=== PATIENT | female | born 1945 | race Caucasian/White ===

== ENCOUNTER 2022-08-04 13:48 | Inpatient (IN) | payer MEDICARE, BC, SELFPAY ==
--- NOTE | ~2022-08-04 | MR_ITS ---
MRI of the brain Clinical History: Vertigo Technique: Axial and sagittal T1-weighted images were acquired. These were followed by axial T2-weigh elvis, diffusion weighted, gradient, and FLAIR images. Findings: There is extensive restricted diffusion in the medial, inferior right cerebellum, compatibl e with acute infarct, probably in the right PICA distribution. No other acute infarct identified. No acute intracranial hemorrhage identified. Tiny foci of hemosiderin noted in the right thalamus. There are moderate to advanced chronic white matter changes throughout the periventricular white matter ot herwise. Ventricles and subarachnoid spaces are unremarkable. Orbits are unremarkable. Major intracranial flow voids appear to be intact. There is right maxillary and bilateral ethmoid sinus disease. Remaining p aranasal sinuses and mastoid air cells are essentially clear. Sagittal midline structures are intact. 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 Moderate to advanced chronic microvascular ischemic changes. Tiny foci of hemosiderin the right thalamus are consistent with remote microhemorrhages. No acute hem orrhage seen. Reviewed, dictated and finalized at location M. 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 Moderate to advanced chronic microvascular ischemic changes. Tiny foci of hemosiderin the right thalamus are consistent with remote microhem orrhages. No acute hemorrhage seen.
--- NOTE | ~2022-08-04 | CT_ITS ---
EXAMINATION: CT brain wo con DATE: 08/08/2022 00:08 INDICATION: New onset of occipital headache, neck pain TECHNIQUE: Computed tomography (CT) of the head was performed without intravenous contrast. The mA wa s adjusted according to patient size. Iterative reconstruction technique was employed. Exam dose: 68 1.00 mGy-cm total exam DLP. COMPARISON: August 05, 2022 MRI brain/brainstem FINDINGS: There is diminished attenuation of the posterior medial aspect of the right cerebellar greta sphere consistent with infarct. No intracranial mass lesion or hemorrhage. No other cerebellar or cerebrovascular infarct is noted. No midline shift or mass effect. This is diminished attenuation of the cerebral white matter, likely due to chronic small vessel ische audrey changes. Bilateral vertebral artery and basilar artery and prominent bilateral carotid siphon int ernal carotid artery calcifications are noted. No subdural or epidural hematoma is detected. There is prominent lower right maxillary sinus mucoperiosteal thickening and patchy soft tissue thick ening of the ethmoid air cells bilaterally. The mastoid air cells are normally developed and aerated. No fracture or bone destruction of the cranial vault. IMPRESSION: Right cerebellar hemispheric infarct Cerebral atherosclerosis and chronic small vessel ischemic changes of the cerebral white matter Reviewed, dictated and finalized at [facility]. Reviewed, dictated and finalized at location A. TRIC MOTOR WINDER IMPRESSION: Right cerebellar hemispheric infarct Cerebral atherosclerosis and chronic small vessel ischemic changes of the cereb ral white matter
--- NOTE | ~2022-08-04 | XR_ITS ---
EXAMINATION: XR abdomen/kub 1V DATE: 08/07/2022 14:10 INDICATION: Nausea. TECHNIQUE: A supine view of the abdomen was obtained. COMPARISON: CT abdomen and pelvis 08/04/2022 FINDINGS: There are no dilated loops of bowel. There is a small volume of stool in the colon. IMPRESSION: 1. Normal bowel gas pattern. Reviewed, dictated and finalized at location A. CEMENT AND PAINT MAKER
--- NOTE | ~2022-08-04 | CT_ITS ---
Non-contrast CT scan of the Abdomen and Pelvis Clinical indication: Nausea and vomiting Technique: 5 mm axial scans were obtained through the abdomen and pelvis without intravenous or oral contrast. Dose reduction technique was used on this scan by utilizing automated exposure control and iterative reconstruction technique. The dose-length product (DLP) was 648.75 mGy-cm. COMPARISON: 08/04/2022 Findings: Images through the lung bases reveal no abnormalities. The liver, kidneys, pancreas, and adrenals appear normal. Calcified gallstones are present. Calcified splenic granulomas again noted. There is no aortic aneurysm. There is no evidence of bowel obstruction. Questionable mild wall thickening gastric antrum. Images through the pelvis were performed. There is no evidence of ascites or lymphadenopathy. Urinary bladder is probably distended, otherwise unremarkable. No adnexal mass seen. Stable T11 compression fracture noted. Impression: Questionable mild wall thickening of the gastric antrum. Correlate for gastritis or other inflammator y process. Cholelithiasis. Stable T11 compression fracture. Reviewed, dictated and finalized at [facility]. ACE ROOM SHOP OPTICIAN Impression: Questionable mild wall thickening of the gastric antrum. Correlate for gastriti s or other inflammatory process. Cholelithiasis. Stable T11 compression fracture.
--- NOTE | ~2022-08-04 | CT_ITS ---
EXAMINATION: CT chest abdomen pelvis w con DATE: 08/17/2022 16:54 INDICATION: Hematemesis. TECHNIQUE: Computed tomography (CT) of the chest, abdomen, and pelvis was performed with 100 mL Omnip aque 350 intravenous contrast. Automated exposure control and iterative reconstruction technique were employed. The dose-length product was 1118.36 mGy-cm. COMPARISON: CT abdomen and pelvis 08/09/2022 FINDINGS: CHEST CT: There is mild atelectasis bilaterally. Calcified right lung nodules and calcified right hilar and med iastinal lymph nodes are consistent with old granulomatous disease. There are small pleural effusions . The heart size is normal. There are coronary artery calcifications. There are calcifications of aor tic valve. No pericardial effusion. There is ectasia of ascending aorta measuring 4.6 cm. There is a chronic burst fracture of T11. ABDOMEN/PELVIS CT: The liver demonstrates focal steatosis adjacent to the falciform ligament. Calcifications in the sple en are consistent with old granulomatous disease. There are gallstones in the gallbladder, which is n ormal in size. There is a 4 mm cyst in the tail of the pancreas, likely benign. Calcifications in the pancreas are consistent with chronic pancreatitis. The adrenal glands and kidneys are normal. There is high attenuation material in the superior aspect of the body of the stomach. There is wall thicken ing of the gastric antrum and pylorus. Stool distends the rectum. There is prominent fat in the ingui nal canals that may be hernias. There are changes of appendectomy. There are no dilated loops of kirk l. There is moderate to severe stenosis of right renal artery. There are no pathologically enlarged l ymph nodes. There is no free intraperitoneal fluid. There is severe lower lumbar spondylosis. IMPRESSION: 1. High attenuation material in the superior aspect of the body of the stomach, which may be active e xtravasation of contrast. 2. Wall thickening of the gastric antrum and pylorus suspicious for gastritis. Reviewed, dictated and finalized at location A. GER ACCESS IMPRESSION: 1. High attenuation material in the superior aspect of the body of the stomach, which may be active extravasation of contrast. 2. Wall thickening of the gastric antrum and pylorus suspicious for gastritis.
--- NOTE | ~2022-08-04 | XR_ITS ---
XR chest 1V portable 08/27/2022 10:29 Indication: Cough. Procedure: AP portable chest Comparison: No prior studies for comparison. Findings: Borderline heart size. There is atherosclerosis and ectasia of the aorta. No focal air spac e disease, pulmonary edema, pleural effusion or suspected pneumothorax. There is an old left seventh rib fracture. Generalized osteopenia. Impression: 1: No acute cardiopulmonary disease. Reviewed, dictated and finalized at location L. PROMOTION AGENT Impression: 1: No acute cardiopulmonary disease.
--- NOTE | ~2022-08-04 | CT_ITS ---
EXAMINATION: CT abdomen pelvis w con INDICATION: Intractable vomiting TECHNIQUE: Computed tomographic images of the abdomen and pelvis were obtained after the administrati on of 100 cc of Omnipaque 350 intravenous contrast. The dose-length product (DLP) was 470.31 mGy-cm. Automated exposure control and iterative reconstruction technique were employed. COMPARISON: None available FINDINGS: Minimal dependent atelectasis is present in the lung bases. The heart size is normal. There is mild wall thickening of the distal stomach. There is focal steatosis of the liver adjacent to the ligamentum teres. Stones are present in the nondistended gallbladder. Punctate calcifications in an otherwise normal spleen likely represent healed granulomatous disease. The pancreas and adrenal gland s are normal. The kidneys are unremarkable. No pathologically enlarged abdominal or pelvic lymph node s are identified. No free intraperitoneal gas or evidence of bowel obstruction. There is mild lumbar spondylosis. There is an age-indeterminate compression fracture of T11. IMPRESSION: 1. Mild wall thickening of the distal stomach which could be due to incomplete distention or gastriti s. 2. Cholelithiasis without evidence of cholecystitis. Reviewed, dictated and finalized at location L. STRIAL SPRAY PAINTER IMPRESSION: 1. Mild wall thickening of the distal stomach which could be due to incomplete distention or gastritis. 2. Cholelithiasis without evidence of cholecystitis.
--- NOTE | ~2022-08-04 | MR_ITS ---
MRI of the brain Clinical History: Vomiting Technique: Axial and sagittal T1-weighted images were acquired. These were followed by axial T2-weigh elvis, diffusion weighted, gradient, and FLAIR images. COMPARISON: 08/05/2022 Findings: Right PICA distribution infarct is essentially unchanged, persistent FLAIR and diffusion-we ighted hyperintense signal. No new infarct identified. Stable small foci of hemosiderin in the right thalamus on gradient images. Moderate to extensive chronic white matter changes in the periventricula r white matter are unchanged. Ventricles and subarachnoid spaces are stable. Orbits are unremarkable. Paranasal sinuses and mastoid air cells are clear. Sagittal midline structures are intact. IMPRESSION: Acute to subacute right PICA distribution infarct is unchanged from prior exam. Stable chronic white matter changes and small foci of hemosiderin in the right thalamus. Reviewed, dictated and finalized at [facility]. ITY AIRCREWMAN
[2022-08-04 13:51] VITALS: BP 155/87; PULSE 58; RESP 18; TEMP 36.8; O2SAT 98
--- NOTE | 2022-08-04 13:53 | ECG_ITS ---
Measurements Intervals [place] Rate: 68 P: 21 AR: 175 QRS: 6 QRSD: 110 T: 56 QT: 438 QTc: 466 Interpretive Statements SINUS RHYTHM NO PREVIOUS ECG AVAILABLE FOR COMPARISON Electronically Signed On 08-04-2022 15:00:32 RESEARCH PROFESSIONAL by Shoshana Juarez M.D.
[2022-08-04 14:19] LABS: Basophils Percent Auto 0.3 % (0.2-1.2); Eosinophils Percent Auto 0.2 % (0-4.4); Hematocrit 47.7 % (37.0-47.0); Hemoglobin 15.7 g/dL (12.0-15.0); Immature Granulocyte Absolute 0.03 K/mm3 (0.00-0.031); Immature Granulocyte Percent A 0.5 % (0-0.5); Lymphocytes Absolute Auto 1.13 K/mm3 (0.9-3.2); Mean Corpuscular HGB Conc 32.9 g/dl (32-36); Mean Corpuscular Volume 91.2 fl (80-100); Monocytes Absolute Auto 0.4 K/mm3 (0.1-0.6); Monocytes Percent Auto 6.9 % (2.6-8.5); Neutrophils Absolute Auto 4.4 K/mm3 (1.3-6.7); Neutrophils Percent Auto 73.1 % (45.5-73.1); Platelet Count Result 169 k/mm3 (150-375); Red Blood Count 5.23 M/mm3 (4.2-5.4); Red Cell Distribution Width 13.3 % (11.5-14.5)
[2022-08-04 14:37] LABS: Alanine Aminotransferase 29 U/L (6-35); Albumin Level 4.6 g/dL (3.5-5.1); Alkaline Phosphatase 74 U/L (38-126); Anion Gap 7 mmol/L (8-16); Aspartate Amino Transferase 31 U/L (14-36); Bilirubin,Total 1.2 mg/dL (0.2-1.3); Blood Urea Nitrogen 21 mg/dL (7-17); Calcium 8.7 mg/dL (8.4-10.2); Carbon Dioxide 26 mmol/L (22-30); Chloride 97 mmol/L (98-107); Estimated CRCL calculation 60 ml/min; Estimated Glomerular Filt Rate > 60; Glucose 108 mg/dL (65-110); Potassium 3.4 mmol/L (3.4-5.0); Sodium 130 mmol/L (137-145)
[2022-08-04] MEDS: SODIUM CHLORIDE 0.9% IV 1,000 ML 999 ML IV CONT ×2 (16:00→18:09)
[2022-08-04 16:26] VITALS: BP 166/78; PULSE 70; RESP 20; O2SAT 100
--- NOTE | 2022-08-04 16:26 | ED.GENADULT ---
HPI - General Adult General Chief complaint: Weakness Stated complaint: dizzy/weak/nauseated Time Seen by Provider: 08/04/22 14:05 History of Present Illness HPI narrative: Patient is a 76-year-old female with history of insulin-dependent diabetes, hypothyroidism, hyperlipidemia presenting with vomiting and weakness. Patient was in her normal state of health until approximately 3 days. Patient lives independently and completes all of her ADLs independently. Starting 3 days ago, she developed numerous episodes of vomiting. States that she was unable to keep anything down on Wednesday so she was seen at another ER. They diagnosed her with dehydration and discharged her home with Zofran. Patient states that she has been taking the Zofran every 8 hours as prescribed but she continues to vomit. States that she has only been able to keep a small bowl of cereal down. She has been increasingly weak and has required more assistance even just getting up to go to the bathroom. Denies fevers or chills, chest pain, shortness of breath, abdominal pain, diarrhea, constipation, dysuria, leg swelling. Related Data Home Medications Medication Instructions Recorded Confirmed aspirin 81 mg tablet,delayed 81 mg PO DAILY 06/18/20 08/04/22 release (Adult Aspirin Regimen) cholecalciferol (vitamin D3) 10 5,000 unit PO DAILY 06/18/20 08/04/22 mcg (400 unit) capsule cyanocobalamin (vitamin B-12) 100 mcg subcut MONTHLY 06/18/20 08/04/22 1,000 mcg/mL injection solution denosumab 60 mg/mL subcutaneous 6 mg subcut [id number] 06/18/20 08/04/22 syringe (Prolia) gabapentin 400 mg capsule 400 mg PO TID 06/18/20 08/04/22 insulin lispro [Humalog KwikPen See Rx Instructions .Route .COMPLEX 06/18/20 08/04/22 Insulin] levothyroxine 100 mcg capsule 88 mcg PO EVERY OTHER DAY 06/18/20 08/04/22 pravastatin 40 mg tablet 40 mg PO DAILY 06/18/20 08/04/22 Daily Probiotic (10 Strains) 1 tab-cap PO DAILY 08/04/22 08/04/22 omega-3 fatty acids 2,400 mg PO DAILY 08/04/22 08/04/22 Allergies Allergy/AdvReac Type Severity Reaction Status Date / Time No Known Allergies Allergy Verified 07/16/20 10:15 Review of Systems Review of Systems: All systems reviewed & are unremarkable except as noted in HPI and below PMFSH Past Medical History Medical History (Updated 08/05/22 @ 22:57 by Nancy Lott MD) Arthritis Diabetes Diabetic neuropathy High cholesterol History of TIA (transient ischemic attack) Pernicious anemia Thyroid disease TIA (transient ischemic attack) Vitiligo Surgical History Surgical History (Updated 08/04/22 @ 23:46 by Tania Eng NP) H/O cataract extraction H/O wrist surgery History of appendectomy History of delivery History of hysterectomy History of knee surgery Family History Family History Father Heart disease Mother Heart disease Sibling Heart disease Social History Social History (Updated 08/04/22 @ 23:48 by Tania Eng NP) 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 It she has a son. -code status full code Smoking status: Never smoker Alcohol intake: current Drinks per week: 1 Lack of Transportation: No Lack of Food: Never True Current Housing: I Have Housing Concerned About Future Housing: No Difficulty Paying Gas/Electric Bills: No Difficulty Paying for Meds: No Currently Unemployed: No Education: Associate Degree Difficulty w/ Childcare or Family Care: No Spiritual care concerns: No Exam Narrative: GENERAL: Well-appearing, well-nourished, and in no acute distress. HEAD: Normocephalic, atraumatic. EYES: PERRLA and EOMI. ENT: Nares clear, no rhinorrhea or epistaxis. Mucous membranes dry NECK: Supple. CHEST: Clear to auscultation. No respiratory distress. HEART: Regular rate and rhythm. Normal peripheral pulses. ABDOMEN: Soft, nontender
[2022-08-04 16:40] LABS: Appearance Urine Clear (Clear); Bilirubin Urine Negative (Negative); Blood Urine Negative (Negative); Color Urine Yellow (Yellow); Glucose Urine UA Trace mg/dL (Negative); Ketones Urine 2+ mg/dL (Negative); Leukocyte Esterase Ur Negative LEU/UL (Negative); Nitrate Urine Negative (Negative); Protein Urine Negative (Negative); Specific Grav Ur 1.015 (1.001-1.035)
[2022-08-04 16:55] LABS: Mucus Urine Rare /lpf; RBC Urine 0-2 /hpf (0-2); Squamous Epithelial Cell Urine Rare /hpf (Few); WBC Urine 0-3 /hpf
[2022-08-04 17:03] LABS: Add Urine Microscopic? YES
[2022-08-04 17:42] LABS: Lipase 63 U/L (23-300)
[2022-08-04 17:59] LABS: Lactic Acid Reflex < 0.5 mmol/L (0.7-2.0)
[2022-08-04] MEDS: FAMOTIDINE 20 MG/2 ML VIAL IV PUSH (18:09)
[2022-08-04 18:10] VITALS: BP 164/81; PULSE 71; RESP 19; O2SAT 100
[2022-08-04 18:12] LABS: Influenza A QL RT-PCR Negative (Negative); Influenza B QL RT-PCR Negative (Negative); SARS-CoV-2 RNA PCR Negative
--- NOTE | 2022-08-04 19:29 | PC.NURSE ---
Pt states she feels much better than when she arrived. She is alert and oriented x4, speech is clear, pupils are PEARRL. She denies any pain at this time. Son is at bedside. No questions or concerns at this time.
[2022-08-04 19:31] VITALS: BP 156/83; PULSE 68; RESP 18; O2SAT 99
[2022-08-04 21:00] VITALS: BP 177/81; PULSE 95; RESP 16; TEMP 36.2; O2SAT 100
[2022-08-04 21:10] LABS: Glucose Point of Care 105 mg/dl (65-105)
[2022-08-04] MEDS: hydrALAZINE HCL 20 MG/ML VIAL 10 MG IV PUSH (22:31)
[2022-08-04] MEDS: ONDANSETRON INJ 4 MG/2 ML VIAL IV PUSH (23:31)
--- NOTE | 2022-08-04 23:41 | PM.IMHP ---
H&P: HPI History of Present Illness Date/Time: 08/04/22 23:41 Chief Complaint: Weakness Narrative: This is a 76-year-old female patient who has a history of insulin-dependent diabetes and is on insulin pump that she manages on her own. The patient came into the emergency room with nausea vomiting and weakness. The patient stated that this started 3 days ago she had numerous episodes of vomiting. She could not keep anything down on Wednesday so she went to another ER. She was diagnosed with dehydration and sent home with Zofran. The patient had been taking Zofran every 8 hours as prescribed and she still continued to vomit. The patient was so weak that she needed assistance to go to the bathroom. She denied any fever chills or any diarrhea. Abdominal pelvis CT was read as the following1. Mild wall thickening of the distal stomach which could be due to incomplete distention or gastritis. 2. Cholelithiasis without evidence of cholecystitis. The patient was given IV fluids, and Pepcid The patient is dehydrated her H&H is 15.7 and 47.7 sodium 130. Lactic was normal. The urine had some ketones but otherwise negative for UTI. Influenza A/B and COVID are all negative. The patient is being admitted to observation status on the date of service of 08/04/2022. Review of Systems Review of Systems: See HPI All systems reviewed & are unremarkable except as noted in HPI and below Constitutional: Constitutional: Reports as per HPI and Reports no additional constitutional complaints Eyes: Eyes: Reports as per HPI and Reports no additional eye complaints ENT: Reports system reviewed and no additional complaints, except as documented and Reports Normal hearing present Cardiovascular: Cardiovascular: Reports no additional cardiovascular complaints Respiratory: Respiratory: Reports no additional respiratory complaints and Reports no additional respiratory complaints Gastrointestinal: Gastrointestinal: Reports as per HPI and Reports no additional gastrointestinal complaints Musculoskeletal: Musculoskeletal: Reports no additional musculoskeletal complaints Integumentary/Breasts: Skin/Breast: Reports system reviewed and no additional complaints, except as docu and Reports as per HPI Neurologic: Reports system reviewed and no additional complaints, except as documented, Reports as per HPI and Reports Normal hearing present Psychiatric: Psychiatric: Reports no additional psychiatric complaints and Reports as per HPI Endocrine: Endocrine: Reports no additional endocrine complaints Hematologic/Lymphatic: Hematologic/Lymphatic: Reports no additional hematologic/lymphatic complaints Allergic/Immunologic: Allergic/Immunologic: Reports no additional allergic/immunologic complaints PMFSH Past Medical History Medical History (Updated 08/04/22 @ 23:53 by Tania Eng NP) Arthritis Diabetes Diabetic neuropathy High cholesterol History of TIA (transient ischemic attack) Pernicious anemia Thyroid disease TIA (transient ischemic attack) Vitiligo Surgical History Surgical History (Updated 08/04/22 @ 23:46 by Tania Eng NP) H/O cataract extraction H/O wrist surgery History of appendectomy History of delivery History of hysterectomy History of knee surgery Family History Family History Father Heart disease Mother Heart disease Sibling Heart disease Social History Social History (Updated 08/04/22 @ 23:48 by Tania Eng NP) 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 It she has a son. -code status full code Smoking status: Never smoker Alcohol intake: current Drinks per week: 1 Lack of Transportation: No Lack of Food: Never True Current Housing: I Have Housing Concerned About Future Housing: No Difficulty Paying Gas/Electric Bills: No Difficulty Paying for Meds: No Currently
[2022-08-04 23:49] VITALS: BP 137/62; PULSE 70; RESP 18; O2SAT 97
[2022-08-05] MEDS: GABAPENTIN 400 MG CAPSULE PO ×4 (00:46→20:40)
[2022-08-05] MEDS: SODIUM CHLORIDE 0.9% IV 1,000 ML 100 ML IV CONT ×3 (01:09→20:40)
[2022-08-05 05:10] VITALS: BP 132/62; PULSE 71; RESP 16; TEMP 36.3; O2SAT 97
[2022-08-05] MEDS: LEVOTHYROXINE SODIUM 88 MCG TABLET PO (05:52)
[2022-08-05 06:37] LABS: Basophils Percent Auto 0.3 % (0.2-1.2); Eosinophils Percent Auto 0.2 % (0-4.4); Hematocrit 42.3 % (37.0-47.0); Immature Granulocyte Absolute 0.03 K/mm3 (0.00-0.031); Immature Granulocyte Percent A 0.5 % (0-0.5); Lymphocytes Absolute Auto 0.98 K/mm3 (0.9-3.2); Lymphocytes Percent Auto 16.2 % (18.3-44.2); Mean Corpuscular HGB Conc 33.1 g/dl (32-36); Mean Corpuscular Hemoglobin 30.4 pg (26-34); Mean Corpuscular Volume 91.8 fl (80-100); Mean Platelet Volume 10.2 fl (7.4-10.4); Monocytes Absolute Auto 0.4 K/mm3 (0.1-0.6); Monocytes Percent Auto 6.9 % (2.6-8.5); Neutrophils Absolute Auto 4.6 K/mm3 (1.3-6.7); Neutrophils Percent Auto 75.9 % (45.5-73.1); Platelet Count Result 137 k/mm3 (150-375); Red Blood Count 4.61 M/mm3 (4.2-5.4); Red Cell Distribution Width 13.5 % (11.5-14.5); White Blood Count 6.1 K/mm3 (4.5-10.0)
[2022-08-05 06:50] LABS: Lactic Acid Reflex 0.7 mmol/L (0.7-2.0)
[2022-08-05] MEDS: ONDANSETRON INJ 4 MG/2 ML VIAL IV PUSH (06:51)
[2022-08-05 06:54] LABS: Alanine Aminotransferase 24 U/L (6-35); Albumin Level 3.7 g/dL (3.5-5.1); Alkaline Phosphatase 55 U/L (38-126); Anion Gap 7 mmol/L (8-16); Aspartate Amino Transferase 27 U/L (14-36); Bilirubin,Total 0.9 mg/dL (0.2-1.3); Blood Urea Nitrogen 15 mg/dL (7-17); Calcium 7.1 mg/dL (8.4-10.2); Carbon Dioxide 22 mmol/L (22-30); Chloride 103 mmol/L (98-107); Estimated CRCL calculation 73 ml/min; Estimated Glomerular Filt Rate > 60; Glucose 106 mg/dL (65-110); Phosphorus 2.5 mg/dL (2.5-4.5); Potassium 2.9 mmol/L (3.4-5.0); Sodium 132 mmol/L (137-145)
[2022-08-05] MEDS: ASPIRIN 81 MG ENTERIC TABLET PO (09:09)
[2022-08-05] MEDS: FAMOTIDINE 20 MG/2 ML VIAL IV PUSH ×2 (09:09→20:40)
[2022-08-05 09:52] LABS: Free T4 Free Thyroxine Reflex 1.19 ng/dL (0.78-2.19)
[2022-08-05 10:42] VITALS: O2SAT 98
[2022-08-05] MEDS: POTASSIUM CHLORIDE INJ 40 MEQ in SODIUM CHLORIDE 0.9% IV 500 ML 100 MEQ IVPB (10:45)
[2022-08-05 10:49] LABS: Total Triiodothyronine (T3) 0.56 NG/ML (0.97-1.69)
[2022-08-05 11:30] VITALS: BMI 33.6
--- NOTE | 2022-08-05 11:54 | PM.IMPN ---
Progress Note: A&P Assessment and Plan (1) Intractable nausea and vomiting: Code(s): R11.2 - Nausea with vomiting, unspecified Status: Acute Assessment and Plan: Continue with IV fluids -continue with Pepcid -monitor magnesium electrolytes. (2) Diabetes: Code(s): E11.9 - Type 2 diabetes mellitus without complications Status: Acute Assessment and Plan: The patient stated that she would be able to continue using her DEXA, and insulin pump and she will sign the agreement. (3) Thyroid disease: Code(s): E07.9 - Disorder of thyroid, unspecified Status: Acute Assessment and Plan: -check thyroid level and continue with levothyroxine. (4) TIA (transient ischemic attack): Code(s): G45.9 - Transient cerebral ischemic attack, unspecified Status: Acute Assessment and Plan: Continue with aspirin. Continue with pravastatin (5) Diabetic neuropathy: Code(s): E11.40 - Type 2 diabetes mellitus with diabetic neuropathy, unspecified Status: Acute Assessment and Plan: Continue with gabapentin Subjective Date/time seen: 08/05/22 11:54 No new complaints Exam Const: General: cooperative, healthy appearing, comfortable, no acute distress, well developed, alert, awake, Physically active, average body habitus and well nourished Nutritional Appearance: average body habitus and well nourished Orientation/consciousness: oriented to person, oriented to place, oriented to time and patient oriented x3 Limitations: no limitations HENMT: Head: normal to inspection, No palpable skull fracture present, normocephalic and atraumatic Ears: hearing grossly normal bilaterally and external ears normal Face/Nose/Sinus: Normal external nose present and Normal nares present Eyes: General: appearance normal, both eyes and all related structures Alignment and Position: alignment normal Periorbital: periorbital findings normal Eyelids: eyelids normal Sclera: sclerae normal Pupils: Equal, round and reactive pupils present EOM: EOMs intact bilaterally Neck: Neck: normal visual inspection, full ROM, no lymphadenopathy, trachea midline and supple Chest: Chest palpation & inspection: normal inspection of the chest Resp: Effort & Inspection: normal respiratory effort Auscultation: clear to auscultation bilaterally Cardio: Palpation: normal PMI Rate: regular rate Rhythm: regular rhythm Heart sounds: S1 normal heart sound present and S2 normal heart sound present Peripheral pulses: Peripheral pulses 2+ throughout GI: Inspection: normal to inspection Auscultation: normal bowel sounds Rectal Exam: deferred Other: DEXA, intact and insulin pump intact Back/Spine/Pelvis: Cervical Spine: cervical ROM normal Skin: General skin exam: normal color Lesions: no lesions Rashes: no rashes Trauma: no lacerations or abrasions Wounds: no wounds Hair: normal Nails: normal Neuro: General: oriented to person, oriented to place, oriented to time and patient oriented x3 Cranial nerves: Yes Equal, round and reactive pupils present and Yes Normal hearing present Cognition (Neuro): normal cognition Speech: normal speech Gait exam (Neuro): Normal gait present Motor exam (neuro): 5/5 motor strength present throughout Sensory Exam: normal sensation Extrem: General: normal to inspection Right upper extremity: normal to inspection and shoulder/upper arm Left upper extremity: normal to inspection and shoulder/upper arm Right lower extremity: normal to inspection Left lower extremity: normal to inspection Psych: Appearance: grossly normal Mental Status: mental status grossly normal Speech and movement: Normal speech and movement present Affect: normal affect Attitude: cooperative Thought process: Normal thought process present Insight: Good insight present (Psych) Judgement: Good judgement present (Psych) Objective Data Vital Signs Vital Signs: Vital Signs - 24 hr 02/0
--- NOTE | 2022-08-05 12:07 | PC.NURSE ---
patient to MRI per stretcher
[2022-08-05 13:59] VITALS: BP 121/104; PULSE 73; RESP 16; TEMP 36.3; O2SAT 100
[2022-08-05 16:22] LABS: Glucose Point of Care 159 mg/dl (65-105)
[2022-08-05 19:12] LABS: Potassium 3.2 mmol/L (3.4-5.0)
[2022-08-05 21:20] VITALS: BP 163/78; PULSE 65; RESP 16; TEMP 36.3; O2SAT 98
[2022-08-05 21:28] LABS: Glucose Point of Care 173 mg/dl (65-105)
[2022-08-05] MEDS: POTASSIUM CHLORIDE 20 MEQ PACKET (FOR LIQUID) PO (23:33)
--- NOTE | 2022-08-06 | ECHO_ITS ---
Patient Info Name: Carrie Downs Age: 76 years : 1945 Gender: Female Ht: 64 in Wt: 195 lbs BSA: 2.03 m2 HR: 71 bpm BP: 133 / 75 mmHg Technical Quality: Fair Exam Date: 08/06/2022 2:01 PM Exam Location: [facility] Pulmonary Exam Room: [facility] Patient Status: Inpatient Admit Date: 08/05/2022 Staff Ordering Physician: Hammad Almaraz MD Commissary Assistant: Latasha Harmon RDCS Attending Provider: Mir Carrera MD Referring Physician: Sung SAENZ; Exam Type: CA echo doppler color flow Study Info Indications - CVA Complete two-dimensional, color flow and Doppler transthoracic echocardiogram is performed. Summary 1. Complete two-dimensional, color flow and Doppler transthoracic echocardiogram is performed. 2. Left ventricular chamber dimension is normal. 3. Left ventricular systolic function is normal, estimated at 60-65%. 4. There is mild concentric increased left ventricular wall thickness. 5. The left ventricular diastolic function is grade I diastolic dysfunction. 6. E/e' 13 is mildly elevated. 7. Left atrial chamber dimension is moderately enlarged. 8. There is moderate aortic valve sclerosis. 9. There is mild aortic valve stenosis with a peak velocity of 258 cm/s, mean gradient of 15 mmHg, and aortic valve area of 1.8 cm2. 10. There is mild aortic valve regurgitation. 11. The mitral valve has mildly thickened leaflets and moderately calcified annulus. 12. There is trace tricuspid valve regurgitation. 13. No pulmonary hypertension, estimated pulmonary arterial systolic pressure is 30 mmHg. 14. The prox ascending aorta size is borderline dilated at 4.0 cm. Left Ventricle E/e' 13 is mildly elevated. Left ventricular chamber dimension is normal. Left ventricular systolic function is normal, estimated at 60-65%. There is mild concentric increased left ventricular wall thickness. The left ventricular diastolic function is grade I diastolic dysfunction. Right Ventricle Right ventricular chamber dimension is normal. Right ventricular systolic function is normal. Left Atria Left atrial chamber dimension is moderately enlarged. Right Atria Right atrial chamber dimension is normal. Aortic Valve The aortic valve is trileaflet. There is moderate aortic valve sclerosis. There is mild aortic valve stenosis with a peak velocity of 258 cm/s, mean gradient of 15 mmHg, and aortic valve area of 1.8 cm2. There is mild aortic valve regurgitation. Pulmonic Valve There is no pulmonic regurgitation. Mitral Valve The mitral valve has mildly thickened leaflets and moderately calcified annulus. There is no mitral valve stenosis. There is no mitral valve regurgitation. Tricuspid Valve There is trace tricuspid valve regurgitation. No pulmonary hypertension, estimated pulmonary arterial systolic pressure is 30 mmHg. Pericardium/Pleural There is no pericardial effusion. Inferior Vena Cava Normal inferior vena cava with >50% collapse upon inspiration consistent with normal right atrial pressure, 5 mmHg. Aorta The prox ascending aorta size is borderline dilated at 4.0 cm. The aortic root size at the sinus of Valsalva is normal. Left Ventricular Outflow Tract Name Value Normal LVOT 2D
[2022-08-06] MEDS: ONDANSETRON INJ 4 MG/2 ML VIAL IV PUSH ×4 (01:18→23:04)
[2022-08-06 05:03] VITALS: BP 133/75; PULSE 78; RESP 16; TEMP 36.3; O2SAT 99
[2022-08-06 06:34] LABS: Anion Gap 7 mmol/L (8-16); Blood Urea Nitrogen 8 mg/dL (7-17); Calcium 6.6 mg/dL (8.4-10.2); Carbon Dioxide 21 mmol/L (22-30); Chloride 102 mmol/L (98-107); Estimated CRCL calculation 86 ml/min; Estimated Glomerular Filt Rate > 60; Glucose 180 mg/dL (65-110); Potassium 3.1 mmol/L (3.4-5.0); Sodium 130 mmol/L (137-145)
[2022-08-06] MEDS: SODIUM CHLORIDE 0.9% IV 1,000 ML 100 ML IV CONT (07:04)
[2022-08-06 07:41] LABS: Glucose Point of Care 175 mg/dl (65-105)
[2022-08-06] MEDS: POTASSIUM CHLORIDE INJ 40 MEQ in SODIUM CHLORIDE 0.9% IV 500 ML 130 MEQ IVPB (08:43)
[2022-08-06] MEDS: CLOPIDOGREL BISULFATE 75 MG TABLET PO (09:13)
[2022-08-06] MEDS: ASPIRIN 81 MG ENTERIC TABLET PO (09:13)
[2022-08-06] MEDS: FAMOTIDINE 20 MG/2 ML VIAL IV PUSH ×2 (09:13→20:25)
[2022-08-06] MEDS: PRAVASTATIN SODIUM 20 MG TABLET 40 MG PO (09:13)
[2022-08-06] MEDS: GABAPENTIN 400 MG CAPSULE PO ×2 (09:13→17:47)
[2022-08-06 11:36] LABS: Glucose Point of Care 191 mg/dl (65-105)
--- NOTE | 2022-08-06 11:43 | PM.IMPN ---
Progress Note: A&P Assessment and Plan (1) Intractable nausea and vomiting: Code(s): R11.2 - Nausea with vomiting, unspecified Status: Acute Assessment and Plan: Continue with IV fluids -continue with Pepcid -monitor magnesium electrolytes. (2) Diabetes: Code(s): E11.9 - Type 2 diabetes mellitus without complications Status: Acute Assessment and Plan: The patient stated that she would be able to continue using her DEXA, and insulin pump and she will sign the agreement. (3) Thyroid disease: Code(s): E07.9 - Disorder of thyroid, unspecified Status: Acute Assessment and Plan: -check thyroid level and continue with levothyroxine. (4) TIA (transient ischemic attack): Code(s): G45.9 - Transient cerebral ischemic attack, unspecified Status: Acute Assessment and Plan: Acute stroke noted. Neuro consult PTOT Aspirin and Plavix Will get echo (5) Diabetic neuropathy: Code(s): E11.40 - Type 2 diabetes mellitus with diabetic neuropathy, unspecified Status: Acute Assessment and Plan: Continue with gabapentin Subjective Date/time seen: 08/06/22 11:43 Still having some vertigo dizziness and nausea vomiting Exam Const: General: cooperative, healthy appearing, comfortable, no acute distress, well developed, alert, awake, Physically active, average body habitus and well nourished Nutritional Appearance: average body habitus and well nourished Orientation/consciousness: oriented to person, oriented to place, oriented to time and patient oriented x3 Limitations: no limitations HENMT: Head: normal to inspection, No palpable skull fracture present, normocephalic and atraumatic Ears: hearing grossly normal bilaterally and external ears normal Face/Nose/Sinus: Normal external nose present and Normal nares present Eyes: General: appearance normal, both eyes and all related structures Alignment and Position: alignment normal Periorbital: periorbital findings normal Eyelids: eyelids normal Sclera: sclerae normal Pupils: Equal, round and reactive pupils present EOM: EOMs intact bilaterally Neck: Neck: normal visual inspection, full ROM, no lymphadenopathy, trachea midline and supple Chest: Chest palpation & inspection: normal inspection of the chest Resp: Effort & Inspection: normal respiratory effort Auscultation: clear to auscultation bilaterally Cardio: Palpation: normal PMI Rate: regular rate Rhythm: regular rhythm Heart sounds: S1 normal heart sound present and S2 normal heart sound present Peripheral pulses: Peripheral pulses 2+ throughout GI: Inspection: normal to inspection Auscultation: normal bowel sounds Rectal Exam: deferred Other: DEXA, intact and insulin pump intact Back/Spine/Pelvis: Cervical Spine: cervical ROM normal Skin: General skin exam: normal color Lesions: no lesions Rashes: no rashes Trauma: no lacerations or abrasions Wounds: no wounds Hair: normal Nails: normal Neuro: General: oriented to person, oriented to place, oriented to time and patient oriented x3 Cranial nerves: Yes Equal, round and reactive pupils present and Yes Normal hearing present Cognition (Neuro): normal cognition Speech: normal speech Gait exam (Neuro): Normal gait present Motor exam (neuro): 5/5 motor strength present throughout Sensory Exam: normal sensation Extrem: General: normal to inspection Right upper extremity: normal to inspection and shoulder/upper arm Left upper extremity: normal to inspection and shoulder/upper arm Right lower extremity: normal to inspection Left lower extremity: normal to inspection Psych: Appearance: grossly normal Mental Status: mental status grossly normal Speech and movement: Normal speech and movement present Affect: normal affect Attitude: cooperative Thought process: Normal thought process present Insight: Good insight present (Psych) Judgement: Good judgement present (Psych) Objectiv
--- NOTE | 2022-08-06 12:03 | WPDNEURCNPN ---
Assessment and Plan Assessment and plan (1) Diabetes: Code(s): E11.9 - Type 2 diabetes mellitus without complications Status: Acute (2) Intractable nausea and vomiting: Code(s): R11.2 - Nausea with vomiting, unspecified Status: Acute (3) Diabetic neuropathy: Code(s): E11.40 - Type 2 diabetes mellitus with diabetic neuropathy, unspecified Status: Acute (4) Posterior circulation stroke: Code(s): I63.50 - Cerebral infarction due to unspecified occlusion or stenosis of unspecified cerebral artery Status: Acute Plan 1 acute infarct in the right PICA distribution could be compatible with intractable nausea and vomiting 2. Diabetes mellitus 3. Thyroid dysfunction 5. Four diabetic neuropathy. Patient receiving aspirin 81 mg daily has been added to have Plavix 75 mg daily which can be continued for 6 weeks she has also been continued on levothyroxine 88 micro philly give 48 hours along with the pravastatin 40 mg daily and her insulin she will benefit from CTA and echocardiogram. Consult date: 08/06/22 HPI: Carrie Downs is a 76 year old female admitted to the hospital through the emergency room for the complaints of generalized weakness along with dizziness and nausea in addition to ongoing history of 1. Insulin-dependent diabetes mellitus 2. Hypothyroidism 3. Hyperlipidemia her complaints of generalized weakness were associated with vomiting patient does live independently and completes all of her ADLs independently she was diagnosed to have dehydration and was discharged from the ER initially on Zofran but then she was brought to this ER because of the continual vomiting and increasingly becoming more weak her medications included aspirin 81 mg daily gabapentin 400 mg 3 times a day insulin lispro levothyroxine 88 micro g every other day with pravastatin 40 mg daily, is not allergic to any medication but does have ongoing history of diabetes mellitus with neuropathy also hypercholesterolemia and TIAs in the past with history of she has anemia as well, she has never a smoker but does drink alcohol 1 drink per week, initial exam in the ER was nonfocal with normal vital signs blood pressure 155/87 and temp 98.2? she was admitted to the hospital for the hydration with physical therapy and occupation therapy her CBC was normal basic metabolic panel with sodium of 130 lactic acid 0.5 UA negative his screening for influenza a and B and COVID negative, TSH 15.0, MRI today documented acute infarct in right PICA distribution with chronic microvascular changes and tiny foci of hemosiderin in the right thalamus with remote possibility of microhemorrhage Review of Systems Review of Systems: All systems reviewed & are unremarkable except as noted in HPI and below PMFSH Past Medical History Medical History (Updated 08/06/22 @ 12:15 by Kahlil Wilcox MD) Arthritis Diabetes Diabetic neuropathy High cholesterol History of TIA (transient ischemic attack) Pernicious anemia Thyroid disease TIA (transient ischemic attack) Vitiligo Surgical History Surgical History (Updated 08/04/22 @ 23:46 by Tania Eng NP) H/O cataract extraction H/O wrist surgery History of appendectomy History of delivery History of hysterectomy History of knee surgery Family History Family History Father Heart disease Mother Heart disease Sibling Heart disease Social History Social History (Updated 08/04/22 @ 23:48 by Tania Eng NP) 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 It she has a son. -code status full code Smoking status: Never smoker Alcohol intake: current Drinks per week: 1 Lack of Transportation: No Lack of Food: Never True Current Housing: I Have Housing Concerned About Future Housing: No Difficulty Paying Gas/Electric Bills: No Difficulty Paying for Meds:
[2022-08-06 14:00] VITALS: BP 166/80; PULSE 73; RESP 16; TEMP 35.8; O2SAT 99
[2022-08-06 16:25] LABS: Glucose Point of Care 201 mg/dl (65-105)
[2022-08-06 21:01] LABS: Glucose Point of Care 212 mg/dl (65-105)
[2022-08-06 22:00] VITALS: BP 148/80; PULSE 71; RESP 18; TEMP 36.4; O2SAT 100
[2022-08-07] MEDS: LEVOTHYROXINE SODIUM 88 MCG TABLET PO (05:22)
[2022-08-07 06:00] VITALS: BP 160/69; PULSE 60; RESP 18; TEMP 36.3; O2SAT 99
[2022-08-07] MEDS: ONDANSETRON INJ 4 MG/2 ML VIAL IV PUSH ×2 (06:06→20:23)
[2022-08-07 08:05] LABS: Glucose Point of Care 172 mg/dl (65-105)
[2022-08-07] MEDS: FAMOTIDINE 20 MG/2 ML VIAL IV PUSH ×2 (08:52→20:24)
[2022-08-07] MEDS: GABAPENTIN 400 MG CAPSULE PO (08:56)
[2022-08-07] MEDS: PROMETHAZINE HCL 25 MG/ML AMPUL 12.5 MG IV PUSH (09:59)
[2022-08-07 11:00] LABS: Anion Gap 14 mmol/L (8-16); Blood Urea Nitrogen 14 mg/dL (7-17); Carbon Dioxide 17 mmol/L (22-30); Chloride 102 mmol/L (98-107); Estimated CRCL calculation 86 ml/min; Estimated Glomerular Filt Rate > 60; Glucose 191 mg/dL (65-110); Potassium 3.7 mmol/L (3.4-5.0); Sodium 133 mmol/L (137-145)
[2022-08-07] MEDS: CHOLECALCIFEROL 1,000 UNITS TABLET 5000 UNITS PO (11:16)
[2022-08-07] MEDS: ASPIRIN 81 MG ENTERIC TABLET PO (11:16)
[2022-08-07] MEDS: CLOPIDOGREL BISULFATE 75 MG TABLET PO (11:16)
[2022-08-07] MEDS: PRAVASTATIN SODIUM 20 MG TABLET 40 MG PO (11:16)
[2022-08-07] MEDS: OMEGA 3 POLYUNSAT FATTY ACIDS 1 GM CAP 2 GM PO (11:17)
--- NOTE | 2022-08-07 11:25 | P.PNIM_ITS ---
Progress Note: A&P Assessment and Plan (1) Intractable nausea and vomiting: Code(s): R11.2 - Nausea with vomiting, unspecified Status: Acute Assessment and Plan: Continue with IV fluids -continue with Pepcid -monitor magnesium electrolytes. (2) Diabetes: Code(s): E11.9 - Type 2 diabetes mellitus without complications Status: Acute Assessment and Plan: The patient stated that she would be able to continue using her DEXA, and insulin pump and she will sign the agreement. (3) Thyroid disease: Code(s): E07.9 - Disorder of thyroid, unspecified Status: Acute Assessment and Plan: -check thyroid level and continue with levothyroxine. (4) TIA (transient ischemic attack): Code(s): G45.9 - Transient cerebral ischemic attack, unspecified Status: Acute Assessment and Plan: Acute stroke noted. Neuro consult PTOT Aspirin and Plavix Will get echo (5) Diabetic neuropathy: Code(s): E11.40 - Type 2 diabetes mellitus with diabetic neuropathy, unspecified Status: Acute Assessment and Plan: Continue with gabapentin Subjective Date/time seen: 08/07/22 11:25 stil having nausea and occasional emesis Exam Const: General: cooperative, healthy appearing, comfortable, no acute distress, well developed, alert, awake, Physically active, average body habitus and well nourished Nutritional Appearance: average body habitus and well nourished Orientation/consciousness: oriented to person, oriented to place, oriented to time and patient oriented x3 Limitations: no limitations HENMT: Head: normal to inspection, No palpable skull fracture present, normocephalic and atraumatic Ears: hearing grossly normal bilaterally and external ears normal Face/Nose/Sinus: Normal external nose present and Normal nares present Eyes: General: appearance normal, both eyes and all related structures Alignment and Position: alignment normal Periorbital: periorbital findings normal Eyelids: eyelids normal Sclera: sclerae normal Pupils: Equal, round and reactive pupils present EOM: EOMs intact bilaterally Neck: Neck: normal visual inspection, full ROM, no lymphadenopathy, trachea midline and supple Chest: Chest palpation & inspection: normal inspection of the chest Resp: Effort & Inspection: normal respiratory effort Auscultation: clear to auscultation bilaterally Cardio: Palpation: normal PMI Rate: regular rate Rhythm: regular rhythm Heart sounds: S1 normal heart sound present and S2 normal heart sound present Peripheral pulses: Peripheral pulses 2+ throughout GI: Inspection: normal to inspection Auscultation: normal bowel sounds Rectal Exam: deferred Other: DEXA, intact and insulin pump intact Back/Spine/Pelvis: Cervical Spine: cervical ROM normal Skin: General skin exam: normal color Lesions: no lesions Rashes: no rashes Trauma: no lacerations or abrasions Wounds: no wounds Hair: normal Nails: normal Neuro: General: oriented to person, oriented to place, oriented to time and patient oriented x3 Cranial nerves: Yes Equal, round and reactive pupils present and Yes Normal hearing present Cognition (Neuro): normal cognition Speech: normal speech Gait exam (Neuro): Normal gait present Motor exam (neuro): 5/5 motor strength present throughout Sensory Exam: normal sensation Extrem: General: normal to inspection Right upper extremity: normal to inspection and shoulder/upper arm Left upp
[2022-08-07] MEDS: GABAPENTIN 300 MG CAPSULE 600 MG PO ×2 (14:07→21:31)
[2022-08-07 14:25] VITALS: BP 155/78; PULSE 80; RESP 18; TEMP 36.5; O2SAT 92
[2022-08-07 17:58] LABS: Glucose Point of Care 192 mg/dl (65-105)
[2022-08-07] MEDS: MECLIZINE HCL 25 MG TABLET PO (21:13)
[2022-08-07 21:26] LABS: Glucose Point of Care 219 mg/dl (65-105)
[2022-08-07] MEDS: hydrALAZINE HCL 20 MG/ML VIAL 10 MG IV PUSH (21:29)
[2022-08-07 22:00] VITALS: BP 187/81; PULSE 74; RESP 14; TEMP 36.3; O2SAT 97
[2022-08-07 23:00] VITALS: BP 165/78
--- NOTE | 2022-08-07 23:45 | PC.NURSE ---
Patient reporting new onset of occipital headache and neck pain. Patient states she has not experienced this symptom before. Also vertigo has not improved, therefore Meclizine was given as a 1x dose along with nausea medication. Patient also continues to have elevated BP without hydralazine onboard. MANISH Wellington was notified and orders received for a stat CT of brain. And also Dr. Sheikh made aware of new onset of symptoms and continued symptoms. Dr. Sheikh instructed this RN to call back once results have been released.
--- NOTE | 2022-08-08 02:50 | PC.NURSE ---
Dr. Wilcox made aware of CT results. Orders received.
[2022-08-08] MEDS: DEXTROSE 5%/0.45% SOD CHL 1,000 ML 40 ML IV CONT (05:16)
[2022-08-08] MEDS: PROMETHAZINE HCL 25 MG/ML AMPUL 12.5 MG IV PUSH (05:18)
[2022-08-08 06:00] VITALS: BP 158/84; PULSE 87; RESP 16; TEMP 35.7; O2SAT 98
--- NOTE | 2022-08-08 06:13 | PC.NURSE ---
Patient no longer has insulin pump hooked up to her person. Patient solely receiving any kind of coverage per icu staff nurse. Patient however, is NPO now and prior has not been eatingr/t nausea and vomiting.
[2022-08-08 07:44] LABS: Glucose Point of Care 214 mg/dl (65-105)
[2022-08-08] MEDS: FAMOTIDINE 20 MG/2 ML VIAL IV PUSH ×2 (08:22→20:51)
[2022-08-08] MEDS: ASPIRIN 81 MG ENTERIC TABLET PO (08:23)
[2022-08-08] MEDS: CLOPIDOGREL BISULFATE 75 MG TABLET PO (08:23)
[2022-08-08] MEDS: ONDANSETRON INJ 4 MG/2 ML VIAL IV PUSH ×2 (08:25→17:02)
[2022-08-08] MEDS: GABAPENTIN 300 MG CAPSULE 600 MG PO ×2 (08:28→12:09)
--- NOTE | 2022-08-08 10:04 | PCOTNOTE ---
Attempted to see pt for Occupational Therapy treatment. Pt declined to participate today, due to no sleep last night and not feeling well due to diabetic neuropathy pain. Will continue per POC duration/frequency tomorrow.
--- NOTE | 2022-08-08 11:36 | PM.IMPN ---
Progress Note: A&P Assessment and Plan (1) Intractable nausea and vomiting: Code(s): R11.2 - Nausea with vomiting, unspecified Status: Acute Assessment and Plan: Continue with IV fluids -continue with Pepcid -monitor magnesium electrolytes. -I think this can be explained by her posterior circulation CVA. Appreciate Neurology input. -if persists consider GI consult. I will repeat his CT scan (2) Diabetes: Code(s): E11.9 - Type 2 diabetes mellitus without complications Status: Acute Assessment and Plan: The patient stated that she would be able to continue using her DEXA, and insulin pump and she will sign the agreement. (3) Thyroid disease: Code(s): E07.9 - Disorder of thyroid, unspecified Status: Acute Assessment and Plan: -check thyroid level and continue with levothyroxine. (4) TIA (transient ischemic attack): Code(s): G45.9 - Transient cerebral ischemic attack, unspecified Status: Acute Assessment and Plan: Acute stroke noted. Neuro consult PTOT Aspirin and Plavix Will get echo (5) Diabetic neuropathy: Code(s): E11.40 - Type 2 diabetes mellitus with diabetic neuropathy, unspecified Status: Acute Assessment and Plan: Continue with gabapentin Subjective Date/time seen: 08/08/22 11:36 Still having dizziness vertigo and also having some nausea and emesis. KUB noted which is negative. Exam Const: General: cooperative, healthy appearing, comfortable, no acute distress, well developed, alert, awake, Physically active, average body habitus and well nourished Nutritional Appearance: average body habitus and well nourished Orientation/consciousness: oriented to person, oriented to place, oriented to time and patient oriented x3 Limitations: no limitations HENMT: Head: normal to inspection, No palpable skull fracture present, normocephalic and atraumatic Ears: hearing grossly normal bilaterally and external ears normal Face/Nose/Sinus: Normal external nose present and Normal nares present Eyes: General: appearance normal, both eyes and all related structures Alignment and Position: alignment normal Periorbital: periorbital findings normal Eyelids: eyelids normal Sclera: sclerae normal Pupils: Equal, round and reactive pupils present EOM: EOMs intact bilaterally Neck: Neck: normal visual inspection, full ROM, no lymphadenopathy, trachea midline and supple Chest: Chest palpation & inspection: normal inspection of the chest Resp: Effort & Inspection: normal respiratory effort Auscultation: clear to auscultation bilaterally Cardio: Palpation: normal PMI Rate: regular rate Rhythm: regular rhythm Heart sounds: S1 normal heart sound present and S2 normal heart sound present Peripheral pulses: Peripheral pulses 2+ throughout GI: Inspection: normal to inspection Auscultation: normal bowel sounds Rectal Exam: deferred Other: DEXA, intact and insulin pump intact Back/Spine/Pelvis: Cervical Spine: cervical ROM normal Skin: General skin exam: normal color Lesions: no lesions Rashes: no rashes Trauma: no lacerations or abrasions Wounds: no wounds Hair: normal Nails: normal Neuro: General: oriented to person, oriented to place, oriented to time and patient oriented x3 Cranial nerves: Yes Equal, round and reactive pupils present and Yes Normal hearing present Cognition (Neuro): normal cognition Speech: normal speech Gait exam (Neuro): Normal gait present Motor exam (neuro): 5/5 motor strength present throughout Sensory Exam: normal sensation Extrem: General: normal to inspection Right upper extremity: normal to inspection and shoulder/upper arm Left upper extremity: normal to inspection and shoulder/upper arm Right lower extremity: normal to inspection Left lower extremity: normal to inspection Psych: Appearance: grossly normal Mental Status: mental status grossly normal Speech and movement: Normal speech and movem
[2022-08-08 12:04] LABS: Glucose Point of Care 223 mg/dl (65-105)
[2022-08-08] MEDS: INSULIN ASPART (*BKC) 100 UNITS/ML SUB-Q ×2 (12:09→17:02)
[2022-08-08 14:00] VITALS: BP 161/82; PULSE 81; RESP 16; TEMP 36.6; O2SAT 98
[2022-08-08 16:32] LABS: Glucose Point of Care 207 mg/dl (65-105)
--- NOTE | 2022-08-08 21:16 | PC.NURSE ---
Pt request, 2100 gabapentin dose at 0000. Pt states, so it can last the whole night. Pt continues to experience nausea. Pt states phenargen helped a lot more than zofran.
[2022-08-08 22:00] VITALS: BP 159/79; PULSE 80; RESP 16; TEMP 36.6; O2SAT 99
[2022-08-09 00:12] LABS: Glucose Point of Care 216 mg/dl (65-105)
[2022-08-09 05:43] VITALS: BP 195/82; PULSE 69; RESP 16; TEMP 36.2; O2SAT 99
[2022-08-09] MEDS: LEVOTHYROXINE SODIUM 88 MCG TABLET PO (05:53)
[2022-08-09] MEDS: DEXTROSE 5%/0.45% SOD CHL 1,000 ML 40 ML IV CONT (05:53)
[2022-08-09] MEDS: hydrALAZINE HCL 20 MG/ML VIAL 10 MG IV PUSH (05:54)
[2022-08-09 06:12] LABS: Glucose Point of Care 232 mg/dl (65-105)
[2022-08-09 07:07] LABS: Anion Gap 8 mmol/L (8-16); Blood Urea Nitrogen 16 mg/dL (7-17); Calcium 7.1 mg/dL (8.4-10.2); Carbon Dioxide 23 mmol/L (22-30); Chloride 98 mmol/L (98-107); Estimated CRCL calculation 86 ml/min; Estimated Glomerular Filt Rate > 60; Glucose 229 mg/dL (65-110); Potassium 3.3 mmol/L (3.4-5.0); Sodium 129 mmol/L (137-145)
[2022-08-09] MEDS: FAMOTIDINE 20 MG/2 ML VIAL IV PUSH ×2 (08:23→20:36)
[2022-08-09] MEDS: INSULIN ASPART (*BKC) 100 UNITS/ML SUB-Q ×3 (08:24→17:03)
[2022-08-09] MEDS: GABAPENTIN 300 MG CAPSULE 600 MG PO ×4 (08:25→22:36)
[2022-08-09] MEDS: OMEGA 3 POLYUNSAT FATTY ACIDS 1 GM CAP 2 GM PO (08:25)
[2022-08-09] MEDS: CLOPIDOGREL BISULFATE 75 MG TABLET PO (08:26)
[2022-08-09] MEDS: CHOLECALCIFEROL 1,000 UNITS TABLET 5000 UNITS PO (08:26)
[2022-08-09] MEDS: PRAVASTATIN SODIUM 20 MG TABLET 40 MG PO (08:26)
[2022-08-09] MEDS: ASPIRIN 81 MG ENTERIC TABLET PO (08:26)
[2022-08-09 08:28] LABS: Glucose Point of Care 247 mg/dl (65-105)
[2022-08-09] MEDS: POTASSIUM CHLORIDE INJ 40 MEQ in SODIUM CHLORIDE 0.9% IV 500 ML 130 MEQ IVPB (09:19)
--- NOTE | 2022-08-09 09:35 | PCOTNOTE ---
Attempted to see pt for Occupational Therapy treatment. Pt states she just got back from a CT scan and was told she could rest for awhile. During conversation, pt was unable to keep eyes open and was very lethargic. Will continue per POC duration/frequency tomorrow.
--- NOTE | 2022-08-09 11:09 | WPDNEUROPN ---
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 along with the moderate to advanced chronic microvascular ischemic changes and a tiny foci of hemosiderin in the right thalamus consistent with the microhemorrhage she had a CT scan done she also documented right cerebellar hemispheric infarct the labs remained stable except the sodium has dropped down to 129 with potassium 3.3 UA is with ketones and serology is negative she has been continued on IV fluids because nausea and vomiting and her exam has remained stable otherwise and medical treatment is being continued as such she is also continued on aspirin 81 mg daily with pravastatin 40 mg daily she will definitely benefit from the physical therapy and stroke rehab evaluation Objective Data Vital Signs Vital Signs: Vital Signs - 24 hr 08/08/22 14:00 08/08/22 20:00 08/08/22 22:00 Temperature 36.6 C 36.6 C Pulse Rate 81 80 Respiratory Rate 16 16 Blood Pressure 161/82 H 159/79 H Pulse Oximetry 98 99 Oxygen Delivery Room Air 08/09/22 05:43 08/09/22 08:45 Temperature 36.2 C L Pulse Rate 69 Respiratory Rate 16 Blood Pressure 195/82 H Pulse Oximetry 99 Oxygen Delivery Room Air Intake/Output Intake/Output: Intake & Output 08/06/22 08/07/22 08/08/22 08/09/22 23:59 23:59 23:59 23:59 Intake Total 1000 915 178 1084 Output Total 2600 1050 1650 Balance -1600 -800 -1350 1150 Meds/Results Medications: Active Medications Generic Name Dose Route Start Last Admin Trade Name Freq PRN Reason Stop Dose Admin Aspirin 81 mg 08/05/22 09:00 08/09/22 08:26 Aspirin 81 Mg Enteric Tablet PO 81 mg DAILY BHAKTI Administration Clopidogrel Bisulfate 75 mg 08/06/22 09:00 08/09/22 08:26 Clopidogrel Bisulfate 75 Mg Tablet PO 75 mg QAM BHAKTI Administration Dextrose 12.5 gm 08/05/22 13:19 Dextrose 50% 25 Gm/50 Ml Syringe IV PUSH PRN PRN Hypoglycemia Protocol Famotidine 20 mg 08/05/22 09:00 08/09/22 08:23 Famotidine 20 Mg/2 Ml Vial IV PUSH 20 mg Q12HR BHAKTI Administration Fish Oil 2 gm 08/05/22 09:00 08/09/22 08:25 [place] 3 Polyunsat Fatty Acids 1 Gm Cap PO 2 gm QAM BHAKTI Administration Gabapentin 600 mg 08/07/22 21:00 08/09/22 08:25 Gabapentin 300 Mg Capsule PO 600 mg DAILY@0900,1300,2100 BHAKTI Administration Glucagon 1 mg 08/05/22 13:19 Glucagon For Inj 1 Mg Vial IM PRN PRN Hypoglycemia Protocol Glucose 15 gm 08/05/22 13:19 Glucose Oral Gel 15 Gm Of Glucse In 37.5 Gm Tube PO PRN PRN Hypoglycemia Protocol Home Med 1 each 08/05/22 06:00 08/09/22 06:29 Insulin Lispro (Humalog) Per Insulin Pump XX 09/04/22 05:59 Not Given DAILY@0600 BHAKTI Hydralazine HCl 10 mg 08/04/22 23:40 08/09/22 05:54 Hydralazine Hcl 20 Mg/Ml Vial IV PUSH 10 mg Q8H PRN Administration Blood Pressure - High Dextrose 1,000 mls @ 100 mls/hr 08/05/22 13:19 Dextrose 5% 1,000 Ml IVPB PRN PRN Hypoglycemia Protocol Dextrose/Sodium Chloride 1,000 mls @ 40 mls/hr 08/08/22 02:30 08/09/22 05:53 Dextrose 5% Sodium Chloride 0.45% IV CONT 40 mls/hr .Q24H BHAKTI Administration Potassium Chloride 40 meq/ 520 mls @ 130 mls/hr 08/09/22 09:00 08/09/22 09:19 Sodium Chloride IVPB 08/09/22 12:59 130 mls/hr ONCE ONE Administration Insulin Aspart 3 - 6 units 08/05/22 17:00 08/09/22 08:24 Insulin Aspart (*Bkc) 100 Units/Ml SUB-Q 3 units TIDWM BHAKTI Administration Protocol Levothyroxine Sodium 88 mcg 08/05/22 06:30 08/09/22 05:53 Levothyroxine Sodium 88 Mcg Tablet PO 88 mcg Q48H BHAKTI Administration Ondansetron HCl 4 mg 08/04/22 18:01 08/08/22 17:02 Ondansetron Inj 4 Mg/2 Ml Vial IV PUSH 4 mg Q4H PRN Administration Nausea Pravastatin Sodium 40 mg 08/05/22 09:00 08/09/22 08:26
--- NOTE | 2022-08-09 11:26 | PM.IMPN ---
Progress Note: A&P Assessment and Plan (1) Intractable nausea and vomiting: Code(s): R11.2 - Nausea with vomiting, unspecified Status: Acute Assessment and Plan: Continue with IV fluids -continue with Pepcid -monitor magnesium electrolytes. -I think this can be explained by her posterior circulation CVA. Appreciate Neurology input. -if persists consider GI consult. I will repeat his CT scan (2) Diabetes: Code(s): E11.9 - Type 2 diabetes mellitus without complications Status: Acute Assessment and Plan: The patient stated that she would be able to continue using her DEXA, and insulin pump and she will sign the agreement. (3) Thyroid disease: Code(s): E07.9 - Disorder of thyroid, unspecified Status: Acute Assessment and Plan: -check thyroid level and continue with levothyroxine. (4) TIA (transient ischemic attack): Code(s): G45.9 - Transient cerebral ischemic attack, unspecified Status: Acute Assessment and Plan: Acute stroke noted. Continue aspirin Plavix (5) Diabetic neuropathy: Code(s): E11.40 - Type 2 diabetes mellitus with diabetic neuropathy, unspecified Status: Acute Assessment and Plan: Continue with gabapentin Subjective Date/time seen: 08/09/22 11:26 Still having nausea. Exam Const: General: cooperative, healthy appearing, comfortable, no acute distress, well developed, alert, awake, Physically active, average body habitus and well nourished Nutritional Appearance: average body habitus and well nourished Orientation/consciousness: oriented to person, oriented to place, oriented to time and patient oriented x3 Limitations: no limitations HENMT: Head: normal to inspection, No palpable skull fracture present, normocephalic and atraumatic Ears: hearing grossly normal bilaterally and external ears normal Face/Nose/Sinus: Normal external nose present and Normal nares present Eyes: General: appearance normal, both eyes and all related structures Alignment and Position: alignment normal Periorbital: periorbital findings normal Eyelids: eyelids normal Sclera: sclerae normal Pupils: Equal, round and reactive pupils present EOM: EOMs intact bilaterally Neck: Neck: normal visual inspection, full ROM, no lymphadenopathy, trachea midline and supple Chest: Chest palpation & inspection: normal inspection of the chest Resp: Effort & Inspection: normal respiratory effort Auscultation: clear to auscultation bilaterally Cardio: Palpation: normal PMI Rate: regular rate Rhythm: regular rhythm Heart sounds: S1 normal heart sound present and S2 normal heart sound present Peripheral pulses: Peripheral pulses 2+ throughout GI: Inspection: normal to inspection Auscultation: normal bowel sounds Rectal Exam: deferred Other: DEXA, intact and insulin pump intact Back/Spine/Pelvis: Cervical Spine: cervical ROM normal Skin: General skin exam: normal color Lesions: no lesions Rashes: no rashes Trauma: no lacerations or abrasions Wounds: no wounds Hair: normal Nails: normal Neuro: General: oriented to person, oriented to place, oriented to time and patient oriented x3 Cranial nerves: Yes Equal, round and reactive pupils present and Yes Normal hearing present Cognition (Neuro): normal cognition Speech: normal speech Gait exam (Neuro): Normal gait present Motor exam (neuro): 5/5 motor strength present throughout Sensory Exam: normal sensation Extrem: General: normal to inspection Right upper extremity: normal to inspection and shoulder/upper arm Left upper extremity: normal to inspection and shoulder/upper arm Right lower extremity: normal to inspection Left lower extremity: normal to inspection Psych: Appearance: grossly normal Mental Status: mental status grossly normal Speech and movement: Normal speech and movement present Affect: normal affect Attitude: cooperative Thought process: Normal thought process present Ins
[2022-08-09] MEDS: PROMETHAZINE HCL 25 MG/ML AMPUL 12.5 MG IV PUSH ×4 (11:48→21:37)
[2022-08-09 11:51] LABS: Glucose Point of Care 207 mg/dl (65-105)
[2022-08-09 14:00] VITALS: BP 149/78; PULSE 87; RESP 16; TEMP 36.9; O2SAT 97
[2022-08-09 16:50] LABS: Glucose Point of Care 256 mg/dl (65-105)
[2022-08-09] MEDS: ONDANSETRON INJ 4 MG/2 ML VIAL IV PUSH (17:03)
[2022-08-09 20:50] LABS: Glucose Point of Care 188 mg/dl (65-105)
[2022-08-09 21:54] VITALS: BP 166/81; PULSE 82; RESP 18; TEMP 36.6; O2SAT 96
[2022-08-10 05:55] VITALS: BP 118/64; PULSE 76; RESP 18; TEMP 36.4; O2SAT 97
[2022-08-10 06:28] LABS: Alanine Aminotransferase 21 U/L (6-35); Albumin Level 3.6 g/dL (3.5-5.1); Alkaline Phosphatase 52 U/L (38-126); Anion Gap 7 mmol/L (8-16); Aspartate Amino Transferase 23 U/L (14-36); Bilirubin,Total 1.1 mg/dL (0.2-1.3); Blood Urea Nitrogen 14 mg/dL (7-17); Carbon Dioxide 25 mmol/L (22-30); Chloride 101 mmol/L (98-107); Estimated CRCL calculation 86 ml/min; Estimated Glomerular Filt Rate > 60; Glucose 224 mg/dL (65-110); Potassium 3.6 mmol/L (3.4-5.0); Sodium 133 mmol/L (137-145)
[2022-08-10 07:39] LABS: Glucose Point of Care 228 mg/dl (65-105)
[2022-08-10] MEDS: INSULIN ASPART (*BKC) 100 UNITS/ML SUB-Q ×3 (08:08→17:19)
[2022-08-10] MEDS: PROMETHAZINE HCL 25 MG/ML AMPUL 12.5 MG IV PUSH (08:19)
[2022-08-10] MEDS: CHOLECALCIFEROL 1,000 UNITS TABLET 5000 UNITS PO (09:57)
[2022-08-10] MEDS: ASPIRIN 81 MG ENTERIC TABLET PO (09:57)
[2022-08-10] MEDS: CLOPIDOGREL BISULFATE 75 MG TABLET PO (09:57)
[2022-08-10] MEDS: GABAPENTIN 300 MG CAPSULE 600 MG PO ×3 (09:57→22:34)
[2022-08-10] MEDS: FAMOTIDINE 20 MG/2 ML VIAL IV PUSH ×2 (09:58→20:36)
[2022-08-10] MEDS: PRAVASTATIN SODIUM 20 MG TABLET 40 MG PO (09:58)
--- NOTE | 2022-08-10 10:50 | PM.IMPN ---
Progress Note: A&P Assessment and Plan (1) Intractable nausea and vomiting: Code(s): R11.2 - Nausea with vomiting, unspecified Status: Acute Assessment and Plan: Continue with IV fluids continue prn medications -continue with Pepcid -monitor magnesium electrolytes. -I think this can be explained by her posterior circulation CVA. Appreciate Neurology input. -GI consult. CT scan noted (2) Diabetes: Code(s): E11.9 - Type 2 diabetes mellitus without complications Status: Acute Assessment and Plan: The patient stated that she would be able to continue using her DEXA, and insulin pump and she will sign the agreement. (3) Thyroid disease: Code(s): E07.9 - Disorder of thyroid, unspecified Status: Acute Assessment and Plan: -check thyroid level and continue with levothyroxine. (4) TIA (transient ischemic attack): Code(s): G45.9 - Transient cerebral ischemic attack, unspecified Status: Acute Assessment and Plan: Acute stroke noted. Continue aspirin Plavix (5) Diabetic neuropathy: Code(s): E11.40 - Type 2 diabetes mellitus with diabetic neuropathy, unspecified Status: Acute Assessment and Plan: Continue with gabapentin Subjective Date/time seen: 08/10/22 10:50 Dizziness about the same, nausea vomiting is somewhat improved Exam Const: General: cooperative, healthy appearing, comfortable, no acute distress, well developed, alert, awake, Physically active, average body habitus and well nourished Nutritional Appearance: average body habitus and well nourished Orientation/consciousness: oriented to person, oriented to place, oriented to time and patient oriented x3 Limitations: no limitations HENMT: Head: normal to inspection, No palpable skull fracture present, normocephalic and atraumatic Ears: hearing grossly normal bilaterally and external ears normal Face/Nose/Sinus: Normal external nose present and Normal nares present Eyes: General: appearance normal, both eyes and all related structures Alignment and Position: alignment normal Periorbital: periorbital findings normal Eyelids: eyelids normal Sclera: sclerae normal Pupils: Equal, round and reactive pupils present EOM: EOMs intact bilaterally Neck: Neck: normal visual inspection, full ROM, no lymphadenopathy, trachea midline and supple Chest: Chest palpation & inspection: normal inspection of the chest Resp: Effort & Inspection: normal respiratory effort Auscultation: clear to auscultation bilaterally Cardio: Palpation: normal PMI Rate: regular rate Rhythm: regular rhythm Heart sounds: S1 normal heart sound present and S2 normal heart sound present Peripheral pulses: Peripheral pulses 2+ throughout GI: Inspection: normal to inspection Auscultation: normal bowel sounds Rectal Exam: deferred Other: DEXA, intact and insulin pump intact Back/Spine/Pelvis: Cervical Spine: cervical ROM normal Skin: General skin exam: normal color Lesions: no lesions Rashes: no rashes Trauma: no lacerations or abrasions Wounds: no wounds Hair: normal Nails: normal Neuro: General: oriented to person, oriented to place, oriented to time and patient oriented x3 Cranial nerves: Yes Equal, round and reactive pupils present and Yes Normal hearing present Cognition (Neuro): normal cognition Speech: normal speech Gait exam (Neuro): Normal gait present Motor exam (neuro): 5/5 motor strength present throughout Sensory Exam: normal sensation Extrem: General: normal to inspection Right upper extremity: normal to inspection and shoulder/upper arm Left upper extremity: normal to inspection and shoulder/upper arm Right lower extremity: normal to inspection Left lower extremity: normal to inspection Psych: Appearance: grossly normal Mental Status: mental status grossly normal Speech and movement: Normal speech and movement present Affect: normal affect Attitude: cooperative Thought process:
--- NOTE | 2022-08-10 11:18 | WPDGICN ---
Assessment and Plan Assessment and plan (1) Intractable nausea and vomiting: Code(s): R11.2 - Nausea with vomiting, unspecified Status: Acute Assessment and Plan: The symptoms all seem to have begun just a couple days prior to her admission. She states that she has never had a ulcer before. She does recall that several years ago she had endoscopy at [facility]. (2) Diabetes: Code(s): E11.9 - Type 2 diabetes mellitus without complications Status: Acute Assessment and Plan: She manages her diabetes at home with the pump. Here she is on a sliding scale. (3) Posterior circulation stroke: Code(s): I63.50 - Cerebral infarction due to unspecified occlusion or stenosis of unspecified cerebral artery Status: Acute Assessment and Plan: She believes that she had a stroke when she fell twice in the bathroom a few days prior to her admission. She did not want to come to hospital at but finally her son insisted on it. (4) Abnormal CT scan, gastrointestinal tract: Code(s): R93.3 - Abnormal findings on diagnostic imaging of other parts of digestive tract Status: Acute Assessment and Plan: CT scan shows: 1. Mild wall thickening of the distal stomach which could be due to incomplete distention or gastritis. 2. Cholelithiasis without evidence of cholecystitis. a follow-up CT scan is essentially the same. I will schedule her for EGD to be done on Wednesday GI Consult Note Consult date/time: 08/10/22 11:18 HPI: Carrie Downs is a 76 year old female who was admitted here about 1 week ago due to nausea vomiting and weakness that had begun few days prior to that. Complicating this, she is diabetic. She is on insulin pump which she has been managing on her own. She is still having issues with nausea. A CT scan at admission showed mild wall thickening of the distal stomach which is still seen on a follow-up CT scan yesterday.She is presently staring her lunch but states that she is not hungry. She believes that her GI symptoms began after the stroke by that she means that a few days before her admission, she had fainted twice in the bathroom. She checked her blood sugar which was about 115 but after she passed out a 2nd time she came in. Subsequently She states thatit has been determined that she probably had a stroke. her weight has been stable at home. She denies chronic heartburn. Denies dysphagia. Her bowels are usually regular. She has a bowel movement every 2 days but has not had 1 now for 3 days. She is having no abdominal pain she has no history of ulcers. Review of Systems Review of Systems: All systems reviewed & are unremarkable except as noted in HPI and below PMFSH Past Medical History Medical History Arthritis Diabetes Diabetic neuropathy High cholesterol History of TIA (transient ischemic attack) Pernicious anemia Thyroid disease TIA (transient ischemic attack) Vitiligo Surgical History Surgical History H/O cataract extraction H/O wrist surgery History of appendectomy History of delivery History of hysterectomy History of knee surgery Family History Family History Father Heart disease Mother Heart disease Sibling Heart disease Social History Social History 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 It she has a son. -code status full code Smoking status: Never smoker Alcohol intake: current Drinks per week: 1 Lack of Transportation: No Lack of Food: Never True Current Housing: I Have Housing Concerned About Future Housing: No Difficulty Paying Gas/Electric Bills: No Difficulty Paying for Meds: No
[2022-08-10 11:54] LABS: Glucose Point of Care 241 mg/dl (65-105)
[2022-08-10] MEDS: DEXTROSE 5%/0.45% SOD CHL 1,000 ML 40 ML IV CONT (11:55)
[2022-08-10 14:00] VITALS: BP 103/55; PULSE 83; RESP 18; TEMP 37.1; O2SAT 100
[2022-08-10 16:34] LABS: Glucose Point of Care 275 mg/dl (65-105)
[2022-08-10 21:06] LABS: Glucose Point of Care 198 mg/dl (65-105)
[2022-08-10 22:00] VITALS: BP 153/80; PULSE 76; RESP 14; TEMP 36.3; O2SAT 97
[2022-08-11] VITALS (7 sets, daily range): BP systolic 129–155; BP diastolic 64–91; PULSE 67–89; RESP 14–24; TEMP 36.1–36.6; O2SAT 95–100
[2022-08-11] MEDS: LEVOTHYROXINE SODIUM 88 MCG TABLET PO (05:20)
[2022-08-11 08:19] LABS: Glucose Point of Care 231 mg/dl (65-105)
[2022-08-11 08:38] LABS: Basophils Percent Auto 0.6 % (0.2-1.2); Eosinophils Absolute Auto 0.1 K/mm3 (0-0.3); Eosinophils Percent Auto 1.5 % (0-4.4); Hematocrit 45.6 % (37.0-47.0); Hemoglobin 14.1 g/dL (12.0-15.0); Immature Granulocyte Absolute 0.02 K/mm3 (0.00-0.031); Immature Granulocyte Percent A 0.3 % (0-0.5); Lymphocytes Absolute Auto 1.02 K/mm3 (0.9-3.2); Lymphocytes Percent Auto 16.5 % (18.3-44.2); Mean Corpuscular HGB Conc 30.9 g/dl (32-36); Mean Corpuscular Hemoglobin 30.5 pg (26-34); Mean Corpuscular Volume 98.5 fl (80-100); Monocytes Absolute Auto 0.5 K/mm3 (0.1-0.6); Monocytes Percent Auto 7.7 % (2.6-8.5); Neutrophils Absolute Auto 4.6 K/mm3 (1.3-6.7); Neutrophils Percent Auto 73.4 % (45.5-73.1); Platelet Count Result 171 k/mm3 (150-375); Red Blood Count 4.63 M/mm3 (4.2-5.4); Red Cell Distribution Width 13.7 % (11.5-14.5); White Blood Count 6.2 K/mm3 (4.5-10.0)
[2022-08-11 08:48] LABS: Anion Gap 7 mmol/L (8-16); Blood Urea Nitrogen 14 mg/dL (7-17); Calcium 6.8 mg/dL (8.4-10.2); Carbon Dioxide 23 mmol/L (22-30); Chloride 97 mmol/L (98-107); Estimated CRCL calculation 105 ml/min; Estimated Glomerular Filt Rate > 60; Glucose 229 mg/dL (65-110); Potassium 3.6 mmol/L (3.4-5.0); Sodium 127 mmol/L (137-145)
--- NOTE | 2022-08-11 10:56 | PM.IMPN ---
Progress Note: A&P Assessment and Plan (1) Intractable nausea and vomiting: Code(s): R11.2 - Nausea with vomiting, unspecified Status: Acute Assessment and Plan: Continue with IV fluids continue prn medications -continue with Pepcid -monitor magnesium electrolytes. -I think this can be explained by her posterior circulation CVA. Appreciate Neurology input. -GI consult. CT scan noted -plan for EGD (2) Diabetes: Code(s): E11.9 - Type 2 diabetes mellitus without complications Status: Acute Assessment and Plan: The patient stated that she would be able to continue using her DEXA, and insulin pump and she will sign the agreement. (3) Thyroid disease: Code(s): E07.9 - Disorder of thyroid, unspecified Status: Acute Assessment and Plan: -check thyroid level and continue with levothyroxine. (4) TIA (transient ischemic attack): Code(s): G45.9 - Transient cerebral ischemic attack, unspecified Status: Acute Assessment and Plan: Acute stroke noted. Continue aspirin Plavix (5) Diabetic neuropathy: Code(s): E11.40 - Type 2 diabetes mellitus with diabetic neuropathy, unspecified Status: Acute Assessment and Plan: Continue with gabapentin Subjective Date/time seen: 08/11/22 10:56 No new complaints. Still having dizziness and nausea. Exam Const: General: cooperative, healthy appearing, comfortable, no acute distress, well developed, alert, awake, Physically active, average body habitus and well nourished Nutritional Appearance: average body habitus and well nourished Orientation/consciousness: oriented to person, oriented to place, oriented to time and patient oriented x3 Limitations: no limitations HENMT: Head: normal to inspection, No palpable skull fracture present, normocephalic and atraumatic Ears: hearing grossly normal bilaterally and external ears normal Face/Nose/Sinus: Normal external nose present and Normal nares present Eyes: General: appearance normal, both eyes and all related structures Alignment and Position: alignment normal Periorbital: periorbital findings normal Eyelids: eyelids normal Sclera: sclerae normal Pupils: Equal, round and reactive pupils present EOM: EOMs intact bilaterally Neck: Neck: normal visual inspection, full ROM, no lymphadenopathy, trachea midline and supple Chest: Chest palpation & inspection: normal inspection of the chest Resp: Effort & Inspection: normal respiratory effort Auscultation: clear to auscultation bilaterally Cardio: Palpation: normal PMI Rate: regular rate Rhythm: regular rhythm Heart sounds: S1 normal heart sound present and S2 normal heart sound present Peripheral pulses: Peripheral pulses 2+ throughout GI: Inspection: normal to inspection Auscultation: normal bowel sounds Rectal Exam: deferred Other: DEXA, intact and insulin pump intact Back/Spine/Pelvis: Cervical Spine: cervical ROM normal Skin: General skin exam: normal color Lesions: no lesions Rashes: no rashes Trauma: no lacerations or abrasions Wounds: no wounds Hair: normal Nails: normal Neuro: General: oriented to person, oriented to place, oriented to time and patient oriented x3 Cranial nerves: Yes Equal, round and reactive pupils present and Yes Normal hearing present Cognition (Neuro): normal cognition Speech: normal speech Gait exam (Neuro): Normal gait present Motor exam (neuro): 5/5 motor strength present throughout Sensory Exam: normal sensation Extrem: General: normal to inspection Right upper extremity: normal to inspection and shoulder/upper arm Left upper extremity: normal to inspection and shoulder/upper arm Right lower extremity: normal to inspection Left lower extremity: normal to inspection Psych: Appearance: grossly normal Mental Status: mental status grossly normal Speech and movement: Normal speech and movement present Affect: normal affect Attitude: cooperative Thought pr
[2022-08-11] MEDS: FAMOTIDINE 20 MG/2 ML VIAL IV PUSH ×2 (11:01→21:10)
--- NOTE | 2022-08-11 11:36 | PCPTNOTE ---
The patient treatment was not able to be completed due to patient out of room for testing. Will plan to continue treatment per plan of care.
[2022-08-11] MEDS: LACTATED RINGERS 1,000 ML 150 ML IV CONT (11:42)
[2022-08-11 11:48] LABS: Glucose Point of Care 240 mg/dl (65-105)
--- NOTE | 2022-08-11 11:51 | WPDANESEPPF ---
Anes - Initial Pre Proc Eval Procedure: Operation Date: 08/11/22 12:00 Proposed Procedures p Esophagogastroduodenoscopy - Luis Felipe Sheehan MD Date/Time: 08/11/22 11:51 Surgeon: Guillermo Carrera MD Pre Op Diagnosis: intractable vomiting Patient Data Age: 76 Gender: F Height: 1.63 m Weight: 88.9 kg Last Vital Signs Temp 97.9 F 08/11/22 11:45 Pulse 79 08/11/22 11:45 Resp 18 08/11/22 11:45 BP 155/78 H 08/11/22 11:45 Pulse Ox 99 08/11/22 11:45 O2 Del Method Room Air 08/11/22 11:45 Allergies Allergy/AdvReac Type Severity Reaction Status Date / Time No Known Allergies Allergy Verified 07/16/20 10:15 Home Medications Medication Instructions Recorded Confirmed Type aspirin 81 mg tablet,delayed 81 mg PO DAILY 06/18/20 08/04/22 History release (Adult Aspirin Regimen) cholecalciferol (vitamin D3) 10 5,000 unit PO DAILY 06/18/20 08/04/22 History mcg (400 unit) capsule cyanocobalamin (vitamin B-12) 100 mcg subcut MONTHLY 06/18/20 08/04/22 History 1,000 mcg/mL injection solution denosumab 60 mg/mL subcutaneous 6 mg subcut [id number] 06/18/20 08/04/22 History syringe (Prolia) gabapentin 400 mg capsule 400 mg PO TID 06/18/20 08/04/22 History insulin lispro [Humalog KwikPen See Rx Instructions .Route .COMPLEX 06/18/20 08/04/22 History Insulin] levothyroxine 100 mcg capsule 88 mcg PO EVERY OTHER DAY 06/18/20 08/04/22 History pravastatin 40 mg tablet 40 mg PO DAILY 06/18/20 08/04/22 History Daily Probiotic (10 Strains) 1 tab-cap PO DAILY 08/04/22 08/04/22 History omega-3 fatty acids 2,400 mg PO DAILY 08/04/22 08/04/22 History Laboratory Tests 08/10/22 08/10/22 08/10/22 11:39 16:28 20:42 WBC RBC Hgb Hct MCV MCH MCHC RDW Plt Count MPV Immature Gran % (Auto) Neut % (Auto) Lymph % (Auto) [place] % (Auto) Eos % (Auto) Baso % (Auto) Lymph # (Auto) [place] # (Auto) Eos # (Auto) Baso # (Auto) Abs Immat Gran (auto) Absolute Neuts (auto) Absolute Nucleated RBC Nucleated RBC % Sodium Potassium Chloride Carbon Dioxide Anion Gap BUN Creatinine Estim Creat Clear Calc Estimated GFR Glucose POC Capillary Glucose 241 mg/dl H mg/dl 275 mg/dl H mg/dl 198 mg/dl H mg/dl (65-105) (65-105) (65-105) Calcium 08/11/22 08/11/22 08/11/22 07:57 08:17 08:17 WBC 6.2 K/mm3 K/mm3 (4.5-10.0) RBC 4.63 M/mm3 M/mm3 (4.2-5.4) Hgb 14.1 g/dL g/dL (12.0-15.0) Hct 45.6 % % (37.0-47.0) MCV 98.5 fl D fl (80-100) MCH 30.5 pg pg (26-34) MCHC 30.9 g/dl L g/dl (32-36) RDW 13.7 % % (11.5-14.5) Plt Count 171 k/mm3 k/mm3 (150-375) MPV 10.0 fl fl (7.4-10.4) Immature Gran % (Auto) 0.3 % % (0-0.5) Neut % (Auto) 73.4 % H % (45.5-73.1) Lymph % (Auto) 16.5 % L % (18.3-44.2) [place] % (Auto) 7.7 % % (2.6-8.5) Eos % (Auto) 1.5 % % (0-4.4) Baso % (Auto) 0.6 % % (0.2-1.2) Lymph # (Auto) 1.02 K/mm3 K/mm3 (0.9-3.2) [place] # (Auto) 0.5 K/mm3 K/mm3 (0.1-0.6) Eos # (Auto) 0.1 K/mm3 K/mm3 (0-0.3) Baso # (Auto) 0.0 K/mm3 K/mm3 (0.0-0.1) Abs Immat Gran (auto) 0.02 K/mm3 K/mm3 (0.00-0.031) Absolute Neuts (auto) 4.6 K/mm3 K/mm3 (1.3-6.7) Absolute Nucleated RBC 0.0 K/mm3 K/mm3 (0.0-0.012) Nucleated RBC % 0.0 % % (0.0-0.2) Sodium 127 mmol/L L mmol/L (137-145) Potassium 3.6 mmol/L mmol/L (3.4-5.0) Ch
[2022-08-11 12:32] LABS: Glucose Point of Care 212 mg/dl (65-105)
--- NOTE | 2022-08-11 14:04 | PC.NURSE ---
While trying to give patient meds she vomited about 200 ml of bright red blood. Bp 150/[address] Sheehan notified. He will be up to see patient. Meds held
--- NOTE | 2022-08-11 15:26 | PCPTNOTE ---
The patient treatment was not able to be completed this afternoon. RN advised not to see patient until assessed by physician. Will plan to continue treatment per plan of care.
[2022-08-11] MEDS: ONDANSETRON INJ 4 MG/2 ML VIAL IV PUSH (15:27)
--- NOTE | 2022-08-11 15:53 | PCOTNOTE ---
Per RN, pt is not medically appropriate to be seen by Occupational Therapy at this time. Will continue per POC duration/frequency when appropriate
[2022-08-11] MEDS: PROMETHAZINE HCL 25 MG/ML AMPUL 12.5 MG IV PUSH (16:08)
[2022-08-11 17:33] LABS: Glucose Point of Care 240 mg/dl (65-105)
[2022-08-11] MEDS: GABAPENTIN 300 MG CAPSULE 600 MG PO ×2 (17:43→23:00)
[2022-08-11] MEDS: INSULIN ASPART (*BKC) 100 UNITS/ML SUB-Q (17:46)
[2022-08-11 21:45] LABS: Glucose Point of Care 216 mg/dl (65-105)
[2022-08-12] MEDS: BISACODYL 5 MG TABLET EC 20 MG PO (05:54)
[2022-08-12 06:00] VITALS: BP 133/81; PULSE 67; RESP 14; TEMP 36.3; O2SAT 98
--- NOTE | 2022-08-12 06:53 | WPDGIPROGNO ---
Progress Note: A&P Assessment and Plan (1) Intractable nausea and vomiting: Code(s): R11.2 - Nausea with vomiting, unspecified Status: Acute Assessment and Plan: The symptoms all seem to have begun just a couple days prior to her admission. She states that she has never had a ulcer before. She does recall that several years ago she had endoscopy at [facility]. her EGD here was unremarkable except for showing changes consistent with chronic, atrophic gastritis. That usually does not cause symptoms. H pylori was negative. The only medications that were started here that could be responsible are fish oil which actually she refused the last few days and famotidine. I will stop those for now. I will replace promethazine with metoclopramide. (2) Diabetes: Code(s): E11.9 - Type 2 diabetes mellitus without complications Status: Acute Assessment and Plan: She manages her diabetes at home with the pump. Here she is on a sliding scale. She is still not up to eating regular food. I will try full liquids today (3) Posterior circulation stroke: Code(s): I63.50 - Cerebral infarction due to unspecified occlusion or stenosis of unspecified cerebral artery Status: Acute Assessment and Plan: She believes that she had a stroke when she fell twice in the bathroom a few days prior to her admission. She did not want to come to hospital at but finally her son insisted on it. all of her GI symptoms began she recalls shortly after she fell at home (4) Abnormal CT scan, gastrointestinal tract: Code(s): R93.3 - Abnormal findings on diagnostic imaging of other parts of digestive tract Status: Acute Assessment and Plan: CT scan shows: 1. Mild wall thickening of the distal stomach which could be due to incomplete distention or gastritis. 2. Cholelithiasis without evidence of cholecystitis. a follow-up CT scan is essentially the same. I will schedule her for EGD to be done on Wednesday nothing was seen on endoscopy to correlate with the CT findings. (5) Hematemesis: Code(s): K92.0 - Hematemesis Status: Acute Assessment and Plan: she had 1 episode of hematemesis last night after her endoscopy. Most likely there was some bleeding from biopsies. This is almost always self-limiting. There has been no further emesis of blood although she has had some clear emesis. Subjective Date/time seen: 08/12/22 06:53 her endoscopy revealed only changes consistent with chronic atrophic gastritis. This would not cause nausea. The specimen for H pylori is negative. I have reviewed with her her home medications versus a medication she is receiving here. Also hoping that would be something that perhaps triggered her symptoms. Although at 1st she felt that she did not have these problems with nausea and vomiting before her admission, she then recalled that immediately after she had her falling episode at home, the stroke that she was nauseated. Therefore this is all likely [facility]. Nevertheless I will discontinue the fish oil which she has been refusing the last few days and also will discontinue famotidine. I will start her on metoclopramide instead of promethazine. She is still not eager to try eating but will try full liquids this morning Exam Const: General: alert Orientation/consciousness: patient oriented x3 Resp: Auscultation: clear to auscultation bilaterally Cardio: Rhythm: regular rhythm GI: Inspection: normal to inspection GI Palp: Yes Soft to palpation, Yes Tenderness to palpation present (GI) ( Slight epigastric tenderness ) and Yes No hepatosplenomegaly present Auscultation: normal bowel sounds Neuro: General: patient oriented x3 Objective Data Vital Signs Vital Signs: Vital Signs - 24 hr 08/11/22 06:54 08/11/22 11:45 08/11/22 12:12 Temperature 36.3 C L 36.6 C Pulse Rate 69 79 67 Respiratory Rate 16 18 24 H
[2022-08-12 08:15] LABS: Glucose Point of Care 223 mg/dl (65-105)
--- NOTE | 2022-08-12 08:28 | PM.IMPN ---
Progress Note: A&P Assessment and Plan (1) Intractable nausea and vomiting: Code(s): R11.2 - Nausea with vomiting, unspecified Status: Acute Assessment and Plan: a/w hyponatremia, start ns 100 mL/hour -continue with Pepcid -monitor magnesium electrolytes. -patient has a dizziness, that triggers nausea vomiting, explained by her posterior circulation CVA. Appreciate Neurology input. -GI consult. CT scan noted -08/12 EGD unremarkable Start scopolamine patch to control dizziness (2) Diabetes: Code(s): E11.9 - Type 2 diabetes mellitus without complications Status: Acute Assessment and Plan: The patient stated that she would be able to continue using her DEXA, and insulin pump and she will sign the agreement. (3) Thyroid disease: Code(s): E07.9 - Disorder of thyroid, unspecified Status: Acute Assessment and Plan: -check thyroid level and continue with levothyroxine. (4) TIA (transient ischemic attack): Code(s): G45.9 - Transient cerebral ischemic attack, unspecified Status: Acute Assessment and Plan: Acute stroke noted. Continue aspirin Plavix (5) Diabetic neuropathy: Code(s): E11.40 - Type 2 diabetes mellitus with diabetic neuropathy, unspecified Status: Acute Assessment and Plan: Continue with gabapentin Subjective Date/time seen: 08/12/22 08:28 Interval history: Patient has intractable nausea vomiting triggered by dizziness. Patient denies headache, new focal weakness, chest pain, shortness of breath. Patient has no new issue event over the night Exam Const: General: cooperative, healthy appearing, comfortable, no acute distress, well developed, alert, awake, Physically active, average body habitus and well nourished Nutritional Appearance: average body habitus and well nourished Orientation/consciousness: oriented to person, oriented to place, oriented to time and patient oriented x3 Limitations: no limitations HENMT: Head: normal to inspection, No palpable skull fracture present, normocephalic and atraumatic Ears: hearing grossly normal bilaterally and external ears normal Face/Nose/Sinus: Normal external nose present and Normal nares present Eyes: General: appearance normal, both eyes and all related structures Alignment and Position: alignment normal Periorbital: periorbital findings normal Eyelids: eyelids normal Sclera: sclerae normal Pupils: Equal, round and reactive pupils present EOM: EOMs intact bilaterally Neck: Neck: normal visual inspection, full ROM, no lymphadenopathy, trachea midline and supple Chest: Chest palpation & inspection: normal inspection of the chest Resp: Effort & Inspection: normal respiratory effort Auscultation: clear to auscultation bilaterally Cardio: Palpation: normal PMI Rate: regular rate Rhythm: regular rhythm Heart sounds: S1 normal heart sound present and S2 normal heart sound present Peripheral pulses: Peripheral pulses 2+ throughout GI: Inspection: normal to inspection Auscultation: normal bowel sounds Rectal Exam: deferred Other: DEXA, intact and insulin pump intact Back/Spine/Pelvis: Cervical Spine: cervical ROM normal Skin: General skin exam: normal color Lesions: no lesions Rashes: no rashes Trauma: no lacerations or abrasions Wounds: no wounds Hair: normal Nails: normal Neuro: General: oriented to person, oriented to place, oriented to time and patient oriented x3 Cranial nerves: Yes Equal, round and reactive pupils present and Yes Normal hearing present Cognition (Neuro): normal cognition Speech: normal speech Gait exam (Neuro): Normal gait present Motor exam (neuro): 5/5 motor strength present throughout Sensory Exam: normal sensation Extrem: General: normal to inspection Right upper extremity: normal to inspection and shoulder/upper arm Left upper extremity: normal to inspection and shoulder/upper arm Right lower extremity: normal to inspection L
[2022-08-12] MEDS: INSULIN ASPART (*BKC) 100 UNITS/ML SUB-Q ×2 (08:43→11:54)
[2022-08-12] MEDS: SODIUM CHLORIDE 0.9% IV 1,000 ML 100 ML IV CONT ×2 (09:08→18:02)
[2022-08-12 09:52] LABS: Hemoglobin 14.6 g/dL (12.0-15.0); Mean Corpuscular HGB Conc 33.2 g/dl (32-36); Mean Corpuscular Hemoglobin 30.5 pg (26-34); Mean Corpuscular Volume 92.1 fl (80-100); Platelet Count Result 201 k/mm3 (150-375); Red Blood Count 4.78 M/mm3 (4.2-5.4); Red Cell Distribution Width 13.6 % (11.5-14.5); White Blood Count 7.7 K/mm3 (4.5-10.0)
[2022-08-12 10:02] LABS: Anion Gap 9 mmol/L (8-16); Blood Urea Nitrogen 18 mg/dL (7-17); Calcium 7.1 mg/dL (8.4-10.2); Carbon Dioxide 25 mmol/L (22-30); Chloride 96 mmol/L (98-107); Estimated CRCL calculation 86 ml/min; Estimated Glomerular Filt Rate > 60; Glucose 205 mg/dL (65-110); Sodium 130 mmol/L (137-145)
[2022-08-12] MEDS: ASPIRIN 81 MG ENTERIC TABLET PO (10:27)
[2022-08-12] MEDS: PRAVASTATIN SODIUM 20 MG TABLET 40 MG PO (10:27)
[2022-08-12] MEDS: GABAPENTIN 300 MG CAPSULE 600 MG PO ×3 (10:27→20:24)
[2022-08-12] MEDS: CLOPIDOGREL BISULFATE 75 MG TABLET PO (10:27)
[2022-08-12] MEDS: ONDANSETRON INJ 4 MG/2 ML VIAL IV PUSH (10:31)
[2022-08-12 11:26] LABS: Glucose Point of Care 211 mg/dl (65-105)
[2022-08-12 11:33] VITALS: BMI 33.6
[2022-08-12] MEDS: METOCLOPRAMIDE HCL INJ 10 MG/2 ML VIAL 5 MG IV PUSH ×2 (12:00→17:12)
[2022-08-12] MEDS: SCOPOLAMINE 1.5 MG PATCH TRANSDERM (13:17)
[2022-08-12 14:00] VITALS: BP 128/77; PULSE 79; RESP 18; TEMP 36.8; O2SAT 100
[2022-08-12 16:37] LABS: Glucose Point of Care 189 mg/dl (65-105)
[2022-08-12 21:14] LABS: Glucose Point of Care 235 mg/dl (65-105)
[2022-08-12 21:30] VITALS: BP 169/79; PULSE 76; RESP 18; TEMP 36.9; O2SAT 98
[2022-08-13] MEDS: METOCLOPRAMIDE HCL INJ 10 MG/2 ML VIAL 5 MG IV PUSH ×5 (01:00→23:35)
[2022-08-13] MEDS: SODIUM CHLORIDE 0.9% IV 1,000 ML 100 ML IV CONT ×3 (03:23→23:35)
[2022-08-13 06:00] VITALS: BP 149/65; PULSE 76; RESP 16; TEMP 36.1; O2SAT 96
[2022-08-13] MEDS: ONDANSETRON INJ 4 MG/2 ML VIAL IV PUSH (06:35)
[2022-08-13] MEDS: LEVOTHYROXINE SODIUM 88 MCG TABLET PO (06:35)
[2022-08-13 06:48] LABS: Hematocrit 37.6 % (37.0-47.0); Hemoglobin 12.5 g/dL (12.0-15.0); Mean Corpuscular HGB Conc 33.2 g/dl (32-36); Mean Corpuscular Hemoglobin 30.1 pg (26-34); Mean Corpuscular Volume 90.6 fl (80-100); Mean Platelet Volume 10.3 fl (7.4-10.4); Platelet Count Result 175 k/mm3 (150-375); Red Blood Count 4.15 M/mm3 (4.2-5.4); Red Cell Distribution Width 13.6 % (11.5-14.5); White Blood Count 7.5 K/mm3 (4.5-10.0)
[2022-08-13 06:59] LABS: Anion Gap 7 mmol/L (8-16); Blood Urea Nitrogen 14 mg/dL (7-17); Calcium 6.5 mg/dL (8.4-10.2); Carbon Dioxide 24 mmol/L (22-30); Chloride 104 mmol/L (98-107); Estimated CRCL calculation 86 ml/min; Estimated Glomerular Filt Rate > 60; Glucose 191 mg/dL (65-110); Potassium 3.4 mmol/L (3.4-5.0); Sodium 135 mmol/L (137-145)
[2022-08-13 07:51] LABS: Glucose Point of Care 190 mg/dl (65-105)
[2022-08-13] MEDS: PRAVASTATIN SODIUM 20 MG TABLET 40 MG PO (09:05)
[2022-08-13] MEDS: GABAPENTIN 300 MG CAPSULE 600 MG PO ×3 (09:06→21:46)
[2022-08-13] MEDS: CLOPIDOGREL BISULFATE 75 MG TABLET PO (09:06)
[2022-08-13] MEDS: CHOLECALCIFEROL 1,000 UNITS TABLET 5000 UNITS PO (09:06)
[2022-08-13] MEDS: ASPIRIN 81 MG ENTERIC TABLET PO (09:06)
[2022-08-13 11:45] LABS: Glucose Point of Care 202 mg/dl (65-105)
[2022-08-13] MEDS: INSULIN ASPART (*BKC) 100 UNITS/ML SUB-Q (12:35)
[2022-08-13 14:00] VITALS: BP 145/65; PULSE 78; RESP 16; TEMP 36.3; O2SAT 98
--- NOTE | 2022-08-13 14:24 | WPDGIPROGNO ---
Progress Note: A&P Assessment and Plan (1) Intractable nausea and vomiting: Code(s): R11.2 - Nausea with vomiting, unspecified Status: Acute Assessment and Plan: The symptoms all seem to have begun just a couple days prior to her admission. She states that she has never had a ulcer before. She does recall that several years ago she had endoscopy at [facility]. her EGD here was unremarkable except for showing changes consistent with chronic, atrophic gastritis. That usually does not cause symptoms. H pylori was negative. The only medications that were started here that could be responsible are fish oil which actually she refused the last few days and famotidine. I will stop those for now. I will replace promethazine with metoclopramide. given that her infarct was cerebellar, she almost certainly has nausea and vomiting secondary he had disequilibrium explain to her that this is like having a so called in her ear infection. Consequently I will start her on meclizine. (2) Diabetes: Code(s): E11.9 - Type 2 diabetes mellitus without complications Status: Acute Assessment and Plan: She manages her diabetes at home with the pump. Here she is on a sliding scale. She is still not up to eating regular food. I will try full liquids today She is willing to try regular food tonight, diabetic diet (3) Posterior circulation stroke: Code(s): I63.50 - Cerebral infarction due to unspecified occlusion or stenosis of unspecified cerebral artery Status: Acute Assessment and Plan: She believes that she had a stroke when she fell twice in the bathroom a few days prior to her admission. She did not want to come to hospital at but finally her son insisted on it. all of her GI symptoms began she recalls shortly after she fell at home (4) Abnormal CT scan, gastrointestinal tract: Code(s): R93.3 - Abnormal findings on diagnostic imaging of other parts of digestive tract Status: Acute Assessment and Plan: CT scan shows: 1. Mild wall thickening of the distal stomach which could be due to incomplete distention or gastritis. 2. Cholelithiasis without evidence of cholecystitis. a follow-up CT scan is essentially the same. I will schedule her for EGD to be done on Wednesday08/13/2022 nothing was seen on endoscopy to correlate with the CT findings. (5) Hematemesis: Code(s): K92.0 - Hematemesis Status: Acute Assessment and Plan: she had 1 episode of hematemesis last night after her endoscopy. Most likely there was some bleeding from biopsies. This is almost always self-limiting. There has been no further emesis of blood although she has had some clear emesis. I discussed with her the results of the EGD, negative H pylori. No ulcer or anything else that would explain her symptoms. Subjective Date/time seen: 08/13/22 14:24 She feels slightly better today. She was able to keep down some lunch, full liquids. We discussed the fact that because her dizziness came on after her stroke, and it was the cerebellum that infarcted, that her nausea is almost likely due to disequilibrium Exam Const: General: alert Orientation/consciousness: patient oriented x3 Resp: Auscultation: clear to auscultation bilaterally Cardio: Rhythm: regular rhythm GI: Inspection: normal to inspection GI Palp: Yes Soft to palpation, Yes Tenderness to palpation present (GI) ( Slight epigastric tenderness ) and Yes No hepatosplenomegaly present Auscultation: normal bowel sounds Neuro: General: patient oriented x3 Cranial nerves: Yes Nystagmus present ( slight nystagmus to the left) Objective Data Vital Signs Vital Signs: Vital Signs - 24 hr 08/12/22 21:30 08/13/22 06:00 08/13/22 08:00 Temperature 36.9 C 36.1 C L Pulse Rate 76 76 Respiratory Rate 18 16 Blood Pressure 169/79 H 149/65 H Pulse Oximetry 98 96 Oxygen Delivery Room Air
[2022-08-13 16:25] LABS: Glucose Point of Care 181 mg/dl (65-105)
--- NOTE | 2022-08-13 16:50 | PM.IMPN ---
Progress Note: A&P Assessment and Plan (1) Intractable nausea and vomiting: Code(s): R11.2 - Nausea with vomiting, unspecified Status: Acute Assessment and Plan: a/w hyponatremia, start ns 100 mL/hour -continue with Pepcid -monitor magnesium electrolytes. -patient has a dizziness, that triggers nausea vomiting, explained by her posterior circulation CVA. Appreciate Neurology input. -GI consult. CT scan noted -08/12 EGD unremarkable Start Reglan 10 mg q.6 hours scheduled, meclizine 25 mg b.i.d. p.o. per GI recommendation, also continue scopolamine patch to control dizziness (2) Diabetes: Code(s): E11.9 - Type 2 diabetes mellitus without complications Status: Acute Assessment and Plan: The patient stated that she would be able to continue using her DEXA, and insulin pump and she will sign the agreement. (3) Thyroid disease: Code(s): E07.9 - Disorder of thyroid, unspecified Status: Acute Assessment and Plan: -check thyroid level and continue with levothyroxine. (4) TIA (transient ischemic attack): Code(s): G45.9 - Transient cerebral ischemic attack, unspecified Status: Acute Assessment and Plan: Acute stroke noted. Continue aspirin Plavix (5) Diabetic neuropathy: Code(s): E11.40 - Type 2 diabetes mellitus with diabetic neuropathy, unspecified Status: Acute Assessment and Plan: Continue with gabapentin Subjective Date/time seen: 08/13/22 16:50 Interval history: Patient has nausea without vomiting, triggered by dizziness. Patient feels nausea is better control. Patient denies headache, new focal weakness, chest pain, shortness of breath. Patient has no new issue event over the night Exam Narrative: GENERAL: Pleasant, in no acute distress. Well-nourished. - EYES: EOMI. Anicteric. - HENT: Moist mucous membranes. - LUNGS: Clear to auscultation bilaterally, no wheezing, rhonchi, or rales. - CARDIOVASCULAR: Regular rate and rhythm. No murmur. No JVD. - ABDOMEN: Soft, non-tender and non-distended. No palpable masses. - EXTREMITIES: No edema. Peripheral pulses 2+. Non-tender. - NEUROLOGIC: No focal neurological deficits. CN II-XII grossly intact. - PSYCHIATRIC: Awake, Alert and oriented x 3. Appropriate mood and affect. - SKIN: No rashes or lesions. Warm. - LYMPH: No cervical lymphadenopathy. Objective Data Vital Signs Vital Signs: Vital Signs - 24 hr 08/12/22 21:30 08/13/22 06:00 08/13/22 08:00 Temperature 98.5 F 97 F L Pulse Rate 76 76 Respiratory Rate 18 16 Blood Pressure 169/79 H 149/65 H Pulse Oximetry 98 96 Oxygen Delivery Room Air 08/13/22 14:00 Temperature 97.3 F L Pulse Rate 78 Respiratory Rate 16 Blood Pressure 145/65 H Pulse Oximetry 98 Oxygen Delivery Intake/Output Intake/Output: Intake & Output 08/10/22 08/11/22 08/12/22 08/13/22 23:59 23:59 23:59 23:59 Intake Total 9821 405 2326 2170 Output Total 1700 100 450 Balance 36 500 1780 1720 Meds/Results Medications: Active Medications Generic Name Dose Route Start Last Admin Trade Name Freq PRN Reason Stop Dose Admin Aspirin 81 mg 08/05/22 09:00 08/13/22 09:06 Aspirin 81 Mg Enteric Tablet PO 81 mg DAILY BHAKTI Administration Clopidogrel Bisulfate 75 mg 08/06/22 09:00 08/13/22 09:06 Clopidogrel Bisulfate 75 Mg Tablet PO 75 mg QAM BHAKTI Administration Dextrose 12.5 gm 08/05/22 13:19 Dextrose 50% 25 Gm/50 Ml Syringe IV PUSH PRN PRN Hypoglycemia Protocol Gabapentin 600 mg 08/07/22 21:00 08/13/22 12:36 Gabapentin 300 Mg Capsule PO 600 mg DAILY@0900,1300,2100 BHAKTI Administration Glucagon 1 mg 08/05/22 13:19 Glucagon For Inj 1 Mg Vial IM PRN PRN Hypoglycemia Protocol Glucose 15 gm 08/05/22 13:19 Glucose Oral Gel 15 Gm Of Glucse In 37.5 Gm Tube PO PRN PRN Hypoglycemia Protocol Home Med 1 each 08/05/22 06:00 08/13/22 05:27 Ins
[2022-08-13] MEDS: MECLIZINE HCL 12.5 MG TABLET PO (17:54)
[2022-08-13 20:48] LABS: Glucose Point of Care 207 mg/dl (65-105)
[2022-08-13 22:00] VITALS: BP 135/71; PULSE 71; RESP 16; TEMP 36.8; O2SAT 98
[2022-08-14] MEDS: ONDANSETRON INJ 4 MG/2 ML VIAL IV PUSH ×3 (03:52→22:00)
[2022-08-14] MEDS: METOCLOPRAMIDE HCL INJ 10 MG/2 ML VIAL 5 MG IV PUSH ×3 (05:24→17:21)
[2022-08-14 06:00] VITALS: BP 132/68; PULSE 71; RESP 16; TEMP 36.3; O2SAT 97
[2022-08-14] MEDS: SODIUM CHLORIDE 0.9% IV 1,000 ML 100 ML IV CONT ×2 (07:41→17:21)
[2022-08-14 07:57] LABS: Glucose Point of Care 183 mg/dl (65-105)
[2022-08-14 08:36] VITALS: O2SAT 97
[2022-08-14] MEDS: GABAPENTIN 300 MG CAPSULE 600 MG PO ×3 (09:27→21:46)
[2022-08-14] MEDS: CLOPIDOGREL BISULFATE 75 MG TABLET PO (09:27)
[2022-08-14] MEDS: PRAVASTATIN SODIUM 20 MG TABLET 40 MG PO (09:27)
[2022-08-14] MEDS: ASPIRIN 81 MG ENTERIC TABLET PO (09:27)
[2022-08-14] MEDS: MECLIZINE HCL 12.5 MG TABLET PO ×3 (09:27→17:22)
[2022-08-14] MEDS: polyethylene glycoL 3350 17 GM POWD.PACK PO (09:28)
[2022-08-14 11:00] VITALS: BMI 33.6
[2022-08-14 11:54] LABS: Glucose Point of Care 238 mg/dl (65-105)
[2022-08-14] MEDS: INSULIN ASPART (*BKC) 100 UNITS/ML SUB-Q (12:00)
[2022-08-14 13:22] VITALS: BP 144/66; PULSE 77; RESP 18; TEMP 36.8; O2SAT 100
--- NOTE | 2022-08-14 14:27 | WPDGIPROGNO ---
Progress Note: A&P Assessment and Plan (1) Intractable nausea and vomiting: Code(s): R11.2 - Nausea with vomiting, unspecified Status: Acute Assessment and Plan: The symptoms all seem to have begun just a couple days prior to her admission. She states that she has never had a ulcer before. She does recall that several years ago she had endoscopy at [facility]. her EGD here was unremarkable except for showing changes consistent with chronic, atrophic gastritis. That usually does not cause symptoms. H pylori was negative. The only medications that were started here that could be responsible are fish oil which actually she refused the last few days and famotidine. I will stop those for now. I will replace promethazine with metoclopramide. given that her infarct was cerebellar, she almost certainly has nausea and vomiting secondary he had disequilibrium explain to her that this is like having a so called in her ear infection. Consequently I will start her on meclizine. 08/14/2022 she has been eating little more she believes that she is gradually getting better. (2) Diabetes: Code(s): E11.9 - Type 2 diabetes mellitus without complications Status: Acute Assessment and Plan: She manages her diabetes at home with the pump. Here she is on a sliding scale. She is still not up to eating regular food. I will try full liquids today She is willing to try regular food tonight, diabetic diet I have ordered nutritional supplements. 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 She did not want to come to hospital at 1st but finally her son insisted on it. all of her GI symptoms began she recalls shortly after she fell at home (4) Abnormal CT scan, gastrointestinal tract: Code(s): R93.3 - Abnormal findings on diagnostic imaging of other parts of digestive tract Status: Acute Assessment and Plan: CT scan shows: 1. Mild wall thickening of the distal stomach which could be due to incomplete distention or gastritis. 2. Cholelithiasis without evidence of cholecystitis. a follow-up CT scan is essentially the same. I will schedule her for EGD to be done on Wednesday08/13/2022 nothing was seen on endoscopy to correlate with the CT findings. (5) Hematemesis: Code(s): K92.0 - Hematemesis Status: Acute Assessment and Plan: she had 1 episode of hematemesis last night after her endoscopy. Most likely there was some bleeding from biopsies. This is almost always self-limiting. There has been no further emesis of blood although she has had some clear emesis. I discussed with her the results of the EGD, negative H pylori. No ulcer or anything else that would explain her symptoms. there has been no further hematemesis since that 1 episode (6) Constipation: Code(s): K59.00 - Constipation, unspecified Status: Acute Assessment and Plan: he is feeling the need to have a bowel movement and has not had 1 for a few days. I will start her on MiraLax in the morning Subjective Date/time seen: 08/14/22 14:27 she is sleepy this morning. She has had no vomiting since yesterday. She thinks she is doing better day today and slowly eating a little more each time. I am not sure how much it which she is actually r eceiving. She also is feeling constipated. She has not had a bowel movement for couple of days. She denies any abdominal pain at the present time. Exam Const: General: alert Orientation/consciousness: patient oriented x3 Resp: Auscultation: clear to auscultation bilaterally Cardio: Rhythm: regular rhythm GI
--- NOTE | 2022-08-14 15:10 | PM.IMPN ---
Progress Note: A&P Assessment and Plan (1) Intractable nausea and vomiting: Code(s): R11.2 - Nausea with vomiting, unspecified Status: Acute Assessment and Plan: a/w hyponatremia, start ns 100 mL/hour -continue with Pepcid -monitor magnesium electrolytes. -patient has a dizziness, that triggers nausea vomiting, explained by her posterior circulation CVA. Appreciate Neurology input. -GI consult. CT scan noted -08/12 EGD unremarkable Start Reglan 10 mg q.6 hours scheduled, meclizine 25 mg b.i.d. p.o. per GI recommendation, also continue scopolamine patch to control dizziness Appetite is improving. Has nausea occasionally, without vomiting (2) Diabetes: Code(s): E11.9 - Type 2 diabetes mellitus without complications Status: Acute Assessment and Plan: The patient stated that she would be able to continue using her DEXA, and insulin pump and she will sign the agreement. (3) Thyroid disease: Code(s): E07.9 - Disorder of thyroid, unspecified Status: Acute Assessment and Plan: -check thyroid level and continue with levothyroxine. (4) TIA (transient ischemic attack): Code(s): G45.9 - Transient cerebral ischemic attack, unspecified Status: Acute Assessment and Plan: Acute stroke noted. Continue aspirin Plavix (5) Diabetic neuropathy: Code(s): E11.40 - Type 2 diabetes mellitus with diabetic neuropathy, unspecified Status: Acute Assessment and Plan: Continue with gabapentin Subjective Date/time seen: 08/14/22 15:10 Interval history: Patient has nausea without vomiting, appetite is improving. Patient denies headache, new focal weakness, chest pain, shortness of breath. Patient has no new issue event over the night Exam Narrative: GENERAL: Pleasant, in no acute distress. Well-nourished. - EYES: EOMI. Anicteric. - HENT: Moist mucous membranes. - LUNGS: Clear to auscultation bilaterally, no wheezing, rhonchi, or rales. - CARDIOVASCULAR: Regular rate and rhythm. No murmur. No JVD. - ABDOMEN: Soft, non-tender and non-distended. No palpable masses. - EXTREMITIES: No edema. Peripheral pulses 2+. Non-tender. - NEUROLOGIC: . CN II-XII grossly intact. Some weakness of right upper limb and the right leg - PSYCHIATRIC: Awake, Alert and oriented x 3. Appropriate mood and affect. - SKIN: No rashes or lesions. Warm. - LYMPH: No cervical lymphadenopathy. Objective Data Vital Signs Vital Signs: Vital Signs - 24 hr 08/13/22 20:00 08/13/22 22:00 08/14/22 06:00 Temperature 98.2 F 97.3 F L Pulse Rate 71 71 Respiratory Rate 16 16 Blood Pressure 135/71 132/68 Pulse Oximetry 98 97 Oxygen Delivery Room Air 08/14/22 08:36 08/14/22 13:22 Temperature 98.2 F Pulse Rate 77 Respiratory Rate 18 Blood Pressure 144/66 H Pulse Oximetry 97 100 Oxygen Delivery Room Air Intake/Output Intake/Output: Intake & Output 08/11/22 08/12/22 08/13/22 08/14/22 23:59 23:59 23:59 23:59 Intake Total 600 1780 3590 1460 Output Total 100 450 500 Balance 500 1780 3140 960 Meds/Results Medications: Active Medications Generic Name Dose Route Start Last Admin Trade Name Freq PRN Reason Stop Dose Admin Aspirin 81 mg 08/05/22 09:00 08/14/22 09:27 Aspirin 81 Mg Enteric Tablet PO 81 mg DAILY BHAKTI Administration Clopidogrel Bisulfate 75 mg 08/06/22 09:00 08/14/22 09:27 Clopidogrel Bisulfate 75 Mg Tablet PO 75 mg QAM BHAKTI Administration Dextrose 12.5 gm 08/05/22 13:19 Dextrose 50% 25 Gm/50 Ml Syringe IV PUSH PRN PRN Hypoglycemia Protocol Gabapentin 600 mg 08/07/22 21:00 08/14/22 09:27 Gabapentin 300 Mg Capsule PO 600 mg DAILY@0900,1300,2100 BHAKTI Administration Glucagon 1 mg 08/05/22 13:19 Glucagon For Inj 1 Mg Vial IM PRN PRN Hypoglycemia Protocol Glucose 15 gm 08/05/22 13:19 Glucose Oral Gel 15 Gm Of Glucse In 37.5 Gm Tube PO PRN PRN Hypogly
[2022-08-14 16:42] LABS: Glucose Point of Care 152 mg/dl (65-105)
[2022-08-14 22:00] VITALS: BP 151/56; PULSE 73; RESP 18; TEMP 36.1; O2SAT 100
[2022-08-14 22:16] LABS: Glucose Point of Care 193 mg/dl (65-105)
[2022-08-15] MEDS: METOCLOPRAMIDE HCL INJ 10 MG/2 ML VIAL 5 MG IV PUSH ×4 (00:18→17:57)
[2022-08-15] MEDS: SODIUM CHLORIDE 0.9% IV 1,000 ML 100 ML IV CONT ×2 (05:05→14:51)
[2022-08-15] MEDS: LEVOTHYROXINE SODIUM 88 MCG TABLET PO (05:47)
[2022-08-15 06:00] VITALS: BP 129/67; PULSE 73; RESP 16; TEMP 36.3; O2SAT 100
[2022-08-15 07:58] LABS: Glucose Point of Care 173 mg/dl (65-105)
[2022-08-15 08:08] LABS: Hematocrit 38.6 % (37.0-47.0); Hemoglobin 12.8 g/dL (12.0-15.0); Mean Corpuscular HGB Conc 33.2 g/dl (32-36); Mean Corpuscular Hemoglobin 30.3 pg (26-34); Mean Corpuscular Volume 91.3 fl (80-100); Mean Platelet Volume 10.3 fl (7.4-10.4); Platelet Count Result 177 k/mm3 (150-375); Red Blood Count 4.23 M/mm3 (4.2-5.4); Red Cell Distribution Width 13.6 % (11.5-14.5); White Blood Count 6.6 K/mm3 (4.5-10.0)
[2022-08-15 08:14] LABS: Anion Gap 7 mmol/L (8-16); Blood Urea Nitrogen 7 mg/dL (7-17); Calcium 6.5 mg/dL (8.4-10.2); Carbon Dioxide 24 mmol/L (22-30); Chloride 100 mmol/L (98-107); Estimated CRCL calculation 105 ml/min; Estimated Glomerular Filt Rate > 60; Glucose 172 mg/dL (65-110); Phosphorus 1.3 mg/dL (2.5-4.5); Potassium 3.2 mmol/L (3.4-5.0); Sodium 131 mmol/L (137-145)
[2022-08-15] MEDS: GABAPENTIN 300 MG CAPSULE 600 MG PO ×3 (08:35→21:49)
[2022-08-15] MEDS: CHOLECALCIFEROL 1,000 UNITS TABLET 5000 UNITS PO (08:35)
[2022-08-15] MEDS: CLOPIDOGREL BISULFATE 75 MG TABLET PO (08:35)
[2022-08-15] MEDS: PRAVASTATIN SODIUM 20 MG TABLET 40 MG PO (08:35)
[2022-08-15] MEDS: MECLIZINE HCL 12.5 MG TABLET PO ×4 (08:35→21:07)
[2022-08-15] MEDS: ASPIRIN 81 MG ENTERIC TABLET PO (08:35)
[2022-08-15] MEDS: polyethylene glycoL 3350 17 GM POWD.PACK PO (08:36)
[2022-08-15] MEDS: SCOPOLAMINE 1.5 MG PATCH TRANSDERM (08:36)
--- NOTE | 2022-08-15 08:45 | WPDGIPROGNO ---
Progress Note: A&P Assessment and Plan (1) Intractable nausea and vomiting: Code(s): R11.2 - Nausea with vomiting, unspecified Status: Acute Assessment and Plan: The symptoms all seem to have begun just a couple days prior to her admission. She states that she has never had a ulcer before. She does recall that several years ago she had endoscopy at [facility]. her EGD here was unremarkable except for showing changes consistent with chronic, atrophic gastritis. That usually does not cause symptoms. H pylori was negative. The only medications that were started here that could be responsible are fish oil which actually she refused the last few days and famotidine. I will stop those for now. I will replace promethazine with metoclopramide. given that her infarct was cerebellar, she almost certainly has nausea and vomiting secondary he had disequilibrium explain to her that this is like having a so called in her ear infection. Consequently I will start her on meclizine. 08/14/2022 she has been eating little more she believes that she is gradually getting better. 08/15/2022 modest improvement. She is able to keep some food down. She is dizzy whenever she tries to get out of bed or go to the bathroom. The staff is assisting her. I will increase meclizine to 4 times a day. (2) Diabetes: Code(s): E11.9 - Type 2 diabetes mellitus without complications Status: Acute Assessment and Plan: She manages her diabetes at home with the pump. Here she is on a sliding scale. She is still not up to eating regular food. I will try full liquids today She is willing to try regular food tonight, diabetic diet I have ordered nutritional supplements. 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 She did not want to come to hospital at 1st but finally her son insisted on it. all of her GI symptoms began she recalls shortly after she fell at home I wonder if perhaps neurology may have some suggestions to help with her persistent vertigo. (4) Abnormal CT scan, gastrointestinal tract: Code(s): R93.3 - Abnormal findings on diagnostic imaging of other parts of digestive tract Status: Acute Assessment and Plan: CT scan shows: 1. Mild wall thickening of the distal stomach which could be due to incomplete distention or gastritis. 2. Cholelithiasis without evidence of cholecystitis. a follow-up CT scan is essentially the same. I will schedule her for EGD to be done on Wednesday08/13/2022 nothing was seen on endoscopy to correlate with the CT findings. (5) Hematemesis: Code(s): K92.0 - Hematemesis Status: Acute Assessment and Plan: she had 1 episode of hematemesis last night after her endoscopy. Most likely there was some bleeding from biopsies. This is almost always self-limiting. There has been no further emesis of blood although she has had some clear emesis. I discussed with her the results of the EGD, negative H pylori. No ulcer or anything else that would explain her symptoms. there has been no further hematemesis since that 1 episode (6) Constipation: Code(s): K59.00 - Constipation, unspecified Status: Acute Assessment and Plan: She is feeling the need to have a bowel movement and has not had 1 for a few days. I will start her on MiraLax and add Dulcolax suppository p.r.n. Time Spent With Patient Time with patient: 15 - 25 minutes Subjective Date/time seen: 08/15/22 08:45 she feels a little better each day. She is able to eat some solid food last night, mostly vegetables. She did have emesis of about
[2022-08-15 11:40] LABS: Glucose Point of Care 199 mg/dl (65-105)
--- NOTE | 2022-08-15 13:27 | PM.IMPN ---
Progress Note: A&P Assessment and Plan (1) Acute CVA (cerebrovascular accident): Code(s): I63.9 - Cerebral infarction, unspecified Status: Acute Assessment and Plan: Acute stroke noted. Continue aspirin Plavix Some weakness of right-sided extremities (2) Intractable nausea and vomiting: Code(s): R11.2 - Nausea with vomiting, unspecified Status: Acute Assessment and Plan: a/w hyponatremia, start ns 100 mL/hour -continue with Pepcid -monitor magnesium electrolytes. -patient has a dizziness, that triggers nausea vomiting, explained by her posterior circulation CVA. Appreciate Neurology input. -GI consult. CT scan noted -08/12 EGD unremarkable Start Reglan 10 mg q.6 hours scheduled, meclizine 25 mg b.i.d. p.o. per GI recommendation, also continue scopolamine patch to control dizziness Appetite is improving. Has nausea occasionally, without vomiting (3) Diabetes: Code(s): E11.9 - Type 2 diabetes mellitus without complications Status: Acute Assessment and Plan: The patient stated that she would be able to continue using her DEXA, and insulin pump and she will sign the agreement. (4) Hyponatremia: Code(s): E87.1 - Hypo-osmolality and hyponatremia Status: Acute Assessment and Plan: Due to poor intake, Continue nebs and IV Start sodium chloride 1 g b.i.d. (5) Hypokalemia: Code(s): E87.6 - Hypokalemia Status: Acute Assessment and Plan: Start potassium chloride 20 mEq b.i.d. p.o. Follow-up BMP (6) Thyroid disease: Code(s): E07.9 - Disorder of thyroid, unspecified Status: Acute Assessment and Plan: -check thyroid level and continue with levothyroxine. (7) TIA (transient ischemic attack): Code(s): G45.9 - Transient cerebral ischemic attack, unspecified Status: Acute (8) Diabetic neuropathy: Code(s): E11.40 - Type 2 diabetes mellitus with diabetic neuropathy, unspecified Status: Acute Assessment and Plan: Continue with gabapentin (9) Dehydration: Code(s): E86.0 - Dehydration Status: Acute Subjective Date/time seen: 08/15/22 13:27 Interval history: Patient still has nausea, a few vomiting, appetite is improving. Patient denies headache, new focal weakness, chest pain, shortness of breath. Patient has no new issue event over the night. Exam Narrative: GENERAL: Pleasant, in no acute distress. Well-nourished. - EYES: EOMI. Anicteric. - HENT: Moist mucous membranes. - LUNGS: Clear to auscultation bilaterally, no wheezing, rhonchi, or rales. - CARDIOVASCULAR: Regular rate and rhythm. No murmur. No JVD. - ABDOMEN: Soft, non-tender and non-distended. No palpable masses. - EXTREMITIES: No edema. Peripheral pulses 2+. Non-tender. - NEUROLOGIC: . CN II-XII grossly intact. Some weakness of right upper limb and the right leg - PSYCHIATRIC: Awake, Alert and oriented x 3. Appropriate mood and affect. - SKIN: No rashes or lesions. Warm. - LYMPH: No cervical lymphadenopathy. Objective Data Vital Signs Vital Signs: Vital Signs - 24 hr 08/14/22 20:00 08/14/22 22:00 08/15/22 06:00 Temperature 96.9 F L 97.3 F L Pulse Rate 73 73 Respiratory Rate 18 16 Blood Pressure 151/56 H 129/67 Pulse Oximetry 100 100 Oxygen Delivery Room Air 08/15/22 08:44 Temperature Pulse Rate Respiratory Rate Blood Pressure Pulse Oximetry Oxygen Delivery Room Air Intake/Output Intake/Output: Intake & Output 08/12/22 08/13/22 08/14/22 08/15/22 23:59 23:59 23:59 23:59 Intake Total 1780 3590 2700 1200 Output Total 450 1200 550 Balance 1780 3140 1500 650 Meds/Results Medications: Active Medications Generic Name Dose Route Start Last Admin Trade Name Freq PRN Reason Stop Dose Admin Aspirin 81 mg 08/05/22 09:00 08/15/22 08:35 Aspirin 81 Mg Enteric Tablet PO 81 mg DAILY BHAKTI Administration Bisacodyl 10 mg 08/15/22 08:51 Bisacodyl 1
[2022-08-15 14:00] VITALS: BP 148/76; PULSE 78; RESP 16; TEMP 36.6; O2SAT 98
[2022-08-15 16:56] LABS: Glucose Point of Care 218 mg/dl (65-105)
[2022-08-15] MEDS: SODIUM CHLORIDE 1 GM TABLET PO (17:56)
[2022-08-15] MEDS: POTASSIUM CHLORIDE 20 MEQ PACKET (FOR LIQUID) PO (17:56)
[2022-08-15] MEDS: INSULIN ASPART (*BKC) 100 UNITS/ML SUB-Q (17:57)
--- NOTE | 2022-08-15 19:37 | PC.NURSE ---
Pt has been cooperative with care. Pt has been vomiting off and on throughout shift. Pt has participated and contribute in plan of care. Pt monitored for changes in status throughout shift.
[2022-08-15 20:30] LABS: Glucose Point of Care 184 mg/dl (65-105)
[2022-08-15 22:00] VITALS: BP 142/62; PULSE 76; RESP 14; TEMP 36.6; O2SAT 95
[2022-08-16] MEDS: METOCLOPRAMIDE HCL INJ 10 MG/2 ML VIAL 5 MG IV PUSH ×5 (00:26→23:45)
[2022-08-16] MEDS: SODIUM CHLORIDE 0.9% IV 1,000 ML 100 ML IV CONT ×2 (00:26→08:13)
[2022-08-16 06:00] VITALS: BP 167/76; PULSE 70; RESP 16; TEMP 36.3; O2SAT 97
[2022-08-16] MEDS: INSULIN ASPART (*BKC) 100 UNITS/ML SUB-Q ×2 (08:09→17:01)
[2022-08-16] MEDS: GABAPENTIN 300 MG CAPSULE 600 MG PO ×3 (08:11→21:35)
[2022-08-16] MEDS: CLOPIDOGREL BISULFATE 75 MG TABLET PO (08:11)
[2022-08-16] MEDS: MECLIZINE HCL 12.5 MG TABLET PO ×4 (08:11→21:02)
[2022-08-16] MEDS: ASPIRIN 81 MG ENTERIC TABLET PO (08:11)
[2022-08-16] MEDS: ONDANSETRON INJ 4 MG/2 ML VIAL IV PUSH ×2 (08:13→17:43)
[2022-08-16 08:16] LABS: Glucose Point of Care 203 mg/dl (65-105)
[2022-08-16] MEDS: SODIUM CHLORIDE 1 GM TABLET PO ×2 (10:08→18:50)
[2022-08-16] MEDS: PRAVASTATIN SODIUM 20 MG TABLET 40 MG PO (10:08)
[2022-08-16] MEDS: CHOLECALCIFEROL 1,000 UNITS TABLET 5000 UNITS PO (10:09)
[2022-08-16 11:13] LABS: Anion Gap 8 mmol/L (8-16); Blood Urea Nitrogen 5 mg/dL (7-17); Calcium 6.6 mg/dL (8.4-10.2); Carbon Dioxide 24 mmol/L (22-30); Chloride 98 mmol/L (98-107); Estimated CRCL calculation 105 ml/min; Estimated Glomerular Filt Rate > 60; Glucose 195 mg/dL (65-110); Sodium 130 mmol/L (137-145)
[2022-08-16] MEDS: POTASSIUM CHLORIDE INJ 40 MEQ in SODIUM CHLORIDE 0.9% IV 500 ML 130 MEQ IVPB (11:42)
[2022-08-16 12:05] LABS: Glucose Point of Care 194 mg/dl (65-105)
--- NOTE | 2022-08-16 13:04 | PM.IMPN ---
Progress Note: A&P Assessment and Plan (1) Acute CVA (cerebrovascular accident): Code(s): I63.9 - Cerebral infarction, unspecified Status: Acute Assessment and Plan: Acute stroke noted. Continue aspirin Plavix Some weakness of right-sided extremities (2) Intractable nausea and vomiting: Code(s): R11.2 - Nausea with vomiting, unspecified Status: Acute Assessment and Plan: a/w hyponatremia, and hypokalemia -continue with Pepcid -monitor magnesium electrolytes. -patient has a dizziness, that triggers nausea vomiting, explained by her posterior circulation CVA. Appreciate Neurology input. -GI consult. CT scan noted -08/12 EGD unremarkable Start Reglan 10 mg q.6 hours scheduled, meclizine 25 mg b.i.d. p.o. per GI recommendation, also continue scopolamine patch to control dizziness Appetite is improving. Has nausea occasionally, without vomiting Start potassium chloride of 40 mEq in 1 liter normal ascending iv. Patient cannot tolerate type potassium chloride Repeat BMP a.m. (3) Diabetes: Code(s): E11.9 - Type 2 diabetes mellitus without complications Status: Acute Assessment and Plan: The patient stated that she would be able to continue using her DEXA, and insulin pump and she will sign the agreement. (4) Hyponatremia: Code(s): E87.1 - Hypo-osmolality and hyponatremia Status: Acute Assessment and Plan: Due to poor intake, Continue nebs and IV Start sodium chloride 1 g b.i.d. (5) Hypokalemia: Code(s): E87.6 - Hypokalemia Status: Acute Assessment and Plan: Start potassium chloride 20 mEq b.i.d. p.o. but patient cannot tolerate the tab order potassium chloride IV p.r.n. Follow-up BMP (6) Thyroid disease: Code(s): E07.9 - Disorder of thyroid, unspecified Status: Acute Assessment and Plan: -check thyroid level and continue with levothyroxine. (7) TIA (transient ischemic attack): Code(s): G45.9 - Transient cerebral ischemic attack, unspecified Status: Acute (8) Diabetic neuropathy: Code(s): E11.40 - Type 2 diabetes mellitus with diabetic neuropathy, unspecified Status: Acute Assessment and Plan: Continue with gabapentin (9) Dehydration: Code(s): E86.0 - Dehydration Status: Acute Subjective Date/time seen: 08/16/22 13:04 Interval history: Patient still has nausea, a few vomiting, appetite is improving. Has general weakness. Patient denies headache, new focal weakness, chest pain, shortness of breath. Patient cannot tolerate potassium chloride tablet, repeated BMP, potassium 3.0 sodium 130. Patient has no new issue event over the night. Exam Narrative: GENERAL: Pleasant, in no acute distress. Well-nourished. - EYES: EOMI. Anicteric. - HENT: Moist mucous membranes. - LUNGS: Clear to auscultation bilaterally, no wheezing, rhonchi, or rales. - CARDIOVASCULAR: Regular rate and rhythm. No murmur. No JVD. - ABDOMEN: Soft, non-tender and non-distended. No palpable masses. - EXTREMITIES: No edema. Peripheral pulses 2+. Non-tender. - NEUROLOGIC: . CN II-XII grossly intact. Some weakness of right upper limb and the right leg - PSYCHIATRIC: Awake, Alert and oriented x 3. Appropriate mood and affect. - SKIN: No rashes or lesions. Warm. - LYMPH: No cervical lymphadenopathy. Objective Data Vital Signs Vital Signs: Vital Signs - 24 hr 08/15/22 14:00 08/15/22 22:00 08/15/22 20:00 Temperature 97.9 F 97.8 F Pulse Rate 78 76 Respiratory Rate 16 14 Blood Pressure 148/76 H 142/62 H Pulse Oximetry 98 95 Oxygen Delivery Room Air 08/16/22 06:00 Temperature 97.3 F L Pulse Rate 70 Respiratory Rate 16 Blood Pressure 167/76 H Pulse Oximetry 97 Oxygen Delivery Intake/Output Intake/Output: Intake & Output 08/13/22 08/14/22 08/15/22 08/16/22 23:59 23:59 23:59 23:59 Intake Total 3590 2700 2990 2420 Output Total 450 1200 1550 1250 Balance
[2022-08-16 14:00] VITALS: BP 143/80; PULSE 80; RESP 18; TEMP 36.7; O2SAT 97
[2022-08-16 16:36] LABS: Glucose Point of Care 222 mg/dl (65-105)
--- NOTE | 2022-08-16 18:14 | PC.NURSE ---
patient nauseated, she wanted to wait to take sodium tab and antivert.
[2022-08-16] MEDS: KCL 40 MEQ/0.9% SOD CHL 1,000 ML 100 ML IV CONT (18:52)
[2022-08-16 21:25] LABS: Glucose Point of Care 253 mg/dl (65-105)
[2022-08-16 22:00] VITALS: BP 152/69; PULSE 81; RESP 16; TEMP 37; O2SAT 97
[2022-08-17] VITALS (10 sets, daily range): BP systolic 97–164; BP diastolic 59–97; PULSE 65–91; RESP 16–22; TEMP 35.7–37; O2SAT 97–100
[2022-08-17] MEDS: KCL 40 MEQ/0.9% SOD CHL 1,000 ML 100 ML IV CONT ×2 (05:00→15:08)
[2022-08-17] MEDS: METOCLOPRAMIDE HCL INJ 10 MG/2 ML VIAL 5 MG IV PUSH ×4 (05:21→23:11)
[2022-08-17] MEDS: LEVOTHYROXINE SODIUM 88 MCG TABLET PO (05:22)
[2022-08-17 06:12] LABS: Hematocrit 36.3 % (37.0-47.0); Hemoglobin 12.3 g/dL (12.0-15.0); Mean Corpuscular HGB Conc 33.9 g/dl (32-36); Mean Corpuscular Hemoglobin 30.5 pg (26-34); Mean Corpuscular Volume 90.1 fl (80-100); Mean Platelet Volume 9.9 fl (7.4-10.4); Platelet Count Result 162 k/mm3 (150-375); Red Blood Count 4.03 M/mm3 (4.2-5.4); Red Cell Distribution Width 14.2 % (11.5-14.5); White Blood Count 5.2 K/mm3 (4.5-10.0)
[2022-08-17 06:28] LABS: Anion Gap 3 mmol/L (8-16); Blood Urea Nitrogen 6 mg/dL (7-17); Calcium 6.8 mg/dL (8.4-10.2); Carbon Dioxide 26 mmol/L (22-30); Chloride 101 mmol/L (98-107); Estimated CRCL calculation 105 ml/min; Estimated Glomerular Filt Rate > 60; Glucose 195 mg/dL (65-110); Potassium 3.7 mmol/L (3.4-5.0); Sodium 130 mmol/L (137-145)
[2022-08-17 08:03] LABS: Glucose Point of Care 210 mg/dl (65-105)
[2022-08-17] MEDS: INSULIN ASPART (*BKC) 100 UNITS/ML SUB-Q ×2 (08:15→11:44)
[2022-08-17] MEDS: ASPIRIN 81 MG ENTERIC TABLET PO (08:17)
[2022-08-17] MEDS: GABAPENTIN 300 MG CAPSULE 600 MG PO ×2 (08:17→12:28)
[2022-08-17] MEDS: PRAVASTATIN SODIUM 20 MG TABLET 40 MG PO (08:18)
[2022-08-17] MEDS: CHOLECALCIFEROL 1,000 UNITS TABLET 5000 UNITS PO (08:18)
[2022-08-17] MEDS: polyethylene glycoL 3350 17 GM POWD.PACK PO (08:18)
[2022-08-17] MEDS: MECLIZINE HCL 12.5 MG TABLET PO ×2 (08:18→12:28)
[2022-08-17] MEDS: CLOPIDOGREL BISULFATE 75 MG TABLET PO (08:18)
[2022-08-17] MEDS: SODIUM CHLORIDE 1 GM TABLET PO (08:18)
[2022-08-17] MEDS: ONDANSETRON INJ 4 MG/2 ML VIAL IV PUSH ×2 (08:33→17:20)
[2022-08-17 11:23] LABS: Glucose Point of Care 227 mg/dl (65-105)
--- NOTE | 2022-08-17 14:04 | PCNFU ---
Nutrition Follow-Up Complete: Inadequate oral intake related to nausea and vomiting as evidenced by 0% intakes, pt report. Goal:Improve PO intake after diet advancement. Pt slowly progressing towards goal. Pt current nutrition is Diabetic consistent carb, Glucerna shakes BID. Nutrition recommendation: Continue with current plan of care. Last recorded weight is 88.9 kg. Bowel Motility: no BM recorded Labs Reviewed: NA:130, BUN:6, Cr:0.4, Glu:227 Meds Noted: novolog, reglan Skin: WNL Additional Notes: Pt on a diabetic diet, states appetite improving, charted intake 10-25%, drinking Glucerna shakes occasionally. Requesting a banana daily. Encourage intake of meals and supplements. Monitoring intakes, weights, labs, plan of care Follow up in 7 days
--- NOTE | 2022-08-17 16:06 | PM.IMPN ---
Progress Note: A&P Assessment and Plan (1) Acute CVA (cerebrovascular accident): Code(s): I63.9 - Cerebral infarction, unspecified Status: Acute Assessment and Plan: Acute stroke noted. Continue aspirin, hold Plavix until evaluated by GI Some weakness of right-sided extremities PT/OT still having dizziness (2) Intractable nausea and vomiting: Code(s): R11.2 - Nausea with vomiting, unspecified Status: Acute Assessment and Plan: a/w hyponatremia, and hypokalemia -continue with Pepcid -monitor magnesium electrolytes. -patient has a dizziness, that triggers nausea vomiting, explained by her posterior circulation CVA. Appreciate Neurology input. -GI consult. CT scan noted -08/12 EGD unremarkable Start Reglan 10 mg q.6 hours scheduled, meclizine 25 mg b.i.d. p.o. per GI recommendation, also continue scopolamine patch to control dizziness Appetite is improving. Has nausea occasionally, without vomiting Start potassium chloride of 40 mEq in 1 liter normal ascending iv. Patient cannot tolerate type potassium chloride Repeat BMP a.m., monitor (3) Diabetes: Code(s): E11.9 - Type 2 diabetes mellitus without complications Status: Acute Assessment and Plan: The patient stated that she would be able to continue using her DEXA, and insulin pump and she will sign the agreement. (4) Hyponatremia: Code(s): E87.1 - Hypo-osmolality and hyponatremia Status: Acute Assessment and Plan: Due to poor intake, Continue nebs and IV Start sodium chloride 1 g b.i.d. monitor and adjust with clinical couse (5) Hypokalemia: Code(s): E87.6 - Hypokalemia Status: Acute Assessment and Plan: Start potassium chloride 20 mEq b.i.d. p.o. but patient cannot tolerate the tab order potassium chloride IV p.r.n. Follow-up BMP (6) Thyroid disease: Code(s): E07.9 - Disorder of thyroid, unspecified Status: Acute Assessment and Plan: -check thyroid level and continue with levothyroxine. (7) TIA (transient ischemic attack): Code(s): G45.9 - Transient cerebral ischemic attack, unspecified Status: Acute (8) Diabetic neuropathy: Code(s): E11.40 - Type 2 diabetes mellitus with diabetic neuropathy, unspecified Status: Acute Assessment and Plan: Continue with gabapentin (9) Dehydration: Code(s): E86.0 - Dehydration Status: Acute (10) GI bleed: Code(s): K92.2 - Gastrointestinal hemorrhage, unspecified Status: Acute Assessment and Plan: Bloody emesis with clots today upto 210 mls PT/INR, PTT, CT A/P with contrast, start Protonix 40mg IV bid, IVF Inform GI (11) Adult failure to thrive: Code(s): R62.7 - Adult failure to thrive Status: Acute Assessment and Plan: NPO for now until GI eval afterwards will encounrage po intake dieitian consulted Subjective Date/time seen: 08/17/22 16:06 Interval history: Patient still has nausea, a few vomiting, noted appetite is still wonky, this was in the morning; however this afternoon i was called that patient about 210 mls of vomiting consisting in blood and blood clots. vital signs were stable however. Review of Systems Review of Systems: All systems reviewed & are unremarkable except as noted in HPI and below Exam Narrative: GENERAL: Pleasant, in no acute distress. Well-nourished. - EYES: EOMI. Anicteric. - HENT: Moist mucous membranes. - LUNGS: Clear to auscultation bilaterally, no wheezing, rhonchi, or rales. - CARDIOVASCULAR: Regular rate and rhythm. No murmur. No JVD. - ABDOMEN: Soft, non-tender and non-distended. No palpable masses. - EXTREMITIES: No edema. Peripheral pulses 2+. Non-tender. - NEUROLOGIC: . CN II-XII grossly intact. Some weakness of right upper limb and the right leg - PSYCHIATRIC: Awake, Alert and oriented x 3. Appropriate mood and affect. - SKIN: No rashes or lesions. Warm. - LYM
[2022-08-17 16:10] LABS: Glucose Point of Care 217 mg/dl (65-105)
[2022-08-17 16:43] LABS: Basophils Percent Auto 0.7 % (0.2-1.2); Eosinophils Absolute Auto 0.1 K/mm3 (0-0.3); Eosinophils Percent Auto 2.1 % (0-4.4); Hematocrit 34.6 % (37.0-47.0); Hemoglobin 11.1 g/dL (12.0-15.0); Immature Granulocyte Absolute 0.03 K/mm3 (0.00-0.031); Immature Granulocyte Percent A 0.5 % (0-0.5); Lymphocytes Percent Auto 17.7 % (18.3-44.2); Mean Corpuscular HGB Conc 32.1 g/dl (32-36); Mean Corpuscular Hemoglobin 30.4 pg (26-34); Mean Corpuscular Volume 94.8 fl (80-100); Mean Platelet Volume 10.3 fl (7.4-10.4); Monocytes Absolute Auto 0.6 K/mm3 (0.1-0.6); Monocytes Percent Auto 10.8 % (2.6-8.5); Neutrophils Absolute Auto 3.9 K/mm3 (1.3-6.7); Neutrophils Percent Auto 68.2 % (45.5-73.1); Platelet Count Result 170 k/mm3 (150-375); Red Blood Count 3.65 M/mm3 (4.2-5.4); Red Cell Distribution Width 14.5 % (11.5-14.5); White Blood Count 5.7 K/mm3 (4.5-10.0)
[2022-08-17 16:49] LABS: INR 1.3; Prothrombin Time 15.3 Seconds (11.1-14.7)
[2022-08-17 16:50] LABS: Partial Thromboplastin Time 25.8 SECONDS (22.3-36.8)
[2022-08-17] MEDS: PANTOPRAZOLE SODIUM IV 40 MG VIAL IV PUSH ×2 (17:55→22:26)
--- NOTE | 2022-08-17 20:05 | WPDANESEPP ---
Anes - Eval Pre Procedure Procedure: Operation Date: 08/11/22 12:00 Proposed Procedures p Esophagogastroduodenoscopy - Luis Felipe Sheehan MD Date/Time: 08/17/22 20:05 Surgeon: Luis Felipe Sheehan Preop Diagnosis: GI bleeding Pre Op Diagnosis: intractable vomiting Patient Data Age: 76 Gender: F Height: 1.63 m Weight: 88.9 kg Last Vital Signs Temp 36.6 C 08/17/22 18:30 Pulse 91 08/17/22 18:30 Resp 20 08/17/22 18:30 BP 143/75 H 08/17/22 18:30 Pulse Ox 98 08/17/22 18:30 O2 Del Method Room Air 08/16/22 20:00 O2 Flow Rate 3 08/11/22 12:12 Allergies Allergy/AdvReac Type Severity Reaction Status Date / Time No Known Allergies Allergy Verified 07/16/20 10:15 Home Medications Medication Instructions Recorded Confirmed Type aspirin 81 mg tablet,delayed 81 mg PO DAILY 06/18/20 08/04/22 History release (Adult Aspirin Regimen) cholecalciferol (vitamin D3) 10 5,000 unit PO DAILY 06/18/20 08/04/22 History mcg (400 unit) capsule cyanocobalamin (vitamin B-12) 100 mcg subcut MONTHLY 06/18/20 08/04/22 History 1,000 mcg/mL injection solution denosumab 60 mg/mL subcutaneous 6 mg subcut [id number] 06/18/20 08/04/22 History syringe (Prolia) gabapentin 400 mg capsule 400 mg PO TID 06/18/20 08/04/22 History insulin lispro [Humalog KwikPen See Rx Instructions .Route .COMPLEX 06/18/20 08/04/22 History Insulin] levothyroxine 100 mcg capsule 88 mcg PO EVERY OTHER DAY 06/18/20 08/04/22 History pravastatin 40 mg tablet 40 mg PO DAILY 06/18/20 08/04/22 History Daily Probiotic (10 Strains) 1 tab-cap PO DAILY 08/04/22 08/04/22 History omega-3 fatty acids 2,400 mg PO DAILY 08/04/22 08/04/22 History Laboratory Tests 08/16/22 08/17/22 08/17/22 20:22 06:05 06:05 WBC 5.2 K/mm3 K/mm3 (4.5-10.0) RBC 4.03 M/mm3 L M/mm3 (4.2-5.4) Hgb 12.3 g/dL g/dL (12.0-15.0) Hct 36.3 % L % (37.0-47.0) MCV 90.1 fl fl (80-100) MCH 30.5 pg pg (26-34) MCHC 33.9 g/dl g/dl (32-36) RDW 14.2 % % (11.5-14.5) Plt Count 162 k/mm3 k/mm3 (150-375) MPV 9.9 fl fl (7.4-10.4) Immature Gran % (Auto) Neut % (Auto) Lymph % (Auto) [place] % (Auto) Eos % (Auto) Baso % (Auto) Lymph # (Auto) [place] # (Auto) Eos # (Auto) Baso # (Auto) Abs Immat Gran (auto) Absolute Neuts (auto) Absolute Nucleated RBC Nucleated RBC % PT INR APTT Sodium 130 mmol/L L mmol/L (137-145) Potassium 3.7 mmol/L mmol/L (3.4-5.0) Chloride 101 mmol/L mmol/L (98-107) Carbon Dioxide 26 mmol/L mmol/L (22-30) Anion Gap 3 mmol/L L mmol/L (8-16) BUN 6 mg/dL L mg/dL (7-17) Creatinine 0.40 mg/dL L mg/dL (0.7-1.0) Estim Creat Clear Calc 105 ml/min ml/min Estimated GFR > 60 (59 - ) Glucose 195 mg/dL H mg/dL (65-110) POC Capillary Glucose 253 mg/dl H mg/dl (65-105) Calcium 6.8 mg/dL L mg/dL (8.4-10.2) 08/17/22 08/17/22 08/17/22 07:47 11:18 16:05 WBC RBC Hgb Hct MCV MCH MCHC RDW Plt Count MPV Immature Gran % (Auto) Neut % (Auto) Lymph % (Auto) [place] % (Auto) Eos % (Auto) Baso % (Auto) Lymph # (Auto) [place] # (Auto) Eos # (Auto) Baso # (Auto) Abs Immat Gran (auto) Absolute Neuts (auto) Absolute Nucleated RBC Nucleated RBC % PT INR APTT Sodium Potassium Chloride
[2022-08-17] MEDS: LACTATED RINGERS 1,000 ML 150 ML IV CONT (20:39)
--- NOTE | 2022-08-17 20:43 | P.PNAN_ITS ---
Anes - Eval Final PreProcedure Day of Procedure 08/17/22 20:43 Patient weight: obese Heart: regular rate and rhythm Lungs: clear to auscultation Airway: Mallampati scale class III Neurological: alert and oriented Last oral intake: >/= 8 hours ASA classification: IV Emergent: no Anesthetic plan: proceed Anesthesia type and monitoring: general GIVS and standard monitoring Results Review: All pre-operative results and documents have been reviewed as part of the pre- operative evaluation. Informed Consent: The patient's anesthetic plan and its attendant risks and benefits were discussed with the patient/family/POA. Questions were solicited and answers provided to the satisfaction of the patient/family/POA.
[2022-08-17 21:41] LABS: Glucose Point of Care 231 mg/dl (65-105)
[2022-08-17 22:25] LABS: Hemoglobin 9.9 g/dL (12.0-15.0); Mean Corpuscular Hemoglobin 30.8 pg (26-34); Mean Corpuscular Volume 93.5 fl (80-100); Mean Platelet Volume 10.4 fl (7.4-10.4); Platelet Count Result 164 k/mm3 (150-375); Red Blood Count 3.21 M/mm3 (4.2-5.4); Red Cell Distribution Width 14.4 % (11.5-14.5); White Blood Count 6.1 K/mm3 (4.5-10.0)
[2022-08-17] MEDS: OCTREOTIDE ACETATE 50 MCG/ML VIAL IV PUSH (23:07)
[2022-08-18] VITALS (10 sets, daily range): BP systolic 84–138; BP diastolic 44–64; PULSE 48–87; RESP 16–26; TEMP 36.6–36.9; O2SAT 96–100
[2022-08-18] MEDS: ONDANSETRON INJ 4 MG/2 ML VIAL IV PUSH ×4 (04:10→22:13)
[2022-08-18] MEDS: METOCLOPRAMIDE HCL INJ 10 MG/2 ML VIAL 5 MG IV PUSH ×3 (05:40→17:15)
[2022-08-18 06:50] LABS: Hematocrit 31.6 % (37.0-47.0); Hemoglobin 10.4 g/dL (12.0-15.0)
[2022-08-18 07:44] LABS: Glucose Point of Care 220 mg/dl (65-105)
[2022-08-18] MEDS: SCOPOLAMINE 1.5 MG PATCH TRANSDERM (08:42)
[2022-08-18] MEDS: PANTOPRAZOLE SODIUM IV 40 MG VIAL IV PUSH ×2 (08:42→20:37)
[2022-08-18] MEDS: INSULIN ASPART (*BKC) 100 UNITS/ML SUB-Q (08:43)
--- NOTE | 2022-08-18 09:11 | WPDANESPN ---
Anes - Prog Note Post-Op Date/Time: 08/18/22 09:11 Cardiovascular status: normal Respiratory status: normal Airway patency: baseline Mental status: baseline Post-Op hydration status: normal Vital Signs: Last Vital Signs Temp 97.9 F 08/18/22 06:00 Pulse 74 08/18/22 06:00 Resp 18 08/18/22 06:00 BP 138/64 08/18/22 06:00 Pulse Ox 96 08/18/22 06:00 O2 Del Method Room Air 08/17/22 21:15 O2 Flow Rate 2 08/17/22 20:55 Pain Score (VAS): 0/10 I/O: Intake & Output 08/17/22 08/18/22 08/18/22 23:59 07:59 15:59 Intake Total 200 100 Output Total 660 750 Balance -460 -650 Laboratory Tests 08/18/22 06:44 08/17/22 06:05 08/17/22 08/17/22 08/17/22 11:18 16:05 16:14 WBC RBC Hgb Hct MCV MCH MCHC RDW Plt Count MPV Immature Gran % (Auto) Neut % (Auto) Lymph % (Auto) [place] % (Auto) Eos % (Auto) Baso % (Auto) Lymph # (Auto) [place] # (Auto) Eos # (Auto) Baso # (Auto) Abs Immat Gran (auto) Absolute Neuts (auto) Absolute Nucleated RBC Nucleated RBC % PT 15.3 H INR 1.3 APTT 25.8 POC Capillary Glucose 227 H 217 H 08/17/22 08/17/22 08/17/22 16:15 21:38 22:01 WBC 5.7 6.1 RBC 3.65 L 3.21 L Hgb 11.1 L 9.9 L Hct 34.6 L 30.0 L MCV 94.8 D 93.5 MCH 30.4 30.8 MCHC 32.1 33.0 RDW 14.5 14.4 Plt Count 170 164 MPV 10.3 10.4 Immature Gran % (Auto) 0.5 Neut % (Auto) 68.2 Lymph % (Auto) 17.7 L [place] % (Auto) 10.8 H Eos % (Auto) 2.1 Baso % (Auto) 0.7 Lymph # (Auto) 1.00 [place] # (Auto) 0.6 Eos # (Auto) 0.1 Baso # (Auto) 0.0 Abs Immat Gran (auto) 0.03 Absolute Neuts (auto) 3.9 Absolute Nucleated RBC 0.0 Nucleated RBC % 0.0 PT INR APTT POC Capillary Glucose 231 H 08/18/22 08/18/22 06:44 07:35 WBC RBC Hgb 10.4 L Hct 31.6 L MCV MCH MCHC RDW Plt Count MPV Immature Gran % (Auto) Neut % (Auto) Lymph % (Auto) [place] % (Auto) Eos % (Auto) Baso % (Auto) Lymph # (Auto) [place] # (Auto) Eos # (Auto) Baso # (Auto) Abs Immat Gran (auto) Absolute Neuts (auto) Absolute Nucleated RBC Nucleated RBC % PT INR APTT POC Capillary Glucose 220 H Post-procedural complaints: none Patient Feedback: Patient satisfied with anesthetic care.
[2022-08-18] MEDS: KCL 40 MEQ/0.9% SOD CHL 1,000 ML 75 ML IV CONT (09:14)
[2022-08-18] MEDS: INSULIN GLARGINE (*BKC) 100 UNITS/ML SUB-Q (11:11)
--- NOTE | 2022-08-18 12:05 | PCPTNOTE ---
The patient treatment was not able to be completed due to continued nausea and vomiting. Will plan to continue treatment per plan of care.
[2022-08-18 12:22] LABS: Glucose Point of Care 214 mg/dl (65-105)
[2022-08-18] MEDS: LACTATED RINGERS 1,000 ML 150 ML IV CONT (12:22)
--- NOTE | 2022-08-18 12:54 | WPDANESEPPF ---
Anes - Initial Pre Proc Eval Procedure: Operation Date: 08/11/22 12:00 Proposed Procedures p Esophagogastroduodenoscopy - Luis Felipe Sheehan MD Operation Date: 08/17/22 20:30 Proposed Procedures p Esophagogastroduodenoscopy - Luis Felipe Sheehan MD Operation Date: 08/18/22 13:45 Proposed Procedures p Esophagogastroduodenoscopy - Luis Felipe Sheehan MD Date/Time: 08/18/22 12:54 Surgeon: Guillermo Carrera MD Pre Op Diagnosis: intractable vomiting Patient Data Age: 76 Gender: F Height: 1.63 m Weight: 88.9 kg Last Vital Signs Temp 97.8 F 08/18/22 12:16 Pulse 87 08/18/22 12:16 Resp 16 08/18/22 12:16 BP 92/59 L 08/18/22 12:16 Pulse Ox 100 08/18/22 12:16 O2 Del Method Room Air 08/18/22 12:16 O2 Flow Rate 2 08/17/22 20:55 Allergies Allergy/AdvReac Type Severity Reaction Status Date / Time No Known Allergies Allergy Verified 08/18/22 12:07 Home Medications Medication Instructions Recorded Confirmed Type aspirin 81 mg tablet,delayed 81 mg PO DAILY 06/18/20 08/04/22 History release (Adult Aspirin Regimen) cholecalciferol (vitamin D3) 10 5,000 unit PO DAILY 06/18/20 08/04/22 History mcg (400 unit) capsule cyanocobalamin (vitamin B-12) 100 mcg subcut MONTHLY 06/18/20 08/04/22 History 1,000 mcg/mL injection solution denosumab 60 mg/mL subcutaneous 6 mg subcut [id number] 06/18/20 08/04/22 History syringe (Prolia) gabapentin 400 mg capsule 400 mg PO TID 06/18/20 08/04/22 History insulin lispro [Humalog KwikPen See Rx Instructions .Route .COMPLEX 06/18/20 08/04/22 History Insulin] levothyroxine 100 mcg capsule 88 mcg PO EVERY OTHER DAY 06/18/20 08/04/22 History pravastatin 40 mg tablet 40 mg PO DAILY 06/18/20 08/04/22 History Daily Probiotic (10 Strains) 1 tab-cap PO DAILY 08/04/22 08/04/22 History omega-3 fatty acids 2,400 mg PO DAILY 08/04/22 08/04/22 History Laboratory Tests 08/17/22 08/17/22 08/17/22 16:05 16:14 16:15 WBC 5.7 K/mm3 K/mm3 (4.5-10.0) RBC 3.65 M/mm3 L M/mm3 (4.2-5.4) Hgb 11.1 g/dL L g/dL (12.0-15.0) Hct 34.6 % L % (37.0-47.0) MCV 94.8 fl D fl (80-100) MCH 30.4 pg pg (26-34) MCHC 32.1 g/dl g/dl (32-36) RDW 14.5 % % (11.5-14.5) Plt Count 170 k/mm3 k/mm3 (150-375) MPV 10.3 fl fl (7.4-10.4) Immature Gran % (Auto) 0.5 % % (0-0.5) Neut % (Auto) 68.2 % % (45.5-73.1) Lymph % (Auto) 17.7 % L % (18.3-44.2) [place] % (Auto) 10.8 % H % (2.6-8.5) Eos % (Auto) 2.1 % % (0-4.4) Baso % (Auto) 0.7 % % (0.2-1.2) Lymph # (Auto) 1.00 K/mm3 K/mm3 (0.9-3.2) [place] # (Auto) 0.6 K/mm3 K/mm3 (0.1-0.6) Eos # (Auto) 0.1 K/mm3 K/mm3 (0-0.3) Baso # (Auto) 0.0 K/mm3 K/mm3 (0.0-0.1) Abs Immat Gran (auto) 0.03 K/mm3 K/mm3 (0.00-0.031) Absolute Neuts (auto) 3.9 K/mm3 K/mm3 (1.3-6.7) Absolute Nucleated RBC 0.0 K/mm3 K/mm3 (0.0-0.012) Nucleated RBC % 0.0 % % (0.0-0.2) PT 15.3 Seconds H Seconds (11.1-14.7) INR 1.3 APTT 25.8 SECONDS SECONDS (22.3-36.8) POC Capillary Glucose 217 mg/dl H mg/dl (65-105) 08/17/22 08/17/22 08/18/22 21:38 22:01 06:44 WBC 6.1 K/mm3 K/mm3 (4.5-10.0) RBC 3.21 M/mm3 L M/mm3 (4.2-5.4) Hgb 9.9 g/dL L g/dL 10.4 g/dL L g/dL (12.0-15.0) (12.0-15.0) Hct 30.0 % L % 31.6 % L % (37.0-47.0) (37.0-47.0) MCV 93.5 fl fl (80-100) MCH 30.8 pg pg (26-34) MCHC 33.0 g/dl g/dl (32-36) RDW 14.4 % % (11.5-14.5) Plt Count 164 k/mm3 k/mm3 (150-375) MPV 10.4 fl fl (7.4-10.4) Immature Gran % (Auto) Neut % (Auto) Lymph % (Auto) [place] % (Auto) Eos % (Auto) Baso % (Auto)
[2022-08-18] MEDS: SIMETHICONE ORAL SUSPENSION 20 MG/0.3 ML 30 ML BOTTLE 0.6 ML PO (14:09)
[2022-08-18] MEDS: EPINEPHrine INJ 1 MG/10 ML SYRINGE 0.3 MG XX (14:36)
--- NOTE | 2022-08-18 14:50 | PM.IMPN ---
Progress Note: A&P Assessment and Plan (1) Acute CVA (cerebrovascular accident): Code(s): I63.9 - Cerebral infarction, unspecified Status: Acute (2) Hematemesis: Code(s): K92.0 - Hematemesis Status: Acute (3) Diabetes: Code(s): E11.9 - Type 2 diabetes mellitus without complications Status: Acute (4) Intractable nausea and vomiting: Code(s): R11.2 - Nausea with vomiting, unspecified Status: Acute (5) GI bleed: Code(s): K92.2 - Gastrointestinal hemorrhage, unspecified Status: Acute (6) Hypokalemia: Code(s): E87.6 - Hypokalemia Status: Acute (7) Hyponatremia: Code(s): E87.1 - Hypo-osmolality and hyponatremia Status: Acute Plan 76-year-old female patient who has a history of insulin-dependent diabetes and is on insulin pump presented initially with nausea, vomiting and weakness.Found to have acute stroke, ?MRI showed acute infarct in right PICA distribution with chronic microvascular changes and tiny foci of hemosiderin in the right thalamus with remote possibility of microhemorrhage, was started on ASA, plavix GI was consulted for intractable nausea, vomiting, underwent EGD on 08/11 which was unremarkable except for showing changes consistent with chronic, atrophic gastritis, H pylori was negative, she developed hematemesis, underwent EGD again on 08/17 which showed blood in stomach, plan for repeat EGD today Hospital course was further complicated with hyponatremia, hypokalemia, dizziness 1)Acute CVA: ASA, Plavix on hold at the moment 2)GI Bleed/Hematemesis: Appreciate GI help Plan for EGD today c/w PPI C/w Reglan, Zofran for nausea 3)Hyponatremia: No BMP for today 4)Dizziness: c/w meclizine 5)Diabetes mellitus: SS insulin on inulin pump 6)DVT ppx:SCD 7)Code:Full 8)Dispo:pending improvement Time Spent With Patient Time with patient: 25 - 35 minutes Subjective Date/time seen: 08/18/22 14:50 Interval history: continues to be nauseous Plan for repeat EGD today Review of Systems Review of Systems: ROS unobtainable: Yes other (feeling nauseous, didn't obtain ROS due to being perisistently nauseous) Exam Narrative: ?GENERAL:? ill appearing, in distress due to nausea - EYES: EOMI. Anicteric. - HENT: dry MM - LUNGS: Clear to auscultation bilaterally, no wheezing, rhonchi, or rales. - CARDIOVASCULAR: Regular rate and rhythm. No murmur. No JVD. - ABDOMEN: Soft, non-tender and non-distended. No palpable masses. - EXTREMITIES: No edema. - NEUROLOGIC: Some weakness of right upper limb and the right leg - PSYCHIATRIC: Awake, Alert and oriented x 3. - SKIN: No rashes or lesions. Warm. - LYMPH: No cervical lymphadenopathy. Objective Data Vital Signs Vital Signs: Vital Signs - 24 hr 08/17/22 15:55 08/17/22 16:00 08/17/22 18:30 Temperature 98 F 98 F Pulse Rate 82 91 Respiratory Rate 16 20 Blood Pressure 164/97 H 145/81 H 143/75 H Pulse Oximetry 100 98 Oxygen Delivery Oxygen Flow Rate 08/17/22 20:36 08/17/22 20:55 08/17/22 21:05 Temperature Pulse Rate 90 87 86 Respiratory Rate 20 18 18 Blood Pressure 127/73 97/59 L 106/64 Pulse Oximetry 98 99 98 Oxygen Delivery Room Air Nasal Cannula Room Air Oxygen Flow Rate 2 08/17/22 21:15 08/17/22 20:00 08/17/22 22:00 Temperature 96.2 F L Pulse Rate 88 83 Respiratory Rate 20 16 Blood Pressure 110/66 115/65 Pulse Oximetry 99 98 Oxygen Delivery Room Air Room Air Oxygen Flow Rate 08/18/22 06:00 08/18/22 08:00 08/18/22 12:16 Temperature 97.9 F 97.8 F Pulse Rate 74 87 Respiratory Rate 18 16 Blood Pressure 138/64 92/59 L Pulse Oximetry 96 100 Oxygen Delivery Room Air Room Air Oxygen Flow Rate 08/18/22 14:40 Temperature Pulse Rate 86 Respiratory Rate 26 H Blood Pressure 89/47 L Pulse Oximetry 97 Oxygen Delivery Room Air Oxygen Flow Rate Intake/Output Intake/Output: Intake & Output 08/15/22 08/16/22
[2022-08-18] MEDS: GABAPENTIN 300 MG CAPSULE 600 MG PO ×2 (16:10→20:37)
[2022-08-18] MEDS: SODIUM CHLORIDE 1 GM TABLET PO (16:15)
[2022-08-18] MEDS: MECLIZINE HCL 12.5 MG TABLET PO ×2 (16:15→20:37)
[2022-08-18 16:23] LABS: Glucose Point of Care 195 mg/dl (65-105)
[2022-08-18 18:10] LABS: Hematocrit 27.9 % (37.0-47.0)
[2022-08-18 20:33] LABS: Glucose Point of Care 189 mg/dl (65-105)
[2022-08-18 23:41] LABS: Hematocrit 23.6 % (37.0-47.0); Hemoglobin 7.9 g/dL (12.0-15.0)
[2022-08-19] MEDS: METOCLOPRAMIDE HCL INJ 10 MG/2 ML VIAL 5 MG IV PUSH ×5 (00:34→23:12)
[2022-08-19] MEDS: LEVOTHYROXINE SODIUM 88 MCG TABLET PO (05:30)
[2022-08-19 06:00] VITALS: BP 131/64; PULSE 80; RESP 20; TEMP 36.4; O2SAT 95
[2022-08-19 07:03] LABS: Basophils Percent Auto 0.4 % (0.2-1.2); Eosinophils Absolute Auto 0.1 K/mm3 (0-0.3); Hematocrit 24.7 % (37.0-47.0); Hemoglobin 7.9 g/dL (12.0-15.0); Immature Granulocyte Absolute 0.04 K/mm3 (0.00-0.031); Immature Granulocyte Percent A 0.6 % (0-0.5); Lymphocytes Absolute Auto 1.12 K/mm3 (0.9-3.2); Lymphocytes Percent Auto 15.8 % (18.3-44.2); Mean Corpuscular Hemoglobin 29.9 pg (26-34); Mean Corpuscular Volume 93.6 fl (80-100); Mean Platelet Volume 10.8 fl (7.4-10.4); Monocytes Absolute Auto 0.5 K/mm3 (0.1-0.6); Monocytes Percent Auto 7.1 % (2.6-8.5); Neutrophils Absolute Auto 5.2 K/mm3 (1.3-6.7); Neutrophils Percent Auto 74.1 % (45.5-73.1); Platelet Count Result 169 k/mm3 (150-375); Red Blood Count 2.64 M/mm3 (4.2-5.4); Red Cell Distribution Width 14.8 % (11.5-14.5); White Blood Count 7.1 K/mm3 (4.5-10.0)
[2022-08-19 07:12] LABS: Potassium 4.3 mmol/L (3.4-5.0)
[2022-08-19 07:26] LABS: Anion Gap 3 mmol/L (8-16); Blood Urea Nitrogen 10 mg/dL (7-17); Calcium 6.4 mg/dL (8.4-10.2); Carbon Dioxide 24 mmol/L (22-30); Chloride 100 mmol/L (98-107); Estimated CRCL calculation 105 ml/min; Estimated Glomerular Filt Rate > 60; Glucose 187 mg/dL (65-110); Sodium 127 mmol/L (137-145)
--- NOTE | 2022-08-19 07:28 | WPDGIPROGNO ---
Progress Note: A&P Assessment and Plan (1) Intractable nausea and vomiting: Code(s): R11.2 - Nausea with vomiting, unspecified Status: Acute Assessment and Plan: The symptoms all seem to have begun just a couple days prior to her admission. She states that she has never had a ulcer before. She does recall that several years ago she had endoscopy at [facility]. her EGD here was unremarkable except for showing changes consistent with chronic, atrophic gastritis. That usually does not cause symptoms. H pylori was negative. The only medications that were started here that could be responsible are fish oil which actually she refused the last few days and famotidine. I will stop those for now. I will replace promethazine with metoclopramide. given that her infarct was cerebellar, she almost certainly has nausea and vomiting secondary he had disequilibrium explain to her that this is like having a so called in her ear infection. Consequently I will start her on meclizine. 08/14/2022 she has been eating little more she believes that she is gradually getting better. 08/15/2022 modest improvement. She is able to keep some food down. She is dizzy whenever she tries to get out of bed or go to the bathroom. The staff is assisting her. I will increase meclizine to 4 times a day. 08/19/2022 because her symptoms are all secondary to the stroke involving the cerebellum, I am going to request Dr. Downing here to see if he has any advice regarding different medication approaches to help with her symptoms (2) Diabetes: Code(s): E11.9 - Type 2 diabetes mellitus without complications Status: Acute Assessment and Plan: She manages her diabetes at home with the pump. Here she is on a sliding scale. She is still not up to eating regular food. I will try full liquids today She is willing to try regular food tonight, diabetic diet I have ordered nutritional supplements. 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 She did not want to come to hospital at 1st but finally her son insisted on it. all of her GI symptoms began she recalls shortly after she fell at home I wonder if perhaps neurology may have some suggestions to help with her persistent vertigo. (4) Abnormal CT scan, gastrointestinal tract: Code(s): R93.3 - Abnormal findings on diagnostic imaging of other parts of digestive tract Status: Acute Assessment and Plan: CT scan shows: 1. Mild wall thickening of the distal stomach which could be due to incomplete distention or gastritis. 2. Cholelithiasis without evidence of cholecystitis. a follow-up CT scan is essentially the same. I will schedule her for EGD to be done on Wednesday08/13/2022 nothing was seen on endoscopy to correlate with the CT findings. (5) Hematemesis: Code(s): K92.0 - Hematemesis Status: Acute Assessment and Plan: she had 1 episode of hematemesis last night after her endoscopy. Most likely there was some bleeding from biopsies. This is almost always self-limiting. There has been no further emesis of blood although she has had some clear emesis. I discussed with her the results of the EGD, negative H pylori. No ulcer or anything else that would explain her symptoms. there has been no further hematemesis since that 1 episode 08/19/2022 after EGD and treatment of a Dieulafoy's lesion yesterday, it seems that the bleeding has stopped. Her last 2 hemoglobins were 7.9. I did inform her that she will likely see dark stools from whenever blood is passing but she has not noticed that yet. (6) Constipation:
[2022-08-19 08:23] LABS: Glucose Point of Care 199 mg/dl (65-105)
[2022-08-19] MEDS: GABAPENTIN 300 MG CAPSULE 600 MG PO ×3 (08:29→21:16)
[2022-08-19] MEDS: PANTOPRAZOLE SODIUM IV 40 MG VIAL IV PUSH ×2 (08:29→21:16)
[2022-08-19] MEDS: polyethylene glycoL 3350 17 GM POWD.PACK PO (08:29)
[2022-08-19] MEDS: PRAVASTATIN SODIUM 20 MG TABLET 40 MG PO (08:30)
[2022-08-19] MEDS: KCL 40 MEQ/0.9% SOD CHL 1,000 ML 75 ML IV CONT ×2 (08:30→23:09)
[2022-08-19] MEDS: SODIUM CHLORIDE 1 GM TABLET PO ×2 (08:30→17:14)
[2022-08-19] MEDS: ONDANSETRON INJ 4 MG/2 ML VIAL IV PUSH ×2 (09:51→19:56)
[2022-08-19] MEDS: MECLIZINE HCL 25 MG TABLET PO ×3 (10:30→17:13)
--- NOTE | 2022-08-19 11:32 | PM.IMPN ---
Progress Note: A&P Assessment and Plan (1) Acute CVA (cerebrovascular accident): Code(s): I63.9 - Cerebral infarction, unspecified Status: Acute (2) Hematemesis: Code(s): K92.0 - Hematemesis Status: Acute (3) Diabetes: Code(s): E11.9 - Type 2 diabetes mellitus without complications Status: Acute (4) Intractable nausea and vomiting: Code(s): R11.2 - Nausea with vomiting, unspecified Status: Acute (5) GI bleed: Code(s): K92.2 - Gastrointestinal hemorrhage, unspecified Status: Acute (6) Hypokalemia: Code(s): E87.6 - Hypokalemia Status: Acute (7) Hyponatremia: Code(s): E87.1 - Hypo-osmolality and hyponatremia Status: Acute Plan 76-year-old female patient who has a history of insulin-dependent diabetes and is on insulin pump presented initially with nausea, vomiting and weakness.Found to have acute stroke, ?MRI showed acute infarct in right PICA distribution with chronic microvascular changes and tiny foci of hemosiderin in the right thalamus with remote possibility of microhemorrhage, was started on ASA, plavix GI was consulted for intractable nausea, vomiting, underwent EGD on 08/11 which was unremarkable except for showing changes consistent with chronic, atrophic gastritis, H pylori was negative, she developed hematemesis, underwent EGD again on 08/17 which showed blood in stomach, plan for repeat EGD today Hospital course was further complicated with hyponatremia, hypokalemia, dizziness 1)Acute CVA: ASA, Plavix on hold at the moment Still not eating. Nutrition consult and neuro Consul reordered today. 2)GI Bleed/Hematemesis: Appreciate GI help Plan for EGD today c/w PPI C/w Reglan, Zofran for nausea 3)Hyponatremia: No BMP for today 4)Dizziness: c/w meclizine 5)Diabetes mellitus: SS insulin on inulin pump 6)DVT ppx:SCD 7)Code:Full 8)Dispo:pending improvement Subjective Date/time seen: 08/19/22 11:32 No new complaints Still not eating Exam Narrative: ?GENERAL:? ill appearing, in distress due to nausea - EYES: EOMI. Anicteric. - HENT: dry MM - LUNGS: Clear to auscultation bilaterally, no wheezing, rhonchi, or rales. - CARDIOVASCULAR: Regular rate and rhythm. No murmur. No JVD. - ABDOMEN: Soft, non-tender and non-distended. No palpable masses. - EXTREMITIES: No edema. - NEUROLOGIC: Some weakness of right upper limb and the right leg - PSYCHIATRIC: Awake, Alert and oriented x 3. - SKIN: No rashes or lesions. Warm. - LYMPH: No cervical lymphadenopathy. Objective Data Vital Signs Vital Signs: Vital Signs - 24 hr 08/18/22 12:16 08/18/22 14:40 08/18/22 14:50 Temperature 97.8 F 98.4 F Pulse Rate 87 86 87 Respiratory Rate 16 26 H 22 H Blood Pressure 92/59 L 89/47 L 84/48 L Pulse Oximetry 100 97 100 Oxygen Delivery Room Air Room Air Room Air 08/18/22 15:00 08/18/22 15:10 08/18/22 15:20 Temperature Pulse Rate 83 81 84 Respiratory Rate 22 H 23 H 24 H Blood Pressure 102/53 L 92/44 L 98/49 L Pulse Oximetry 100 100 100 Oxygen Delivery Room Air Room Air Room Air 08/18/22 15:30 08/18/22 16:02 08/18/22 22:00 Temperature 97.9 F 98.1 F Pulse Rate 83 81 48 L Respiratory Rate 24 H 16 18 Blood Pressure 106/51 L 107/56 L 138/62 Pulse Oximetry 98 99 97 Oxygen Delivery Room Air 08/19/22 06:00 Temperature 97.5 F L Pulse Rate 80 Respiratory Rate 20 Blood Pressure 131/64 Pulse Oximetry 95 Oxygen Delivery Intake/Output Intake/Output: Intake & Output 08/16/22 08/17/22 08/18/22 08/19/22 23:59 23:59 23:59 23:59 Intake Total 2940 2250 2350 150 Output Total 1250 2009 1400 1100 Balance 1690 240 950 -950 Meds/Results Medications: Active Medications Generic Name Dose Route Start Last Admin Trade Name Freq PRN Reason Stop Dose Admin Bisacodyl 10 mg 08/15/22 08:51 Bisacodyl 10 Mg Suppository RECTAL QAM PRN Constipation Dextrose 12.5 gm 08/05/22 13:19 Dextros
--- NOTE | 2022-08-19 11:54 | WPDNEUROPN ---
Subjective Date/time seen: 08/19/22 11:54 Interval history: called back to evaluate the patient for the complaints of persistent vomiting, patient was initially seen on. for posterior circulation stroke in addition to type 2 diabetes mellitus with diabetic neuropathy. MRI of the brain was consistent with acute infarct in the right PICA distribution. 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 On today's visit she reported that she is somewhat better. I will obtain the MRI of the brain to rule out the extension of the stroke to the brain stem to consider the possibility of central etiology of vomiting also to rule out the possibility of hydrocephalus from the stroke itself. If this study is negative then we will start her on amitriptyline 10 mg daily though today he did report to me that she is somewhat better Objective Data Vital Signs Vital Signs: Vital Signs - 24 hr 08/18/22 12:16 08/18/22 14:40 08/18/22 14:50 Temperature 36.6 C 36.9 C Pulse Rate 87 86 87 Respiratory Rate 16 26 H 22 H Blood Pressure 92/59 L 89/47 L 84/48 L Pulse Oximetry 100 97 100 Oxygen Delivery Room Air Room Air Room Air 08/18/22 15:00 08/18/22 15:10 08/18/22 15:20 Temperature Pulse Rate 83 81 84 Respiratory Rate 22 H 23 H 24 H Blood Pressure 102/53 L 92/44 L 98/49 L Pulse Oximetry 100 100 100 Oxygen Delivery Room Air Room Air Room Air 08/18/22 15:30 08/18/22 16:02 08/18/22 22:00 Temperature 36.6 C 36.7 C Pulse Rate 83 81 48 L Respiratory Rate 24 H 16 18 Blood Pressure 106/51 L 107/56 L 138/62 Pulse Oximetry 98 99 97 Oxygen Delivery Room Air 08/19/22 06:00 Temperature 36.4 C L Pulse Rate 80 Respiratory Rate 20 Blood Pressure 131/64 Pulse Oximetry 95 Oxygen Delivery Intake/Output Intake/Output: Intake & Output 08/16/22 08/17/22 08/18/22 08/19/22 23:59 23:59 23:59 23:59 Intake Total 2940 2250 2350 150 Output Total 0 2009 1400 1100 Balance 1690 240 950 -950 Meds/Results Medications: Active Medications Generic Name Dose Route Start Last Admin Trade Name Freq PRN Reason Stop Dose Admin Bisacodyl 10 mg 08/15/22 08:51 Bisacodyl 10 Mg Suppository RECTAL QAM PRN Constipation Dextrose 12.5 gm 08/05/22 13:19 Dextrose 50% 25 Gm/50 Ml Syringe IV PUSH PRN PRN Hypoglycemia Protocol Gabapentin 600 mg 08/07/22 21:00 08/19/22 08:29 Gabapentin 300 Mg Capsule PO 600 mg DAILY@0900,1300,2100 BHAKTI Administration Glucagon 1 mg 08/05/22 13:19 Glucagon For Inj 1 Mg Vial IM PRN PRN Hypoglycemia Protocol Glucose 15 gm 08/05/22 13:19 Glucose Oral Gel 15 Gm Of Glucse In 37.5 Gm Tube PO PRN PRN Hypoglycemia Protocol Home Med 1 each 08/05/22 06:00 08/19/22 07:30 Insulin Lispro (Humalog) Per Insulin Pump XX 09/04/22 05:59 Not Given DAILY@0600 BHAKTI Hydralazine HCl 10 mg 08/04/22 23:40 08/09/22 05:54 Hydralazine Hcl 20 Mg/Ml Vial IV PUSH 10 mg Q8H PRN Administration Blood Pressure - High Dextrose 1,000 mls @ 100 mls/hr 08/05/22 13:19 Dextrose 5% 1,000 Ml IVPB PRN PRN Hypoglycemia Protocol Potassium Chloride/Sodium Chloride 1,000 mls @ 75 mls/hr 08/16/22 13:05 08/19/22 08:30 Kcl 40 Meq/Ns IV CONT 75 mls/hr .[id number] BHAKTI Administration Octreotide Acetate 500 mcg/ 100 mls @ 10 mls/hr 08/17/22 19:25 08/19/22 11:08 Dextrose IV CONT 50 mcg/hr .Q10H BHAKTI 10 mls/hr Administration 50 MCG/HR Insulin Aspart 3 - 6 units 08/05/22 17:00 08/19/22 08:25 Insulin Aspart (*Bkc) 100 Units/Ml SUB-Q Not Given TIDWM BHAKTI Protocol Levothyroxine Sodium 88 mcg 08/05/22 06:30 08/19/22 05:30 Levothyroxine Sodium 88 Mcg Tablet PO 88 mcg Q48H BHAKTI Administration Meclizine HCl 25 mg 08/19/22 09:00 08/19/22 10:30 Meclizine Hcl 25 Mg Tablet PO 25 mg TID BHAKTI Admi
--- NOTE | 2022-08-19 11:55 | PCPTNOTE ---
The patient treatment was not able to be completed due to patient going to MRI. Will plan to continue treatment per plan of care.
[2022-08-19 12:00] LABS: Glucose Point of Care 174 mg/dl (65-105)
--- NOTE | 2022-08-19 13:58 | PCPTNOTE ---
Patient declined PT this afternoon. Patient states she had an MRI today and feels very fatigued. Patient states I know that I need to get up but I just don't think I can. PT will continue to follow.
[2022-08-19 14:00] VITALS: BP 140/64; PULSE 73; RESP 18; TEMP 36.6; O2SAT 100
[2022-08-19 14:59] LABS: Hematocrit 25.4 % (37.0-47.0); Hemoglobin 8.2 g/dL (12.0-15.0)
[2022-08-19 17:00] LABS: Glucose Point of Care 190 mg/dl (65-105)
[2022-08-19 21:10] LABS: Glucose Point of Care 185 mg/dl (65-105)
[2022-08-19] MEDS: AMITRIPTYLINE HCL 10 MG TABLET PO (21:18)
[2022-08-19 22:00] VITALS: BP 139/58; PULSE 75; RESP 16; TEMP 36.7; O2SAT 96
[2022-08-19 22:59] LABS: Hematocrit 23.4 % (37.0-47.0); Hemoglobin 7.7 g/dL (12.0-15.0)
[2022-08-20] MEDS: METOCLOPRAMIDE HCL INJ 10 MG/2 ML VIAL 5 MG IV PUSH (05:32)
[2022-08-20] MEDS: ONDANSETRON INJ 4 MG/2 ML VIAL IV PUSH ×3 (05:54→20:28)
[2022-08-20 06:00] VITALS: BP 151/69; PULSE 72; RESP 14; TEMP 36.2; O2SAT 92
--- NOTE | 2022-08-20 07:19 | WPDGIPROGNO ---
Progress Note: A&P Assessment and Plan (1) Intractable nausea and vomiting: Code(s): R11.2 - Nausea with vomiting, unspecified Status: Acute Assessment and Plan: The symptoms all seem to have begun just a couple days prior to her admission. She states that she has never had a ulcer before. She does recall that several years ago she had endoscopy at [facility]. her EGD here was unremarkable except for showing changes consistent with chronic, atrophic gastritis. That usually does not cause symptoms. H pylori was negative. The only medications that were started here that could be responsible are fish oil which actually she refused the last few days and famotidine. I will stop those for now. I will replace promethazine with metoclopramide. given that her infarct was cerebellar, she almost certainly has nausea and vomiting secondary he had disequilibrium explain to her that this is like having a so called in her ear infection. Consequently I will start her on meclizine. 08/14/2022 she has been eating little more she believes that she is gradually getting better. 08/15/2022 modest improvement. She is able to keep some food down. She is dizzy whenever she tries to get out of bed or go to the bathroom. The staff is assisting her. I will increase meclizine to 4 times a day. 08/19/2022 because her symptoms are all secondary to the stroke involving the cerebellum, I am going to request Dr. Wilcox to see if he has any advice regarding different medication approaches to help with her symptoms 08/20/2022 Dr. Wilcox ordered MRI. He did not show any extension of her stroke. (2) Diabetes: Code(s): E11.9 - Type 2 diabetes mellitus without complications Status: Acute Assessment and Plan: She manages her diabetes at home with the pump. Here she is on a sliding scale. She is still not up to eating regular food. I will try full liquids today She is willing to try regular food tonight, diabetic diet I have ordered nutritional supplements. 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 She did not want to come to hospital at 1st but finally her son insisted on it. all of her GI symptoms began she recalls shortly after she fell at home I wonder if perhaps neurology may have some suggestions to help with her persistent vertigo. 08/20/2022 neurology suggested perhaps trying amitriptyline if symptoms persist. (4) Abnormal CT scan, gastrointestinal tract: Code(s): R93.3 - Abnormal findings on diagnostic imaging of other parts of digestive tract Status: Acute Assessment and Plan: CT scan shows: 1. Mild wall thickening of the distal stomach which could be due to incomplete distention or gastritis. 2. Cholelithiasis without evidence of cholecystitis. a follow-up CT scan is essentially the same. I will schedule her for EGD to be done on Wednesday08/13/2022 nothing was seen on endoscopy to correlate with the CT findings. (5) Hematemesis: Code(s): K92.0 - Hematemesis Status: Acute Assessment and Plan: she had 1 episode of hematemesis last night after her endoscopy. Most likely there was some bleeding from biopsies. This is almost always self-limiting. There has been no further emesis of blood although she has had some clear emesis. I discussed with her the results of the EGD, negative H pylori. No ulcer or anything else that would explain her symptoms. there has been no further hematemesis since that 1 episode 08/19/2022 after EGD and treatment of a Dieulafoy's lesion yesterday, it seems that the bleeding has stopped. Her las
[2022-08-20 07:59] LABS: Glucose Point of Care 212 mg/dl (65-105)
[2022-08-20] MEDS: PRAVASTATIN SODIUM 20 MG TABLET 40 MG PO (08:57)
[2022-08-20] MEDS: SODIUM CHLORIDE 1 GM TABLET PO ×2 (08:57→16:10)
[2022-08-20] MEDS: CHOLECALCIFEROL 1,000 UNITS TABLET 5000 UNITS PO (08:57)
[2022-08-20] MEDS: PANTOPRAZOLE SODIUM IV 40 MG VIAL IV PUSH ×2 (08:57→20:25)
[2022-08-20] MEDS: GABAPENTIN 300 MG CAPSULE 600 MG PO ×3 (08:57→20:25)
[2022-08-20] MEDS: MECLIZINE HCL 25 MG TABLET PO ×3 (08:59→16:12)
--- NOTE | 2022-08-20 11:22 | PM.IMPN ---
Progress Note: A&P Assessment and Plan (1) Acute CVA (cerebrovascular accident): Code(s): I63.9 - Cerebral infarction, unspecified Status: Acute (2) Hematemesis: Code(s): K92.0 - Hematemesis Status: Acute (3) Diabetes: Code(s): E11.9 - Type 2 diabetes mellitus without complications Status: Acute (4) Intractable nausea and vomiting: Code(s): R11.2 - Nausea with vomiting, unspecified Status: Acute (5) GI bleed: Code(s): K92.2 - Gastrointestinal hemorrhage, unspecified Status: Acute (6) Hypokalemia: Code(s): E87.6 - Hypokalemia Status: Acute (7) Hyponatremia: Code(s): E87.1 - Hypo-osmolality and hyponatremia Status: Acute Subjective Date/time seen: 08/20/22 11:22 still some nausea dizziness is improving Exam Const: General: cooperative, healthy appearing, comfortable, no acute distress, well developed, alert, awake, Physically active, average body habitus and well nourished Nutritional Appearance: average body habitus and well nourished Orientation/consciousness: oriented to person, oriented to place, oriented to time and patient oriented x3 Limitations: no limitations HENMT: Head: normal to inspection, No palpable skull fracture present, normocephalic and atraumatic Ears: hearing grossly normal bilaterally and external ears normal Face/Nose/Sinus: Normal external nose present and Normal nares present Eyes: General: appearance normal, both eyes and all related structures Alignment and Position: alignment normal Periorbital: periorbital findings normal Eyelids: eyelids normal Sclera: sclerae normal Pupils: Equal, round and reactive pupils present EOM: EOMs intact bilaterally and Nystagmus present ( slight nystagmus to the left) Neck: Neck: normal visual inspection, full ROM, no lymphadenopathy, trachea midline and supple Chest: Chest palpation & inspection: normal inspection of the chest Resp: Effort & Inspection: normal respiratory effort Auscultation: clear to auscultation bilaterally Cardio: Palpation: normal PMI Rate: regular rate Rhythm: regular rhythm Heart sounds: S1 normal heart sound present and S2 normal heart sound present Peripheral pulses: Peripheral pulses 2+ throughout GI: Inspection: normal to inspection Auscultation: normal bowel sounds Rectal Exam: deferred Back/Spine/Pelvis: Cervical Spine: cervical ROM normal Skin: General skin exam: normal color Lesions: no lesions Rashes: no rashes Trauma: no lacerations or abrasions Wounds: no wounds Hair: normal Nails: normal Neuro: General: oriented to person, oriented to place, oriented to time and patient oriented x3 Cranial nerves: Yes Equal, round and reactive pupils present, Yes Normal hearing present and Yes Nystagmus present ( slight nystagmus to the left) Cognition (Neuro): normal cognition Speech: normal speech Gait exam (Neuro): Normal gait present Motor exam (neuro): 5/5 motor strength present throughout Sensory Exam: normal sensation Extrem: General: normal to inspection Right upper extremity: normal to inspection and shoulder/upper arm Left upper extremity: normal to inspection and shoulder/upper arm Right lower extremity: normal to inspection Left lower extremity: normal to inspection Psych: Appearance: grossly normal Mental Status: mental status grossly normal Speech and movement: Normal speech and movement present Affect: normal affect Attitude: cooperative Thought process: Normal thought process present Insight: Good insight present (Psych) Judgement: Good judgement present (Psych) Objective Data Vital Signs Vital Signs: Vital Signs - 24 hr 08/19/22 14:00 08/19/22 20:00 08/19/22 22:00 Temperature 97.8 F 98.1 F Pulse Rate 73 75 Respiratory Rate 18 16 Blood Pressure 140/64 139/58 L Pulse Oximetry 100 96 Oxygen Delivery Room Air 08/20/22 06:00 Temperature 97.1 F L Pulse Rate 72 Respiratory Rate 14 Blood
--- NOTE | 2022-08-20 11:45 | WPDNEUROPN ---
Subjective Date/time seen: 08/20/22 11:45 Interval history: recurrent vomiting for which patient was re-evaluated, routine labs revealed only hemoglobin of 8.0 with blood sugar of 212, sodium only 127, and as mentioned before repeat MRI revealed only acute to subacute right PICA distribution infarct doubt evidence of impending hydrocephalus or that is ventriculomegaly or any bleed patient this morning definitely more comfortable more receptive I had given her amitriptyline 10 mg last night will continue that medication for the time being and she is definitely feeling better. Objective Data Vital Signs Vital Signs: Vital Signs - 24 hr 08/19/22 14:00 08/19/22 20:00 08/19/22 22:00 Temperature 36.6 C 36.7 C Pulse Rate 73 75 Respiratory Rate 18 16 Blood Pressure 140/64 139/58 L Pulse Oximetry 100 96 Oxygen Delivery Room Air 08/20/22 06:00 Temperature 36.2 C L Pulse Rate 72 Respiratory Rate 14 Blood Pressure 151/69 H Pulse Oximetry 92 Oxygen Delivery Intake/Output Intake/Output: Intake & Output 08/17/22 08/18/22 08/19/22 08/20/22 23:59 23:59 23:59 23:59 Intake Total 2250 2350 1250 50 Output Total 2009 1400 2300 3450 Balance 240 950 1050 -3400 Meds/Results Medications: Active Medications Generic Name Dose Route Start Last Admin Trade Name Freq PRN Reason Stop Dose Admin Amitriptyline HCl 10 mg 08/19/22 21:00 08/19/22 21:18 Amitriptyline Hcl 10 Mg Tablet PO 09/19/22 08:59 10 mg HS BHAKTI Administration Bisacodyl 10 mg 08/15/22 08:51 Bisacodyl 10 Mg Suppository RECTAL QAM PRN Constipation Dextrose 12.5 gm 08/05/22 13:19 Dextrose 50% 25 Gm/50 Ml Syringe IV PUSH PRN PRN Hypoglycemia Protocol Gabapentin 600 mg 08/07/22 21:00 08/20/22 08:57 Gabapentin 300 Mg Capsule PO 600 mg DAILY@0900,1300,2100 BHAKTI Administration Glucagon 1 mg 08/05/22 13:19 Glucagon For Inj 1 Mg Vial IM PRN PRN Hypoglycemia Protocol Glucose 15 gm 08/05/22 13:19 Glucose Oral Gel 15 Gm Of Glucse In 37.5 Gm Tube PO PRN PRN Hypoglycemia Protocol Home Med 1 each 08/05/22 06:00 08/20/22 05:32 Insulin Lispro (Humalog) Per Insulin Pump XX 09/04/22 05:59 Not Given DAILY@0600 [facility] Hydralazine HCl 10 mg 08/04/22 23:40 08/09/22 05:54 Hydralazine Hcl 20 Mg/Ml Vial IV PUSH 10 mg Q8H PRN Administration Blood Pressure - High Dextrose 1,000 mls @ 100 mls/hr 08/05/22 13:19 Dextrose 5% 1,000 Ml IVPB PRN PRN Hypoglycemia Protocol Potassium Chloride/Sodium Chloride 1,000 mls @ 75 mls/hr 08/16/22 13:05 08/20/22 05:32 Kcl 40 Meq/Ns IV CONT Not Given .[id number] [facility] Insulin Aspart 3 - 6 units 08/05/22 17:00 08/20/22 08:54 Insulin Aspart (*Bkc) 100 Units/Ml SUB-Q Not Given TIDWM [facility] Protocol Levothyroxine Sodium 88 mcg 08/05/22 06:30 08/19/22 05:30 Levothyroxine Sodium 88 Mcg Tablet PO 88 mcg Q48H BHAKTI Administration Meclizine HCl 25 mg 08/19/22 09:00 08/20/22 08:59 Meclizine Hcl 25 Mg Tablet PO 25 mg TID BHAKTI Administration Ondansetron HCl 4 mg 08/04/22 18:01 08/20/22 05:54 Ondansetron Inj 4 Mg/2 Ml Vial IV PUSH 4 mg Q4H PRN Administration Nausea Pantoprazole Sodium 40 mg 08/17/22 17:00 08/20/22 08:57 Pantoprazole Sodium Iv 40 Mg Vial IV PUSH 40 mg Q12HR BHAKTI Administration Pravastatin Sodium 40 mg 08/05/22 09:00 08/20/22 08:57 Pravastatin Sodium 20 Mg Tablet PO 40 mg DAILY BHAKTI Administration Scopolamine 1.5 mg 08/12/22 09:00 08/18/22 08:42 Scopolamine 1.5 Mg Patch TRANSDERM 1.5 mg Q72HR BHAKTI Administration Simethicone 0.6 ml 08/18/22 14:08 08/18/22 14:09 Simethicone Oral Suspension 20 Mg/0.3 Ml 30 Ml Bottle PO 0.6 ml ONCE PRN Administration Gas Discomfort Sodium Chloride 1 gm 08/15/22 17:00 08/20/22 08:57 Sodium Chloride 1 Gm Tablet PO 1 gm BID BHAKTI Administration Zayra
--- NOTE | 2022-08-20 11:55 | PCNFU ---
Nutrition Follow-Up Complete: Inadequate oral intake related to nausea and vomiting as evidenced by 0% intakes, pt report. Goal:Improve PO intake after diet advancement. Pt is not progressing at this time. Pt current nutrition is NPO, to restart a diabetic diet today. Nutrition recommendation: Resume glucerna shakes BID Last recorded weight is 88.9 kg. Bowel Motility: No BM recorded at this time Labs Reviewed: Hgb:8.0, HCT:25 Meds Noted: Novolog, Reglan Skin: WNL Additional Notes: Pt continues to be NPO, diet to resume today. Appears tired and not interested in discussing much during assessment. Will restart Glucerna shakes BID. Monitoring intakes, weights, labs, plan of care Follow up in 5 days
[2022-08-20 11:59] LABS: Glucose Point of Care 189 mg/dl (65-105)
[2022-08-20 14:00] VITALS: BP 123/69; PULSE 73; RESP 14; TEMP 36.2; O2SAT 99
[2022-08-20] MEDS: KCL 40 MEQ/0.9% SOD CHL 1,000 ML 75 ML IV CONT (14:53)
[2022-08-20 15:14] LABS: Hematocrit 25.7 % (37.0-47.0); Hemoglobin 8.3 g/dL (12.0-15.0)
[2022-08-20 16:42] LABS: Glucose Point of Care 224 mg/dl (65-105)
[2022-08-20] MEDS: INSULIN ASPART (*BKC) 100 UNITS/ML SUB-Q (17:28)
[2022-08-20 20:00] VITALS: O2SAT 99
[2022-08-20] MEDS: AMITRIPTYLINE HCL 10 MG TABLET PO (20:25)
[2022-08-20 22:00] VITALS: BP 117/53; PULSE 82; RESP 16; TEMP 36.7; O2SAT 97
[2022-08-20 22:05] LABS: Glucose Point of Care 168 mg/dl (65-105)
[2022-08-20 23:48] LABS: Hematocrit 24.6 % (37.0-47.0)
[2022-08-21] MEDS: KCL 40 MEQ/0.9% SOD CHL 1,000 ML 75 ML IV CONT ×2 (05:02→17:15)
[2022-08-21] MEDS: LEVOTHYROXINE SODIUM 88 MCG TABLET PO (05:41)
[2022-08-21 06:00] VITALS: BP 129/67; PULSE 77; RESP 18; TEMP 36.4; O2SAT 98
[2022-08-21 06:35] LABS: Hematocrit 25.6 % (37.0-47.0); Hemoglobin 8.2 g/dL (12.0-15.0)
[2022-08-21 08:32] LABS: Glucose Point of Care 199 mg/dl (65-105)
[2022-08-21] MEDS: GABAPENTIN 300 MG CAPSULE 600 MG PO ×3 (09:06→21:24)
[2022-08-21] MEDS: MECLIZINE HCL 25 MG TABLET PO ×3 (09:06→17:19)
[2022-08-21] MEDS: SCOPOLAMINE 1.5 MG PATCH TRANSDERM (09:08)
--- NOTE | 2022-08-21 11:37 | WPDNEUROPN ---
Subjective Date/time seen: 08/21/22 11:37 Interval history: patient definitely feeling better less nauseated but having difficulties in working with the physical therapy because of the orthostatic symptomatology we had restarted on amitriptyline 10 mg daily for the consideration of central nausea and vomiting will continue that medication but she will definitely benefit from the orthostatic blood pressure monitoring and consideration for the midodrine Objective Data Vital Signs Vital Signs: Vital Signs - 24 hr 08/20/22 14:00 08/20/22 20:00 08/20/22 22:00 Temperature 36.2 C L 36.7 C Pulse Rate 73 82 Respiratory Rate 14 16 Blood Pressure 123/69 117/53 L Pulse Oximetry 99 99 97 Oxygen Delivery Room Air 08/21/22 06:00 08/21/22 09:20 Temperature 36.4 C Pulse Rate 77 Respiratory Rate 18 Blood Pressure 129/67 Pulse Oximetry 98 Oxygen Delivery Room Air Intake/Output Intake/Output: Intake & Output 08/18/22 08/19/22 08/20/22 08/21/22 23:59 23:59 23:59 23:59 Intake Total 2350 1250 1300 1220 Output Total 1400 2300 4050 1300 Balance 950 -1050 -2750 -80 Meds/Results Medications: Active Medications Generic Name Dose Route Start Last Admin Trade Name Freq PRN Reason Stop Dose Admin Amitriptyline HCl 10 mg 08/19/22 21:00 08/20/22 20:25 Amitriptyline Hcl 10 Mg Tablet PO 09/19/22 08:59 10 mg HS BHAKTI Administration Bisacodyl 10 mg 08/15/22 08:51 Bisacodyl 10 Mg Suppository RECTAL QAM PRN Constipation Dextrose 12.5 gm 08/05/22 13:19 Dextrose 50% 25 Gm/50 Ml Syringe IV PUSH PRN PRN Hypoglycemia Protocol Gabapentin 600 mg 08/07/22 21:00 08/21/22 09:06 Gabapentin 300 Mg Capsule PO 600 mg DAILY@0900,1300,2100 BHAKTI Administration Glucagon 1 mg 08/05/22 13:19 Glucagon For Inj 1 Mg Vial IM PRN PRN Hypoglycemia Protocol Glucose 15 gm 08/05/22 13:19 Glucose Oral Gel 15 Gm Of Glucse In 37.5 Gm Tube PO PRN PRN Hypoglycemia Protocol Home Med 1 each 08/05/22 06:00 08/21/22 05:07 Insulin Lispro (Humalog) Per Insulin Pump XX 09/04/22 05:59 Not Given DAILY@0600 BHAKTI Hydralazine HCl 10 mg 08/04/22 23:40 08/09/22 05:54 Hydralazine Hcl 20 Mg/Ml Vial IV PUSH 10 mg Q8H PRN Administration Blood Pressure - High Dextrose 1,000 mls @ 100 mls/hr 08/05/22 13:19 Dextrose 5% 1,000 Ml IVPB PRN PRN Hypoglycemia Protocol Potassium Chloride/Sodium Chloride 1,000 mls @ 75 mls/hr 08/16/22 13:05 08/21/22 05:02 Kcl 40 Meq/Ns IV CONT 75 mls/hr .[id number] BHAKTI Administration Insulin Aspart 3 - 6 units 08/05/22 17:00 08/21/22 09:05 Insulin Aspart (*Bkc) 100 Units/Ml SUB-Q Not Given TIDWM BHAKTI Protocol Levothyroxine Sodium 88 mcg 08/05/22 06:30 08/21/22 05:41 Levothyroxine Sodium 88 Mcg Tablet PO 88 mcg Q48H BHAKTI Administration Meclizine HCl 25 mg 08/19/22 09:00 08/21/22 09:06 Meclizine Hcl 25 Mg Tablet PO 25 mg TID BHAKTI Administration Ondansetron HCl 4 mg 08/04/22 18:01 08/20/22 20:28 Ondansetron Inj 4 Mg/2 Ml Vial IV PUSH 4 mg Q4H PRN Administration Nausea Pantoprazole Sodium 40 mg 08/17/22 17:00 08/21/22 09:11 Pantoprazole Sodium Iv 40 Mg Vial IV PUSH Not Given Q12HR BHAKTI Pravastatin Sodium 40 mg 08/05/22 09:00 08/21/22 09:10 Pravastatin Sodium 20 Mg Tablet PO Not Given DAILY BHAKTI Scopolamine 1.5 mg 08/12/22 09:00 08/21/22 09:08 Scopolamine 1.5 Mg Patch TRANSDERM 1.5 mg Q72HR BHAKTI Administration Simethicone 0.6 ml 08/18/22 14:08 08/18/22 14:09 Simethicone Oral Suspension 20 Mg/0.3 Ml 30 Ml Bottle PO 0.6 ml ONCE PRN Administration Gas Discomfort Sodium Chloride 1 gm 08/15/22 17:00 08/21/22 09:10 Sodium Chloride 1 Gm Tablet PO Not Given BID BHAKTI Vitamin D 5,000 units 08/05/22 09:00 08/21/22 09:11 Cholecalciferol 1,000 Units Tablet PO Not Given DAILY
--- NOTE | 2022-08-21 11:44 | WPDGIPROGNO ---
Progress Note: A&P Assessment and Plan (1) Intractable nausea and vomiting: Code(s): R11.2 - Nausea with vomiting, unspecified Status: Acute Assessment and Plan: The symptoms all seem to have begun just a couple days prior to her admission. She states that she has never had a ulcer before. She does recall that several years ago she had endoscopy at [facility]. her EGD here was unremarkable except for showing changes consistent with chronic, atrophic gastritis. That usually does not cause symptoms. H pylori was negative. The only medications that were started here that could be responsible are fish oil which actually she refused the last few days and famotidine. I will stop those for now. I will replace promethazine with metoclopramide. given that her infarct was cerebellar, she almost certainly has nausea and vomiting secondary he had disequilibrium explain to her that this is like having a so called in her ear infection. Consequently I will start her on meclizine. 08/14/2022 she has been eating little more she believes that she is gradually getting better. 08/15/2022 modest improvement. She is able to keep some food down. She is dizzy whenever she tries to get out of bed or go to the bathroom. The staff is assisting her. I will increase meclizine to 4 times a day. 08/19/2022 because her symptoms are all secondary to the stroke involving the cerebellum, I am going to request Dr. Wilcox to see if he has any advice regarding different medication approaches to help with her symptoms 08/20/2022 Dr. Wilcox ordered MRI. It did not show any extension of her stroke. 08/21/2022 she is eating a little more each day. She may be able to get transferred to rehab if that is the plan. (2) Diabetes: Code(s): E11.9 - Type 2 diabetes mellitus without complications Status: Acute Assessment and Plan: She manages her diabetes at home with the pump. Here she is on a sliding scale. She is still not up to eating regular food. I will try full liquids today She is willing to try regular food tonight, diabetic diet I have ordered nutritional supplements. 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 She did not want to come to hospital at but finally her son insisted on it. all of her GI symptoms began she recalls shortly after she fell at home I wonder if perhaps neurology may have some suggestions to help with her persistent vertigo. 08/20/2022 neurology suggested perhaps trying amitriptyline if symptoms persist. 08/21/2022 I have started her on amitriptyline. MRI did not show any extension of the stroke (4) Abnormal CT scan, gastrointestinal tract: Code(s): R93.3 - Abnormal findings on diagnostic imaging of other parts of digestive tract Status: Acute Assessment and Plan: CT scan shows: 1. Mild wall thickening of the distal stomach which could be due to incomplete distention or gastritis. 2. Cholelithiasis without evidence of cholecystitis. a follow-up CT scan is essentially the same. I will schedule her for EGD to be done on Wednesday08/13/2022 nothing was seen on endoscopy to correlate with the CT findings. (5) Hematemesis: Code(s): K92.0 - Hematemesis Status: Acute Assessment and Plan: she had 1 episode of hematemesis last night after her endoscopy. Most likely there was some bleeding from biopsies. This is almost always self-limiting. There has been no further emesis of blood although she has had some clear emesis. I discussed with her the results of the EGD, negative H pylori. No ulcer or anything el
[2022-08-21 11:45] LABS: Glucose Point of Care 265 mg/dl (65-105)
--- NOTE | 2022-08-21 12:28 | PM.IMPN ---
Progress Note: A&P Assessment and Plan (1) Acute CVA (cerebrovascular accident): Code(s): I63.9 - Cerebral infarction, unspecified Status: Acute Assessment and Plan: PTOT to evaluate the patient today. Will get the patient up have ambulating. Still having dizziness. Appreciate Neurology input. Still having nausea. Eating some food. (2) Hematemesis: Code(s): K92.0 - Hematemesis Status: Acute (3) Diabetes: Code(s): E11.9 - Type 2 diabetes mellitus without complications Status: Acute (4) Intractable nausea and vomiting: Code(s): R11.2 - Nausea with vomiting, unspecified Status: Acute (5) GI bleed: Code(s): K92.2 - Gastrointestinal hemorrhage, unspecified Status: Acute (6) Hypokalemia: Code(s): E87.6 - Hypokalemia Status: Acute (7) Hyponatremia: Code(s): E87.1 - Hypo-osmolality and hyponatremia Status: Acute Subjective Date/time seen: 08/21/22 12:28 Dizziness is a little better, still having nausea. Exam Const: General: cooperative, healthy appearing, comfortable, no acute distress, well developed, alert, awake, Physically active, average body habitus and well nourished Nutritional Appearance: average body habitus and well nourished Orientation/consciousness: oriented to person, oriented to place, oriented to time and patient oriented x3 Limitations: no limitations HENMT: Head: normal to inspection, No palpable skull fracture present, normocephalic and atraumatic Ears: hearing grossly normal bilaterally and external ears normal Face/Nose/Sinus: Normal external nose present and Normal nares present Eyes: General: appearance normal, both eyes and all related structures Alignment and Position: alignment normal Periorbital: periorbital findings normal Eyelids: eyelids normal Sclera: sclerae normal Pupils: Equal, round and reactive pupils present EOM: EOMs intact bilaterally and Nystagmus present ( slight nystagmus to the left) Neck: Neck: normal visual inspection, full ROM, no lymphadenopathy, trachea midline and supple Chest: Chest palpation & inspection: normal inspection of the chest Resp: Effort & Inspection: normal respiratory effort Auscultation: clear to auscultation bilaterally Cardio: Palpation: normal PMI Rate: regular rate Rhythm: regular rhythm Heart sounds: S1 normal heart sound present and S2 normal heart sound present Peripheral pulses: Peripheral pulses 2+ throughout GI: Inspection: normal to inspection Auscultation: normal bowel sounds Rectal Exam: deferred Back/Spine/Pelvis: Cervical Spine: cervical ROM normal Skin: General skin exam: normal color Lesions: no lesions Rashes: no rashes Trauma: no lacerations or abrasions Wounds: no wounds Hair: normal Nails: normal Neuro: General: oriented to person, oriented to place, oriented to time and patient oriented x3 Cranial nerves: Yes Equal, round and reactive pupils present, Yes Normal hearing present and Yes Nystagmus present ( slight nystagmus to the left) Cognition (Neuro): normal cognition Speech: normal speech Gait exam (Neuro): Normal gait present Motor exam (neuro): 5/5 motor strength present throughout Sensory Exam: normal sensation Extrem: General: normal to inspection Right upper extremity: normal to inspection and shoulder/upper arm Left upper extremity: normal to inspection and shoulder/upper arm Right lower extremity: normal to inspection Left lower extremity: normal to inspection Psych: Appearance: grossly normal Mental Status: mental status grossly normal Speech and movement: Normal speech and movement present Affect: normal affect Attitude: cooperative Thought process: Normal thought process present Insight: Good insight present (Psych) Judgement: Good judgement present (Psych) Objective Data Vital Signs Vital Signs: Vital Signs - 24 hr 08/20/22 14:00 08/20/22 20:00 08/20/22 22:00 Temperature 97.2 F L 98.0 F
[2022-08-21] MEDS: INSULIN ASPART (*BKC) 100 UNITS/ML SUB-Q (13:44)
[2022-08-21 14:00] VITALS: BP 114/68; PULSE 85; RESP 18; TEMP 36.8; O2SAT 94
[2022-08-21 14:59] LABS: Hematocrit 27.4 % (37.0-47.0); Hemoglobin 8.9 g/dL (12.0-15.0)
[2022-08-21 17:05] LABS: Glucose Point of Care 160 mg/dl (65-105)
[2022-08-21] MEDS: SODIUM CHLORIDE 1 GM TABLET PO (17:17)
[2022-08-21 20:54] LABS: Glucose Point of Care 192 mg/dl (65-105)
[2022-08-21] MEDS: AMITRIPTYLINE HCL 10 MG TABLET PO (21:26)
[2022-08-21] MEDS: PANTOPRAZOLE SODIUM IV 40 MG VIAL IV PUSH (21:26)
[2022-08-21 22:00] VITALS: BP 126/64; PULSE 77; RESP 22; TEMP 36.4; O2SAT 96
[2022-08-21 23:59] LABS: Hematocrit 25.7 % (37.0-47.0); Hemoglobin 8.4 g/dL (12.0-15.0)
[2022-08-22 06:00] VITALS: BP 136/63; PULSE 68; RESP 20; TEMP 36.2; O2SAT 98
[2022-08-22] MEDS: KCL 40 MEQ/0.9% SOD CHL 1,000 ML 75 ML IV CONT ×2 (06:57→20:17)
[2022-08-22 08:04] LABS: Hematocrit 27.3 % (37.0-47.0); Hemoglobin 8.7 g/dL (12.0-15.0)
[2022-08-22 08:39] LABS: Glucose Point of Care 177 mg/dl (65-105)
[2022-08-22] MEDS: ONDANSETRON INJ 4 MG/2 ML VIAL IV PUSH (08:48)
[2022-08-22] MEDS: PANTOPRAZOLE SODIUM IV 40 MG VIAL IV PUSH ×2 (08:49→20:30)
--- NOTE | 2022-08-22 11:38 | PM.IMPN ---
Progress Note: A&P Assessment and Plan (1) Acute CVA (cerebrovascular accident): Code(s): I63.9 - Cerebral infarction, unspecified Status: Acute Assessment and Plan: PTOT to evaluate the patient today. Will get the patient up have ambulating. Still having dizziness. Appreciate Neurology input. Still having nausea. Eating some food. (2) Hematemesis: Code(s): K92.0 - Hematemesis Status: Acute (3) Diabetes: Code(s): E11.9 - Type 2 diabetes mellitus without complications Status: Acute (4) Intractable nausea and vomiting: Code(s): R11.2 - Nausea with vomiting, unspecified Status: Acute (5) GI bleed: Code(s): K92.2 - Gastrointestinal hemorrhage, unspecified Status: Acute (6) Hypokalemia: Code(s): E87.6 - Hypokalemia Status: Acute (7) Hyponatremia: Code(s): E87.1 - Hypo-osmolality and hyponatremia Status: Acute Subjective Date/time seen: 08/22/22 11:38 Still having nausea Tolerating more food the Exam Const: General: cooperative, healthy appearing, comfortable, no acute distress, well developed, alert, awake, Physically active, average body habitus and well nourished Nutritional Appearance: average body habitus and well nourished Orientation/consciousness: oriented to person, oriented to place, oriented to time and patient oriented x3 Limitations: no limitations HENMT: Head: normal to inspection, No palpable skull fracture present, normocephalic and atraumatic Ears: hearing grossly normal bilaterally and external ears normal Face/Nose/Sinus: Normal external nose present and Normal nares present Eyes: General: appearance normal, both eyes and all related structures Alignment and Position: alignment normal Periorbital: periorbital findings normal Eyelids: eyelids normal Sclera: sclerae normal Pupils: Equal, round and reactive pupils present EOM: EOMs intact bilaterally and Nystagmus present ( slight nystagmus to the left) Neck: Neck: normal visual inspection, full ROM, no lymphadenopathy, trachea midline and supple Chest: Chest palpation & inspection: normal inspection of the chest Resp: Effort & Inspection: normal respiratory effort Auscultation: clear to auscultation bilaterally Cardio: Palpation: normal PMI Rate: regular rate Rhythm: regular rhythm Heart sounds: S1 normal heart sound present and S2 normal heart sound present Peripheral pulses: Peripheral pulses 2+ throughout GI: Inspection: normal to inspection Auscultation: normal bowel sounds Rectal Exam: deferred Back/Spine/Pelvis: Cervical Spine: cervical ROM normal Skin: General skin exam: normal color Lesions: no lesions Rashes: no rashes Trauma: no lacerations or abrasions Wounds: no wounds Hair: normal Nails: normal Neuro: General: oriented to person, oriented to place, oriented to time and patient oriented x3 Cranial nerves: Yes Equal, round and reactive pupils present, Yes Normal hearing present and Yes Nystagmus present ( slight nystagmus to the left) Cognition (Neuro): normal cognition Speech: normal speech Gait exam (Neuro): Normal gait present Motor exam (neuro): 5/5 motor strength present throughout Sensory Exam: normal sensation Extrem: General: normal to inspection Right upper extremity: normal to inspection and shoulder/upper arm Left upper extremity: normal to inspection and shoulder/upper arm Right lower extremity: normal to inspection Left lower extremity: normal to inspection Psych: Appearance: grossly normal Mental Status: mental status grossly normal Speech and movement: Normal speech and movement present Affect: normal affect Attitude: cooperative Thought process: Normal thought process present Insight: Good insight present (Psych) Judgement: Good judgement present (Psych) Objective Data Vital Signs Vital Signs: Vital Signs - 24 hr 08/21/22 14:00 08/21/22 20:00 08/21/22 22:00 Temperature 98.2 F 97.5 F L Pulse
[2022-08-22 11:58] LABS: Glucose Point of Care 234 mg/dl (65-105)
[2022-08-22] MEDS: GABAPENTIN 300 MG CAPSULE 600 MG PO ×2 (12:33→20:11)
[2022-08-22] MEDS: MECLIZINE HCL 25 MG TABLET PO ×2 (12:34→17:08)
[2022-08-22] MEDS: INSULIN ASPART (*BKC) 100 UNITS/ML SUB-Q ×2 (12:34→17:08)
[2022-08-22 14:00] VITALS: BP 109/56; PULSE 88; RESP 16; TEMP 36.6; O2SAT 100
[2022-08-22 17:00] LABS: Glucose Point of Care 259 mg/dl (65-105)
--- NOTE | 2022-08-22 17:05 | WPDGIPROGNO ---
Progress Note: A&P Assessment and Plan (1) Intractable nausea and vomiting: Code(s): R11.2 - Nausea with vomiting, unspecified Status: Acute Assessment and Plan: related to recent stroke causing also vertigo slightly better antiemetics prn, neurology on board physical therapy (2) Acute CVA (cerebrovascular accident): Code(s): I63.9 - Cerebral infarction, unspecified Status: Acute Assessment and Plan: medical treatment (3) Vertigo: Code(s): R42 - Dizziness and giddiness Status: Acute (4) Diabetes: Code(s): E11.9 - Type 2 diabetes mellitus without complications Status: Acute Subjective Date/time seen: 08/22/22 17:05 Interval history: still with nausea- she thinks that has improved since admission- is worse after moving her head and get dizzy. Review of Systems Review of Systems: All systems reviewed & are unremarkable except as noted in HPI and below Exam Const: General: alert Orientation/consciousness: patient oriented x3 HENMT: Face/Nose/Sinus: Normal nares present Eyes: EOM: Nystagmus present Neck: Neck: supple Resp: Auscultation: clear to auscultation bilaterally Cardio: Rhythm: regular rhythm GI: Inspection: normal to inspection GI Palp: No abdominal tenderness, Yes Soft to palpation, No Guarding due to palpation present (GI) and Yes No hepatosplenomegaly present Auscultation: normal bowel sounds Skin: General skin exam: normal color Neuro: Speech: normal speech Extrem: General: normal to inspection Psych: Affect: normal affect Objective Data Vital Signs Vital Signs: Vital Signs - 24 hr 08/21/22 20:00 08/21/22 22:00 08/22/22 06:00 Temperature 97.5 F L 97.1 F L Pulse Rate 77 68 Respiratory Rate 22 H 20 Blood Pressure 126/64 136/63 Pulse Oximetry 96 98 Oxygen Delivery Room Air 08/22/22 08:00 08/22/22 14:00 Temperature 97.9 F Pulse Rate 88 Respiratory Rate 16 Blood Pressure 109/56 L Pulse Oximetry 100 Oxygen Delivery Room Air Intake/Output Intake/Output: Intake & Output 08/19/22 08/20/22 08/21/22 08/22/22 23:59 23:59 23:59 23:59 Intake Total 1250 1300 2460 1460 Output Total 2300 4050 1800 1750 Balance -1050 -1290 660 -290 Meds/Results Medications: Active Medications Generic Name Dose Route Start Last Admin Trade Name Freq PRN Reason Stop Dose Admin Amitriptyline HCl 10 mg 08/19/22 21:00 08/21/22 21:26 Amitriptyline Hcl 10 Mg Tablet PO 09/19/22 08:59 10 mg HS BHAKTI Administration Bisacodyl 10 mg 08/15/22 08:51 Bisacodyl 10 Mg Suppository RECTAL QAM PRN Constipation Dextrose 12.5 gm 08/05/22 13:19 Dextrose 50% 25 Gm/50 Ml Syringe IV PUSH PRN PRN Hypoglycemia Protocol Gabapentin 600 mg 08/07/22 21:00 08/22/22 12:33 Gabapentin 300 Mg Capsule PO 600 mg DAILY@0900,1300,2100 BHAKTI Administration Glucagon 1 mg 08/05/22 13:19 Glucagon For Inj 1 Mg Vial IM PRN PRN Hypoglycemia Protocol Glucose 15 gm 08/05/22 13:19 Glucose Oral Gel 15 Gm Of Glucse In 37.5 Gm Tube PO PRN PRN Hypoglycemia Protocol Home Med 1 each 08/05/22 06:00 08/22/22 06:59 Insulin Lispro (Humalog) Per Insulin Pump XX 09/04/22 05:59 Not Given DAILY@0600 [facility] Hydralazine HCl 10 mg 08/04/22 23:40 08/09/22 05:54 Hydralazine Hcl 20 Mg/Ml Vial IV PUSH 10 mg Q8H PRN Administration Blood Pressure - High Dextrose 1,000 mls @ 100 mls/hr 08/05/22 13:19 Dextrose 5% 1,000 Ml IVPB PRN PRN Hypoglycemia Protocol Potassium Chloride/Sodium Chloride 1,000 mls @ 75 mls/hr 08/16/22 13:05 08/22/22 06:57 Kcl 40 Meq/Ns IV CONT 75 mls/hr .[id number] BHAKTI Administration Insulin Aspart 3 - 6 units 08/05/22 17:00 08/22/22 12:34 Insulin Aspart (*Bkc) 100 Units/Ml SUB-Q 3 units TIDWM BHAKTI Administration Protocol Levothyroxine Sodium 88 mcg 08/05/22 06:30 08/21/22
[2022-08-22 20:00] VITALS: O2SAT 100
[2022-08-22] MEDS: AMITRIPTYLINE HCL 10 MG TABLET PO (20:11)
[2022-08-22 21:10] LABS: Glucose Point of Care 162 mg/dl (65-105)
[2022-08-22 21:17] VITALS: BP 121/61; PULSE 74; RESP 20; TEMP 36.4; O2SAT 98
[2022-08-23 05:43] VITALS: BP 130/68; PULSE 68; RESP 18; TEMP 36.4; O2SAT 97
[2022-08-23] MEDS: LEVOTHYROXINE SODIUM 88 MCG TABLET PO (06:31)
[2022-08-23 08:15] LABS: Glucose Point of Care 174 mg/dl (65-105)
[2022-08-23] MEDS: CHOLECALCIFEROL 1,000 UNITS TABLET 5000 UNITS PO (08:28)
[2022-08-23] MEDS: GABAPENTIN 300 MG CAPSULE 600 MG PO ×3 (08:28→20:35)
[2022-08-23] MEDS: MIDODRINE HCL 10 MG TABLET PO (08:28)
[2022-08-23] MEDS: PRAVASTATIN SODIUM 20 MG TABLET 40 MG PO (08:28)
[2022-08-23] MEDS: SODIUM CHLORIDE 1 GM TABLET PO (08:28)
[2022-08-23] MEDS: PANTOPRAZOLE SODIUM IV 40 MG VIAL IV PUSH ×2 (08:29→20:35)
[2022-08-23] MEDS: ONDANSETRON INJ 4 MG/2 ML VIAL IV PUSH ×3 (08:30→18:04)
[2022-08-23 08:58] LABS: Anion Gap 4 mmol/L (8-16); Blood Urea Nitrogen 8 mg/dL (7-17); Calcium 7.2 mg/dL (8.4-10.2); Carbon Dioxide 24 mmol/L (22-30); Chloride 100 mmol/L (98-107); Estimated CRCL calculation 105 ml/min; Estimated Glomerular Filt Rate > 60; Glucose 177 mg/dL (65-110); Potassium 4.7 mmol/L (3.4-5.0); Sodium 128 mmol/L (137-145)
[2022-08-23] MEDS: KCL 40 MEQ/0.9% SOD CHL 1,000 ML 75 ML IV CONT (09:14)
[2022-08-23] MEDS: MECLIZINE HCL 25 MG TABLET PO ×3 (09:15→18:00)
--- NOTE | 2022-08-23 11:05 | PM.IMPN ---
Progress Note: A&P Assessment and Plan (1) Acute CVA (cerebrovascular accident): Code(s): I63.9 - Cerebral infarction, unspecified Status: Acute Assessment and Plan: PTOT to evaluate the patient today. Will get the patient up have ambulating. Still having dizziness. Appreciate Neurology input. Still having nausea. Eating some food. (2) Hematemesis: Code(s): K92.0 - Hematemesis Status: Acute (3) Diabetes: Code(s): E11.9 - Type 2 diabetes mellitus without complications Status: Acute (4) Intractable nausea and vomiting: Code(s): R11.2 - Nausea with vomiting, unspecified Status: Acute (5) GI bleed: Code(s): K92.2 - Gastrointestinal hemorrhage, unspecified Status: Acute (6) Hypokalemia: Code(s): E87.6 - Hypokalemia Status: Acute (7) Hyponatremia: Code(s): E87.1 - Hypo-osmolality and hyponatremia Status: Acute Subjective Date/time seen: 08/23/22 11:05 Still not eating much Exam Const: General: cooperative, healthy appearing, comfortable, no acute distress, well developed, alert, awake, Physically active, average body habitus and well nourished Nutritional Appearance: average body habitus and well nourished Orientation/consciousness: oriented to person, oriented to place, oriented to time and patient oriented x3 Limitations: no limitations HENMT: Head: normal to inspection, No palpable skull fracture present, normocephalic and atraumatic Ears: hearing grossly normal bilaterally and external ears normal Face/Nose/Sinus: Normal external nose present and Normal nares present Eyes: General: appearance normal, both eyes and all related structures Alignment and Position: alignment normal Periorbital: periorbital findings normal Eyelids: eyelids normal Sclera: sclerae normal Pupils: Equal, round and reactive pupils present EOM: EOMs intact bilaterally and Nystagmus present ( slight nystagmus to the left) Neck: Neck: normal visual inspection, full ROM, no lymphadenopathy, trachea midline and supple Chest: Chest palpation & inspection: normal inspection of the chest Resp: Effort & Inspection: normal respiratory effort Auscultation: clear to auscultation bilaterally Cardio: Palpation: normal PMI Rate: regular rate Rhythm: regular rhythm Heart sounds: S1 normal heart sound present and S2 normal heart sound present Peripheral pulses: Peripheral pulses 2+ throughout GI: Inspection: normal to inspection Auscultation: normal bowel sounds Rectal Exam: deferred Back/Spine/Pelvis: Cervical Spine: cervical ROM normal Skin: General skin exam: normal color Lesions: no lesions Rashes: no rashes Trauma: no lacerations or abrasions Wounds: no wounds Hair: normal Nails: normal Neuro: General: oriented to person, oriented to place, oriented to time and patient oriented x3 Cranial nerves: Yes Equal, round and reactive pupils present, Yes Normal hearing present and Yes Nystagmus present ( slight nystagmus to the left) Cognition (Neuro): normal cognition Speech: normal speech Gait exam (Neuro): Normal gait present Motor exam (neuro): 5/5 motor strength present throughout Sensory Exam: normal sensation Extrem: General: normal to inspection Right upper extremity: normal to inspection and shoulder/upper arm Left upper extremity: normal to inspection and shoulder/upper arm Right lower extremity: normal to inspection Left lower extremity: normal to inspection Psych: Appearance: grossly normal Mental Status: mental status grossly normal Speech and movement: Normal speech and movement present Affect: normal affect Attitude: cooperative Thought process: Normal thought process present Insight: Good insight present (Psych) Judgement: Good judgement present (Psych) Objective Data Vital Signs Vital Signs: Vital Signs - 24 hr 08/22/22 14:00 08/22/22 20:00 08/22/22 21:17 Temperature 97.9 F 97.5 F L Pulse Rate 88 74 Respirator
[2022-08-23 11:32] LABS: Glucose Point of Care 201 mg/dl (65-105)
[2022-08-23] MEDS: INSULIN ASPART (*BKC) 100 UNITS/ML SUB-Q ×2 (12:33→18:00)
[2022-08-23 14:00] VITALS: BP 110/50; PULSE 86; RESP 16; TEMP 36.2; O2SAT 98
[2022-08-23 17:27] LABS: Glucose Point of Care 251 mg/dl (65-105)
[2022-08-23 19:25] VITALS: O2SAT 98
[2022-08-23] MEDS: AMITRIPTYLINE HCL 10 MG TABLET PO (20:35)
[2022-08-23 20:40] LABS: Glucose Point of Care 210 mg/dl (65-105)
[2022-08-23 21:22] VITALS: BP 115/69; PULSE 85; RESP 20; TEMP 36.1; O2SAT 94
[2022-08-24] MEDS: KCL 40 MEQ/0.9% SOD CHL 1,000 ML 75 ML IV CONT (05:18)
[2022-08-24 06:00] VITALS: BP 121/71; PULSE 79; RESP 16; TEMP 36.6; O2SAT 97
[2022-08-24 08:05] LABS: Glucose Point of Care 198 mg/dl (65-105)
[2022-08-24] MEDS: MIDODRINE HCL 10 MG TABLET PO (08:23)
[2022-08-24] MEDS: GABAPENTIN 300 MG CAPSULE 600 MG PO ×3 (08:24→20:11)
[2022-08-24] MEDS: PRAVASTATIN SODIUM 20 MG TABLET 40 MG PO (08:24)
[2022-08-24] MEDS: SCOPOLAMINE 1.5 MG PATCH TRANSDERM (08:24)
[2022-08-24] MEDS: PANTOPRAZOLE SODIUM IV 40 MG VIAL IV PUSH ×2 (08:24→20:11)
[2022-08-24] MEDS: MECLIZINE HCL 25 MG TABLET PO ×3 (09:42→17:08)
[2022-08-24 10:42] LABS: Anion Gap 4 mmol/L (8-16); Blood Urea Nitrogen 7 mg/dL (7-17); Calcium 7.6 mg/dL (8.4-10.2); Carbon Dioxide 24 mmol/L (22-30); Chloride 97 mmol/L (98-107); Estimated CRCL calculation 86 ml/min; Estimated Glomerular Filt Rate > 60; Glucose 205 mg/dL (65-110); Potassium 4.8 mmol/L (3.4-5.0); Sodium 125 mmol/L (137-145)
--- NOTE | 2022-08-24 10:58 | PM.IMPN ---
Progress Note: A&P Assessment and Plan (1) Acute CVA (cerebrovascular accident): Code(s): I63.9 - Cerebral infarction, unspecified Status: Acute Assessment and Plan: PTOT to evaluate the patient today. Will get the patient up have ambulating. Still having dizziness. Appreciate Neurology input. Still having nausea. Eating some food. 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 Subjective Date/time seen: 08/24/22 10:58 No new complaints Exam Const: General: cooperative, healthy appearing, comfortable, no acute distress, well developed, alert, awake, Physically active, average body habitus and well nourished Nutritional Appearance: average body habitus and well nourished Orientation/consciousness: oriented to person, oriented to place, oriented to time and patient oriented x3 Limitations: no limitations HENMT: Head: normal to inspection, No palpable skull fracture present, normocephalic and atraumatic Ears: hearing grossly normal bilaterally and external ears normal Face/Nose/Sinus: Normal external nose present and Normal nares present Eyes: General: appearance normal, both eyes and all related structures Alignment and Position: alignment normal Periorbital: periorbital findings normal Eyelids: eyelids normal Sclera: sclerae normal Pupils: Equal, round and reactive pupils present EOM: EOMs intact bilaterally and Nystagmus present ( slight nystagmus to the left) Neck: Neck: normal visual inspection, full ROM, no lymphadenopathy, trachea midline and supple Chest: Chest palpation & inspection: normal inspection of the chest Resp: Effort & Inspection: normal respiratory effort Auscultation: clear to auscultation bilaterally Cardio: Palpation: normal PMI Rate: regular rate Rhythm: regular rhythm Heart sounds: S1 normal heart sound present and S2 normal heart sound present Peripheral pulses: Peripheral pulses 2+ throughout GI: Inspection: normal to inspection Auscultation: normal bowel sounds Rectal Exam: deferred Back/Spine/Pelvis: Cervical Spine: cervical ROM normal Skin: General skin exam: normal color Lesions: no lesions Rashes: no rashes Trauma: no lacerations or abrasions Wounds: no wounds Hair: normal Nails: normal Neuro: General: oriented to person, oriented to place, oriented to time and patient oriented x3 Cranial nerves: Yes Equal, round and reactive pupils present, Yes Normal hearing present and Yes Nystagmus present ( slight nystagmus to the left) Cognition (Neuro): normal cognition Speech: normal speech Gait exam (Neuro): Normal gait present Motor exam (neuro): 5/5 motor strength present throughout Sensory Exam: normal sensation Extrem: General: normal to inspection Right upper extremity: normal to inspection and shoulder/upper arm Left upper extremity: normal to inspection and shoulder/upper arm Right lower extremity: normal to inspection Left lower extremity: normal to inspection Psych: Appearance: grossly normal Mental Status: mental status grossly normal Speech and movement: Normal speech and movement present Affect: normal affect Attitude: cooperative Thought process: Normal thought process present Insight: Good insight present (Psych) Judgement: Good judgement present (Psych) Objective Data Vital Signs Vital Signs: Vital Signs - 24 hr 08/23/22 14:00 08/23/22 19
[2022-08-24] MEDS: LACTATED RINGERS 1,000 ML 75 ML IV CONT (11:35)
--- NOTE | 2022-08-24 11:38 | PCNFU ---
Nutrition Follow-Up Complete: Inadequate oral intake related to nausea and vomiting as evidenced by 0% intakes, pt report. Goal:Improve PO intake after diet advancement. Pt is not progressing Pt current nutrition is Diabetic diet, glucerna shakes. Nutrition recommendation: Encourage po intake of food and shakes, consider PPN for supplemental nutrition as intake is not adequate Last recorded weight is 88.9 kg. Bowel Motility: No BM recorded Labs Reviewed: Hgb:8.0, HCT:25 Meds Noted: Novolog, reglan, zofran, protonix Skin: no pressure areas Additional Notes: Pt continues on a diabetic diet, intake minimal. Pt still have nausea and vomiting. Nursing reports little actual intake. Encouraged pt to at least try drinking glucerna shakes to help caloric intake, noted shakes have been piled up on table. Pt agreed, but also noted she has agreed the last few visits and is still not consuming. consult for potential TPN. pt does not have a PICC line. Recommend to consider PPN for supplemental nutrition and encourage po intake as much as possible. PPN rate of 40 with lipids would provide 826kcals, 41g protein. Monitoring intakes, weights, labs, plan of care Follow up in 3 days
--- NOTE | 2022-08-24 11:45 | PCDIET ---
Consult for potential TPN. Pt does not have a PICC line. Recommend to consider PPN instead, for supplemental nutrition, and encourage po intake as much as possible. PPN rate of 40 with lipids would provide 826kcals, 41g protein to start. Monitor labs for possible refeeding syndrome due to poor po intake over an extended period of time and advance if tolerated. Monitor K+, PHOS, Ca, and Mag.
[2022-08-24 12:13] LABS: Glucose Point of Care 220 mg/dl (65-105)
[2022-08-24] MEDS: INSULIN ASPART (*BKC) 100 UNITS/ML SUB-Q (12:17)
[2022-08-24] MEDS: SODIUM CHLORIDE 1 GM TABLET PO ×2 (13:09→17:06)
[2022-08-24 14:00] VITALS: BP 113/52; PULSE 78; RESP 17; TEMP 36.5; O2SAT 98
[2022-08-24 17:23] LABS: Glucose Point of Care 199 mg/dl (65-105)
[2022-08-24 19:38] VITALS: O2SAT 98
[2022-08-24] MEDS: AMITRIPTYLINE HCL 10 MG TABLET PO (20:11)
[2022-08-24 21:58] LABS: Glucose Point of Care 213 mg/dl (65-105)
[2022-08-24 21:59] VITALS: BP 109/97; PULSE 73; RESP 18; TEMP 36.1; O2SAT 97
[2022-08-25] MEDS: LACTATED RINGERS 1,000 ML 75 ML IV CONT ×2 (00:29→17:48)
[2022-08-25] MEDS: LEVOTHYROXINE SODIUM 88 MCG TABLET PO (05:30)
[2022-08-25] MEDS: ONDANSETRON INJ 4 MG/2 ML VIAL IV PUSH (05:30)
[2022-08-25 06:00] VITALS: BP 126/74; PULSE 73; RESP 18; TEMP 36.3; O2SAT 98
[2022-08-25 06:41] LABS: Anion Gap 4 mmol/L (8-16); Blood Urea Nitrogen 8 mg/dL (7-17); Calcium 7.6 mg/dL (8.4-10.2); Carbon Dioxide 25 mmol/L (22-30); Chloride 99 mmol/L (98-107); Estimated CRCL calculation 86 ml/min; Estimated Glomerular Filt Rate > 60; Glucose 208 mg/dL (65-110); Potassium 3.9 mmol/L (3.4-5.0); Sodium 128 mmol/L (137-145)
[2022-08-25 07:43] LABS: Glucose Point of Care 198 mg/dl (65-105)
[2022-08-25] MEDS: GABAPENTIN 300 MG CAPSULE 600 MG PO ×3 (10:21→21:56)
[2022-08-25] MEDS: PANTOPRAZOLE SODIUM IV 40 MG VIAL IV PUSH ×2 (10:21→21:57)
--- NOTE | 2022-08-25 10:46 | PM.IMPN ---
Progress Note: A&P Assessment and Plan (1) Acute CVA (cerebrovascular accident): Code(s): I63.9 - Cerebral infarction, unspecified Status: Acute Assessment and Plan: PTOT to evaluate the patient today. Will get the patient up and ambulating. Still having dizziness. Appreciate Neurology input. Still having nausea. Eating some food. Monitor electrolytes Up a chair with meals. 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 Subjective Date/time seen: 08/25/22 10:46 Patient reports she about a 1/3 of her breakfast. She also ate some of her lunch yesterday and some of her dinner. One episode of emesis last night Exam Const: General: cooperative, healthy appearing, comfortable, no acute distress, well developed, alert, awake, Physically active, average body habitus and well nourished Nutritional Appearance: average body habitus and well nourished Orientation/consciousness: oriented to person, oriented to place, oriented to time and patient oriented x3 Limitations: no limitations HENMT: Head: normal to inspection, No palpable skull fracture present, normocephalic and atraumatic Ears: hearing grossly normal bilaterally and external ears normal Face/Nose/Sinus: Normal external nose present and Normal nares present Eyes: General: appearance normal, both eyes and all related structures Alignment and Position: alignment normal Periorbital: periorbital findings normal Eyelids: eyelids normal Sclera: sclerae normal Pupils: Equal, round and reactive pupils present EOM: EOMs intact bilaterally and Nystagmus present ( slight nystagmus to the left) Neck: Neck: normal visual inspection, full ROM, no lymphadenopathy, trachea midline and supple Chest: Chest palpation & inspection: normal inspection of the chest Resp: Effort & Inspection: normal respiratory effort Auscultation: clear to auscultation bilaterally Cardio: Palpation: normal PMI Rate: regular rate Rhythm: regular rhythm Heart sounds: S1 normal heart sound present and S2 normal heart sound present Peripheral pulses: Peripheral pulses 2+ throughout GI: Inspection: normal to inspection Auscultation: normal bowel sounds Rectal Exam: deferred Back/Spine/Pelvis: Cervical Spine: cervical ROM normal Skin: General skin exam: normal color Lesions: no lesions Rashes: no rashes Trauma: no lacerations or abrasions Wounds: no wounds Hair: normal Nails: normal Neuro: General: oriented to person, oriented to place, oriented to time and patient oriented x3 Cranial nerves: Yes Equal, round and reactive pupils present, Yes Normal hearing present and Yes Nystagmus present ( slight nystagmus to the left) Cognition (Neuro): normal cognition Speech: normal speech Gait exam (Neuro): Normal gait present Motor exam (neuro): 5/5 motor strength present throughout Sensory Exam: normal sensation Extrem: General: normal to inspection Right upper extremity: normal to inspection and shoulder/upper arm Left upper extremity: normal to inspection and shoulder/upper arm Right lower extremity: normal to inspection Left lower extremity: normal to inspection Psych: Appearance: grossly normal Mental Status: mental status grossly normal Speech and movement: Normal speech and movement present Affect: normal affect Attitude: cooperative Thought process: Normal thought process
[2022-08-25 11:42] LABS: Glucose Point of Care 223 mg/dl (65-105)
[2022-08-25] MEDS: INSULIN ASPART (*BKC) 100 UNITS/ML SUB-Q (12:20)
[2022-08-25] MEDS: BISACODYL 10 MG SUPPOSITORY RECTAL (12:23)
[2022-08-25] MEDS: MIDODRINE HCL 10 MG TABLET PO (12:23)
[2022-08-25] MEDS: MECLIZINE HCL 25 MG TABLET PO ×2 (12:23→17:47)
--- NOTE | 2022-08-25 13:22 | PCPTNOTE ---
Attempted to see patient 2x in A.M., however patient declined first attempt stating she did not feel well and patient eating lunch on second attempt. PT will continue to follow per plan of care.
[2022-08-25 14:00] VITALS: BP 121/70; PULSE 84; RESP 22; TEMP 36.3; O2SAT 100
--- NOTE | 2022-08-25 15:20 | PCOTNOTE ---
Patient had Rapid Response Called this P.M.
[2022-08-25 16:19] VITALS: BP 119/72; PULSE 82; O2SAT 98
[2022-08-25 16:28] LABS: Glucose Point of Care 189 mg/dl (65-105)
[2022-08-25] MEDS: SODIUM CHLORIDE 1 GM TABLET PO (17:48)
--- NOTE | 2022-08-25 18:32 | PC.NURSE ---
Pt received suppository early afternoon. Pt attempted BM on bedpan. Pt unable to have a BM on bedpan. Pt up with assist of 2 to BSC via stand/pivot. This RN and grad RN remained with pt for pt stability as she stated she felt dizzy. After a couple of minutes, pt fell to left side and was near unresponsive. Rapid was called. RN and other staff lifted pt back to bed. Pt quickly came back around and was A/Ox3, vitals were WNL, BS WNL. Pt alarm turned back on. Continued to monitor.
[2022-08-25 20:00] VITALS: O2SAT 99
[2022-08-25] MEDS: AMITRIPTYLINE HCL 10 MG TABLET PO (21:57)
[2022-08-25 22:00] VITALS: BP 108/70; PULSE 82; RESP 20; TEMP 35.8; O2SAT 99
[2022-08-26 00:48] LABS: Glucose Point of Care 190 mg/dl (65-105)
[2022-08-26] MEDS: LACTATED RINGERS 1,000 ML 75 ML IV CONT ×2 (05:29→21:58)
[2022-08-26 06:00] VITALS: BP 110/73; PULSE 84; RESP 18; TEMP 36.3; O2SAT 96
[2022-08-26 06:33] LABS: Basophils Percent Auto 0.4 % (0.2-1.2); Eosinophils Percent Auto 0.1 % (0-4.4); Hematocrit 27.1 % (37.0-47.0); Hemoglobin 8.6 g/dL (12.0-15.0); Immature Granulocyte Absolute 0.01 K/mm3 (0.00-0.031); Immature Granulocyte Percent A 0.1 % (0-0.5); Lymphocytes Percent Auto 8.5 % (18.3-44.2); Mean Corpuscular HGB Conc 31.7 g/dl (32-36); Mean Corpuscular Hemoglobin 30.1 pg (26-34); Mean Corpuscular Volume 94.8 fl (80-100); Mean Platelet Volume 9.9 fl (7.4-10.4); Monocytes Absolute Auto 0.7 K/mm3 (0.1-0.6); Monocytes Percent Auto 10.2 % (2.6-8.5); Neutrophils Absolute Auto 5.7 K/mm3 (1.3-6.7); Neutrophils Percent Auto 80.7 % (45.5-73.1); Platelet Count Result 204 k/mm3 (150-375); Red Blood Count 2.86 M/mm3 (4.2-5.4); Red Cell Distribution Width 15.1 % (11.5-14.5); White Blood Count 7.1 K/mm3 (4.5-10.0)
[2022-08-26 06:46] LABS: Anion Gap 6 mmol/L (8-16); Blood Urea Nitrogen 10 mg/dL (7-17); Calcium 7.5 mg/dL (8.4-10.2); Carbon Dioxide 22 mmol/L (22-30); Chloride 98 mmol/L (98-107); Estimated CRCL calculation 86 ml/min; Estimated Glomerular Filt Rate > 60; Glucose 223 mg/dL (65-110); Potassium 4.1 mmol/L (3.4-5.0); Sodium 126 mmol/L (137-145)
[2022-08-26 08:20] LABS: Glucose Point of Care 237 mg/dl (65-105)
[2022-08-26] MEDS: MIDODRINE HCL 10 MG TABLET PO (08:27)
[2022-08-26] MEDS: INSULIN ASPART (*BKC) 100 UNITS/ML SUB-Q ×2 (08:27→17:08)
[2022-08-26] MEDS: MECLIZINE HCL 25 MG TABLET PO ×3 (08:27→17:06)
[2022-08-26] MEDS: GABAPENTIN 300 MG CAPSULE 600 MG PO ×3 (08:27→21:57)
[2022-08-26] MEDS: PRAVASTATIN SODIUM 20 MG TABLET 40 MG PO (08:27)
[2022-08-26] MEDS: CHOLECALCIFEROL 1,000 UNITS TABLET 5000 UNITS PO (08:27)
[2022-08-26] MEDS: SODIUM CHLORIDE 1 GM TABLET PO ×2 (08:28→17:06)
[2022-08-26] MEDS: PANTOPRAZOLE SODIUM IV 40 MG VIAL IV PUSH ×2 (08:28→21:57)
[2022-08-26 11:37] LABS: Glucose Point of Care 197 mg/dl (65-105)
[2022-08-26 14:00] VITALS: BP 109/56; PULSE 76; RESP 20; TEMP 36.4; O2SAT 98
--- NOTE | 2022-08-26 14:11 | PM.IMPN ---
Progress Note: A&P Assessment and Plan (1) Acute CVA (cerebrovascular accident): Code(s): I63.9 - Cerebral infarction, unspecified Status: Acute Assessment and Plan: PTOT to evaluate the patient today. Will get the patient up and ambulating. Still having dizziness. Appreciate Neurology input. Still having nausea. Eating some food. Monitor electrolytes Up a chair with meals. Likely discharge to snf in 1-2 days 08/26/2022 interval history: 76-year-old female with dizziness, nausea and vomiting, as well as orthostatic MRI of the brain is concerning old infarcts, patient states it still feels dizzy, weak and tired, difficulty with the physical therapy, will continue to encourage the patient, gently hydrate the patient and further recommendation to follow. 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 Subjective Date/time seen: 08/26/22 14:11 08/26/2022 interval history: 76-year-old female with dizziness, nausea and vomiting, as well as orthostatic MRI of the brain is concerning old infarcts, patient states it still feels dizzy, weak and tired, difficulty with the physical therapy, will continue to encourage the patient, gently hydrate the patient and further recommendation to follow. Review of Systems Review of Systems: All systems reviewed & are unremarkable except as noted in HPI and below Exam Narrative: elderly frail appears chronically ill Patient is comfortable, NAD HEENT: eyes are clear and none icteric LUNGS: normal respiratory effort ABD: distended Lower extremities: no edema SKIN: nonjaundiced Neuro: grossly intact. Objective Data Vital Signs Vital Signs: Vital Signs - 24 hr 08/25/22 16:19 08/25/22 22:00 08/25/22 20:00 Temperature 96.5 F L Pulse Rate 82 82 Respiratory Rate 20 Blood Pressure 119/72 108/70 Pulse Oximetry 98 99 99 Oxygen Delivery Room Air 08/26/22 06:00 08/26/22 08:30 Temperature 97.3 F L Pulse Rate 84 Respiratory Rate 18 Blood Pressure 110/73 Pulse Oximetry 96 Oxygen Delivery Room Air Intake/Output Intake/Output: Intake & Output 08/23/22 08/24/22 08/25/22 08/26/22 23:59 23:59 23:59 23:59 Intake Total 1540 1270 2050 1350 Output Total 5996 750 4791 150 Balance -360 649 878 5193 Meds/Results Medications: Active Medications Generic Name Dose Route Start Last Admin Trade Name Freq PRN Reason Stop Dose Admin Amitriptyline HCl 10 mg 08/19/22 21:00 08/25/22 21:57 Amitriptyline Hcl 10 Mg Tablet PO 09/19/22 08:59 10 mg HS BHAKTI Administration Bisacodyl 10 mg 08/15/22 08:51 08/25/22 12:23 Bisacodyl 10 Mg Suppository RECTAL 10 mg QAM PRN Administration Constipation Dextrose 12.5 gm 08/05/22 13:19 Dextrose 50% 25 Gm/50 Ml Syringe IV PUSH PRN PRN Hypoglycemia Protocol Gabapentin 600 mg 08/07/22 21:00 08/26/22 12:08 Gabapentin 300 Mg Capsule PO 600 mg DAILY@0900,1300,2100 BHAKTI Administration Glucagon 1 mg 08/05/22 13:19 Glucagon For Inj 1 Mg Vial IM PRN PRN Hypoglycemia Protocol Glucose 15 gm 08/05/22 13:19 Glucose Oral Gel 15 Gm Of Glucse In 37.5 Gm Tube PO PRN PRN Hypoglycemia Protocol Home Med 1 each 08/05/22 06:00 08/25/22 03:35 Insulin Lispro (Humalog) Per Insulin Pump XX 09/04/22 05:59 Not Given DAILY@0600 [facility] Hydralazine HCl
[2022-08-26 16:37] LABS: Glucose Point of Care 232 mg/dl (65-105)
[2022-08-26 20:00] VITALS: PULSE 88; RESP 16; O2SAT 93
[2022-08-26 21:29] LABS: Glucose Point of Care 182 mg/dl (65-105)
[2022-08-26 21:38] VITALS: BP 101/56; PULSE 88; RESP 16; TEMP 36.3; O2SAT 93
[2022-08-26] MEDS: AMITRIPTYLINE HCL 10 MG TABLET PO (21:57)
[2022-08-27] MEDS: LEVOTHYROXINE SODIUM 88 MCG TABLET PO (05:49)
[2022-08-27] MEDS: LACTATED RINGERS 1,000 ML 75 ML IV CONT ×2 (05:51→21:21)
[2022-08-27 06:00] VITALS: BP 117/73; PULSE 78; RESP 18; TEMP 35.6; O2SAT 93
[2022-08-27 08:27] LABS: Glucose Point of Care 168 mg/dl (65-105)
[2022-08-27] MEDS: MIDODRINE HCL 10 MG TABLET PO (08:37)
[2022-08-27] MEDS: SCOPOLAMINE 1.5 MG PATCH TRANSDERM (08:37)
[2022-08-27] MEDS: MECLIZINE HCL 25 MG TABLET PO ×3 (08:37→17:55)
[2022-08-27] MEDS: PANTOPRAZOLE SODIUM IV 40 MG VIAL IV PUSH ×2 (08:38→21:21)
[2022-08-27] MEDS: PRAVASTATIN SODIUM 20 MG TABLET 40 MG PO (08:38)
[2022-08-27] MEDS: GABAPENTIN 300 MG CAPSULE 600 MG PO ×3 (08:38→21:22)
[2022-08-27] MEDS: SODIUM CHLORIDE 1 GM TABLET PO ×2 (08:38→17:54)
--- NOTE | 2022-08-27 10:54 | PCPTNOTE ---
Patient declined PT stating I don't think I can do it. I don't feel well today.
[2022-08-27 11:43] LABS: Glucose Point of Care 203 mg/dl (65-105)
--- NOTE | 2022-08-27 12:43 | PCNFU ---
Nutrition Follow-Up Complete: Inadequate oral intake related to nausea and vomiting as evidenced by 0% intakes, pt report. Goal: PO intake 50% or greater for meals and supplements Pt current nutrition is Diabetic consistent carb, Glucerna shakes BID. Nutrition recommendation: Continue with current plan of care. Last recorded weight is 88.9 kg. Bowel Motility: +Bm 08/26 Labs Reviewed: NA:126, Cr:0.5, Glu:233 Meds Noted: novolod, reglan, zofran, protonix Skin: WNL Additional Notes: Pt continues on a diabetic diet, intake improved to 50-75%, drinks Glucerna shakes occasionally. Continue to encourage po intake of meals and shakes. Monitoring intakes, weights, labs, plan of care Follow up in 5 days
[2022-08-27 14:00] VITALS: BP 107/58; PULSE 65; RESP 16; TEMP 36.9; O2SAT 96
--- NOTE | 2022-08-27 16:06 | PM.IMPN ---
Progress Note: A&P Assessment and Plan (1) Acute CVA (cerebrovascular accident): Code(s): I63.9 - Cerebral infarction, unspecified Status: Acute Assessment and Plan: PTOT to evaluate the patient today. Will get the patient up and ambulating. Still having dizziness. Appreciate Neurology input. Still having nausea. Eating some food. Monitor electrolytes Up a chair with meals. Likely discharge to snf in 1-2 days 08/27/2022 interval history: 76-year-old female with dizziness, nausea and vomiting, as well as orthostatic MRI of the brain is concerning old infarcts, patient states it still feels dizzy, weak and tired, difficulty with the physical therapy, today spoke with the patient regarding code status she wants to be DNR and also leaning towards hospice, however later in the afternoon child care education coordinator spoke with the patient and now patient is not sure about code status and hospice, lead care manager will speak with the patient tomorrow, after that will discuss with the her son, will continue to encourage the patient, gently hydrate the patient and further recommendation to follow. (2) Hematemesis: Code(s): K92.0 - Hematemesis Status: Acute (3) Diabetes: Code(s): E11.9 - Type 2 diabetes mellitus without complications Status: Acute (4) Intractable nausea and vomiting: Code(s): R11.2 - Nausea with vomiting, unspecified Status: Acute (5) GI bleed: Code(s): K92.2 - Gastrointestinal hemorrhage, unspecified Status: Acute (6) Hypokalemia: Code(s): E87.6 - Hypokalemia Status: Acute (7) Hyponatremia: Code(s): E87.1 - Hypo-osmolality and hyponatremia Status: Acute Plan Executive Director [employer] to see the patient for nutrition needs. Subjective Date/time seen: 08/27/22 16:06 08/27/2022 interval history: 76-year-old female with dizziness, nausea and vomiting, as well as orthostatic MRI of the brain is concerning old infarcts, patient states it still feels dizzy, weak and tired, difficulty with the physical therapy, today spoke with the patient regarding code status she wants to be DNR and also leaning towards hospice, however later in the afternoon child care education coordinator spoke with the patient and now patient is not sure about code status and hospice, lead care manager will speak with the patient tomorrow, after that will discuss with the her son, will continue to encourage the patient, gently hydrate the patient and further recommendation to follow. Review of Systems Review of Systems: All systems reviewed & are unremarkable except as noted in HPI and below Exam Narrative: elderly frail appears chronically ill Patient is comfortable, NAD HEENT: eyes are clear and none icteric LUNGS: normal respiratory effort ABD: distended Lower extremities: no edema SKIN: nonjaundiced Neuro: grossly intact. Objective Data Vital Signs Vital Signs: Vital Signs - 24 hr 08/26/22 21:38 08/26/22 20:00 08/27/22 06:00 Temperature 97.4 F L 96.1 F L Pulse Rate 88 88 78 Respiratory Rate 16 16 18 Blood Pressure 101/56 L 117/73 Pulse Oximetry 93 93 93 Oxygen Delivery Room Air 08/27/22 08:30 08/27/22 14:00 Temperature 98.5 F Pulse Rate 65 Respiratory Rate 16 Blood Pressure 107/58 L Pulse Oximetry 96 Oxygen Delivery Room Air Intake/Output Intake/Output: Intake & Output 08/24/22 08/25/22 08/26/22 08/27/22 23:59 23:59 23:59 23:59 Intake Total 1270 2050 2670 1170 Output Total 950 1850 750 Balance 762 210 2295 1170 Meds/Results Medications: Active Medications Generic Name Dose Route Start Last Admin Trade Name Freq PRN Reason Stop Dose Admin Amitriptyline HCl 10 mg 08/19/22 21:00 08/26/22 21:57 Amitriptyline Hcl 10 Mg Tablet PO 09/19/22 08:59 10 mg HS BHAKTI Administration Bisacodyl 10 mg 08/15/22 08:51 08/25/22 12:23 Bisacodyl 10 Mg Suppository RECTAL 10 mg QAM PRN Administration Constipation Dextrose
[2022-08-27 16:43] LABS: Glucose Point of Care 232 mg/dl (65-105)
[2022-08-27] MEDS: INSULIN ASPART (*BKC) 100 UNITS/ML SUB-Q (17:53)
[2022-08-27 20:00] VITALS: O2SAT 96
[2022-08-27] MEDS: AMITRIPTYLINE HCL 10 MG TABLET PO (21:22)
[2022-08-27 22:00] VITALS: BP 108/58; PULSE 74; RESP 16; TEMP 36.7; O2SAT 96
[2022-08-28 03:25] LABS: Glucose Point of Care 212 mg/dl (65-105)
[2022-08-28 06:00] VITALS: BP 135/73; PULSE 72; RESP 16; TEMP 36.4; O2SAT 96
[2022-08-28 08:27] LABS: Glucose Point of Care 189 mg/dl (65-105)
[2022-08-28] MEDS: ONDANSETRON INJ 4 MG/2 ML VIAL IV PUSH (09:44)
[2022-08-28] MEDS: MECLIZINE HCL 25 MG TABLET PO ×3 (09:45→16:55)
[2022-08-28] MEDS: GABAPENTIN 300 MG CAPSULE 600 MG PO ×3 (09:45→20:10)
[2022-08-28] MEDS: SODIUM CHLORIDE 1 GM TABLET PO ×2 (09:45→16:55)
[2022-08-28] MEDS: LACTATED RINGERS 1,000 ML 75 ML IV CONT ×2 (09:45→21:32)
[2022-08-28] MEDS: PANTOPRAZOLE SODIUM IV 40 MG VIAL IV PUSH ×2 (09:46→20:10)
[2022-08-28] MEDS: PRAVASTATIN SODIUM 20 MG TABLET 40 MG PO (09:46)
[2022-08-28 10:56] LABS: Hemoglobin 8.1 g/dL (12.0-15.0); Mean Corpuscular HGB Conc 28.9 g/dl (32-36); Mean Corpuscular Hemoglobin 29.5 pg (26-34); Mean Corpuscular Volume 101.8 fl (80-100); Mean Platelet Volume 10.1 fl (7.4-10.4); Platelet Count Result 135 k/mm3 (150-375); Red Blood Count 2.75 M/mm3 (4.2-5.4); White Blood Count 5.8 K/mm3 (4.5-10.0)
[2022-08-28 11:16] LABS: Alanine Aminotransferase 12 U/L (6-35); Albumin Level 3.1 g/dL (3.5-5.1); Alkaline Phosphatase 50 U/L (38-126); Anion Gap 8 mmol/L (8-16); Aspartate Amino Transferase 14 U/L (14-36); Bilirubin,Total 0.7 mg/dL (0.2-1.3); Blood Urea Nitrogen 12 mg/dL (7-17); Calcium 7.7 mg/dL (8.4-10.2); Carbon Dioxide 20 mmol/L (22-30); Chloride 101 mmol/L (98-107); Estimated CRCL calculation 105 ml/min; Estimated Glomerular Filt Rate > 60; Glucose 195 mg/dL (65-110); Potassium 4.2 mmol/L (3.4-5.0); Sodium 129 mmol/L (137-145)
[2022-08-28 12:03] LABS: Glucose Point of Care 225 mg/dl (65-105)
[2022-08-28] MEDS: INSULIN ASPART (*BKC) 100 UNITS/ML SUB-Q (12:16)
--- NOTE | 2022-08-28 13:43 | PM.IMPN ---
Progress Note: A&P Assessment and Plan (1) Acute CVA (cerebrovascular accident): Code(s): I63.9 - Cerebral infarction, unspecified Status: Acute Assessment and Plan: PTOT to evaluate the patient today. Will get the patient up and ambulating. Still having dizziness. Appreciate Neurology input. Still having nausea. Eating some food. Monitor electrolytes Up a chair with meals. Likely discharge to snf in 1-2 days 08/28/2022 interval history: 76-year-old female with dizziness, nausea and vomiting, as well as orthostatic MRI of the brain is concerning old infarcts, patient states it still feels dizzy, weak and tired, difficulty with the physical therapy, on 08/27 spoke with the patient regarding code status she wanted to be DNR and also leaning towards hospice, however later in the afternoon career and guidance counselor spoke with the patient and now patient is not sure about code status and hospice, today again I discussed with patient she want to go to rehab, communicated with childcare center director they are working on rehab place and authrization, will continue to encourage the patient participate in PT, gently hydrate the patient and further recommendation to follow. (2) Hematemesis: Code(s): K92.0 - Hematemesis Status: Acute (3) Diabetes: Code(s): E11.9 - Type 2 diabetes mellitus without complications Status: Acute (4) Intractable nausea and vomiting: Code(s): R11.2 - Nausea with vomiting, unspecified Status: Acute (5) GI bleed: Code(s): K92.2 - Gastrointestinal hemorrhage, unspecified Status: Acute (6) Hypokalemia: Code(s): E87.6 - Hypokalemia Status: Acute (7) Hyponatremia: Code(s): E87.1 - Hypo-osmolality and hyponatremia Status: Acute Plan Shrimp Trawler Captain to see the patient for nutrition needs. Subjective Date/time seen: 08/28/22 13:43 08/28/2022 interval history: 76-year-old female with dizziness, nausea and vomiting, as well as orthostatic MRI of the brain is concerning old infarcts, patient states it still feels dizzy, weak and tired, difficulty with the physical therapy, on 08/27 spoke with the patient regarding code status she wanted to be DNR and also leaning towards hospice, however later in the afternoon career and guidance counselor spoke with the patient and now patient is not sure about code status and hospice, today again I discussed with patient she want to go to rehab, communicated with childcare center director they are working on rehab place and authrization, will continue to encourage the patient participate in PT, gently hydrate the patient and further recommendation to follow. Review of Systems Review of Systems: All systems reviewed & are unremarkable except as noted in HPI and below Exam Narrative: elderly frail appears chronically ill Patient is comfortable, NAD HEENT: eyes are clear and none icteric LUNGS: normal respiratory effort ABD: distended Lower extremities: no edema SKIN: nonjaundiced Neuro: grossly intact. Objective Data Vital Signs Vital Signs: Vital Signs - 24 hr 08/27/22 14:00 08/27/22 22:00 08/27/22 20:00 Temperature 98.5 F 98.0 F Pulse Rate 65 74 Respiratory Rate 16 16 Blood Pressure 107/58 L 108/58 L Pulse Oximetry 96 96 96 Oxygen Delivery Room Air 08/28/22 06:00 08/28/22 09:45 Temperature 97.5 F L Pulse Rate 72 Respiratory Rate 16 Blood Pressure 135/73 Pulse Oximetry 96 Oxygen Delivery Room Air Intake/Output Intake/Output: Intake & Output 08/25/22 08/26/22 08/27/22 08/28/22 23:59 23:59 23:59 23:59 Intake Total 2050 2670 2710 1120 Output Total 1850 750 900 500 Balance 200 1920 1810 620 Meds/Results Medications: Active Medications Generic Name Dose Route Start Last Admin Trade Name Freq PRN Reason Stop Dose Admin Amitriptyline HCl 10 mg 08/19/22 21:00 08/27/22 21:22 Amitriptyline Hcl 10 Mg Tablet PO 09/19/22 08:59 10 mg HS BHAKTI Administration Bisaco
[2022-08-28 14:31] VITALS: BP 110/54; PULSE 79; RESP 17; TEMP 36.1; O2SAT 98
[2022-08-28 16:59] LABS: Glucose Point of Care 198 mg/dl (65-105)
[2022-08-28 19:59] VITALS: BP 112/60; PULSE 84; RESP 18; TEMP 36.4; O2SAT 97
[2022-08-28] MEDS: AMITRIPTYLINE HCL 10 MG TABLET PO (20:20)
[2022-08-28] MEDS: INSULIN GLARGINE (*BKC) 100 UNITS/ML 10 UNITS SUB-Q (21:32)
[2022-08-28 21:41] LABS: Glucose Point of Care 327 mg/dl (65-105)
[2022-08-28 23:46] LABS: Glucose Point of Care 289 mg/dl (65-105)
[2022-08-29 06:00] VITALS: BP 137/69; PULSE 77; RESP 16; TEMP 36.2; O2SAT 98
[2022-08-29] MEDS: LEVOTHYROXINE SODIUM 88 MCG TABLET PO (06:23)
[2022-08-29 07:54] LABS: Glucose Point of Care 175 mg/dl (65-105)
[2022-08-29] MEDS: GABAPENTIN 300 MG CAPSULE 600 MG PO ×3 (08:58→20:12)
[2022-08-29] MEDS: PANTOPRAZOLE SODIUM IV 40 MG VIAL IV PUSH (08:58)
[2022-08-29] MEDS: MIDODRINE HCL 10 MG TABLET PO (08:58)
[2022-08-29] MEDS: ONDANSETRON INJ 4 MG/2 ML VIAL IV PUSH (08:58)
[2022-08-29] MEDS: SODIUM CHLORIDE 1 GM TABLET PO ×2 (08:58→17:00)
[2022-08-29] MEDS: MECLIZINE HCL 25 MG TABLET PO ×3 (08:59→17:00)
[2022-08-29] MEDS: LACTATED RINGERS 1,000 ML 75 ML IV CONT (09:01)
[2022-08-29 11:41] LABS: Glucose Point of Care 178 mg/dl (65-105)
--- NOTE | 2022-08-29 12:38 | PM.DS ---
DS: Admitting Diagnosis Discharge Date 08/29/2022 Admitting Diagnosis Weakness DS: Discharge Diagnosis Discharge Diagnosis (1) Acute CVA (cerebrovascular accident): Code(s): I63.9 - Cerebral infarction, unspecified Status: Acute Assessment and Plan: PTOT to evaluate the patient today. Will get the patient up and ambulating. Still having dizziness. Appreciate Neurology input. Still having nausea. Eating some food. Monitor electrolytes Up a chair with meals. Likely discharge to snf in 1-2 days 08/28/2022 interval history: 76-year-old female with dizziness, nausea and vomiting, as well as orthostatic MRI of the brain is concerning old infarcts, patient states it still feels dizzy, weak and tired, difficulty with the physical therapy, on 08/27 spoke with the patient regarding code status she wanted to be DNR and also leaning towards hospice, however later in the afternoon wild animal caretaker spoke with the patient and now patient is not sure about code status and hospice, today again I discussed with patient she want to go to rehab, communicated with home health care coordinator they are working on rehab place and authrization, will continue to encourage the patient participate in PT, gently hydrate the patient and further recommendation to follow. (2) Hematemesis: Code(s): K92.0 - Hematemesis Status: Acute (3) Diabetes: Code(s): E11.9 - Type 2 diabetes mellitus without complications Status: Acute (4) Intractable nausea and vomiting: Code(s): R11.2 - Nausea with vomiting, unspecified Status: Acute (5) GI bleed: Code(s): K92.2 - Gastrointestinal hemorrhage, unspecified Status: Acute (6) Hypokalemia: Code(s): E87.6 - Hypokalemia Status: Acute (7) Hyponatremia: Code(s): E87.1 - Hypo-osmolality and hyponatremia Status: Acute Plan Laboratory Tester to see the patient for nutrition needs. DS: Summary Hospital Course Reason for hospitalization: Chief Complaint: Weakness Narrative: This is a 76-year-old female patient who has a history of insulin-dependent diabetes and is on insulin pump that she manages on her own.? The patient came into the emergency room with nausea vomiting and weakness.? The patient stated that this started 3 days ago she had numerous episodes of vomiting.? She could not keep anything down on Wednesday so she went to another ER.? She was diagnosed with dehydration and sent home with Zofran.? The patient had been taking Zofran every 8 hours as prescribed and she still continued to vomit.? The patient was so weak that she needed assistance to go to the bathroom.? She denied any fever chills or any diarrhea.? Abdominal pelvis CT was read as the following1. Mild wall thickening of the distal stomach which could be due to incomplete distention or gastritis. 2. Cholelithiasis without evidence of cholecystitis. The patient was given IV fluids, and Pepcid The patient is dehydrated her H&H is 15.7 and 47.7 sodium 130.? Lactic was normal.? The urine had some ketones but otherwise negative for UTI.? Influenza A/B and COVID are all negative Hospital Course: 76-year-old female with dizziness, nausea and vomiting, as well as? orthostatic MRI of the brain is concerning old infarcts,? patient states it still feels dizzy,? weak and tired, difficulty with the physical therapy, on 08/27? spoke with the patient regarding code status she wanted to be DNR and also leaning towards hospice, however later in the afternoon wild animal caretaker spoke with the patient and now patient is not sure about code status and hospice, today again I discussed with patient she want to go to rehab, communicated with home health care coordinator they are working on rehab place and authrization, will continue to encourage the patient participate in PT,? gently hydrate the patient and further recommendation to follow. Patient being discharged to [facility], status post stroke discussed with Dr. Sissy SAGASTUME,
[2022-08-29] MEDS: ASPIRIN 81 MG ENTERIC TABLET PO (13:01)
[2022-08-29 14:00] VITALS: BP 101/60; PULSE 82; RESP 20; TEMP 36.6; O2SAT 100
[2022-08-29 16:48] LABS: Glucose Point of Care 215 mg/dl (65-105)
[2022-08-29] MEDS: INSULIN ASPART (*BKC) 100 UNITS/ML SUB-Q (17:00)
[2022-08-29] MEDS: INSULIN GLARGINE (*BKC) 100 UNITS/ML 10 UNITS SUB-Q (20:11)
[2022-08-29] MEDS: AMITRIPTYLINE HCL 10 MG TABLET PO (20:12)
[2022-08-29 20:52] LABS: Glucose Point of Care 199 mg/dl (65-105)
[2022-08-29 22:00] VITALS: BP 137/68; PULSE 77; RESP 24; TEMP 35.8; O2SAT 96
[2022-08-30 06:00] VITALS: BP 147/70; PULSE 69; RESP 20; TEMP 36.1; O2SAT 100
[2022-08-30] MEDS: PRAVASTATIN SODIUM 20 MG TABLET 40 MG PO (08:40)
[2022-08-30] MEDS: GABAPENTIN 300 MG CAPSULE 600 MG PO (08:40)
[2022-08-30] MEDS: MIDODRINE HCL 10 MG TABLET PO (08:40)
[2022-08-30] MEDS: SCOPOLAMINE 1.5 MG PATCH TRANSDERM (08:40)
[2022-08-30] MEDS: SODIUM CHLORIDE 1 GM TABLET PO (08:40)
[2022-08-30 08:41] LABS: Glucose Point of Care 113 mg/dl (65-105)
[2022-08-30] MEDS: CHOLECALCIFEROL 1,000 UNITS TABLET 5000 UNITS PO (08:41)
[2022-08-30] MEDS: MECLIZINE HCL 25 MG TABLET PO (08:41)
[2022-08-30] MEDS: PANTOPRAZOLE SODIUM IV 40 MG VIAL IV PUSH (08:41)
[2022-08-30] MEDS: ASPIRIN 81 MG ENTERIC TABLET PO (08:41)
== END 2022-08-30 09:49 | DRG 64 ==
LOC: ANHED 14:37 → ANH3MEDSUR 19:46
PROVIDERS: Chiropractor; Hospitalist; Internal Medicine; Internal Medicine Gastroenterology; Nurse Practitioner; Admitting Provider Internal Medicine; Emergency Provider Emergency Medicine; PCP Internal Medicine; Visit Provider Family Medicine
PROC: 0DJ08ZZ Inspection of Upper Intestinal Tract, Via Natural or Artificial Opening Endoscopic (ICD-10-PCS; CPT 43235; principal; 2022-08-11 12:00)
DX: I63.541 Cerebral infarction due to unspecified occlusion or stenosis of right cerebellar artery (principal); K29.51 Unspecified chronic gastritis with bleeding; K63.81 Dieulafoy lesion of intestine; E87.1 Hypo-osmolality and hyponatremia; E11.40 Type 2 diabetes mellitus with diabetic neuropathy, unspecified; E03.9 Hypothyroidism, unspecified; E78.5 Hyperlipidemia, unspecified; E87.6 Hypokalemia; K21.9 Gastro-esophageal reflux disease without esophagitis; K44.9 Diaphragmatic hernia without obstruction or gangrene; Z20.822 Contact with and (suspected) exposure to COVID-19; Z96.41 Presence of insulin pump (external) (internal); Z79.82 Long term (current) use of aspirin; Z79.899 Other long term (current) drug therapy
CPT/HCPCS: 36415; 51701; 70450; 70551; 71045; 71260; 74018; 74176; 74177; 80048; 80053; 81001; 82948; 83605; 83690; 83735; 84100; 84132; 84439; 84443; 84480; 85014; 85018; 85025; 85027; 85610; 85730; 87081; 87636; 88305; 93005; 93306; 96361; 96365; 96366; 96374; 96375; 96376; 97110; 97112; 97116; 97162; 97166; 97167; 97530; 97535; 99285; A9270; C9113; G0378; J0171; J0330; J0360; J1815; J2354; J2370; J2405; J2550; J2704; J2765; J3480; J7030; J7040; J7120; Q9967

== ENCOUNTER 2024-06-26 12:07 | Inpatient (IN) | payer MEDICARE, BC, SELFPAY ==
[2024-06-26] VITALS (11 sets, daily range): BP systolic 143–191; BP diastolic 57–95; PULSE 91–100; RESP 15–22; TEMP 36.1–36.7; O2SAT 97–100; BMI 28.8
--- NOTE | ~2024-06-26 | CT_ITS ---
EXAMINATION: CT abdomen pelvis w con DATE: 06/26/2024 13:54 INDICATION: Nausea, vomiting and diarrhea. TECHNIQUE: Computed tomography (CT) of the abdomen and pelvis was performed with 100 mL Omnipaque-350 intravenous contrast. Automated exposure control and iterative reconstruction technique were employe d. The dose-length product was 579.11 mGy-cm. COMPARISON: 08/17/2022 FINDINGS: Calcite nodules at the right lung base and a few splenic calcifications consistent with old granuloma tous disease. Heart size is normal. Atherosclerotic coronary artery calcifications. No pericardial or pleural effusion. Small sliding-type hiatal hernia. Focal hepatic steatosis at the ligamentum teres. Small calcified gallstones at the dependent aspect of the normal gallbladder. There are a few scatte red dystrophic pancreatic parenchymal calcifications consistent with sequela of chronic pancreatitis. There are several small bilateral scattered regions of renal cortical scarring consistent with seque la of chronic infection or infarction. Large amount of colonic stool with 9.1 cm ball of stool at the rectum. No bowel obstruction. Likely prior appendectomy with suture line at the tip the cecum. The u terus is not identified and has likely been surgically resected. Bladder is normal. Chronic T11 compr ession fracture with 20% anterior vertebral body height loss. 4 mm anterolisthesis L4 on L5. Mild to moderate lumbar and lower thoracic spondylosis. IMPRESSION: 1. Large amount of colonic stool with 9 cm ball of stool at the rectum consistent with constipation a nd fecal impaction. No other acute intra-abdominal/pelvic process. 2. Cholelithiasis. 3. Small sliding-type hiatal hernia. Reviewed, dictated and finalized at location B. [employer] AND INSTRUCTION DIRECTOR IMPRESSION: 1. Large amount of colonic stool with 9 cm ball of stool at the rectum consiste nt with constipation and fecal impaction. No other acute intra-abdominal/pelvic process. 2. Cholelithiasis. 3. Small sliding-type hiatal hernia.
--- NOTE | 2024-06-26 12:32 | ED_ITS ---
HPI - Nausea/Vomiting/Diarrhea General Chief complaint: Nausea/Vomiting/Diarrhea <PHILLIP Cristobal Last Filed: 06/26/24 12:47> Stated complaint: N/V/D <Georgina Feliz PA-C - Last Filed: 06/26/24 12:47> Time Seen by Provider: 06/26/24 12:32 <PHILLIP Cristobal Last Filed: 06/26/24 12:47> Focused HPI: Patient is a 78 y/o female, with PMH of DMI, CVA, hypothyroidism, who presents to the ED via EMS with report of N/V/D. Patient is a resident of [facility] for rehab s/p femur fx in April. Reported she developed nausea yesterday afternoon, began vomiting last night. Unable to keep down any food or drink. Has been feeling very weak, fatigued, dizzy. Has also had diarrhea. Denies rectal bleeding or melena. Son reports blood sugars have been ranging widely, down down in the 40s-up to 160s-300s. Blood sugar upon arrival 329. patient has not had any of her mealtime insulin today. Denies abdominal pain, fevers. Son reports that several other residents at [facility] have had a GI bug. GENERAL: Ill and pale-appearing, elderly, and in mild acute distress. Actively dry heaving HEAD: Normocephalic, atraumatic. CHEST: Clear to auscultation. ?Mildly tachypneic. No respiratory distress. No focal lung sounds. HEART: Regular rate and rhythm.? NEURO: ?Alert and oriented x3. Patient screened in triage and initial orders placed.? ?Additional care and disposition to be based upon?diagnostic testing and treatment. <PHILLIP Cristobal Last Filed: 06/26/24 12:47> Source: patient <PHILLIP Cristobal Last Filed: 06/26/24 12:47> Mode of arrival: ambulatory <PHILLIP Cristobal Last Filed: 06/26/24 12:47> Limitations: no limitations <PHILLIP Cristobal Last Filed: 06/26/24 12:47> History of Present Illness HPI Narrative: Agree with HPI <Juan Barragan MD - Last Filed: 06/26/24 21:39> Related Data Home medications: Home Medications ?Medication ?Instructions ?Recorded ?Confirmed ?Last Taken ?Type cyanocobalamin (vitamin B-12) 1,000 mcg IM MONTHLY 06/18/20 05/24/24 Unknown History 1,000 mcg/mL injection solution acetaminophen 325 mg chewable 650 mg PO Q6H 05/24/24 05/24/24 Unknown History tablet aspirin 81 mg chewable tablet 81 mg PO DAILY 05/24/24 05/24/24 Unknown History calcium carb 1,200 mg-mag hydrox 10 ml PO DAILY 05/24/24 05/24/24 Unknown History 270 mg-simeth 80 mg/10 mL oral susp insulin lispro 100 unit/mL 1 sliding scale dose subcut TIDWM 05/24/24 05/24/24 Unknown History subcutaneous solution polyethylene glycol 3350 17 gram 17 g PO DAILY 05/24/24 05/24/24 Unknown History oral powder packet (Miralax) sennosides 8.6 mg-docusate sodium 1 tablet PO BID 05/24/24 05/24/24 Unknown History 50 mg tablet <Georgina Feliz PA-C - Last Filed: 06/26/24 12:47> Allergies/Adverse reactions: Allergies Allergy/AdvReac Type Severity Reaction Status Date / Time No Known Allergies Allergy Verified 06/26/24 12:48 <Georgina Feliz PA-C - Last Filed: 06/26/24 12:47> Review of Systems 2 Review of Systems: All systems reviewed & are unremarkable except as noted in HPI and below <Juan Barragan MD - Last Filed: 06/26/24 21:39> Constitutional: Constitutional: Denies chills, Reports fatigue, Denies fever(s) and Reports weakness <Juan Barragan MD - Last Filed: 06/26/24 21:39> ENT: Reports system reviewed and no additional complaints, except as documented <Juan Barragan MD - Last Filed: 06/26/24 21:39> Cardiovascular: Cardiovascular: Reports no additional cardiovascular complaints <Juan Barragan MD - Last Filed: 06/26/24 21:39> Respiratory: Respiratory: Reports no additional respiratory complaints < Juan Barragan MD - Last Filed: 06/26/24 21:39> Gastrointestinal: Gastrointestinal: Reports abdominal pain, Reports diarrhea, Reports nausea and Reports vomiting <Juan Barragan MD - Last Filed: 06/26/24 21:39> Genitourinary: Genitourinary: Reports no additional female genitourinary complaints <Juan Barragan MD - Last Filed: 06/26/24 21:39> [facility] Past Medical History Medical History: Medical History Arthritis Diabetes Diabetic neuropathy High cholesterol History of TIA (transient ischemic attack) Pernicious anemia Thyroid disease TIA (transient ischemic attack) Vertigo Vitiligo <Georgina Feliz PA-C - Last Filed: 06/26/24 12:47> Surgical History Surgical History: Surgical History H/O cataract extraction H/O wrist surgery History of appendectomy History of delivery History of hysterectomy History of knee surgery <Georgina Feliz PA-C - Last Filed: 06/26/24 12:47> Family History Family History: Family History Father Heart disease Mother Heart disease Sibling Heart disease <Georgina Feliz PA-C - Last Filed: 06/26/24 12:47> Social History Social History: Social History 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 It she has a son. -code status full code Smoking status: Never smoker Alcohol intake: former Drinks per week: 1 Substance use: never Do You Feel Safe in your Home?: Yes Lack of Transportation: No Lack of Food: Never True Current Housing: I Have Housing Concerned About Future Housing: No Difficulty Paying Gas/Electric Bills: No Difficulty Paying for Meds: No Currently Unemployed: No Education: Bachelor's Degree Difficulty w/ Childcare or Family Care: No Spiritual care concerns: No <Georgina Feliz PA-C - Last Filed: 06/26/24 12:47> Exam 2 Narrative: GENERAL: Well-appearing, well-nourished, and in no acute distress. HEAD: Normocephalic, atraumatic. ENT: Mucous membranes moist. CHEST: Clear to auscultation. No respiratory distress. HEART: Regular rate and rhythm. Normal peripheral pulses. ABDOMEN: Soft, nontender, nondistended. No solid fecal impaction, only soft stool. EXTREMITIES: Normal range of motion. No edema. SKIN: Warm, dry, no rash. NEURO: N Alert and oriented x3. PSYCH: Normal mood and affect. <Juan Barragan MD - Last Filed: 06/26/24 21:39> Course Course Emergency Course: patient given enema with significant success. Patient hydrated and lactate downtrending. Labs reviewed and urine with concerns for possible infection. son feels patient is more confused than typical though she is oriented. Will plan to obs. <Juan Barragan MD - Last Filed: 06/26/24 21:39> Vital Signs Vital signs: Vital Signs Temperature 96.9 F L 06/26/24 12:21 Pulse Rate 95 06/26/24 12:21 Respiratory Rate 22 H 06/26/24 12:21 Blood Pressure 143/73 H 06/26/24 12:21 Pulse Oximetry 100 06/26/24 12:21 Oxygen Delivery Room Air 06/26/24 12:21 Temperature 97.9 F 06/26/24 12:49 Pulse Rate 93 06/26/24 21:24 Respiratory Rate 19 06/26/24 21:24 Blood Pressure 150/57 H 06/26/24 21:24 Pulse Oximetry 100 06/26/24 21:24 Oxygen Delivery Room Air 06/26/24 12:49 <Georgina Feliz PA-C - Last Filed: 06/26/24 12:47> Vital Signs Temperature 96.9 F L 06/26/24 12:21 Pulse Rate 95 06/26/24 12:21 Respiratory Rate 22 H 06/26/24 12:21 Blood Pressure 143/73 H 06/26/24 12:21 Pulse Oximetry 100 06/26/24 12:21 Oxygen Delivery Room Air 06/26/24 12:21 Temperature 97.9 F 06/26/24 12:49 Pulse Rate 93 06/26/24 21:24 Respiratory Rate 19 06/26/24 21:24 Blood Pressure 150/57 H 06/26/24 21:24 Pulse Oximetry 100 06/26/24 21:24 Oxygen Delivery Room Air 06/26/24 12:49 <Juan Barragan MD - Last Filed: 06/26/24 21:39> MDM - Nausea/Vomiting/Diarrhea MDM Narrative Medical decision making narrative: MSE by GHULAM in triage. <Georgina Feliz PA-C - Last Filed: 06/26/24 12:47> Lab Data Result diagrams: 06/26/24 12:53 06/26/24 12:53 <Georgina Feliz PA-C - Last Filed: 06/26/24 12:47> Labs: Lab Results 06/26/24 06/26/24 06/26/24 Range/Units 12:27 12:50 12:53 WBC 5.4 (4.5-10.0) K/mm3 RBC 4.52 (4.2-5.4) M/mm3 Hgb 11.2 L (12.0-15.0) g/dL Hct 37.0 (37.0-47.0) % MCV 81.9 (80-100) fl MCH 24.8 L (26-34) pg MCHC 30.3 L (32-36) g/dl RDW 18.5 H (11.5-14.5) % Plt Count 214 (150-375) k/mm3 MPV 10.2 (7.4-10.4) fl Immature Gran % (Auto) Not Reportable Neut % (Auto) Not Reportable Lymph % (Auto) Not Reportable [place] % (Auto) Not Reportable Eos % (Auto) Not Reportable Baso % (Auto) Not Reportable Lymph # (Auto) Not Reportable [place] # (Auto) Not Reportable Eos # (Auto) Not Reportable Baso # (Auto) Not Reportable Abs Immat Gran (auto) Not Reportable Absolute Neuts (auto) Not Reportable Absolute Nucleated RBC Not Reportable Total Counted 100 Neutrophils % (Manual) 79 H (46-73) % Band Neutrophils % 15 H (0-6) % Lymphocytes % (Manual) 4.0 L (18-44) % Monocytes % (Manual) 2 L (3-9) % Nucleated RBC % Not Reportable Abs Neuts (Manual) 5.07 (1.7-7.2) K/mm3 Abs Lymphs (Manual) 0.21 L (1.1-4.5) K/mm3 Abs Monocytes (Manual) 0.10 (0.1-0.90) K/mm3 Platelet Estimate Adequate (Adequate) Hypochromasia 1+ Anisocytosis 1+ Ovalocytes 1+ Schistocytes None seen Sodium 134 L (137-145) mmol/L Potassium 4.0 (3.4-5.0) mmol/L Chloride 103 (98-107) mmol/L Carbon Dioxide 19 L (22-30) mmol/L Anion Gap 12 (4-12) mmol/L BUN 27 H (7-17) mg/dL Creatinine 0.70 (0.7-1.0) mg/dL Estim Creat Clear Calc 58 ml/min Estimated GFR > 60 (59 - ) Glucose 323 H (65-110) mg/dL POC Capillary Glucose 329 H 296 H (65-105) mg/dl Lactic Acid 2.7 H (0.7-2.0) mmol/L Calcium 8.7 (8.4-10.2) mg/dL Phosphorus 2.8 (2.5-4.5) mg/dL Magnesium 1.8 (1.6-2.3) mg/dL Total Bilirubin 1.1 (0.2-1.3) mg/dL AST 33 (14-36) U/L ALT 21 (6-35) U/L Alkaline Phosphatase 148 H (38-126) U/L Total Creatine Kinase 90 (30-135) U/L Total Protein 8.0 (6.3-8.2) g/dL Albumin 4.5 (3.5-5.1) g/dL Lipase 19 L (23-300) U/L Beta-Hydroxybutyrate/Acetoacetate 2.66 H (0.02-0.27) mmol/L Urine Color (Yellow) Urine Appearance (Clear) Urine pH (5.0-9.0) Ur Specific [place] (1.001-1.035) Urine Protein (Negative) mg/dL Urine Glucose (UA) (Negative) mg/dL Urine Ketones (Negative) mg/dL Ur Blood (Man) (Negative) Urine Nitrate (Negative) Urine Bilirubin (Negative) Urine Urobilinogen (<2.0) mg/dL Leukocyte Esterase Rfl (Negative) GIGI/UL Urine RBC (0-2) /hpf Urine WBC (0-3) /hpf Ur Squamous Epith Cells (Few) /hpf Urine Bacteria /hpf Urine Casts Influenza A (RT-PCR) Negative (Negative) Influenza B (RT-PCR) Negative (Negative) RSV (RT-PCR) Negative (Negative) SARS-CoV-2 RNA (RT-PCR) Negative (Negative) 06/26/24 06/26/24 Range/Units 13:30 16:15 WBC (4.5-10.0) K/mm3 RBC (4.2-5.4) M/mm3 Hgb (12.0-15.0) g/dL Hct (37.0-47.0) % MCV (80-100) fl MCH (26-34) pg MCHC (32-36) g/dl RDW (11.5-14.5) % Plt Count (150-375) k/mm3 MPV (7.4-10.4) fl Immature Gran % (Auto) Neut % (Auto) Lymph % (Auto) [place] % (Auto) Eos % (Auto) Baso % (Auto) Lymph # (Auto) [place] # (Auto) Eos # (Auto) Baso # (Auto) Abs Immat Gran (auto) Absolute Neuts (auto) Absolute Nucleated RBC Total Counted Neutrophils % (Manual) (46-73) % Band Neutrophils % (0-6) % Lymphocytes % (Manual) (18-44) % Monocytes % (Manual) (3-9) % Nucleated RBC % Abs Neuts (Manual) (1.7-7.2) K/mm3 Abs Lymphs (Manual) (1.1-4.5) K/mm3 Abs Monocytes (Manual) (0.1-0.90) K/mm3 Platelet Estimate (Adequate) Hypochromasia Anisocytosis Ovalocytes Schistocytes Sodium (137-145) mmol/L Potassium (3.4-5.0) mmol/L Chloride (98-107) mmol/L Carbon Dioxide (22-30) mmol/L Anion Gap (4-12) mmol/L BUN (7-17) mg/dL Creatinine (0.7-1.0) mg/dL Estim Creat Clear Calc ml/min Estimated GFR (59 - ) Glucose (65-110) mg/dL POC Capillary Glucose (65-105) mg/dl Lactic Acid 1.8 (0.7-2.0) mmol/L Calcium (8.4-10.2) mg/dL Phosphorus (2.5-4.5) mg/dL Magnesium (1.6-2.3) mg/dL Total Bilirubin (0.2-1.3) mg/dL AST (14-36) U/L ALT (6-35) U/L Alkaline Phosphatase (38-126) U/L Total Creatine Kinase (30-135) U/L Total Protein (6.3-8.2) g/dL Albumin (3.5-5.1) g/dL Lipase (23-300) U/L Beta-Hydroxybutyrate/Acetoacetate (0.02-0.27) mmol/L Urine Color Yellow (Yellow) Urine Appearance Cloudy H (Clear) Urine pH 7.0 (5.0-9.0) Ur Specific [place] 1.022 (1.001-1.035) Urine Protein Trace (Negative) mg/dL Urine Glucose (UA) 3+ H (Negative) mg/dL Urine Ketones 2+ H (Negative) mg/dL Ur Blood (Man) Non-hemolyzed trace H (Negative) Urine Nitrate Positive H (Negative) Urine Bilirubin Negative (Negative) Urine Urobilinogen 0.2 (<2.0) mg/dL Leukocyte Esterase Rfl Negative (Negative) GIGI/UL Urine RBC 3-5 H (0-2) /hpf Urine WBC 0-5 (0-3) /hpf Ur Squamous Epith Cells None seen (Few) /hpf Urine Bacteria 4+ /hpf Urine Casts 0-2 Influenza A (RT-PCR) (Negative) Influenza B (RT-PCR) (Negative) RSV (RT-PCR) (Negative) SARS-CoV-2 RNA (RT-PCR) (Negative) <Georgina Feliz PA-C - Last Filed: 06/26/24 12:47> Lab Results 06/26/24 06/26/24 06/26/24 Range/Units 12:27 12:50 12:53 WBC 5.4 (4.5-10.0) K/mm3 RBC 4.52 (4.2-5.4) M/mm3 Hgb 11.2 L (12.0-15.0) g/dL Hct 37.0 (37.0-47.0) % MCV 81.9 (80-100) fl MCH 24.8 L (26-34) pg MCHC 30.3 L (32-36) g/dl RDW 18.5 H (11.5-14.5) % Plt Count 214 (150-375) k/mm3 MPV 10.2 (7.4-10.4) fl Immature Gran % (Auto) Not Reportable Neut % (Auto) Not Reportable Lymph % (Auto) Not Reportable [place] % (Auto) Not Reportable Eos % (Auto) Not Reportable Baso % (Auto) Not Reportable Lymph # (Auto) Not Reportable [place] # (Auto) Not Reportable Eos # (Auto) Not Reportable Baso # (Auto) Not Reportable Abs Immat Gran (auto) Not Reportable Absolute Neuts (auto) Not Reportable Absolute Nucleated RBC Not Reportable Total Counted 100 Neutrophils % (Manual) 79 H (46-73) % Band Neutrophils % 15 H (0-6) % Lymphocytes % (Manual) 4.0 L (18-44) % Monocytes % (Manual) 2 L (3-9) % Nucleated RBC % Not Reportable Abs Neuts (Manual) 5.07 (1.7-7.2) K/mm3 Abs Lymphs (Manual) 0.21 L (1.1-4.5) K/mm3 Abs Monocytes (Manual) 0.10 (0.1-0.90) K/mm3 Platelet Estimate Adequate (Adequate) Hypochromasia 1+ Anisocytosis 1+ Ovalocytes 1+ Schistocytes None seen Sodium 134 L (137-145) mmol/L Potassium 4.0 (3.4-5.0) mmol/L Chloride 103 (98-107) mmol/L Carbon Dioxide 19 L (22-30) mmol/L Anion Gap 12 (4-12) mmol/L BUN 27 H (7-17) mg/dL Creatinine 0.70 (0.7-1.0) mg/dL Estim Creat Clear Calc 58 ml/min Estimated GFR > 60 (59 - ) Glucose 323 H (65-110) mg/dL POC Capillary Glucose 329 H 296 H (65-105) mg/dl Lactic Acid 2.7 H (0.7-2.0) mmol/L Calcium 8.7 (8.4-10.2) mg/dL Phosphorus 2.8 (2.5-4.5) mg/dL Magnesium 1.8 (1.6-2.3) mg/dL Total Bilirubin 1.1 (0.2-1.3) mg/dL AST 33 (14-36) U/L ALT 21 (6-35) U/L Alkaline Phosphatase 148 H (38-126) U/L Total Creatine Kinase 90 (30-135) U/L Total Protein 8.0 (6.3-8.2) g/dL Albumin 4.5 (3.5-5.1) g/dL Lipase 19 L (23-300) U/L Beta-Hydroxybutyrate/Acetoacetate 2.66 H (0.02-0.27) mmol/L Urine Color (Yellow) Urine Appearance (Clear) Urine pH (5.0-9.0) Ur Specific [place] (1.001-1.035) Urine Protein (Negative) mg/dL Urine Glucose (UA) (Negative) mg/dL Urine Ketones (Negative) mg/dL Ur Blood (Man) (Negative) Urine Nitrate (Negative) Urine Bilirubin (Negative) Urine Urobilinogen (<2.0) mg/dL Leukocyte Esterase Rfl (Negative) GIGI/UL Urine RBC (0-2) /hpf Urine WBC (0-3) /hpf Ur Squamous Epith Cells (Few) /hpf Urine Bacteria /hpf Urine Casts Influenza A (RT-PCR) Negative (Negative) Influenza B (RT-PCR) Negative (Negative) RSV (RT-PCR) Negative (Negative) SARS-CoV-2 RNA (RT-PCR) Negative (Negative) 06/26/24 06/26/24 Range/Units 13:30 16:15 WBC (4.5-10.0) K/mm3 RBC (4.2-5.4) M/mm3 Hgb (12.0-15.0) g/dL Hct (37.0-47.0) % MCV (80-100) fl MCH (26-34) pg MCHC (32-36) g/dl RDW (11.5-14.5) % Plt Count (150-375) k/mm3 MPV (7.4-10.4) fl Immature Gran % (Auto) Neut % (Auto) Lymph % (Auto) [place] % (Auto) Eos % (Auto) Baso % (Auto) Lymph # (Auto) [place] # (Auto) Eos # (Auto) Baso # (Auto) Abs Immat Gran (auto) Absolute Neuts (auto) Absolute Nucleated RBC Total Counted Neutrophils % (Manual) (46-73) % Band Neutrophils % (0-6) % Lymphocytes % (Manual) (18-44) % Monocytes % (Manual) (3-9) % Nucleated RBC % Abs Neuts (Manual) (1.7-7.2) K/mm3 Abs Lymphs (Manual) (1.1-4.5) K/mm3 Abs Monocytes (Manual) (0.1-0.90) K/mm3 Platelet Estimate (Adequate) Hypochromasia Anisocytosis Ovalocytes Schistocytes Sodium (137-145) mmol/L Potassium (3.4-5.0) mmol/L Chloride (98-107) mmol/L Carbon Dioxide (22-30) mmol/L Anion Gap (4-12) mmol/L BUN (7-17) mg/dL Creatinine (0.7-1.0) mg/dL Estim Creat Clear Calc ml/min Estimated GFR (59 - ) Glucose (65-110) mg/dL POC Capillary Glucose (65-105) mg/dl Lactic Acid 1.8 (0.7-2.0) mmol/L Calcium (8.4-10.2) mg/dL Phosphorus (2.5-4.5) mg/dL Magnesium (1.6-2.3) mg/dL Total Bilirubin (0.2-1.3) mg/dL AST (14-36) U/L ALT (6-35) U/L Alkaline Phosphatase (38-126) U/L Total Creatine Kinase (30-135) U/L Total Protein (6.3-8.2) g/dL Albumin (3.5-5.1) g/dL Lipase (23-300) U/L Beta-Hydroxybutyrate/Acetoacetate (0.02-0.27) mmol/L Urine Color Yellow (Yellow) Urine Appearance Cloudy H (Clear) Urine pH 7.0 (5.0-9.0) Ur Specific [place] 1.022 (1.001-1.035) Urine Protein Trace (Negative) mg/dL Urine Glucose (UA) 3+ H (Negative) mg/dL Urine Ketones 2+ H (Negative) mg/dL Ur Blood (Man) Non-hemolyzed trace H (Negative) Urine Nitrate Positive H (Negative) Urine Bilirubin Negative (Negative) Urine Urobilinogen 0.2 (<2.0) mg/dL Leukocyte Esterase Rfl Negative (Negative) GIGI/UL Urine RBC 3-5 H (0-2) /hpf Urine WBC 0-5 (0-3) /hpf Ur Squamous Epith Cells None seen (Few) /hpf Urine Bacteria 4+ /hpf Urine Casts 0-2 Influenza A (RT-PCR) (Negative) Influenza B (RT-PCR) (Negative) RSV (RT-PCR) (Negative) SARS-CoV-2 RNA (RT-PCR) (Negative) <Juan Barragan MD - Last Filed: 06/26/24 21:39> Imaging Data Radiologist's impression: ITS Impressions Abdomen/Pelvis CT 06/26/24 13:55 IMPRESSION: 1. Large amount of colonic stool with 9 cm ball of stool at the rectum consistent with constipation and fecal impaction. No other acute intra- abdominal/pelvic process. 2. Cholelithiasis. 3. Small sliding-type hiatal hernia. <Juan Barragan MD - Last Filed: 06/26/24 21:39> Discharge Plan Discharge Clinical Impression: Fecal impaction, Acute UTI <Georgina Feliz PA-C - Last Filed: 06/26/24 12:47> Patient Disposition: Still a Patient <Georgina Feliz PA-C - Last Filed: 06/26/24 12:47> Condition: Stable <Georgina Feliz PA-C - Last Filed: 06/26/24 12:47>
[2024-06-26 12:36] LABS: Glucose Point of Care 329 mg/dl (65-105)
[2024-06-26 12:52] LABS: Glucose Point of Care 296 mg/dl (65-105)
[2024-06-26] MEDS: SODIUM CHLORIDE 0.9% IV 1,000 ML 999 ML IV CONT (12:57)
[2024-06-26] MEDS: ONDANSETRON INJ 4 MG/2 ML VIAL IV PUSH ×3 (12:57→22:40)
[2024-06-26 13:09] LABS: Hemoglobin 11.2 g/dL (12.0-15.0); Mean Corpuscular HGB Conc 30.3 g/dl (32-36); Mean Corpuscular Hemoglobin 24.8 pg (26-34); Mean Corpuscular Volume 81.9 fl (80-100); Mean Platelet Volume 10.2 fl (7.4-10.4); Platelet Count Result 214 k/mm3 (150-375); Red Blood Count 4.52 M/mm3 (4.2-5.4); Red Cell Distribution Width 18.5 % (11.5-14.5); White Blood Count 5.4 K/mm3 (4.5-10.0)
[2024-06-26 13:10] LABS: Alanine Aminotransferase 21 U/L (6-35); Albumin Level 4.5 g/dL (3.5-5.1); Alkaline Phosphatase 148 U/L (38-126); Anion Gap 12 mmol/L (4-12); Aspartate Amino Transferase 33 U/L (14-36); Bilirubin,Total 1.1 mg/dL (0.2-1.3); Blood Urea Nitrogen 27 mg/dL (7-17); Calcium 8.7 mg/dL (8.4-10.2); Carbon Dioxide 19 mmol/L (22-30); Chloride 103 mmol/L (98-107); Estimated CRCL calculation 58 ml/min; Estimated Glomerular Filt Rate > 60; Glucose 323 mg/dL (65-110); Lipase 19 U/L (23-300); Magnesium 1.8 mg/dL (1.6-2.3); Sodium 134 mmol/L (137-145)
[2024-06-26 13:11] LABS: Creatine Kinase 90 U/L (30-135); Lactic Acid Reflex 2.7 mmol/L (0.7-2.0); Phosphorus 2.8 mg/dL (2.5-4.5)
[2024-06-26 13:15] LABS: Beta-Hydroxybutyrate/Acetoacetate 2.66 mmol/L (0.02-0.27)
[2024-06-26 13:35] LABS: Band Neutrophils Percent 15 % (0-6); Lymphocytes Absolute Manual 0.21 K/mm3 (1.1-4.5); Monocytes Percent Manual 2 % (3-9); Neutrophils Absolute Manual 5.07 K/mm3 (1.7-7.2); Neutrophils Percent Manual 79 % (46-73); Total Cells Counted 100
[2024-06-26 13:38] LABS: Anisocytosis 1+; Hypochromasia 1+; Ovalocytes 1+; Platelet Estimate Adequate (Adequate); Schistocytes None Seen
[2024-06-26 13:39] LABS: Influenza A QL RT-PCR Negative (Negative); Influenza B QL RT-PCR Negative (Negative); RSV RNA, RT-PCR Negative (Negative); SARS-CoV-2 RNA PCR Negative (Negative)
[2024-06-26 13:54] LABS: Add Urine Microscopic? YES; Appearance Urine Cloudy (Clear); Bacteria Urine 4+ /hpf; Bilirubin Urine Negative (Negative); Blood Urine Non-Hemolyzed Trace (Negative); Color Urine Yellow (Yellow); Glucose Urine UA 3+ mg/dL (Negative); Ketones Urine 2+ mg/dL (Negative); Leukocyte Esterase Ur Negative LEU/UL (Negative); Nitrate Urine Positive (Negative); Non Pathogenic Casts 0-2; Protein Urine Trace mg/dL (Negative); Specific Grav Ur 1.022 (1.001-1.035); Squamous Epithelial Cell Urine None Seen /hpf (Few); Urobilinogen Urine 0.2 mg/dL (<2.0); WBC Urine 0-5 /hpf (0-3)
[2024-06-26] MEDS: PROMETHAZINE HCL 25 MG/ML AMPUL 12.5 MG IV PUSH (14:07)
[2024-06-26 15:58] LABS: Reflex Lactic Acid Yes or No Add Lactic
[2024-06-26 16:42] LABS: Lactic Acid 1.8 mmol/L (0.7-2.0)
[2024-06-26 19:28] LABS: Glucose Point of Care 283 mg/dl (65-105)
--- NOTE | 2024-06-26 19:29 | PC.NURSE ---
blood glucose checked at this time. 283
--- NOTE | 2024-06-26 19:33 | PM.IMHP ---
H&P: HPI History of Present Illness Date/Time: 06/26/24 19:33 Chief Complaint: Nausea vomiting diarrhea Narrative: 78-year-old with history of TIA, diabetes, hyperlipidemia and thyroid disease presents to the hospital from rehab with nausea vomiting and diarrhea. Patient states that she has had decreased appetite lately with nausea and vomiting starting yesterday. She states that because she has been eating she has not been taking her insulin as she normally would. The son states there are several patients at the rehab that have some sort to GI bug. Patient denies fevers chills. Patient has been at the rehab facility since her hip fracture in April. Patient acting acidosis of 2.7 which resolved with 1 L fluid bolus to 1.8, hyperglycemia at 323, UA positive for nitrates, glucose and ketones, beta hydroxybutyrate 2.66, anion gap 12. CT shows Large amount of colonic stool with 9 cm ball of stool at the rectum consistent with constipation and fecal impaction. Review of Systems Review of Systems: 12 systems were reviewed and are negative except for as per HPI. 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 It she has a son. -code status full code Smoking status: Never smoker Alcohol intake: never Drinks per week: 1 Substance use: never Do You Feel Safe in your Home?: Yes Lack of Transportation: No Lack of Food: Never True Current Housing: I Have Housing Concerned About Future Housing: No Difficulty Paying Gas/Electric Bills: No Difficulty Paying for Meds: No Currently Unemployed: No Education: Associate Degree Difficulty w/ Childcare or Family Care: No Spiritual care concerns: No Meds Home Medications and Allergies Home Medications ?Medication ?Instructions ?Recorded ?Confirmed ?Type cyanocobalamin (vitamin B-12) 1,000 mcg IM MONTHLY 06/18/20 06/26/24 History 1,000 mcg/mL injection solution acetaminophen 325 mg chewable 650 mg PO Q6H PRN pain (scale 05/24/24 06/26/24 History tablet score 1-3) aspirin 81 mg chewable tablet 81 mg PO DAILY 05/24/24 06/26/24 History calcium carb 1,200 mg-mag hydrox 10 ml PO DAILY 05/24/24 06/26/24 History 270 mg-simeth 80 mg/10 mL oral susp insulin lispro 100 unit/mL 1 sliding scale dose subcut TIDWM 05/24/24 06/26/24 History subcutaneous solution polyethylene glycol 3350 17 gram 17 g PO DAILY 05/24/24 06/26/24 History oral powder packet (Miralax) sennosides 8.6 mg-docusate sodium 1 tablet PO BID 05/24/24 06/26/24 History 50 mg tablet atorvastatin 10 mg tablet 10 mg PO DAILY 30 days #30 tabs 06/06/24 06/26/24 Rx cholecalciferol (vitamin D3) 125 125 mcg PO DAILY #30 caps 06/06/24 06/26/24 Rx mcg (5,000 unit) capsule duloxetine 30 mg capsule,delayed 30 mg PO DAILY #30 caps 06/06/24 06/26/24 Rx release furosemide 20 mg tablet 20 mg PO QMWF 30 days #13 tabs 06/06/24 06/26/24 Rx gabapentin 600 mg tablet 600 mg PO TID #90 tabs 06/06/24 06/26/24 Rx insulin glargine 100 unit/mL (3 14 unit (0.14 mL) subcut QHS #15 mL 06/06/24 06/26/24 Rx mL) subcutaneous pen (Lantus Solostar U-100 Insulin) insulin lispro 100 unit/mL 5 unit (0.05 mL) subcut TIDWM 30 06/06/24 06/26/24 Rx subcutaneous solution (Humalog days #4.5 mL U-100 Insulin) levothyroxine 88 mcg tablet 88 mcg PO 6XW #30 tabs 06/06/24 06/26/24 Rx levothyroxine 88 mcg tablet 176 mcg (2 x 88 mcg) PO WEEKLY #30 06/06/24 06/26/24 Rx tabs cephalexin 500 mg capsule 500 mg PO Q12H #14 caps 06/26/24 Rx docusate sodium 100 mg capsule 100 mg PO BID #14 caps 06/26/24 Rx (Colace) polyethylene glycol 3350 17 17 g PO BID #119 grams 06/26/24 Rx gram/dose oral powder (Miralax) Allergies Allergy/AdvReac Type Severity Reaction Status Date / Time No Known Allergies Allergy Verified 06/26/24 12:48 Vital Signs Vital Signs - 24 hr 06/26/24 12:21 06/26/24 12:49 06/26/24 12:50 Temperature 96.9 F L 97.9 F Pulse Rate 95 94 95 Respiratory Rate 22 H 20 19 Blood Pressure 143/73 H 168/86 H 168/86 H Pulse Oximetry 100 100 Oxygen Delivery Room Air Room Air 06/26/24 14:11 06/26/24 15:36 06/26/24 17:40 Temperature Pulse Rate 92 99 99 Respiratory Rate 18 18 20 Blood Pressure 191/95 H 183/86 H 171/83 H Pulse Oximetry 99 97 97 Oxygen Delivery 06/26/24 18:31 06/26/24 19:28 Temperature Pulse Rate 100 98 Respiratory Rate 19 16 Blood Pressure 150/75 H 148/82 H Pulse Oximetry 98 100 Oxygen Delivery Exam Narrative: General: Pale, ill-appearing HEENT: normocephalic, atraumatic. Mucous membranes dry. EOMI, PERRLA, bilateral sclera anicteric, no conjunctival injection. Neck supple without JVD, lymphadenopathy, or bruit. Respiratory: clear to ascultation bilaterally. No rales/rhonic/wheezes. Cardiovascular: Regular rate and rhythm, normal S1-S2 upon ascultation. No murmurs, rubs, or clicks. PMI is nondisplaced, capillary refill less than 3 second. Abdomen: Soft, round, no pulsatile masses, mild distended and nontender. No rebound, no guarding. No CVA tenderness, no hepatosplenomegaly. Bowel sounds present to all four quadrants. No high pitch or tinkling sounds, resonant to percussion. Extremities: No cyanosis, clubbing, or edema present. Pulses are palpable 2/2. Active ROM to all four extremities. Neuro: Alert and orientated x 4. PERRLA. Cranial nerves 2-12 intact without focal deficit. Skin: Warm, dry, and intact, without rash, erythema, or lesion. Psych: pleasant, cooperative, normal speech, normal affect, no hallucinations, no dysarthia H&P: Results Labs Labs: Short CBC 06/26/24 Range/Units 12:53 WBC 5.4 (4.5-10.0) K/mm3 Hgb 11.2 L (12.0-15.0) g/dL Hct 37.0 (37.0-47.0) % Plt Count 214 (150-375) k/mm3 BMP 06/26/24 12:53 Sodium 134 L Potassium 4.0 Chloride 103 Carbon Dioxide 19 L BUN 27 H Creatinine 0.70 Glucose 323 H Calcium 8.7 Cardiac Enzymes 06/26/24 Range/Units 12:53 Total Creatine Kinase 90 (30-135) U/L Liver Function 06/26/24 Range/Units 12:53 Total Bilirubin 1.1 (0.2-1.3) mg/dL AST 33 (14-36) U/L ALT 21 (6-35) U/L Alkaline Phosphatase 148 H (38-126) U/L Albumin 4.5 (3.5-5.1) g/dL Urine 06/26/24 Range/Units 13:30 Urine Color Yellow (Yellow) Urine Appearance Cloudy H (Clear) Urine pH 7.0 (5.0-9.0) Ur Specific [place] 1.022 (1.001-1.035) Urine Protein Trace (Negative) mg/dL Urine Glucose (UA) 3+ H (Negative) mg/dL Assessment and Plan Assessment and plan (1) Fecal impaction: Code(s): K56.41 - Fecal impaction Status: Acute Assessment and Plan: Enema given ED with good results Aggressive bowel protocol Patient will need to be discharged on aggressive bowel protocol (2) Intractable nausea and vomiting: Code(s): R11.2 - Nausea with vomiting, unspecified Status: Acute Assessment and Plan: With dehydration 2 L IV fluid bolus Maintenance fluids for hydration Zofran (3) Diabetes: Code(s): E11.9 - Type 2 diabetes mellitus without complications Status: Acute Assessment and Plan: With hyperglycemia, gap closed Diabetic diet SSI q.6 for tonight, may do a.c. HS tomorrow Lantus now 1 L bolus (4) Hypothyroidism: Code(s): E03.9 - Hypothyroidism, unspecified Status: Acute Assessment and Plan: Restart Synthroid (5) Diabetic neuropathy: Code(s): E11.40 - Type 2 diabetes mellitus with diabetic neuropathy, unspecified Status: Acute Assessment and Plan: Restart gabapentin Plan Patient has Lasix listed as 1 of her home meds however there is no CHF listed in her history or in previous progress notes. She is currently dehydrated, Lasix not ordered. Quality VTE Prophylaxis VTE prophylaxis: mechanical ordered and pharmacologic ordered Hospitalist [facility] Advance Care Plan I have confirmed that the patient's Advanced Care Plan is present, code status is documented, or surrogate decision maker is listed in patient medical record.: Yes Medication Reconciliation I have utilized all available resources to obtain, update and review the patients current medications (includes all prescriptions, OTC, herbals, cannabis, and nutritional supplements).: Yes
[2024-06-26 20:58] LABS: Glucose Point of Care 280 mg/dl (65-105)
[2024-06-26] MEDS: MAGNESIUM HYDROXIDE SUSP 30 ML UDC PO (21:08)
[2024-06-26] MEDS: BISACODYL 5 MG TABLET EC PO (21:10)
[2024-06-26] MEDS: SODIUM CHLORIDE 0.9% IV 1,000 ML 100 ML IV CONT (21:13)
[2024-06-26] MEDS: INSULIN GLARGINE (*BKC) 100 UNITS/ML 14 UNITS SUB-Q (21:14)
--- NOTE | 2024-06-26 22:34 | ADMGEN ---
This patient, Carrie Downs, was admitted to Medical Room 349-01. Patient/family oriented to hospital policies and general routines including ID bracelet, bed and alarms, visiting hours, pain management, procedures, bathroom and other care routines, personal items, smoking policy, room service/diet, and visiting hours. Information on how to activate the Rapid Response Team has been discussed. Patient/Family are encouraged to report perceived risks to care and to ask questions if they do not understand what they are told or what they should do.
[2024-06-26] MEDS: INSULIN ASPART (*BKC) 100 UNITS/ML SUB-Q (23:35)
[2024-06-27 03:25] VITALS: BP 124/73; PULSE 70; RESP 20; TEMP 37.1; O2SAT 98
[2024-06-27 05:55] LABS: Basophils Percent Auto 0.3 % (0.2-1.2); Hematocrit 30.1 % (37.0-47.0); Immature Granulocyte Absolute 0.01 K/mm3 (0.00-0.031); Immature Granulocyte Percent A 0.3 % (0-0.5); Lymphocytes Absolute Auto 0.32 K/mm3 (0.9-3.2); Lymphocytes Percent Auto 9.2 % (18.3-44.2); Mean Corpuscular HGB Conc 29.9 g/dl (32-36); Mean Corpuscular Hemoglobin 24.5 pg (26-34); Mean Platelet Volume 9.7 fl (7.4-10.4); Monocytes Absolute Auto 0.3 K/mm3 (0.1-0.6); Neutrophils Absolute Auto 2.9 K/mm3 (1.3-6.7); Neutrophils Percent Auto 82.2 % (45.5-73.1); Platelet Count Result 173 k/mm3 (150-375); Red Blood Count 3.67 M/mm3 (4.2-5.4); Red Cell Distribution Width 18.5 % (11.5-14.5); White Blood Count 3.5 K/mm3 (4.5-10.0)
[2024-06-27 06:09] LABS: Hemoglobin A1C 7.5 % (<5.7)
[2024-06-27 06:11] LABS: Anion Gap 2 mmol/L (4-12); Blood Urea Nitrogen 25 mg/dL (7-17); Calcium 7.2 mg/dL (8.4-10.2); Carbon Dioxide 25 mmol/L (22-30); Chloride 108 mmol/L (98-107); Estimated CRCL calculation 49 ml/min; Estimated Glomerular Filt Rate > 60; Glucose 165 mg/dL (65-110); Potassium 3.3 mmol/L (3.4-5.0); Sodium 135 mmol/L (137-145)
[2024-06-27] MEDS: SODIUM CHLORIDE 0.9% IV 1,000 ML 100 ML IV CONT ×2 (06:22→18:04)
[2024-06-27] MEDS: LEVOTHYROXINE SODIUM 88 MCG TABLET PO (06:22)
[2024-06-27 06:38] LABS: Platelet Estimate Adequate (Adequate)
[2024-06-27 06:39] LABS: Anisocytosis 1+; Hypochromasia 1+; Polychromasia 1+; Schistocytes None Seen
[2024-06-27 07:00] VITALS: BP 141/73; PULSE 62; RESP 20; TEMP 37; O2SAT 98
[2024-06-27] MEDS: BISACODYL 10 MG SUPPOSITORY RECTAL (08:27)
[2024-06-27] MEDS: DULoxetine HCL 30 MG CAPSULE.DR PO (08:27)
[2024-06-27] MEDS: ATORVASTATIN 10 MG TABLET PO (08:27)
[2024-06-27] MEDS: GABAPENTIN 300 MG CAPSULE 600 MG PO ×3 (08:27→21:36)
[2024-06-27] MEDS: DOCUSATE SODIUM 100 MG CAPSULE PO ×2 (08:27→18:04)
[2024-06-27] MEDS: ASPIRIN 81 MG CHEWABLE TABLET PO (08:27)
[2024-06-27] MEDS: polyethylene glycoL 3350 17 GM POWD.PACK PO (08:28)
[2024-06-27] MEDS: BISACODYL 5 MG TABLET EC PO (08:28)
[2024-06-27] MEDS: ENOXAPARIN 40 MG/0.4 ML SYRINGE SUB-Q (08:28)
[2024-06-27 09:28] LABS: Glucose Point of Care 292 mg/dl (65-105)
[2024-06-27 10:15] VITALS: BP 152/66; PULSE 78; RESP 19; TEMP 36.8; O2SAT 97
--- NOTE | 2024-06-27 12:03 | P.PNIM_ITS ---
Progress Note: A&P Assessment and Plan (1) Fecal impaction: Code(s): K56.41 - Fecal impaction Status: Acute Assessment and Plan: Enema given ED with good results Aggressive bowel protocol Patient will need to be discharged on aggressive bowel protocol (2) Intractable nausea and vomiting: Code(s): R11.2 - Nausea with vomiting, unspecified Status: Acute Assessment and Plan: With dehydration 2 L IV fluid bolus Maintenance fluids for hydration Zofran prn (3) Diabetes: Code(s): E11.9 - Type 2 diabetes mellitus without complications Status: Acute Assessment and Plan: With hyperglycemia, gap closed Diabetic diet SSI q.6 for tonight, may do a.c. HS tomorrow Lantus now bs reviewed- and stable 1 L bolus (4) Hypothyroidism: Code(s): E03.9 - Hypothyroidism, unspecified Status: Acute Assessment and Plan: Restart Synthroid (5) Diabetic neuropathy: Code(s): E11.40 - Type 2 diabetes mellitus with diabetic neuropathy, unspecified Status: Acute Assessment and Plan: Restart gabapentin Plan will need to work with PT/OT Time Spent With Patient Time with patient: 25 - 35 minutes Subjective Date/time seen: 06/27/24 12:03 Interval history: Nausea vomiting diarrhea Narrative retrieved from H/P: 78-year-old with history of TIA, diabetes, hyperlipidemia and thyroid disease presents to the hospital from rehab with nausea vomiting and diarrhea. Patient states that she has had decreased appetite lately with nausea and vomiting starting yesterday. She states that because she has been eating she has not been taking her insulin as she normally would. The son states there are several patients at the rehab that have some sort to GI bug. Patient denies fevers chills. Patient has been at the rehab facility since her hip fracture in April. Patient acting acidosis of 2.7 which resolved with 1 L fluid bolus to 1.8, hyperglycemia at 323, UA positive for nitrates, glucose and ketones, beta hydroxybutyrate 2.66, anion gap 12. CT shows Large amount of colonic stool with 9 cm ball of stool at the rectum consistent with constipation and fecal impaction. IN ED, enema was given with a good results. 06/27- pt is seen and examined. on IV ceftriaxone for uti. Somewhat slow to reply but appropriate, very weak and nauseated. Review of Systems Review of Systems: 12 systems were reviewed and are negativ e except for as per HPI. Exam Narrative: General: Pale, ill-appearing HEENT: normocephalic, atraumatic. Mucous membranes dry. EOMI, PERRLA, bilateral sclera anicteric, no conjunctival injection. Neck supple without JVD, lymphadenopathy, or bruit. Respiratory: clear to ascultation bilaterally. No rales/rhonic/wheezes. Cardiovascular: Regular rate and rhythm, normal S1-S2 upon ascultation. No murmurs, rubs, or clicks. PMI is nondisplaced, capillary refill less than 3 second. Abdomen: Soft, round, no pulsatile masses, mild distended and nontender. No rebound, no guarding. No CVA tenderness, no hepatosplenomegaly. Bowel sounds present to all four quadrants. No high pitch or tinkling sounds, resonant to percussion. Extremities: No cyanosis, clubbing, or edema present. Pulses are palpable 2/2. Active ROM to all four extremities. Neuro: Alert and orientated x 4. PERRLA. Cranial nerves 2-12 intact without focal deficit. Skin: Warm, dry, and intact, without rash, erythema, or lesion. Psych: pleasant, cooperative, normal speech, normal affect, no hallucinations, no dysarthia Objective Data Vital Signs Vital Signs: Vital Signs - 24 hr 06/26/24 12:21 06/26/24 12:49 06/26/24 12:50 Temperature 96.9 F L 97.9 F Pulse Rate 95 94 95 Respiratory Rate 22 H 20 19 Blood Pressure 143/73 H 168/86 H 168/86 H Pulse Oximetry 100 100 Oxygen Delivery Room Air Room Air 06/26/24 14:11 06/26/24 15:36 06/26/24 17:40 Temperature Pulse Rate 92 99 99 Respiratory Rate 18 18 20 Blood Pressure 191/95 H 183/86 H 171/83 H Pulse Oximetry 99 97 97 Oxygen Delivery 06/26/24 18:31 06/26/24 19:28 06/26/24 20:53 Temperature Pulse Rate 100 98 94 Respiratory Rate 19 16 15 Blood Pressure 150/75 H 148/82 H 144/76 H Pulse Oximetry 98 100 98 Oxygen Delivery 06/26/24 21:24 06/26/24 23:50 06/27/24 03:25 Temperature 98.1 F 98.8 F Pulse Rate 93 91 70 Respiratory Rate 19 20 20 Blood Pressure 150/57 H 176/86 H 124/73 Pulse Oximetry 100 100 98 Oxygen Delivery 06/27/24 07:00 06/27/24 08:00 06/27/24 10:15 Temperature 98.6 F 98.3 F Pulse Rate 62 78 Respiratory Rate 20 19 Blood Pressure 141/73 H 152/66 H Pulse Oximetry 98 97 Oxygen Delivery Room Air Intake/Output Intake/Output: Intake & Output 06/24/24 06/25/24 06/26/24 06/27/24 23:59 23:59 23:59 23:59 Intake Total 1050 1065 Output Total 200 800 Balance 850 265 Meds/Results Medications: Active Medications Generic Name Dose Route Start Last Admin Trade Name Freq PRN Reason Stop Dose Admin Aspirin 81 mg 06/27/24 09:00 06/27/24 08:27 Aspirin 81 Mg Chewable Tablet PO 81 mg DAILY BHAKTI Administration Atorvastatin Calcium 10 mg 06/27/24 09:00 06/27/24 08:27 Atorvastatin 10 Mg Tablet PO 10 mg DAILY BHAKTI Administration Bisacodyl 5 mg 06/26/24 19:50 06/27/24 08:28 Bisacodyl 5 Mg Tablet Ec PO 5 mg DAILY BHAKTI Administration Dextrose 12.5 gm 06/26/24 19:43 Dextrose 50% 25 Gm/50 Ml Syringe IV PUSH PRN PRN Hypoglycemia Protocol Docusate Sodium 100 mg 06/27/24 09:00 06/27/24 08:27 Docusate Sodium 100 Mg Capsule PO 100 mg BID BHAKTI Administration Duloxetine HCl 30 mg 06/27/24 09:00 06/27/24 08:27 Duloxetine Hcl 30 Mg Capsule.Dr PO 30 mg DAILY BHAKTI Administration Enoxaparin Sodium 40 mg 06/27/24 09:00 06/27/24 08:28 Enoxaparin 40 Mg/0.4 Ml Syringe SUB-Q 40 mg DAILY BHAKTI Administration Gabapentin 600 mg 06/27/24 09:00 06/27/24 08:27 Gabapentin 300 Mg Capsule PO 600 mg TID BHAKTI Administration Glucagon 1 mg 06/26/24 19:43 Glucagon For Inj 1 Mg Vial IM PRN PRN Hypoglycemia Protocol Glucose 15 gm 06/26/24 19:43 Glucose Oral Gel 15 Gm Of Glucse In 37.5 Gm Tube PO PRN PRN Hypoglycemia Protocol Ceftriaxone Sodium 1 gm in 50 mls @ 100 mls/hr 06/27/24 18:00 Rocephin 1 Gm/Ns 50 Ml IVPB Q24H BHAKTI Dextrose 1,000 mls @ 100 mls/hr 06/26/24 19:43 Dextrose 5% 1,000 Ml IVPB PRN PRN Hypoglycemia Protocol Sodium Chloride 1,000 mls @ 100 mls/hr 06/26/24 20:00 06/27/24 06:22 Normal Saline Iv IV CONT 100 mls/hr .Q10H BHAKTI Administration Insulin Aspart 4 - 8 units 06/27/24 00:00 06/27/24 06:12 Insulin Aspart (*Bkc) 100 Units/Ml SUB-Q Not Given Q6HR BHAKTI Protocol Insulin Glargine 14 units 06/26/24 19:45 06/26/24 21:14 Insulin Glargine (*Bkc) 100 Units/Ml SUB-Q 14 units HS BHAKTI Administration Levothyroxine Sodium 88 mcg 06/27/24 06:30 06/27/24 06:22 Levothyroxine Sodium 88 Mcg Tablet PO 88 mcg [id number] BHAKTI Administration Levothyroxine Sodium 176 mcg 07/02/24 06:30 Levothyroxine Sodium 88 Mcg Tablet PO [email or web address] [facility] Ondansetron HCl 4 mg 06/26/24 18:46 06/26/24 22:40 Ondansetron Inj 4 Mg/2 Ml Vial IV PUSH 4 mg Q4H PRN Administration Nausea Polyethylene Glycol 17 gm 06/27/24 09:00 06/27/24 08:24 Polyethylene Glycol 3350 17 Gm Powd.Pack PO Not Given QAM BHAKTI Polyethylene Glycol 17 gm 06/27/24 09:00 06/27/24 08:28 Polyethylene Glycol 3350 17 Gm Powd.Pack PO 17 gm DAILY BHAKTI Administration Radiology Results: ITS Impressions Abdomen/Pelvis CT 06/26/24 13:55 IMPRESSION: 1. Large amount of colonic stool with 9 cm ball of stool at the rectum consistent with constipation and fecal impaction. No other acute intra- abdominal/pelvic process. 2. Cholelithiasis. 3. Small sliding-type hiatal hernia. Labs Labs: Laboratory Results - last 24 hr 06/26/24 06/26/24 06/26/24 12:27 12:50 12:53 WBC 5.4 RBC 4.52 Hgb 11.2 L Hct 37.0 MCV 81.9 MCH 24.8 L MCHC 30.3 L RDW 18.5 H Plt Count 214 MPV 10.2 Immature Gran % (Auto) Not Reportable Neut % (Auto) Not Reportable Lymph % (Auto) Not Reportable [place] % (Auto) Not Reportable Eos % (Auto) Not Reportable Baso % (Auto) Not Reportable Lymph # (Auto) Not Reportable [place] # (Auto) Not Reportable Eos # (Auto) Not Reportable Baso # (Auto) Not Reportable Abs Immat Gran (auto) Not Reportable Absolute Neuts (auto) Not Reportable Absolute Nucleated RBC Not Reportable Total Counted 100 Neutrophils % (Manual) 79 H Band Neutrophils % 15 H Lymphocytes % (Manual) 4.0 L Monocytes % (Manual) 2 L Nucleated RBC % Not Reportable Abs Neuts (Manual) 5.07 Abs Lymphs (Manual) 0.21 L Abs Monocytes (Manual) 0.10 Platelet Estimate Adequate Polychromasia Hypochromasia 1+ Anisocytosis 1+ Ovalocytes 1+ Schistocytes None seen Sodium 134 L Potassium 4.0 Chloride 103 Carbon Dioxide 19 L Anion Gap 12 BUN 27 H Creatinine 0.70 Estim Creat Clear Calc 58 Estimated GFR > 60 Glucose 323 H POC Capillary Glucose 329 H 296 H Hemoglobin A1c Lactic Acid 2.7 H Calcium 8.7 Phosphorus 2.8 Magnesium 1.8 Total Bilirubin 1.1 AST 33 ALT 21 Alkaline Phosphatase 148 H Total Creatine Kinase 90 Total Protein 8.0 Albumin 4.5 Lipase 19 L Beta-Hydroxybutyrate/Acetoacetate 2.66 H Urine Color Urine Appearance Urine pH Ur Specific [place] Urine Protein Urine Glucose (UA) Urine Ketones Ur Blood (Man) Urine Nitrate Urine Bilirubin Urine Urobilinogen Leukocyte Esterase Rfl Urine RBC Urine WBC Ur Squamous Epith Cells Urine Bacteria Urine Casts Influenza A (RT-PCR) Negative Influenza B (RT-PCR) Negative RSV (RT-PCR) Negative SARS-CoV-2 RNA (RT-PCR) Negative 06/26/24 06/26/24 06/26/24 13:30 16:15 19:25 WBC RBC Hgb Hct MCV MCH MCHC RDW Plt Count MPV Immature Gran % (Auto) Neut % (Auto) Lymph % (Auto) [place] % (Auto) Eos % (Auto) Baso % (Auto) Lymph # (Auto) [place] # (Auto) Eos # (Auto) Baso # (Auto) Abs Immat Gran (auto) Absolute Neuts (auto) Absolute Nucleated RBC Total Counted Neutrophils % (Manual) Band Neutrophils % Lymphocytes % (Manual) Monocytes % (Manual) Nucleated RBC % Abs Neuts (Manual) Abs Lymphs (Manual) Abs Monocytes (Manual) Platelet Estimate Polychromasia Hypochromasia Anisocytosis Ovalocytes Schistocytes Sodium Potassium Chloride Carbon Dioxide Anion Gap BUN Creatinine Estim Creat Clear Calc Estimated GFR Glucose POC Capillary Glucose 283 H Hemoglobin A1c Lactic Acid 1.8 Calcium Phosphorus Magnesium Total Bilirubin AST ALT Alkaline Phosphatase Total Creatine Kinase Total Protein Albumin Lipase Beta-Hydroxybutyrate/Acetoacetate Urine Color Yellow Urine Appearance Cloudy H Urine pH 7.0 Ur Specific [place] 1.022 Urine Protein Trace Urine Glucose (UA) 3+ H Urine Ketones 2+ H Ur Blood (Man) Non-hemolyzed trace H Urine Nitrate Positive H Urine Bilirubin Negative Urine Urobilinogen 0.2 Leukocyte Esterase Rfl Negative Urine RBC 3-5 H Urine WBC 0-5 Ur Squamous Epith Cells None seen Urine Bacteria 4+ Urine Casts 0-2 Influenza A (RT-PCR) Influenza B (RT-PCR) RSV (RT-PCR) SARS-CoV-2 RNA (RT-PCR) 06/26/24 06/26/24 06/27/24 20:55 23:22 05:44 WBC 3.5 L RBC 3.67 L Hgb 9.0 L Hct 30.1 L MCV 82.0 MCH 24.5 L MCHC 29.9 L RDW 18.5 H Plt Count 173 MPV 9.7 Immature Gran % (Auto) 0.3 Neut % (Auto) 82.2 H Lymph % (Auto) 9.2 L [place] % (Auto) 8.0 Eos % (Auto) 0.0 Baso % (Auto) 0.3 Lymph # (Auto) 0.32 L [place] # (Auto) 0.3 Eos # (Auto) 0.0 Baso # (Auto) 0.0 Abs Immat Gran (auto) 0.01 Absolute Neuts (auto) 2.9 Absolute Nucleated RBC 0.000 Total Counted Neutrophils % (Manual) Band Neutrophils % Lymphocytes % (Manual) Monocytes % (Manual) Nucleated RBC % 0.0 Abs Neuts (Manual) Abs Lymphs (Manual) Abs Monocytes (Manual) Platelet Estimate Adequate Polychromasia 1+ Hypochromasia 1+ Anisocytosis 1+ Ovalocytes Schistocytes None seen Sodium 135 L Potassium 3.3 L Chloride 108 H Carbon Dioxide 25 Anion Gap 2 L BUN 25 H Creatinine 0.80 Estim Creat Clear Calc 49 Estimated GFR > 60 Glucose 165 H POC Capillary Glucose 280 H 292 H Hemoglobin A1c 7.5 H Lactic Acid Calcium 7.2 L Phosphorus Magnesium Total Bilirubin AST ALT Alkaline Phosphatase Total Creatine Kinase Total Protein Albumin Lipase Beta-Hydroxybutyrate/Acetoacetate Urine Color Urine Appearance Urine pH Ur Specific [place] Urine Protein Urine Glucose (UA) Urine Ketones Ur Blood (Man) Urine Nitrate Urine Bilirubin Urine Urobilinogen Leukocyte Esterase Rfl Urine RBC Urine WBC Ur Squamous Epith Cells Urine Bacteria Urine Casts Influenza A (RT-PCR) Influenza B (RT-PCR) RSV (RT-PCR) SARS-CoV-2 RNA (RT-PCR) Quality VTE Prophylaxis VTE prophylaxis: mechanical ordered and pharmacologic ordered
[2024-06-27 12:30] LABS: Glucose Point of Care 172 mg/dl (65-105)
[2024-06-27] MEDS: ONDANSETRON INJ 4 MG/2 ML VIAL IV PUSH (14:22)
[2024-06-27 14:33] VITALS: BP 143/56; PULSE 81; RESP 16; TEMP 36.4; O2SAT 97
[2024-06-27 17:42] LABS: Glucose Point of Care 166 mg/dl (65-105)
[2024-06-27 21:33] VITALS: BP 155/51; PULSE 60; RESP 16; TEMP 36.7; O2SAT 99
[2024-06-27] MEDS: INSULIN GLARGINE (*BKC) 100 UNITS/ML 14 UNITS SUB-Q (21:36)
[2024-06-27 21:57] LABS: Glucose Point of Care 165 mg/dl (65-105)
[2024-06-28] VITALS: BP 147/50; PULSE 81; RESP 18; TEMP 36.4; O2SAT 98
[2024-06-28 00:18] LABS: Glucose Point of Care 166 mg/dl (65-105)
[2024-06-28] MEDS: SODIUM CHLORIDE 0.9% IV 1,000 ML 100 ML IV CONT ×3 (02:36→22:04)
[2024-06-28] MEDS: LEVOTHYROXINE SODIUM 88 MCG TABLET PO (05:45)
[2024-06-28 05:53] VITALS: BP 159/72; PULSE 54; RESP 16; TEMP 36.6; O2SAT 98
[2024-06-28] MEDS: BISACODYL 5 MG TABLET EC PO (08:38)
[2024-06-28] MEDS: DULoxetine HCL 30 MG CAPSULE.DR PO (08:38)
[2024-06-28] MEDS: GABAPENTIN 300 MG CAPSULE 600 MG PO ×3 (08:38→20:48)
[2024-06-28] MEDS: ATORVASTATIN 10 MG TABLET PO (08:38)
[2024-06-28] MEDS: DOCUSATE SODIUM 100 MG CAPSULE PO ×2 (08:38→17:34)
[2024-06-28] MEDS: ASPIRIN 81 MG CHEWABLE TABLET PO (08:38)
[2024-06-28] MEDS: polyethylene glycoL 3350 17 GM POWD.PACK PO (08:39)
[2024-06-28] MEDS: ENOXAPARIN 40 MG/0.4 ML SYRINGE SUB-Q (08:40)
[2024-06-28 08:41] LABS: Glucose Point of Care 142 mg/dl (65-105)
[2024-06-28] MEDS: ACETAMINOPHEN 325 MG TABLET 650 MG PO ×2 (09:57→20:48)
--- NOTE | 2024-06-28 10:56 | P.PNIM_ITS ---
Progress Note: A&P Assessment and Plan (1) Fecal impaction: Code(s): K56.41 - Fecal impaction Status: Acute Assessment and Plan: Enema given ED with good results Aggressive bowel protocol on miralax, docusate (2) Intractable nausea and vomiting: Code(s): R11.2 - Nausea with vomiting, unspecified Status: Acute Assessment and Plan: With dehydration 2 L IV fluid bolus-completed Maintenance fluids for hydration Zofran prn (3) Diabetes: Code(s): E11.9 - Type 2 diabetes mellitus without complications Status: Acute Assessment and Plan: With hyperglycemia, gap closed Diabetic diet SSI q.6 for tonight, may do a.c. HS tomorrow Lantus 14 units at hs bs reviewed- and stable (4) Hypothyroidism: Code(s): E03.9 - Hypothyroidism, unspecified Status: Acute Assessment and Plan: Restart Synthroid (5) Diabetic neuropathy: Code(s): E11.40 - Type 2 diabetes mellitus with diabetic neuropathy, unspecified Status: Acute Assessment and Plan: Restart gabapentin Time Spent With Patient Time with patient: 25 - 35 minutes Subjective Date/time seen: 06/28/24 10:56 Interval history: Nausea vomiting diarrhea Narrative retrieved from H/P: 78-year-old with history of TIA, diabetes, hyperlipidemia and thyroid disease presents to the hospital from rehab with nausea vomiting and diarrhea. Patient states that she has had decreased appetite lately with nausea and vomiting starting yesterday. She states that because she has been eating she has not been taking her insulin as she normally would. The son states there are several patients at the rehab that have some sort to GI bug. Patient denies fevers chills. Patient has been at the rehab facility since her hip fracture in April. Patient acting acidosis of 2.7 which resolved with 1 L fluid bolus to 1.8, hyperglycemia at 323, UA positive for nitrates, glucose and ketones, beta hydroxybutyrate 2.66, anion gap 12. CT shows Large amount of colonic stool with 9 cm ball of stool at the rectum consistent with constipation and fecal impaction. IN ED, enema was given with a good results. 06/27- pt is seen and examined. on IV ceftriaxone for uti. Somewhat slow to reply but appropriate, very weak and nauseated. 06/28 pt is seen and examined. reports headache. tylenol is ordered. working with PT/OT. Care coordination following: plan is to return to [facility] in [place] to continue her rehab for recent femur fx (05/21- repaired at [facility]) Review of Systems Review of Systems: 12 systems were reviewed and are negativ e except for as per HPI. Exam Narrative: General: Pale, ill-appearing HEENT: normocephalic, atraumatic. Mucous membranes dry. EOMI, PERRLA, bilateral sclera anicteric, no conjunctival injection. Neck supple without JVD, lymphadenopathy, or bruit. Respiratory: clear to ascultation bilaterally. No rales/rhonic/wheezes. Cardiovascular: Regular rate and rhythm, normal S1-S2 upon ascultation. No murmurs, rubs, or clicks. PMI is nondisplaced, capillary refill less than 3 second. Abdomen: Soft, round, no pulsatile masses, mild distended and nontender. No rebound, no guarding. No CVA tenderness, no hepatosplenomegaly. Bowel sounds present to all four quadrants. No high pitch or tinkling sounds, resonant to percussion. Extremities: No cyanosis, clubbing, or edema present. Pulses are palpable 2/2. Active ROM to all four extremities. Neuro: Alert and orientated x 4. PERRLA. Cranial nerves 2-12 intact without focal deficit. Skin: Warm, dry, and intact, without rash, erythema, or lesion. Psych: pleasant, cooperative, normal speech, normal affect, no hallucinations, no dysarthia Objective Data Vital Signs Vital Signs: Vital Signs - 24 hr 06/27/24 14:31 06/27/24 14:33 06/27/24 21:33 Temperature 97.6 F 98.1 F Pulse Rate 81 60 Respiratory Rate 16 16 Blood Pressure 143/56 H 155/51 H Pulse Oximetry 97 99 Oxygen Delivery Room Air 06/28/24 00:00 06/28/24 05:53 06/28/24 08:00 Temperature 97.6 F 97.8 F Pulse Rate 81 54 L Respiratory Rate 18 16 Blood Pressure 147/50 H 159/72 H Pulse Oximetry 98 98 Oxygen Delivery Room Air Intake/Output Intake/Output: Intake & Output 06/25/24 06/26/24 06/27/24 06/28/24 23:59 23:59 23:59 23:59 Intake Total 1050 3305 1153.3 Output Total 200 1300 450 Balance 850 2005 703.3 Meds/Results Medications: Active Medications Generic Name Dose Route Start Last Admin Trade Name Freq PRN Reason Stop Dose Admin Acetaminophen 650 mg 06/28/24 09:14 06/28/24 09:57 Acetaminophen 325 Mg Tablet PO 650 mg Q6H PRN Administration Mild Pain (1-3) or Fever Aspirin 81 mg 06/27/24 09:00 06/28/24 08:38 Aspirin 81 Mg Chewable Tablet PO 81 mg DAILY BHAKTI Administration Atorvastatin Calcium 10 mg 06/27/24 09:00 06/28/24 08:38 Atorvastatin 10 Mg Tablet PO 10 mg DAILY BHAKTI Administration Bisacodyl 5 mg 06/26/24 19:50 06/28/24 08:38 Bisacodyl 5 Mg Tablet Ec PO 5 mg DAILY BHAKTI Administration Dextrose 12.5 gm 06/26/24 19:43 Dextrose 50% 25 Gm/50 Ml Syringe IV PUSH PRN PRN Hypoglycemia Protocol Docusate Sodium 100 mg 06/27/24 09:00 06/28/24 08:38 Docusate Sodium 100 Mg Capsule PO 100 mg BID BHAKTI Administration Duloxetine HCl 30 mg 06/27/24 09:00 06/28/24 08:38 Duloxetine Hcl 30 Mg Capsule.Dr PO 30 mg DAILY BHAKTI Administration Enoxaparin Sodium 40 mg 06/27/24 09:00 06/28/24 08:40 Enoxaparin 40 Mg/0.4 Ml Syringe SUB-Q 40 mg DAILY BHAKTI Administration Gabapentin 600 mg 06/27/24 09:00 06/28/24 08:38 Gabapentin 300 Mg Capsule PO 600 mg TID BHAKTI Administration Glucagon 1 mg 06/26/24 19:43 Glucagon For Inj 1 Mg Vial IM PRN PRN Hypoglycemia Protocol Glucose 15 gm 06/26/24 19:43 Glucose Oral Gel 15 Gm Of Glucse In 37.5 Gm Tube PO PRN PRN Hypoglycemia Protocol Ceftriaxone Sodium 1 gm in 50 mls @ 100 mls/hr 06/27/24 18:00 06/27/24 18:04 Rocephin 1 Gm/Ns 50 Ml IVPB 100 mls/hr Q24H BHAKTI Administration Dextrose 1,000 mls @ 100 mls/hr 06/26/24 19:43 Dextrose 5% 1,000 Ml IVPB PRN PRN Hypoglycemia Protocol Sodium Chloride 1,000 mls @ 100 mls/hr 06/26/24 20:00 06/28/24 02:36 Normal Saline Iv IV CONT 100 mls/hr .Q10H BHAKTI Administration Insulin Aspart 4 - 8 units 06/27/24 00:00 06/28/24 10:27 Insulin Aspart (*Bkc) 100 Units/Ml SUB-Q Not Given Q6HR [facility] Protocol Insulin Glargine 14 units 06/26/24 19:45 06/27/24 21:36 Insulin Glargine (*Bkc) 100 Units/Ml SUB-Q 14 units HS BHAKTI Administration Levothyroxine Sodium 88 mcg 06/27/24 06:30 06/28/24 05:45 Levothyroxine Sodium 88 Mcg Tablet PO 88 mcg [email or web address] [facility] Administration Levothyroxine Sodium 176 mcg 07/02/24 06:30 Levothyroxine Sodium 88 Mcg Tablet PO [email or web address] [facility] Ondansetron HCl 4 mg 06/26/24 18:46 06/27/24 14:22 Ondansetron Inj 4 Mg/2 Ml Vial IV PUSH 4 mg Q4H PRN Administration Nausea Polyethylene Glycol 17 gm 06/27/24 09:00 06/28/24 08:39 Polyethylene Glycol 3350 17 Gm Powd.Pack PO 17 gm QAM BHAKTI Administration Polyethylene Glycol 17 gm 06/27/24 09:00 06/28/24 08:39 Polyethylene Glycol 3350 17 Gm Powd.Pack PO Not Given DAILY [facility] Radiology Results: ITS Impressions Abdomen/Pelvis CT 06/26/24 13:55 IMPRESSION: 1. Large amount of colonic stool with 9 cm ball of stool at the rectum consistent with constipation and fecal impaction. No other acute intra- abdominal/pelvic process. 2. Cholelithiasis. 3. Small sliding-type hiatal hernia. Labs Labs: Laboratory Results - last 24 hr 06/27/24 06/27/24 06/27/24 12:25 17:34 21:35 POC Capillary Glucose 172 H 166 H 165 H 06/28/24 06/28/24 00:13 08:34 POC Capillary Glucose 166 H 142 H Quality VTE Prophylaxis VTE prophylaxis: mechanical ordered and pharmacologic ordered
[2024-06-28 11:45] LABS: Hematocrit 29.6 % (37.0-47.0); Hemoglobin 8.8 g/dL (12.0-15.0); Mean Corpuscular HGB Conc 29.7 g/dl (32-36); Mean Corpuscular Hemoglobin 24.7 pg (26-34); Mean Corpuscular Volume 83.1 fl (80-100); Mean Platelet Volume 10.2 fl (7.4-10.4); Platelet Count Result 163 k/mm3 (150-375); Red Blood Count 3.56 M/mm3 (4.2-5.4); Red Cell Distribution Width 18.3 % (11.5-14.5); White Blood Count 5.3 K/mm3 (4.5-10.0)
[2024-06-28 11:58] LABS: Anion Gap 2 mmol/L (4-12); Blood Urea Nitrogen 14 mg/dL (7-17); Calcium 6.9 mg/dL (8.4-10.2); Carbon Dioxide 23 mmol/L (22-30); Chloride 106 mmol/L (98-107); Estimated CRCL calculation 74 ml/min; Estimated Glomerular Filt Rate > 60; Glucose 155 mg/dL (65-110); Potassium 3.1 mmol/L (3.4-5.0); Sodium 131 mmol/L (137-145)
[2024-06-28 12:41] LABS: Glucose Point of Care 160 mg/dl (65-105)
[2024-06-28] MEDS: ONDANSETRON INJ 4 MG/2 ML VIAL IV PUSH ×3 (13:13→22:03)
[2024-06-28 15:26] VITALS: BP 175/73; PULSE 69; RESP 16; TEMP 36.7; O2SAT 97
[2024-06-28 17:42] LABS: Glucose Point of Care 116 mg/dl (65-105)
[2024-06-28] MEDS: INSULIN GLARGINE (*BKC) 100 UNITS/ML 14 UNITS SUB-Q (20:48)
[2024-06-28 21:29] LABS: Glucose Point of Care 143 mg/dl (65-105)
[2024-06-28 21:53] VITALS: BP 169/81; PULSE 72; RESP 18; TEMP 37; O2SAT 100
[2024-06-29] MEDS: LEVOTHYROXINE SODIUM 88 MCG TABLET PO (05:36)
[2024-06-29 05:44] VITALS: BP 174/73; PULSE 65; RESP 16; TEMP 36.5; O2SAT 98
[2024-06-29] MEDS: SODIUM CHLORIDE 0.9% IV 1,000 ML 100 ML IV CONT (08:10)
[2024-06-29] MEDS: GABAPENTIN 300 MG CAPSULE 600 MG PO ×2 (08:11→12:22)
[2024-06-29] MEDS: polyethylene glycoL 3350 17 GM POWD.PACK PO (08:11)
[2024-06-29] MEDS: DOCUSATE SODIUM 100 MG CAPSULE PO (08:11)
[2024-06-29] MEDS: BISACODYL 5 MG TABLET EC PO (08:11)
[2024-06-29] MEDS: ATORVASTATIN 10 MG TABLET PO (08:11)
[2024-06-29] MEDS: DULoxetine HCL 30 MG CAPSULE.DR PO (08:11)
[2024-06-29] MEDS: ASPIRIN 81 MG CHEWABLE TABLET PO (08:11)
[2024-06-29] MEDS: ENOXAPARIN 40 MG/0.4 ML SYRINGE SUB-Q (08:12)
[2024-06-29] MEDS: ONDANSETRON INJ 4 MG/2 ML VIAL IV PUSH (08:12)
[2024-06-29 08:20] LABS: Glucose Point of Care 82 mg/dl (65-105)
--- NOTE | 2024-06-29 10:29 | PM.DS ---
DS: Admitting Diagnosis Discharge Date 06/29 Admitting Diagnosis nausea/vomitting DS: Discharge Diagnosis Discharge Diagnosis (1) Fecal impaction: Code(s): K56.41 - Fecal impaction Status: Acute (2) Intractable nausea and vomiting: Code(s): R11.2 - Nausea with vomiting, unspecified Status: Acute (3) Diabetes: Code(s): E11.9 - Type 2 diabetes mellitus without complications Status: Acute (4) Hypothyroidism: Code(s): E03.9 - Hypothyroidism, unspecified Status: Acute (5) Diabetic neuropathy: Code(s): E11.40 - Type 2 diabetes mellitus with diabetic neuropathy, unspecified Status: Acute DS: Summary Hospital Course Hospital Course: Nausea vomiting diarrhea Narrative retrieved from H/P: 78-year-old with history of TIA, diabetes, hyperlipidemia and thyroid disease presents to the hospital from rehab with nausea vomiting and diarrhea. Patient states that she has had decreased appetite lately with nausea and vomiting starting yesterday. She states that because she has been eating she has not been taking her insulin as she normally would. The son states there are several patients at the rehab that have some sort to GI bug. Patient denies fevers chills. Patient has been at the rehab facility since her hip fracture in April. Patient acting acidosis of 2.7 which resolved with 1 L fluid bolus to 1.8, hyperglycemia at 323, UA positive for nitrates, glucose and ketones, beta hydroxybutyrate 2.66, anion gap 12. CT shows Large amount of colonic stool with 9 cm ball of stool at the rectum consistent with constipation and fecal impaction. IN ED, enema was given with a good results. Pt received IV fluids, worked with PT/OT. NO episodes of vomiting. She is still somewhat nauseated but overall it was improved. She is safe to go back to continue her rehab. Zofran ODT will be send with her as needed. K was slightly low- it was replaced and trending up. rx for 14 days was sent. will need a recheck ion 1-2 weeks. Status at Discharge Functional status at discharge: uses cane/walker Overall status at discharge: patient is progressing back to baseline Time Spent with Patient Time attestation: Total time spent providing and/or coordinating discharge services: Time spent: Greater than 30 minutes Exam Narrative: General: Pale, ill-appearing HEENT: normocephalic, atraumatic. Mucous membranes dry. EOMI, PERRLA, bilateral sclera anicteric, no conjunctival injection. Neck supple without JVD, lymphadenopathy, or bruit. Respiratory: clear to ascultation bilaterally. No rales/rhonic/wheezes. Cardiovascular: Regular rate and rhythm, normal S1-S2 upon ascultation. No murmurs, rubs, or clicks. PMI is nondisplaced, capillary refill less than 3 second. Abdomen: Soft, round, no pulsatile masses, mild distended and nontender. No rebound, no guarding. No CVA tenderness, no hepatosplenomegaly. Bowel sounds present to all four quadrants. No high pitch or tinkling sounds, resonant to percussion. Extremities: No cyanosis, clubbing, or edema present. Pulses are palpable 2/2. Active ROM to all four extremities. Neuro: Alert and orientated x 4. PERRLA. Cranial nerves 2-12 intact without focal deficit. Skin: Warm, dry, and intact, without rash, erythema, or lesion. Psych: pleasant, cooperative, normal speech, normal affect, no hallucinations, no dysarthia Const: General: comfortable DS: Data Data Completed and Pending Labs on day of discharge: Labs from last 24 hours 06/29/24 06/28/24 06/28/24 08:15 20:47 17:38 WBC RBC Hgb Hct MCV MCH MCHC RDW Plt Count MPV Sodium Potassium Chloride Carbon Dioxide Anion Gap BUN Creatinine Estim Creat Clear Calc Estimated GFR Glucose POC Capillary Glucose 82 143 H 116 H Calcium 06/28/24 06/28/24 12:35 11:40 WBC 5.3 RBC 3.56 L Hgb 8.8 L Hct 29.6 L MCV 83.1 MCH 24.7 L MCHC 29.7 L RDW 18.3 H Plt Count 163 MPV 10.2 Sodium 131 L Potassium 3.1 L Chloride 106 Carbon Dioxide 23 Anion Gap 2 L BUN 14 D Creatinine 0.50 L Estim Creat Clear Calc 74 Estimated GFR > 60 Glucose 155 H POC Capillary Glucose 160 H Calcium 6.9 L Discharge Plan Discharge Attending physician on discharge: Reza Sunshine Discharging Clinician: Anitha Dean Patient Disposition: CT Long Term/Asst Living Activity: october shower Diet: regular Discharge Instructions: You were admitted for nausea and vomiting. You received IV fluids, worked with PT/OT and did well. We will send you home with some nausea medicine to take as needed as we discussed. Also few BP readings were somewhat elevated. We discussed starting you on BP medicine and you declined. Please, monitor your BP daily-ideally at the same time of the day and discuss this with your PCP. you potassium was slightly low- we replaced it and it was improving. Make sure you take your multivitamins and eat well balanced diet (or take shakes supplementations of needed). Just in case if diet alone is not enough, i will send a script for potassium replacement. PLease follow up with your PCP and have lab drawn in 1-2 weeks, to recheck your level to ensure it is stable. Patient Instructions: Antibiotic Form Patient Language: [place] Stand Alone Forms: General Discharge Information Follow-up/Referrals: Emmanuel,Jae Anderson MD [Primary Care Provider] - 2 Weeks Discharge Medications: New cephalexin 500 mg capsule 500 mg PO Q12H Qty: 14 0RF polyethylene glycol 3350 [Miralax] 17 gram/dose powder 17 g PO BID Qty: 119 0RF docusate sodium [Colace] 100 mg capsule 100 mg PO BID Qty: 14 0RF ondansetron 4 mg tablet,disintegrating 4 mg PO Q8H PRN (Reason: nausea and vomiting) Qty: 30 0RF potassium chloride 20 mEq tablet extended release 20 meq PO DAILY Qty: 14 0RF Continued cyanocobalamin (vitamin B-12) 1,000 mcg/mL solution 1,000 mcg IM MONTHLY Rx Instructions: each month sennosides-docusate sodium 8.6-50 mg Tablet 1 tablet PO BID aspirin 81 mg Tablet,Chewable 81 mg PO DAILY acetaminophen 325 mg Tablet,Chewable 650 mg PO Q6H PRN (Reason: pain (scale score 1-3)) polyethylene glycol 3350 [Miralax] 17 gram powder in packet 17 g PO DAILY insulin lispro 100 unit/mL Solution 1 sliding scale dose SUBCUT TIDWM Protocol: Insulin Corrective Moderate-Dose Condition: glucose < 70 mg/dl Dose/Route: Follow hypoglycemia orders Condition: glucose 70-200 mg/dl Dose/Route: No additional insulin Condition: glucose 201-250 mg/dl Dose/Route: 3 units sub-Q Condition: glucose 251-300 mg/dl Dose/Route: 4 units sub-Q Condition: glucose 301-350 mg/dl Dose/Route: 5 units sub-Q Condition: glucose 351-400 mg/dl Dose/Route: 6 units sub-Q Condition: glucose > 400 mg/dl Dose/Route: Call MD Protocol Text: *No Correction Dose at Bedtime* calcium carb-mag hydrox-simeth 1,200 mg-270 mg -80 mg/10 mL Suspension 10 ml PO DAILY atorvastatin 10 mg Tablet 10 mg PO DAILY 30 Days Qty: 30 0RF insulin lispro [Humalog U-100 Insulin] 100 unit/mL Solution 5 unit subcut TIDWM 30 Days Qty: 4.5 0RF insulin glargine [Lantus Solostar U-100 Insulin] 100 unit/mL (3 mL) insulin pen 14 unit subcut QHS Qty: 15 0RF gabapentin 600 mg Tablet 600 mg PO TID Qty: 90 0RF levothyroxine 88 mcg tablet 88 mcg PO 6XW Qty: 30 0RF Rx Instructions: Wednesday through Wednesday levothyroxine 88 mcg Tablet 176 mcg PO WEEKLY Qty: 30 0RF Rx Instructions: Wednesday furosemide 20 mg Tablet 20 mg PO QMWF 30 Days Qty: 13 0RF cholecalciferol (vitamin D3) 125 mcg (5,000 unit) Capsule 125 mcg PO DAILY Qty: 30 0RF duloxetine 30 mg Capsule,Delayed Release(Dr/Ec) 30 mg PO DAILY Qty: 30 0RF Other Ambulatory Orders: Basic Metabolic Panel (Routine) Timeframe: 1 Week Location: Determined by Patient Ordered By: Anitha Dean Date of admission: 06/27/24 14:17 Primary Care Provider: EmmanuelJae Admitting Provider: Eran Lisa Attending physician on admission: Eran Lisa Condition: Stable Quality VTE Prophylaxis VTE prophylaxis: mechanical ordered and pharmacologic ordered Hospitalist MIPS Heart Failure (Exclusion) Patient has history of Heart Transplant or Left Ventricular Assistive Device?: No IF YES, STOP HERE Heart Failure (Qualifier) Patient has current or prior documentation of LVEF less than or equal to 40%, or mod/servere depressed LVSF?: No IF NO, STOP HERE
[2024-06-29 10:50] LABS: Hematocrit 33.6 % (37.0-47.0); Hemoglobin 9.9 g/dL (12.0-15.0); Mean Corpuscular HGB Conc 29.5 g/dl (32-36); Mean Corpuscular Hemoglobin 24.8 pg (26-34); Mean Corpuscular Volume 84.2 fl (80-100); Platelet Count Result 183 k/mm3 (150-375); Red Blood Count 3.99 M/mm3 (4.2-5.4); Red Cell Distribution Width 17.7 % (11.5-14.5)
[2024-06-29 11:00] LABS: Anion Gap 3 mmol/L (4-12); Blood Urea Nitrogen 10 mg/dL (7-17); Calcium 7.7 mg/dL (8.4-10.2); Carbon Dioxide 25 mmol/L (22-30); Chloride 106 mmol/L (98-107); Estimated CRCL calculation 63 ml/min; Estimated Glomerular Filt Rate > 60; Glucose 129 mg/dL (65-110); Potassium 3.3 mmol/L (3.4-5.0); Sodium 134 mmol/L (137-145)
[2024-06-29 11:52] LABS: Glucose Point of Care 113 mg/dl (65-105)
== END 2024-06-29 16:30 | DRG 389 ==
LOC: ANHED 17:38 → ANH3MEDSUR 20:07 → ANH3MED 22:33
PROVIDERS: Nurse Practitioner Gerontology; Physician Assistant; Admitting Provider Internal Medicine; Emergency Provider Emergency Medicine; PCP Internal Medicine; Visit Provider Nurse Practitioner
DX: K56.41 Fecal impaction (principal); N39.0 Urinary tract infection, site not specified; B96.20 Unspecified Escherichia coli [E. coli] as the cause of diseases classified elsewhere; E03.9 Hypothyroidism, unspecified; E11.40 Type 2 diabetes mellitus with diabetic neuropathy, unspecified; E78.5 Hyperlipidemia, unspecified; E86.0 Dehydration; E11.65 Type 2 diabetes mellitus with hyperglycemia; Z79.4 Long term (current) use of insulin; Z20.822 Contact with and (suspected) exposure to COVID-19; Z86.73 Personal history of transient ischemic attack (TIA), and cerebral infarction without residual deficits; Z79.82 Long term (current) use of aspirin; Z90.49 Acquired absence of other specified parts of digestive tract
CPT/HCPCS: 36415; 74177; 80048; 80053; 81001; 82010; 82550; 82948; 83036; 83605; 83690; 83735; 84100; 85025; 85027; 87086; 87186; 87637; 96361; 96365; 96375; 96376; 97110; 97162; 97165; 97530; 97535; 99285; A9270; G0378; J0696; J1650; J1815; J2405; J2550; J7030; Q9967

== ENCOUNTER 2024-10-27 20:54 | Emergency (ER) | payer MEDICARE, BC, SELFPAY ==
--- NOTE | ~2024-10-27 | XR_ITS ---
XR chest 1V portable Ordering provider: Yeni Thibodeaux MD History: 79 years Female with . syncope/unresponsive episode . Comparison: August 27, 2022 FINDINGS: MEDIASTINUM: The cardiac silhouette is not enlarged. Prominent right hilum is noted. LUNGS: No infiltrates, effusions or pneumothorax. OTHER: No free air under the diaphragm. Degenerative the spine. IMPRESSION: No acute cardiopulmonary pathology. Reviewed, dictated and finalized at location A.
[2024-10-27 20:54] VITALS: BP 138/64; PULSE 67; RESP 18; TEMP 36.7; O2SAT 95
[2024-10-27 21:03] VITALS: PULSE 64
--- NOTE | 2024-10-27 21:04 | ECG_ITS ---
Test Date: 2024-10-27 21:21:57 Measurements Intervals [place] Rate: 62 P: 19 [place]: 218 QRS: -2 QRSD: 96 T: 48 QT: 469 QTc: 476 Interpretive Statements SINUS RHYTHM WITH FIRST DEGREE AV BLOCK MODERATE VOLTAGE CRITERIA FOR LVH, CONSIDER NORMAL VARIANT [MEETS CRITERIA IN ONE OF: R(aVL), S(V1), R(V5), R(V5/V6)+S(V1)] PROLONGED QT INTERVAL No previous ECG available for comparison Electronically Signed On 10-28-2024 11:46:21 CDT by Twila Urias M.D.
[2024-10-27 21:23] LABS: Basophils Absolute Auto 0.1 K/mm3 (0.0-0.1); Basophils Percent Auto 0.9 % (0.2-1.2); Eosinophils Absolute Auto 0.1 K/mm3 (0-0.3); Hematocrit 33.4 % (37.0-47.0); Hemoglobin 9.6 g/dL (12.0-15.0); Immature Granulocyte Absolute 0.02 K/mm3 (0.00-0.031); Immature Granulocyte Percent A 0.3 % (0-0.5); Lymphocytes Absolute Auto 1.87 K/mm3 (0.9-3.2); Lymphocytes Percent Auto 28.5 % (18.3-44.2); Mean Corpuscular HGB Conc 28.7 g/dl (32-36); Mean Corpuscular Hemoglobin 24.4 pg (26-34); Mean Platelet Volume 10.2 fl (7.4-10.4); Monocytes Absolute Auto 0.5 K/mm3 (0.1-0.6); Monocytes Percent Auto 7.6 % (2.6-8.5); Neutrophils Percent Auto 60.7 % (45.5-73.1); Platelet Count Result 186 k/mm3 (150-375); Red Blood Count 3.93 M/mm3 (4.2-5.4); Red Cell Distribution Width 17.6 % (11.5-14.5); White Blood Count 6.6 K/mm3 (4.5-10.0)
[2024-10-27 21:33] LABS: Alanine Aminotransferase 21 U/L (6-35); Albumin Level 4.3 g/dL (3.5-5.1); Alkaline Phosphatase 92 U/L (38-126); Anion Gap 10 mmol/L (4-12); Aspartate Amino Transferase 28 U/L (14-36); Bilirubin,Total 0.4 mg/dL (0.2-1.3); Blood Urea Nitrogen 35 mg/dL (7-17); Calcium 9.2 mg/dL (8.4-10.2); Carbon Dioxide 27 mmol/L (22-30); Chloride 103 mmol/L (98-107); Estimated CRCL calculation 30 ml/min; Estimated Glomerular Filt Rate 38; Glucose 94 mg/dL (65-110); Magnesium 2.2 mg/dL (1.6-2.3); Potassium 3.6 mmol/L (3.4-5.0); Sodium 140 mmol/L (137-145)
[2024-10-27 21:36] LABS: Anisocytosis 1+; Hypochromasia 1+; Platelet Estimate Adequate (Adequate)
[2024-10-27 21:38] LABS: Schistocytes None Seen
[2024-10-27 21:45] LABS: Troponin I < 0.012 ng/mL (0.000-0.034)
--- NOTE | 2024-10-27 22:37 | ED.GENADULT ---
HPI - General Adult General Chief complaint: Syncope Stated complaint: UNRESPONSIVE EPISODE Time Seen by Provider: 10/27/24 20:59 History of Present Illness HPI narrative: Patient is a 79-year-old female who presents to the emergency department this evening status post a syncopal episode. Patient was sitting at the kitchen table eating dinner with her son when she does and was not responding to him for approximately 5 minutes. Son states that from time to time she will doze off but during this episode, patient was pale. Patient did not fall or hit her head. Son called EMS and upon their arrival they noted the patient's blood pressure was 70/40 mmHg. Once the patient was moved to the EMS stretcher, repeat blood pressure was noted to be 150 over 60s and patient returned to her baseline, alert and oriented to person, place, time and situation. Patient is currently denying any symptoms and states that she feels fine. Denies any chest pain, shortness of breath, nausea vomiting or abdominal pain. Denies any recent illness, fevers or chills. No additional symptoms or concerns at this time. Related Data Home Medications ?Medication ?Instructions ?Recorded ?Confirmed ?Last Taken ?Type cyanocobalamin (vitamin B-12) 1,000 mcg IM MONTHLY 06/18/20 06/26/24 06/21/24 History 1,000 mcg/mL injection solution acetaminophen 325 mg chewable 650 mg PO Q6H PRN pain (scale 05/24/24 06/26/24 Unknown History tablet score 1-3) aspirin 81 mg chewable tablet 81 mg PO DAILY 05/24/24 06/26/24 06/26/24 History calcium carb 1,200 mg-mag hydrox 10 ml PO DAILY 05/24/24 06/26/24 Unknown History 270 mg-simeth 80 mg/10 mL oral susp insulin lispro 100 unit/mL 1 sliding scale dose subcut TIDWM 05/24/24 06/26/24 Unknown History subcutaneous solution polyethylene glycol 3350 17 gram 17 g PO DAILY 05/24/24 06/26/24 06/26/24 History oral powder packet (Miralax) sennosides 8.6 mg-docusate sodium 1 tablet PO BID 05/24/24 06/26/24 06/26/24 History 50 mg tablet Allergies Allergy/AdvReac Type Severity Reaction Status Date / Time No Known Allergies Allergy Verified 10/27/24 21:03 Review of Systems Review of Systems: All systems are reviewed and are negative unless stated otherwise in the HPI. 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 It she has a son. -code status full code Smoking status: Never smoker Alcohol intake: never Drinks per week: 1 Substance use: never Do You Feel Safe in your Home?: Yes Lack of Transportation: No Lack of Food: Never True Current Housing: I Have Housing Concerned About Future Housing: No Difficulty Paying Gas/Electric Bills: No Difficulty Paying for Meds: No Currently Unemployed: No Education: Associate Degree Difficulty w/ Childcare or Family Care: No Spiritual care concerns: No Exam Narrative: General: Alert, awake, afebrile, in no acute distress, pleasant elderly female. HEENT: PERRL, no rhinorrhea, no post nasal drip, oropharynx clear. Neck: Trachea midline, no JVD, no lymphadenopathy. Cardiovascular: Regular rate and rhythm, no murmurs, rubs or gallops, no peripheral edema. Respiratory: Clear to auscultation bilaterally, no tachypnea, no wheezing, no rhonchi, no rubs, no respiratory distress. Abdomen: Soft, nontender, nondistended, no rebound, no guarding, no peritoneal signs. Musculoskeletal: No joint swelling or deformity, normal muscle tone. Skin: No rashes or petechia, no signs of infection. Psychiatric: Alert and oriented, normal behavior and judgment for situation. Neurological: Alert and oriented to person, place, and time. Follows all commands. No focal deficits, speech is clear and fluent. Course Vital Signs Vital signs: Vital Signs Temperature 98.1 F 10/27/24 20:54 Pulse Rate 67 10/27/24 20:54 Respiratory Rate 18 10/27/24 20:54 Blood Pressure 138/64 10/27/24 20:54 Pulse Oximetry 95 10/27/24 20:54 Oxygen Delivery Room Air 10/27/24 20:54 Temperature 98.1 F 10/27/24 20:54 Pulse Rate 65 10/27/24 22:39 Respiratory Rate 17 10/27/24 22:39 Blood Pressure 167/78 H 10/27/24 22:39 Pulse Oximetry 100 10/27/24 22:39 Oxygen Delivery Room Air 10/27/24 20:54 Medical Decision Making MDM Narrative Medical decision making narrative: The patient was evaluated by myself in the emergency department. History is obtained from patient who is an independent historian and physical exam was performed. External medical records were reviewed at this time. IV was established and pertinent tests were ordered. EKG was obtained which revealed sinus rhythm rate of 60 beats per minute with a first-degree AV block, otherwise no evidence of acute ischemia. EKG was independently interpreted by me and is currently pending official cardiology read. Laboratory results obtained revealing no acute process. Urinalysis was obtained and did reveal urinary tract infection. Imaging studies obtained included CXR which was independently interpreted by me revealing no acute cardiopulmonary process, which is pending final radiology interpretation. Differential diagnosis considerations include acute coronary syndrome, dehydration, electrolyte derangements, acute viral syndrome, orthostatic hypotension. Comorbidities impacting this visit include none. I have evaluated and discussed social determinants of health with the patient that could potentially impact subsequent diagnosis and treatment plans. On repeat assessment of the patient, reevaluation revealed that the patient is doing well and is in no acute distress. Patient symptoms have improved since she arrived to our emergency department. Repeat vital signs were all reviewed and noted to be stable. Differential diagnosis and treatment plan were discussed with the patient at bedside. Patient was informed that during our examination she did have a cardiac murmur and patient states that she was told that in the past but it was not looked into further. I did recommend following up with it service continuity supervisor regarding this heart murmur and patient is in agreement. Patient agrees with discussion and after shared medical decision making agrees with discharge. All questions were answered to the patient's satisfaction. Patient will follow up with cardiology in 3-5 days. A script for cephalexin was sent to patient's pharmacy to use as prescribed for her UTI. Patient was provided with strict return precautions and instructed to return to the emergency department if any new or worsening symptoms develop. The patient was discharged in stable condition. Vital Signs Vital Signs: Vital Signs Temperature 98.1 F 10/27/24 20:54 Pulse Rate 67 10/27/24 20:54 Respiratory Rate 18 10/27/24 20:54 Blood Pressure 138/64 10/27/24 20:54 Pulse Oximetry 95 10/27/24 20:54 Oxygen Delivery Room Air 10/27/24 20:54 Temperature 98.1 F 10/27/24 20:54 Pulse Rate 65 10/27/24 22:39 Respiratory Rate 17 10/27/24 22:39 Blood Pressure 167/78 H 10/27/24 22:39 Pulse Oximetry 100 10/27/24 22:39 Oxygen Delivery Room Air 10/27/24 20:54 Lab Data 10/27/24 21:18 10/27/24 21:18 Labs: Lab Results 10/27/24 10/27/24 Range/Units 21:18 22:36 WBC 6.6 (4.5-10.0) K/mm3 RBC 3.93 L (4.2-5.4) M/mm3 Hgb 9.6 L (12.0-15.0) g/dL Hct 33.4 L (37.0-47.0) % MCV 85.0 (80-100) fl MCH 24.4 L (26-34) pg MCHC 28.7 L (32-36) g/dl RDW 17.6 H (11.5-14.5) % Plt Count 186 (150-375) k/mm3 MPV 10.2 (7.4-10.4) fl Immature Gran % (Auto) 0.3 (0-0.5) % Neut % (Auto) 60.7 (45.5-73.1) % Lymph % (Auto) 28.5 (18.3-44.2) % [place] % (Auto) 7.6 (2.6-8.5) % Eos % (Auto) 2.0 (0-4.4) % Baso % (Auto) 0.9 (0.2-1.2) % Lymph # (Auto) 1.87 (0.9-3.2) K/mm3 [place] # (Auto) 0.5 (0.1-0.6) K/mm3 Eos # (Auto) 0.1 (0-0.3) K/mm3 Baso # (Auto) 0.1 (0.0-0.1) K/mm3 Abs Immat Gran (auto) 0.02 (0.00-0.031) K/mm3 Absolute Neuts (auto) 4.0 (1.3-6.7) K/mm3 Absolute Nucleated RBC 0.000 (0.0-0.012) K/mm3 Band Neutrophils % Not Reportable Nucleated RBC % 0.0 (0.0-0.2) % Platelet Estimate Adequate (Adequate) Hypochromasia 1+ Anisocytosis 1+ Schistocytes None seen Sodium 140 (137-145) mmol/L Potassium 3.6 (3.4-5.0) mmol/L Chloride 103 (98-107) mmol/L Carbon Dioxide 27 (22-30) mmol/L Anion Gap 10 (4-12) mmol/L BUN 35 H D (7-17) mg/dL Creatinine 1.36 H (0.7-1.0) mg/dL Estim Creat Clear Calc 30 ml/min Estimated GFR 38 L (59 - ) Glucose 94 (65-110) mg/dL Calcium 9.2 (8.4-10.2) mg/dL Magnesium 2.2 (1.6-2.3) mg/dL Total Bilirubin 0.4 (0.2-1.3) mg/dL AST 28 (14-36) U/L ALT 21 (6-35) U/L Alkaline Phosphatase 92 (38-126) U/L Troponin I < 0.012 (0.000-0.034) ng/mL Total Protein 7.0 (6.3-8.2) g/dL Albumin 4.3 (3.5-5.1) g/dL Urine Color Yellow (Yellow) Urine Appearance Turbid H (Clear) Urine pH 5.5 (5.0-9.0) Ur Specific [place] 1.026 (1.001-1.035) Urine Protein 1+ H (Negative) mg/dL Urine Glucose (UA) Negative (Negative) mg/dL Urine Ketones Trace H (Negative) mg/dL Ur Blood (Man) Negative (Negative) Urine Nitrate Negative (Negative) Urine Bilirubin Negative (Negative) Urine Urobilinogen 1.0 (<2.0) mg/dL Add Ur Microanalysis Reviewed Leukocyte Esterase Rfl 3+ H (Negative) GIGI/UL Urine RBC 3-5 H (0-2) /hpf Urine WBC >100 H (0-3) /hpf Ur Squamous Epith Cells Many H (Few) /hpf Urine Bacteria 4+ H /hpf Urine Casts 11-20 Discharge Plan Discharge Clinical Impression: Syncope, Acute UTI Patient Disposition: Home Condition: Improved Instructions: Antibiotic Form, Urinary Tract Infection in Women (DC), Syncope (ED) Additional Instructions: Please follow-up with cardiology were provided with today within the next 3-5 days. Return to the emergency department if any new or worsening symptoms develop. Maintain your oral hydration by drinking lots of fluids. Please take the prescribed antibiotic as instructed for urinary tract infection. Patient Language: Vietnamese Prescriptions: New cephalexin 500 mg capsule 500 mg PO Q12H 7 Days Qty: 14 0RF No Action cyanocobalamin (vitamin B-12) 1,000 mcg/mL solution 1,000 mcg IM MONTHLY Rx Instructions: of each month cephalexin 500 mg capsule 500 mg PO Q12H Qty: 14 0RF polyethylene glycol 3350 [Miralax] 17 gram/dose powder 17 g PO BID Qty: 119 0RF docusate sodium [Colace] 100 mg capsule 100 mg PO BID Qty: 14 0RF ondansetron 4 mg tablet,disintegrating 4 mg PO Q8H PRN (Reason: nausea and vomiting) Qty: 30 0RF potassium chloride 20 mEq tablet extended release 20 meq PO DAILY Qty: 14 0RF sennosides-docusate sodium 8.6-50 mg Tablet 1 tablet PO BID aspirin 81 mg Tablet,Chewable 81 mg PO DAILY acetaminophen 325 mg Tablet,Chewable 650 mg PO Q6H PRN (Reason: pain (scale score 1-3)) polyethylene glycol 3350 [Miralax] 17 gram powder in packet 17 g PO DAILY insulin lispro 100 unit/mL Solution 1 sliding scale dose SUBCUT TIDWM Protocol: Insulin Corrective Moderate-Dose Condition: glucose < 70 mg/dl Dose/Route: Follow hypoglycemia orders Condition: glucose 70-200 mg/dl Dose/Route: No additional insulin Condition: glucose 201-250 mg/dl Dose/Route: 3 units sub-Q Condition: glucose 251-300 mg/dl Dose/Route: 4 units sub-Q Condition: glucose 301-350 mg/dl Dose/Route: 5 units sub-Q Condition: glucose 351-400 mg/dl Dose/Route: 6 units sub-Q Condition: glucose > 400 mg/dl Dose/Route: Call MD Protocol Text: *No Correction Dose at Bedtime* calcium carb-mag hydrox-simeth 1,200 mg-270 mg -80 mg/10 mL Suspension 10 ml PO DAILY atorvastatin 10 mg Tablet 10 mg PO DAILY 30 Days Qty: 30 0RF insulin lispro [Humalog U-100 Insulin] 100 unit/mL Solution 5 unit subcut TIDWM 30 Days Qty: 4.5 0RF insulin glargine [Lantus Solostar U-100 Insulin] 100 unit/mL (3 mL) insulin pen 14 unit subcut QHS Qty: 15 0RF gabapentin 600 mg Tablet 600 mg PO TID Qty: 90 0RF levothyroxine 88 mcg tablet 88 mcg PO 6XW Qty: 30 0RF Rx Instructions: Wednesday through Wednesday levothyroxine 88 mcg Tablet 176 mcg PO WEEKLY Qty: 30 0RF Rx Instructions: Wednesday furosemide 20 mg Tablet 20 mg PO QMWF 30 Days Qty: 13 0RF cholecalciferol (vitamin D3) 125 mcg (5,000 unit) Capsule 125 mcg PO DAILY Qty: 30 0RF duloxetine 30 mg Capsule,Delayed Release(Dr/Ec) 30 mg PO DAILY Qty: 30 0RF Follow-up/Referrals: Benitez,Jae Anderson MD [Primary Care Provider] - Corin Fletcher MD [Physician] - 3 Days Time of Disposition: 22:42
[2024-10-27 22:39] VITALS: BP 167/78; PULSE 65; RESP 17; O2SAT 100
[2024-10-27 22:58] LABS: Add Urine Microscopic? YES; Appearance Urine Turbid (Clear); Bacteria Urine 4+ /hpf; Bilirubin Urine Negative (Negative); Blood Urine Negative (Negative); Color Urine Yellow (Yellow); Glucose Urine UA Negative (Negative); Ketones Urine Trace mg/dL (Negative); Leukocyte Esterase Ur 3+ LEU/UL (Negative); Need Manual Microscopic Reviewed; Nitrate Urine Negative (Negative); Protein Urine 1+ mg/dL (Negative); Specific Grav Ur 1.026 (1.001-1.035); Squamous Epithelial Cell Urine Many /hpf (Few); WBC Urine >100 /hpf (0-3); pH Urine 5.5 (5.0-9.0)
[2024-10-27 23:42] VITALS: BP 156/71; PULSE 67; RESP 17; O2SAT 97
--- OUTSIDE RECORDS SUMMARY | 2024-10-28 15:33 | XMS_ITS | Clinical Summary ---
Author Organization [facility] Address [facility] [place] [address] Care Team Providers Care Job Press Feeder Name Role Phone Jae Benitez MD Primary Care Provider [phone] Allergies No known active allergies Medications levothyroxine 125 MCG tablet Take 125 mcg by mouth every morning. Active pravastatin 40 MG tablet Take 40 mg by mouth nightly at bedtime. Active fish oil 1000 MG Cap capsule Take 2,400 mg by mouth daily. Active aspirin EC (ASPIRIN EC) 81 MG tablet Take 81 mg by mouth nightly. Active vitamin D3, cholecalciferol , 3000 units Tab tablet Take 4,000 Units by mouth daily. Active pregabalin 50 MG capsule Take 50 mg by mouth 2 (two) times daily. Active cyanocobalamin 1000 MCG/ML injection Inject 1,000 mcg into the muscle monthly. Active naproxen sodium 220 MG tablet Take 220 mg by mouth nightly as needed. Active melatonin 5 MG tablet Take 20 mg by mouth nightly as needed. Active insulin lispro 100 UNIT/ML patient supplied PUMPIndications :from midnight to 1000 Inject 0.55 Units into the skin continuous. Make and model of pump: omnipod Insulin type in pump: Humalog Basal rate: 0.55 units 0000 to 1000, 0.45 units from 1000 to 0000 Insulin to CHO ratio: Insulin Sensitivity factor: Target blood glucose: Active insulin lispro 100 UNIT/ML patient supplied PUMP Inject 0.45 Units into the skin continuous. Make and model of pump: omnipod Insulin type in pump: Humalog Basal rate: 0.55 units 0000 to 1000, 0.45 units from 1000 to 0000 Insulin to CHO ratio: Insulin Sensitivity factor: Active metroNIDAZOLE 1 % gel Apply 1 Application topically daily. Active Family History Medical History Relation Comments Heart Disease Brother Heart Disease Father Heart Disease Mother Relation Status Comments Brother Father Mother Social History Tobacco Use Types Packs/Day Years Used Date Smoking Tobacco: Never Smokeless Tobacco: Never Alcohol Use Standard Drinks/Week Comments Yes 1 (1 standard drink = 0.6 oz pur e alcohol) twice monthly Comments No Sex and Gender Information Value Date Recorded Sex Assigned at Not on file Legal Sex Female 11:07 AM CDT Gender Identity Not on file Sexual Orientation Not on file Last Filed Vital Signs Vital Sign Reading Time Taken Comments Blood Pressure 138/72 12/19/2018 1:20 PM CDT Pulse 70 12/19/2018 1:20 PM CDT Temperature 36.3 C (97.4 F) 12/19/2018 11:02 AM CDT Respiratory Rate 20 12/19/2018 1:20 PM CDT Oxygen Saturation 99% 12/19/2018 1:20 PM CDT Inhaled Oxygen Concentration - - Weight 64.4 kg (142 lb) 12/15/2018 9:27 AM CDT Height 162.6 cm (5' 4 ) 12/15/2018 9:27 AM CDT Body Mass Index 24.37 12/15/2018 9:27 AM CDT Plan of Treatment Health Maintenance Due Date Last Done Comments Hepatitis C 10[birth year]13/1963 DTaP, Tdap and Td Vaccines ( 1 - Tdap) 1964 Pneumococcal Vaccine: 50+ Ye ars (1 of 1 - PCV) 10/13/1995 Zoster Vaccines (1 of 2) 10/13/1995 Annual Medicare Wellness Visit 2010 Dexa Scan (General) 2010 RSV Immunization or 60+ Years (1 - 1-dose 75+ series) 2020 COVID-19 Vaccine ( - 2023-2 5 season) 2024 Meningococcal B Vaccine Aged Out No l onger eligible based on patient's age to complete this topic Meningococcal Vaccine Aged Out No tobin juanjo eligible based on patient's age to complete this topic RSV Immunizations Under 20 Months Aged Out No longer eligible based on patient's age to complete this topic Medical Devices Implanted Type Area Gill Tender Device Identifier Shelf Expiration Date Model / Serial / Lot Iol [employer] Zcboo - [id number] Implanted:Qty: 1 on 12/07/2018 by Elio Dumont MD at [facility] Lens Right: Eye [employer] 02/01/2022 [id number] / [id number] / Iol [employer] Zcboo - [id number] Implanted:Qty: 1 on 12/19/2018 by Elio Dumont MD at [facility] Lens Left: Eye [employer] 05/04/2021 [id number] / [id number] / Insurance MEDICARE [facility] Care Teams Job Press Feeder Relationship Specialty Start Date End Date Jae Benitez MD [address] [place] [id number] PCP - General INTERNAL MEDICINE 12/01/18
--- OUTSIDE RECORDS SUMMARY | 2024-10-28 15:33 | XMS_ITS | Clinical Summary ---
Author Organization [facility] Address [address] [place] [address] Care Team Providers Care [facility] [employer] Processor Name Role Phone Jae Benitez MD Primary Care Provider Allergies No known active allergies Medications aspirin 81 mg chewable tablet daily 12/14/19 20 Active cholecalciferol, vitamin D3, 5,000 unit/mL drops Take by mouth daily 12/14/19 20 Active pravastatin (PRAVACHOL) 40 mg tablet Take 1 tablet (40 mg total) by mouth daily Active cyanocobalamin (Vitamin B-12) 1,000 mcg/mL injection 1 mL (1,000 mcg total) every 30 (thirty) days Active calcium carb-mag hydrox-simeth 1,200 mg-270 mg -80 mg/10 mL suspension Take by mouth Activ e docosahexaenoic acid/epa (FISH OIL ORAL) Take by mouth Active DULoxetine DR (CYMBALTA) 30 mg capsuleIndications :Diabetic Peripheral Neuropathy Take 1 capsule (30 mg total) by mouth daily 90 capsule 1 01/30/20 22 Active gabapentin (NEURONTIN) 600 mg tabletIndications: Diabetic Peripheral Neuropathy Take 1 tablet (600 mg total) by mouth 3 (three) times a day 270 capsule 3 05/13/20 23 Active insulin degludec (TRESIBA) 100 unit/mL (3 mL) pen for injection Inject 0.16 mL (16 Units total) under the skin nightly 15 mL 6 05/13/20 23 Active insulin pump cart,auto,BT-cntr (Omnipod 5 G6 Intro Kit, Gen 5,) cartridge Use to take insulin 1 each 05/13/20 Active Additional Information Patient not taking.Reported on 07/04/2024 insulin pump cart,automated,BT (Omnipod 5 G6 Pods, Gen 5,) cartridge Use to take insulin 30 each 3 05/13/20 Active Additional Information Patient not taking.Reported on 07/04/2024 Dexcom G6 Transmitter device Use for BG monitoring 1 each 3 05/13/20 Active Additional Information Patient not taking.Reported on 07/04/2024 Dexcom G6 Sensor device Use for BG monitoring 3 each 06/10/20 Active Additional Information Patient not taking.Reported on 07/04/2024 insulin lispro (HumaLOG, ADMELOG) 100 unit/mL vial for injection Inject 35 units every day via insulin pump Dx:E11.65 20 mL 3 02/16/20 24 025 Active Additional Information Patient not taking.Reported on 07/04/2024 furosemide (LASIX) 20 mg tablet TAKE ONE TABLET EVERY WEDNESDAY, WEDNESDAY, WEDNESDAY Active levothyroxine (SYNTHROID) 88 mcg tablet TAKE 1 TABLET BY MOUTH EVERY DAY WEDNESDAY THROUGH . TAKE 2 TABLETS ON WEDNESDAY. 100 tablet 05/01/20 24 Active acetaminophen (TYLENOL) 325 mg tabletIndications: Pain Take 2 tablets (650 mg total) by mouth every 6 (six) hours 05/24/20 24 Active oxyCODONE (ROXICODONE) 5 mg immediate release tabletIndications: Pain Take 0.5 tablets (2.5 mg total) by mouth every 4 (four) hours as needed for pain 05/24/20 24 Active polyethylene glycol (MIRALAX) 17 gram/dose bulk powderIndications: constipation Take 17 g by mouth daily 05/24/20 24 Active senna-docusate (PERICOLACE) 8.6-50 mgIndications:cons tipation Take 1 tablet by mouth 2 (two) times a day 05/24/20 24 Active insulin lispro (HumaLOG) 100 unit/mL vial for injectionIndicatio ns:Diabetes Mellitus Inject 0-5 Units under the skin 3 (three) times a day with meals 05/24/20 24 025 Active Additional Information Patient not taking.Reported on 07/04/2024 insulin lispro (HumaLOG U-100 Insulin) 100 unit/mL cartridgeIndicatio ns:Diabetes Mellitus Inject 5 Units under the skin 3 (three) times a day with meals 05/24/20 24 Active insulin lispro (HumaLOG U-100 Insulin) 100 unit/mL cartridgeIndicatio ns:Diabetes Mellitus Inject 0-4 Units under the skin nightly 05/24/20 24 Active atorvastatin (LIPITOR) 10 mg tablet Take 1 tablet (10 mg total) by mouth daily for 30 days 06/06/20 24 Active cephalexin (KEFLEX) 500 mg capsule Take 1 capsule (500 mg total) by mouth every 12 (twelve) hours 06/27/20 Active docusate sodium (COLACE) 100 mg capsule Take 1 capsule (100 mg total) by mouth 2 (two) times a day 06/27/20 24 Active LANTUS 100 unit/mL (3 mL) pen for injection INJECT 14 EVERY DAY AT BEDTIME 06/06/20 Active midodrine (PROAMATINE) 5 mg tablet 06/07/20 24 Active ondansetron ODT (ZOFRAN-ODT) 4 mg disintegrating tablet DISSOLVE 1 TABLET IN MOUTH EVERY 8 HOURS NEEDED FOR NAUSEA AND VOMITING 06/29/19 25 Active potassium chloride ER 20 mEq CR tablet Take 1 tablet (20 mEq total) by mouth daily 06/29/19 25 Active denosumab (Prolia) 60 mg/mL syringeIndications :Age-related osteoporosis without current pathological fracture Inject 1 mL (60 mg total) under the skin once for 1 dose 1 mL 07/04/19 25 Active HumaLOG 100 unit/mL pen for injection Inject 5 Units under the skin 3 (three) times a day with meals Humalog 5 units three times daily with meals (none if less than 70) If blood sugar is between 70-200, take 5 units. If blood sugar is between 201-250, take 8 units. If blood sugar is between 251-300, take 9 units. If blood sugar is between 301-350, take 10 TDD 30 units Dx: E11.65 15 mL 1 10/11/19 25 Active HumaLOG 100 unit/mL pen for injection 07/04/19 25 025 Discontin ued(Reord er) Active Problems Problem Noted Date Diagnosed Date Asthma 07/25/2024 Cerebrovascular accident 07/25/2024 Cervical radiculopathy 07/25/2024 Disorder of shoulder 07/25/2024 Osteoarthritis of knee 07/25/2024 Paresthesia 07/25/2024 Pernicious anemia 07/25/2024 Pure hypercholesterolemia 06/06/2024 Fall 05/22/2024 Assessment & Plan (05/22/2024 3:28 PM RECORDING ENGINEER): ground level fall this yesterday at home on her way to the bathroom. She fell onto her left leg. She arrived with left leg deformity. Patient A&Ox4, GCS 15 reported on arrival Discharge planning issues 05/22/2024 Assessment & Plan (05/23/2024 2:10 PM RECORDING ENGINEER): 05/21 admission 05/23 Patient is medically stable for discharge, SW/CM updated. Discharge pending facility acceptance Encounter for medication review 05/22/2024 DM (diabetes mellitus), type 1 05/22/2024 Assessment & Plan (05/23/2024 2:11 PM RECORDING ENGINEER): Home insulin pump and dexacom type device for glucose monitoring. Consult endocrine for pump management while admitted POCT glucose SSI regimen per endocrine If pump is off give Lantus 15 units daily and Lispro 5 untis TID AC LD ssi Other fracture of left femur , initial encounter for closed fracture 05/21/2024 Assessment & Plan (05/22/2024 3:15 PM RECORDING ENGINEER): 05/22 OR with orthopedic - IMN Femur Left WBAT post OR 24 hour cefazolin DVT ppx ok 3 week suture removal Insulin pump status 12/15/2023 Assessment & Plan (07/04/2024 2:25 PM RECORDING ENGINEER): Will go back on pump once Dexcom G6 supplies arrive. Son Tamir here & will help. Aware to bring her up to office if any concerns/questions with pump settings. Humalog via Omnipod 5 insulin pump, not on automated BR 12a 0.6, 7a 0.6, 11a 0.75 CR 15 CF 60 Target 120, correct over 120 AIT 4 hours Assessment & Plan (03/22/2024 11:44 AM CDT): Pump setting changes: -increase 7a from 0.5 to 0.6 units/hr -change 11a to 12p & increase from 0.65 to 0.75 units/hr Current medications: Humalog via Omnipod 5 insulin pump, not on automated BR 12a 0.6, 7a 0.6, 11a 0.75 CR 15 CF 60 Target 120, correct over 120 AIT 4 hours Assessment & Plan (12/15/2023 11:12 AM CDT): BR pattern: 12a 0.6, 7a 0.5, 11a 0.7 Hyperlipidemia associated with type 2 diabetes lj boyd 12/14/2023 Assessment & Plan (07/04/2024 1:19 PM RECORDING ENGINEER): Chronic problem. Currently taking pravastatin 40mg. Last lipid panel: 05/21/24 LDL=55, TG=72. Assessment & Plan (03/22/2024 11:59 AM CDT): Chronic problem. Currently taking pravastatin 40mg. Last lipid panel: 08/04/23 LDL=89, TG=81. Assessment & Plan (12/15/2023 10:22 AM CDT): Chronic problem. On statin therapy, no changes. Vitamin D deficiency 05/13/2023 Assessment & Plan (07/04/2024 2:23 PM RECORDING ENGINEER): Chronic problem. Currently taking vitamin D 5000IU daily. Assessment & Plan (12/15/2023 10:22 AM CDT): Chronic stable problem. Assessment & Plan (05/13/2023 4:38 PM RECORDING ENGINEER): Of the 25 hydroxy vitamin-D levels Calcium and vitamin-D intake discussed Type 2 diabetes mellitus wit h hyperglycemia, with long-term current use of insulin 05/13/2023 Assessment & Plan (07/04/2024 2:23 PM RECORDING ENGINEER): Chronic problem. A1c improved from 9.5% 05/21/24 to now 7.5%. has been at [facility] since 05/2024; much improved diet. Again went over OP5 BR, carb/correctional bolusing. With meals: enter carb amount & blood sugar. If you don't know the carb count: small=30 grams, medium=45 grams, large=60 grams. Enter correctional bolus by entering blood sugar when you note that your blood sugar is running high. Current medications: Lantus 14 units nightly Humalog 5 units three times daily with meals (none if less than 70) If blood sugar is between 70-200, take 5 units. If blood sugar is between 201-250, take 8 units. If blood sugar is between 251-300, take 9 units. If blood sugar is between 301-350, take 10 units. Would like to go back on the pump: Humalog via Omnipod 5 insulin pump, not on automated BR 12a 0.6, 7a 0.6, 11a 0.75 CR 15 CF 60 Target 120, correct over 120 AIT 4 hours UTD on DM eye exam: 07/08/23 [facility] in [place]. UTD on labs. Strive for regular exercise (30min most days) and diet (get at least 4-5 servings of fruit and veggies daily, avoid processed foods, increase lean protein intake and decrease carb portions as well as fruit juices, regular soda & desserts). Watch carbs and simple sugars. Check the blood sugar: Dexcom G6. Check the feet daily for skin breakdown and infection. Assessment & Plan (03/22/2024 11:58 AM CDT): Chronic problem. A1c currently uncontrolled and worsened from 8.9% 11/27/23 to now 9.2%. Again went over OP5 BR, carb/correctional bolusing. With meals: enter carb amount & blood sugar. If you don't know the carb count: small=30 grams, medium=45 grams, large=60 grams. Enter correctional bolus by entering blood sugar when you note that your blood sugar is running high. Pump setting changes: -increase 7a from 0.5 to 0.6 units/hr -change 11a to 12p & increase from 0.65 to 0.75 units/hr Current medications: Humalog via Omnipod 5 insulin pump, not on automated BR 12a 0.6, 7a 0.6, 11a 0.75 CR 15 CF 60 Target 120, correct over 120 AIT 4 hours UTD on DM eye exam: 07/08/23 [facility] in [place]. UTD on labs. Strive for regular exercise (30min most days) and diet (get at least 4-5 servings of fruit and veggies daily, avoid processed foods, increase lean protein intake and decrease carb portions as well as fruit juices, regular soda & desserts). Watch carbs and simple sugars. Check the blood sugar: Dexcom G6. Check the feet daily for skin breakdown and infection. Assessment & Plan (12/15/2023 11:13 AM CDT): Chronic problem, not at goal. She is wearing G6 and OP5. We discussed seeing if she can get the maggie on her phone for G6 so she can run in automated mode. She declines, she wants to use her phone only for phone calls. She is interested in upgrading to Dexcom G7 but just got a 3 month supply of G6. Will let us know when she wants to change the rx. Assessment & Plan (08/24/2023 12:14 PM RECORDING ENGINEER): Chronic problem. A1c currently uncontrolled at 9.6%. worsened from 8.9% 05/13/23. Has put OP5 back on since fall appt here. BR 0.5 not covering her. Went over OP5 BR, carb/correctional bolusing. With meals: enter carb amount & blood sugar. If you don't know the carb count: small=30 grams, medium=45 grams, large=60 grams. Enter correctional bolus by entering blood sugar when you note that your blood sugar is running high. Changed basal rates on your pump: Basal rates: 12a 0.6, 7a 0.5, 11a, 0.65 Changed correction target from 150 to 120 Current medications: Humalog via Omnipod 5 insulin pump, not on automated BR 12a 0.6, 7a 0.5, 11a, 0.65 CR 15 CF 60 Target 120, correct over 120 AIT 4 hours DM eye exam: summer 2022 [facility] in [place]. Letter sent to get copy of report. Will update labs today. Does not mychart. Verified phone #/address to contact re: results. Strive for regular exercise (30min most days) and diet (get at least 4-5 servings of fruit and veggies daily, avoid processed foods, increase lean protein intake and decrease carb portions as well as fruit juices, regular soda & desserts). Watch carbs and simple sugars. Check the blood sugar: Dexcom G6. Check the feet daily for skin breakdown and infection. Assessment & Plan (05/13/2023 4:37 PM RECORDING ENGINEER): Hba1c was Lab Results Component Value Date HGBA1C 8.9 05/13/2023 today, indicating inadequate DM control Goal Hba1c and blood glucose explained Diet and exercise were advised Prevention and treatment of hyypoglcyemia were discussed with the patient Blood glucose monitoring : DEXCOM Adjustment to medications: Stay on Tresiba 16 units at bedtime Take Humalog, 3 units before each meal. If your sugars are over 200, take 4 units If your sugars are over 300, take 5 units If it is meal time and you are not eating , and your sugar is over 200, take 2 units If it is meal time and you are not eating , and your sugar is over 300, take 3 units Acquired hypothyroidism 05/13/2023 Assessment & Plan (07/04/2024 1:18 PM RECORDING ENGINEER): Chronic problem. Clinically euthyroid. Currently taking levothyroxine 88mcg Wednesday-Wednesday & 2 tabs on Wednesday since 04/2023. Assessment & Plan (03/22/2024 11:58 AM CDT): Chronic problem. Clinically euthyroid. Currently taking levothyroxine 88mcg Wednesday-Wednesday & 2 tabs on Wednesday since 04/2023. Will update TFTs today. Will update labs today. Does not mychart. Verified phone #/address to contact re: results. Assessment & Plan (12/15/2023 10:22 AM CDT): Chronic problem, improving. Update TFTs. Assessment & Plan (08/24/2023 12:15 PM RECORDING ENGINEER): Chronic problem. Clinically euthyroid. Currently taking levothyroxine 88mcg Wednesday-Wednesday & 2 tabs on Wednesday since 04/2023. Will update TFTs today. Will update labs today. Does not mychart. Verified phone #/address to contact re: results. Assessment & Plan (05/13/2023 4:38 PM RECORDING ENGINEER): Continue levothyroxine Update TFTs Age-related osteoporosis wit hout current pathological fracture 05/13/2023 Assessment & Plan (07/04/2024 1:18 PM RECORDING ENGINEER): Chronic problem. Taking Prolia 60mg every 6 mos (last injection 01/2024, due 07/2024). Vitamin D level normal at 67 when checked 03/22/24. 02/2024 ordered DEXA (not sure where she's going to take it yet). Friend will help her schedule. Does not mychart. Verified phone #/address to contact re: results. Assessment & Plan (03/22/2024 11:59 AM CDT): Chronic problem. Taking Prolia 60mg every 6 mos (last injection 01/2024, due 07/2024). Vitamin D level normal at 67 when checked 04/2023. Will repeat D level today & ordered DEXA (not sure where she's going to take it yet). Friend will help her schedule. Does not mychart. Verified phone #/address to contact re: results. Assessment & Plan (12/15/2023 11:11 AM CDT): Chronic stable problem, due for Prolia in December. Rx sent. Assessment & Plan (08/24/2023 12:16 PM RECORDING ENGINEER): Chronic problem. Taking Prolia 60mg every 6 mos (last injection 05/2023). Vitamin D level normal at 67 when checked 04/2023. Unable to see any past Dexa/imaging. Release signed to get copy of results from PCP. Assessment & Plan (05/13/2023 4:39 PM RECORDING ENGINEER): Fall precautions Calcium and vitamin-D intake continue Prolia Acute urinary tract infection 10/15/2022 Depressive disorder 04/07/2022 Dyslipidemia 03/03/2022 COVID-19 02/16/2022 Diabetic peripheral neuropathy 01/30/2021 Assessment & Plan (07/04/2024 1:18 PM RECORDING ENGINEER): Chronic problem. Currently taking Gabapentin 600mg tid. Reviewed foot care; needs to lotion daily. Aware to check feet nightly, not to go barefoot. Assessment & Plan (03/22/2024 11:58 AM CDT): Chronic problem. Currently taking Gabapentin 600mg tid. Reviewed foot care; needs to lotion daily. Aware to check feet nightly, not to go barefoot. Assessment & Plan (08/24/2023 12:17 PM RECORDING ENGINEER): Chronic problem. Currently taking Gabapentin 600mg tid. Reviewed foot care; needs to lotion daily. Aware to check feet nightly, not to go barefoot. Assessment & Plan (05/13/2023 4:37 PM RECORDING ENGINEER): Foot care discussed Gabapentin 300 mg Q 8 Assessment & Plan (01/30/2021 1:04 PM CDT): Patient has documented history of diabetic peripheral neuropathy manifested as appendicular pain and numbness and sensory ataxia. She has been using gabapentin 400 mg t.i.d. for neuropathic analgesia although has been noticing breakthrough dysesthesia and is requesting an increase in medication if possible. I will increase her gabapentin to 600 mg t.i.d. an effort to further suppress neuropathic pain and numbness. She understands that her other symptoms will not typically respond to analgesic medication such as the sensory ataxia and hypesthesia. She will follow up in neurology clinic in 1 year on the increased gabapentin dosing. Vitiligo 09/19/2018 Encounters Date Type Department Care Team Description 10/26/2024 11:00 AM CDT Clinical Support [facility]ocr[facility] [address] [place] [phone] 10/10/2024 Telephone [facility] Diabetes [facility] Endocrin[facility] [address] [place] [phone] Gudelia Johnson NP Med Refill from Last 3 Months Surgical History Surgery Date Site/Laterality Comments HYSTERECTOMY APPENDECTOMY SECTION 06/28/1982 - 06/27/1983 Medical History Medical History Date Comments TIA (transient ischemic attack) Peripheral neuropathy Numbness Thyroid disease Joint pain Difficulty walking Back pain Muscle weakness Family History Medical History Relation Name Comments Diabetes Father Heart disease Father Heart disease Mother Relation Name Status Comments Father Mother Social History Tobacco Use Types Packs/Day Years Used Date Smoking Tobacco: Never Smokeless Tobacco: Never AUDIT-C Answer Date Recorded Q1: How often do you have a drink containing alc ohol? Monthly or less 05/22/2024 Q2: How many drinks containi ng alcohol do you have on a typical day when you are drinking? 1 or 2 05/22/2024 Q3: How often do you have si x or more drinks on one occasion? Never 05/22/2024 PHQ-2 Answer Date Recorded PHQ-2 Total Score (If total score is 3 or more points, staff should administer the PHQ-9) 2 05/13/2023 Personal Safety Answer Date Recorded Have you ever been in or are you currently in a harmful physical or emotional relationship or is someone making you feel afraid or unsafe? Denies 05/22/2024 Comments No Sex and Gender Information Value Date Recorded Sex Assigned at Not on file Legal Sex Female 11:42 AM CDT Gender Identity Not on file Sexual Orientation Not on file Obstetrics History Last Filed Vital Signs Vital Sign Reading Time Taken Comments Blood Pressure 126/72 07/04/2024 1:28 PM RECORDING ENGINEER Pulse 70 07/04/2024 1:28 PM RECORDING ENGINEER Temperature 36.7 C (98.1 F) 05/24/2024 3:56 PM RECORDING ENGINEER Respiratory Rate 16 07/04/2024 1:28 PM RECORDING ENGINEER Oxygen Saturation 92% 05/24/2024 3:56 PM RECORDING ENGINEER Inhaled Oxygen Concentration - - Weight 77.5 kg (170 lb 14.4 oz) 07/04/2024 1:28 PM RECORDING ENGINEER Height 162.6 cm (5' 4.02 ) 07/04/2024 1:28 PM CS T Body Mass Index 29.32 07/04/2024 1:28 PM RECORDING ENGINEER Plan of Treatment Health Maintenance Due Date Last Done Comments Hepatitis C Screening 1945 Osteoporosis Screening-Bone Density Scan 1945 Hepatitis B Screening 10/13/1963 Well Visit 65+ 2010 Zoster Vaccine (2 of 3) 07/30/2021 06/04/20 21, 04/03/2021, 07/14/2013 Depression Screening 05/13/2024 05/13/2023 Dilated Eye Exam 07/08/2024 07/08/2023 Albumin Creatinine Ratio, Urine 08/24/2024 , 08/04/2023 Foot Exam 08/24/2024 08/24/2023 Hemoglobin A1C 01/01/2025 07/04/2024, 04/29, 03/22/2024, Additional history exists Influenza Vaccine (Season Ended) 2025 04/03/2021, 04/15/2020, 04/05/2019 Lipid Panel 05/21/2025 05/21/2024, 02/0 12/2023, 05/13/2023 TSH Level 05/21/2025 05/21/2024, 04/29, 03/22/2024, Additional history exists Fall Risk Assessment 05/24/2025 05/24/2024, 05/13/20 23 eGFR 07/05/2025 07/05/2024, 04/29, 05/22/2024, Additional history exists DTaP/Tdap/Td Vaccine (2 - Td or Tdap) 01/06/2033 01/06/2023 Pneumococcal vaccine 65+ Completed 05/16/2018, 04/29 Medical Devices Implanted Type Area [employer] Device Identifier Shelf Expiration Date Model / Serial / Lot [employer] Nail Intramedullary Femoral Retrograde T2 Alpha [id number] Titanium [id number] - [id number] Implanted:Qty: 1 on 05/22/2024 by Ruy Griggs MD at [facility] Nail Left: Femur [employer] 05/27/2032 [id number] S / / [id number] [employer] Screw Bone 5mm 80mm Lock Strl 2361-5080s - [id number] Implanted:Qty: 1 on 05/22/2024 by Ruy Griggs MD at [facility] Left: Femur [employer] [id number] 01/25/2034 [id number] S / / [id number] [employer] Screw Bone 5mm 75mm Lock Strl 2361-5075s - [id number] Implanted:Qty: 1 on 05/22/2024 by Ruy Griggs MD at [facility] Left: Femur [employer] [id number] 01/25/2034 [id number] S / / [id number] [employer] Screw Bone 5mm 80mm Lock Strl 2361-5080s - [id number] Implanted:Qty: 1 on 05/22/2024 by Ruy Griggs MD at [facility] Left: Femur [employer] [id number] 02/25/2034 [id number] S / / [id number] [employer] Screw Bone Locking Cannulated Tibial Oversized Thread Black T2 Alpha 5.0x85mm Titanium 2361-5085s - [id number] Implanted:Qty: 1 on 05/22/2024 by Ruy Griggs MD at [facility] Left: Femur [employer] [id number] 02/25/2034 6552-0581 S / / [id number] [employer] Screw Bone 5mm 40mm T2 Alpha Lock Strl 2360-5040s - [id number] Implanted:Qty: 1 on 05/22/2024 by Ruy Griggs MD at [facility] Left: Femur [employer] [id number] 02/25/2034 8532-0781 S / / [id number] [employer] Screw Bone 5mm 40mm T2 Alpha Lock Strl 2360-5040s - [id number] Implanted:Qty: 1 on 05/22/2024 by Ruy Griggs MD at [facility] Left: Femur [employer] [id number] 01/25/2034 6922-4384 S / / [id number] Procedures Procedure Name Priority Date/Time Associated Diagnosis Comments EGFR Routine 07/05/2024 2:07 PM RECORDING ENGINEER POCT HEMOGLOBIN A1C Routine 07/04/2024 1 :32 PM RECORDING ENGINEER Type 2 diabetes mellitus with hyperglycemia, with long-term current use of insulin (HCC) LIPID PANEL STAT 05/21/2024 10:42 AM RECORDING ENGINEER THYROID FUNCTION CASCADE STAT 05/21/2024 10:42 AM RECORDING ENGINEER ALBUMIN CREATININE RATIO, URINE Routine 08/24/2023 12:18 PM RECORDING ENGINEER Type 2 diabetes mellitus with hyperglycemia, with long-term current use of insulin (HCC) HM DIABETES EYE EXAM Routine 07/08/2023 10:42 AM RECORDING ENGINEER from Last 3 Months or Most Recently Relevant to Health Maintenance Results * (ABNORMAL) eGFR (07/05/2024 2:07 PM RECORDING ENGINEER) eGFR 59(L) >=60 mL/min/1. 73 m2 Comment: Interpretive Data Reference Interval Normal >/= 90 mL/min/1.73m2 Mildly decreased* 60 - 89 mL/min/1.73m2 Mildly to moderately decreased 45 - 59 mL/min/1.73m2 Moderately to severely decreased 30 - 44 mL/min/1.73m2 Severely decreased 15 - 29 mL/min/1.73m2 Kidney Failure < 15 mL/min/1.73m2 *Relative to young adult level Estimated glomerular filtration rate is determined by the 2020 CKD-EPI equation recommended by the National Kid[employer] (A Unifying Approach to GFR Estimation: Recommendations of the NKF-ASK Task Force on Reassessing the Inclusion of Race in Diagnosing Kidney Disease, JASN 202). The CKD-EPI equation should not be used for patients with unstable renal function and has not been validated in children and those over 70. Current interpretive data was last reviewed 2021. Testing performed by: [facility], [facility] [address] [place], [place] [id number] Blood 07/05/2024 2:07 PM RECORDING ENGINEER 07/05/2024 6:42 PM RECORDING ENGINEER us Anitha Dean SOLAR PROJECT ENGINEER LAB BLOOD ORDERABLES Final Resu lt Performing Organization Address City/[facility]/ZIP Co de Phone Number [facility] [address] Department [place] [address] * (ABNORMAL) POCT hemoglobin A1c (07/04/2024 1:32 PM RECORDING ENGINEER) Hemoglobin A1C, POC 7.4 4.0 - 5.6 % Blood 07/04/2024 1:32 PM RECORDING ENGINEER us Gudelia Johnson SOLAR PROJECT ENGINEER POINT OF CARE TEST ORDERA BLES Final Result * (ABNORMAL) Thyroid Function [place] (05/21/2024 10:42 AM RECORDING ENGINEER) TSH 5.08(H) 0.30 - 4.20 mcIUnit/mL Blood 05/21/2024 10:4 2 AM RECORDING ENGINEER 05/21/2024 10:56 AM RECORDING ENGINEER us Beatrice Riggs MD LAB BLOOD ORDERABLES Final Result Performing Organization Address [facility] Co de Phone Number [facility] Department [place] [address] * Lipid panel (05/21/2024 10:42 AM RECORDING ENGINEER) Cholesterol 149 30 - 199 mg/dL Comment: Interpretive Data Ages < or = 19 years Acceptable: <170 mg/dL Borderline high: 170-199 mg/dL High: >or= 200 mg/dL Ages > or = 20 years Desirable: <200 mg/dL Borderline high: 200-239 mg/dL High: >or= 240 mg/dL Literature References: 1. Expert Panel on Integrated Guidelines for Cardiovascular Health and Risk Reduction in Children and Adolescents. Pediatrics 2011;128:S213 2. NCEP Expert Panel. Circulation 2004;110:227 Current Interpretive Data was last revised on 2018. Triglycerides 72 <=149 mg/dL [facility] Comment: Interpretive Data Ages < or = 9 years Acceptable: <75 mg/dL Borderline high: 75-99 mg/dL High: >or= 100 mg/dL Ages 10 to 20 years Acceptable: <90 mg/dL Borderline high: 90-129 mg/dL High: >or= 130 mg/dL Ages > or = 20 years Desirable: <150 mg/dL Borderline high: 150-199 mg/dL High: 200-499 mg/dL Very high: >or= 499 mg/dL Literature References: 1. Expert Panel on Integrated Guidelines for Cardiovascular Health and Risk Reduction in Children and Adolescents. Pediatrics 2011;128:S213 2. NCEP Expert Panel. Circulation 2004;110:227 Current Interpretive Data was last revised on 2018. HDL 80 >=40 mg/dL [facility] Comment: Interpretive Data Ages < or = 19 years Acceptable: >45 mg/dL Borderline low: 40-45 mg/dL Low: <40 mg/dL Ages > or = 20 years Desirable: >or= 60 mg/dL Low: <40 mg/dL Literature References: 1. Expert Panel on Integrated Guidelines for Cardiovascular Health and Risk Reduction in Children and Adolescents. Pediatrics 2011;128:S213 2. NCEP Expert Panel. Circulation 2004;110:227 Current Interpretive Data was last revised on 2018. LDL, calculated 55 <=129 mg/dL [facility] Comment: Interpretive Data Ages < or = 19 years Acceptable: <110 mg/dL Borderline high: 110-129 mg/dL High: >or= 130 mg/dL Ages > or = 20 years Optimal: <100 mg/dL Near optimal: 100-129 mg/dL Borderline high: 130-159 mg/dL High: >160 mg/dL Calculated using the Riki LDL-C estimating equation. This equation was implemented on 2024. Prior to this date LDL-C was estimated using the Friedewald equation. Literature References: 1. Expert Panel on Integrated Guidelines for Cardiovascular Health and Risk Reduction in Children and Adolescents. Pediatrics 2011;128:S213 2. NCEP Expert Panel. Circulation 2004;110:227 3. Riki Rome et al. LARRY Cardiol. 2020 October 26;5(5):540-548. doi: 10.1001/jamacardio.2020.0013 Current Interpretive Data was last revised on 2024. Non-HDL Cholesterol 69 mg/[facility] Comment: Interpretive Data Ages < or = 19 years Acceptable: <120 mg/dL Borderline high: 120-144 mg/dL High: >145 mg/dL Ages > or = 20 years When triglycerides are >200 mg/dL, Non-HDL cholesterol is a secondary target of therapy with treatment goals that are 30 mg/dL greater than the LDL cholesterol target. Literature References: 1. Expert Panel on Integrated Guidelines for Cardiovascular Health and Risk Reduction in Children and Adolescents. Pediatrics 2011;128:S213 2. NCEP Expert Panel. Circulation 2004;110:227 Current Interpretive Data was last revised on 2018. Chol/HDL ratio 2 [facility] Blood 05/21/2024 10:4 2 AM RECORDING ENGINEER 05/21/2024 10:56 AM RECORDING ENGINEER Narrative [facility] - 05/22/2024 5:09 PM RECORDING ENGINEER Reflex us Pretty Hood MD LAB BLOOD ORDERABLES Final Res ult [facility] Department [place] [address] * Albumin Creatinine Ratio, Urine (08/24/2023 12:18 PM RECORDING ENGINEER) Albumin Ur 28.5 mg/L [facility] Comment: Interpretive Data No reference range established. Current interpretive data was last revised 2018. Creatinine Ur 148.1 mg/dL [facility] Comment: Interpretive Data No reference range established. Current interpretive data was last revised 2018. Albumin Creatinine Ratio, Ur 19 1 - 29 mg/g [facility] Urine 08/24/2023 12:1 8 PM RECORDING ENGINEER 08/24/2023 6:26 PM RECORDING ENGINEER us Gudelia Johnson NP LAB URINE ORDERABLES Bere l Result [facility] [address] Department [place] [address] * (ABNORMAL) DIABETES EYE EXAM (07/08/2023 10:42 AM RECORDING ENGINEER) us Historical Provider MD HEALTH MAINTENANCE Final Result from Last 3 Months or Most Recently Relevant to Health Maintenance Insurance MEDICARE [place] [employer] TRADITIONAL OOS MEDICARE [facility] Advance Directives For more information, please contact: [phone] * Full Code (Latest Code Status on File) Date Activated Date Inactivated Comments 05/21/2024 11:30 PM 05/25/2024 12:27 AM Care Teams Dental Amalgam Processor Relationship Specialty Start Date End Date Jae Benitez MD [address] [facility] [place] [address] [place] [address] PCP - General Internal Medicine 12/02/20
--- OUTSIDE RECORDS SUMMARY | 2024-10-28 15:33 | XMS_ITS | CONTINUITY OF CARE DOCUMENT ---
Author Name albert price Address Unknown Organization [facility] Address [address] [address] [place] [address] Phone [phone] Care Team Providers Care Manager Recruitment Name Role Phone Peyman Diaz MD Unavailable [phone] SHELIA PETERSEN MD Unavailable SHELIA PETERSEN MD Unavailable [phone] INSURANCE PROVIDERS Payer name Policy type / Coverage type [place] [employer] party ID [employer] [facility] MEDICARE Medicare [id number] [facility] [id number]
--- OUTSIDE RECORDS SUMMARY | 2024-10-28 15:33 | XMS_ITS | Encounter Summary ---
Author Organization [facility] Address [address] [place] [address] Care Team Providers Care Mental Retardation Nurse Name Role Phone Jae Benitez MD Primary Care Provider Reason for Visit * Reason Comments Omnipod training Encounter Details Date Type Department Care Team (Late st Contact Info) Description 10/26/2024 11:00 AM CDT Clinical Support [facility] Diabetes and Endocrinology [address] [place] [phone] Social History Tobacco Use Types Packs/Day Years [...] on file Sexual Orientation Not on file documented as of this encounter Progress Notes * Stella Bennett MA - 10/26/2024 11:00 AM CDT Pt came to the [facility] office for Omnipod training. Per the head athletic trainer, pt's controller did not work and the pt is rescheduled for 10/31/24 at 11am documented in this encounter Plan of Treatment Not on file documented as of this encounter Visit Diagnoses Not on filedocumented in this encounter Care Teams Mental Retardation Nurse Relationship Specialty Start Date End Date Jae Benitez MD [address] [id number] PCP - General Internal Medicine 12/02/20 documented as of this encounter
--- OUTSIDE RECORDS SUMMARY | 2024-10-28 15:33 | XMS_ITS | Continuity of Care Document ---
Author Organization [facility] Address [address] [place] [address] Phone Care Team Providers Care Sales Project Manager Name Role Phone Noemi Davis Unavailable Unavailable Advance Directives Directive Yes / No Effective Date File Name No Information Encounters Encounter Description Practice Location Reason(s) For Visit Diagnoses Date Provider Providers Copied on Encounter [facility], [id number] [place] [address] [address], [place], [place], [id number], [place] tel:[phone] [facility] [place] No Information [phone] Susan Franklin. [address] [facility] , [address], [place], [address], [place]. tel:[phone] Family History Family Member Type Diagnosis Age [...]
--- OUTSIDE RECORDS SUMMARY | 2024-10-28 15:33 | XMS_ITS | Referral Summary ---
Author Organization [facility] [place] [facility] Address [address] [place] [address] Care Team Providers Care Pocket Setter Name Role Phone Jae Benitez MD Primary Care Provider Encounters Date Type Department Care Team Description 10/26/2024 11:00 AM CDT Clinical Support [facility] Medical [facility] Diabetes and Endocrinology [address] [place] [phone] 10/10/2024 Telephone [facility] Diabetes and Endocrinology [address] [place] [phone] Gudelia Johnson NP Med Refill from Last 3 Months Allergies No known active allergies Medications aspirin [...] times a day 270 capsule 3 05/13/20 Active insulin degludec (TRESIBA) 100 unit/mL (3 mL) pen for injection Inject 0.16 mL (16 Units total) under the skin nightly 15 mL 6 05/13/20 Active insulin pump cart,auto,BT-cntr (Omnipod 5 G6 [...] device Use for BG monitoring 3 each 11 06/10/20 Active Additional Information Patient not taking.Reported [...] 0-4 Units under the skin nightly 05/24/20 Active atorvastatin (LIPITOR) 10 mg tablet Take 1 tablet (10 mg total) by mouth daily for 30 days 06/06/20 24 Active cephalexin (KEFLEX) 500 mg capsule Take 1 capsule (500 mg total) by mouth every 12 (twelve) hours 06/27/20 24 Active docusate sodium (COLACE) 100 mg capsule Take 1 capsule (100 mg total) by mouth 2 (two) times a day 06/27/20 24 Active LANTUS 100 unit/mL (3 mL) pen for injection INJECT 14 EVERY DAY AT BEDTIME 06/06/20 24 Active midodrine (PROAMATINE) 5 mg tablet 06/07/20 [...] units Dx: E11.65 15 mL 1 10/11/19 Active HumaLOG 100 unit/mL pen for injection 07/04/19 025 Discontin ued(Reord er) Active Problems Problem Noted Date Diagnosed Date Asthma 07/25/2024 Cerebrovascular accident 07/25/2024 Cervical radiculopathy 07/25/2024 Disorder of shoulder 07/25/2024 Osteoarthritis of knee 07/25/2024 Paresthesia 07/25/2024 Pernicious anemia 07/25/2024 Pure hypercholesterolemia 06/06/2024 Fall 05/22/2024 Assessment & Plan (05/22/2024 3:28 PM NETWORK DESIGN ARCHITECT): ground level fall this yesterday at home on her way to the bathroom. She fell onto her left leg. She arrived with left leg deformity. Patient A&Ox4, GCS 15 reported on arrival Discharge planning issues 05/22/2024 Assessment & Plan (05/23/2024 2:10 PM NETWORK DESIGN ARCHITECT): 05/21 admission 05/23 Patient is medically stable for discharge, SW/CM updated. Discharge pending facility acceptance Encounter for medication review 05/22/2024 DM (diabetes mellitus), type 1 05/22/2024 Assessment & Plan (05/23/2024 2:11 PM NETWORK DESIGN ARCHITECT): Home insulin pump and dexacom type device for glucose monitoring. Consult endocrine for pump management while admitted POCT glucose SSI regimen per endocrine If pump is off give Lantus 15 units daily and Lispro 5 untis TID AC LD ssi Other fracture of left femur , initial encounter for closed fracture 05/21/2024 Assessment & Plan (05/22/2024 3:15 PM NETWORK DESIGN ARCHITECT): 05/22 OR with orthopedic - IMN Femur Left WBAT post OR 24 hour cefazolin DVT ppx ok 3 week suture removal Insulin pump status 12/15/2023 Assessment & Plan (07/04/2024 2:25 PM NETWORK DESIGN ARCHITECT): Will go back on pump once Dexcom [...] 12/14/2023 Assessment & Plan (07/04/2024 1:19 PM NETWORK DESIGN ARCHITECT): Chronic problem. Currently taking pravastatin 40mg. Last lipid panel: 05/21/24 LDL=55, TG=72. Assessment & Plan (03/22/2024 11:59 AM CDT): Chronic problem. Currently taking pravastatin 40mg. Last lipid panel: 08/04/23 LDL=89, TG=81. Assessment & Plan (12/15/2023 10:22 AM CDT): Chronic problem. On statin therapy, no changes. Vitamin D deficiency 05/13/2023 Assessment & Plan (07/04/2024 2:23 PM NETWORK DESIGN ARCHITECT): Chronic problem. Currently taking vitamin D 5000IU daily. Assessment & Plan (12/15/2023 10:22 AM CDT): Chronic stable problem. Assessment & Plan (05/13/2023 4:38 PM NETWORK DESIGN ARCHITECT): Of the 25 hydroxy vitamin-D levels Calcium and vitamin-D intake discussed Type 2 diabetes mellitus wit h hyperglycemia, with long-term current use of insulin 05/13/2023 Assessment & Plan (07/04/2024 2:23 PM NETWORK DESIGN ARCHITECT): Chronic problem. A1c improved from 9.5% 05/21/24 to now 7.5%. has been at [facility] since 05/2024; much improved diet. Again went [...] hours UTD on DM eye exam: 07/08/23 [facility] in [place]. UTD on labs. Strive for regular exercise [...] hours UTD on DM eye exam: 07/08/23 [facility] in [place]. UTD on labs. Strive for regular exercise [...] rx. Assessment & Plan (08/24/2023 12:14 PM NETWORK DESIGN ARCHITECT): Chronic problem. A1c currently uncontrolled at 9.6%. [...] 4 hours DM [facility] [place] Letter sent to get copy of report. [...] infection. Assessment & Plan (05/13/2023 4:37 PM NETWORK DESIGN ARCHITECT): Hba1c was Lab Results Component Value Date [...] 05/13/2023 Assessment & Plan (07/04/2024 1:18 PM NETWORK DESIGN ARCHITECT): Chronic problem. Clinically euthyroid. Currently taking levothyroxine [...] TFTs. Assessment & Plan (08/24/2023 12:15 PM NETWORK DESIGN ARCHITECT): Chronic problem. Clinically euthyroid. Currently taking levothyroxine 88mcg Wednesday-Wednesday & 2 tabs on Wednesday since 04/2023. Will update TFTs today. Will update labs today. Does not mychart. Verified phone #/address to contact re: results. Assessment & Plan (05/13/2023 4:38 PM NETWORK DESIGN ARCHITECT): Continue levothyroxine Update TFTs Age-related osteoporosis wit hout current pathological fracture 05/13/2023 Assessment & Plan (07/04/2024 1:18 PM NETWORK DESIGN ARCHITECT): Chronic problem. Taking Prolia 60mg every 6 [...] sent. Assessment & Plan (08/24/2023 12:16 PM NETWORK DESIGN ARCHITECT): Chronic problem. Taking Prolia 60mg every 6 mos (last injection 05/2023). Vitamin D level normal at 67 when checked 04/2023. Unable to see any past Dexa/imaging. Release signed to get copy of results from PCP. Assessment & Plan (05/13/2023 4:39 PM NETWORK DESIGN ARCHITECT): Fall precautions Calcium and vitamin-D intake continue Prolia Acute urinary tract infection 10/15/2022 Depressive disorder 04/07/2022 Dyslipidemia 03/03/2022 COVID-19 02/16/2022 Diabetic peripheral neuropathy 01/30/2021 Assessment & Plan (07/04/2024 1:18 PM NETWORK DESIGN ARCHITECT): Chronic problem. Currently taking Gabapentin 600mg tid. Reviewed foot care; needs to lotion daily. Aware to check feet nightly, not to go barefoot. Assessment & Plan (03/22/2024 11:58 AM CDT): Chronic problem. Currently taking Gabapentin 600mg tid. Reviewed foot care; needs to lotion daily. Aware to check feet nightly, not to go barefoot. Assessment & Plan (08/24/2023 12:17 PM NETWORK DESIGN ARCHITECT): Chronic problem. Currently taking Gabapentin 600mg tid. Reviewed foot care; needs to lotion daily. Aware to check feet nightly, not to go barefoot. Assessment & Plan (05/13/2023 4:37 PM NETWORK DESIGN ARCHITECT): Foot care discussed Gabapentin 300 mg Q [...] on the increased gabapentin dosing. Vitiligo 09/19/2018 Social History Tobacco Use Types Packs/Day Years [...] Comments Blood Pressure 126/72 07/04/2024 1:28 PM NETWORK DESIGN ARCHITECT Pulse 70 07/04/2024 1:28 PM NETWORK DESIGN ARCHITECT Temperature 36.7 C (98.1 F) 05/24/2024 3:56 PM NETWORK DESIGN ARCHITECT Respiratory Rate 16 07/04/2024 1:28 PM NETWORK DESIGN ARCHITECT Oxygen Saturation 92% 05/24/2024 3:56 PM NETWORK DESIGN ARCHITECT Inhaled Oxygen Concentration - - Weight 77.5 kg (170 lb 14.4 oz) 07/04/2024 1:28 PM NETWORK DESIGN ARCHITECT Height 162.6 cm (5' 4.02 ) 07/04/2024 1:28 PM CS T Body Mass Index 29.32 07/04/2024 1:28 PM NETWORK DESIGN ARCHITECT Plan of Treatment Not on file Medical Devices Implanted Type Area Finish Opener Device Identifier Shelf Expiration Date Model / Serial / Lot [employer] Nail Intramedullary Femoral Retrograde T2 Alpha [id number] Titanium 2339-1238s - [id number] Implanted:Qty: 1 on 05/22/2024 by Ruy Griggs MD at [facility] Left: Femur [employer] 05/27/2032 [id number] S / / [id number] [employer] Screw Bone 5mm 80mm Lock Strl 2361-5080s - [id number] Implanted:Qty: 1 on 05/22/2024 by Ruy Griggs MD at [facility] Left: Femur [employer] [id number] 01/25/2034 [id number] S / / [id number] [employer] Screw Bone 5mm 75mm Lock Strl 2361-5075s - [id number] Implanted:Qty: 1 on 05/22/2024 by Ruy Griggs MD at [facility] Left: Femur [employer] [id number] 01/25/2034 5872-7763 S / / [id number] [employer] Screw Bone 5mm 80mm Lock Strl 2361-5080s - [id number] Implanted:Qty: 1 on 05/22/2024 by Ruy Griggs MD at [facility] Left: Femur [employer] [id number] 02/25/2034 7771-8261 S / / [id number] [employer] Screw Bone Locking Cannulated Tibial Oversized Thread Black T2 Alpha 5.0x85mm Titanium 2361-5085s - [id number] Implanted:Qty: 1 on 05/22/2024 by Ruy Griggs MD at [facility] Left: Femur [employer] [id number] 02/25/2034 7240-3346 S / / [id number] [employer] Screw Bone 5mm 40mm T2 Alpha Lock Strl 2360-5040s - [id number] Implanted:Qty: 1 on 05/22/2024 by Ruy Griggs MD at [facility] Left: Femur [employer] [id number] 02/25/2034 7233-8102 S / / [id number] [employer] Screw Bone 5mm 40mm T2 Alpha Lock Strl 2360-5040s - [id number] Implanted:Qty: 1 on 05/22/2024 by Ruy Griggs MD at [facility] Left: Femur [employer] [id number] 01/25/2034 7188-4710 S / / [id number] Procedures Procedure Name Priority Date/Time Associated Diagnosis Comments EGFR Routine 07/05/2024 2:07 PM NETWORK DESIGN ARCHITECT POCT HEMOGLOBIN A1C Routine 07/04/2024 1 :32 PM NETWORK DESIGN ARCHITECT Type 2 diabetes mellitus with hyperglycemia, with long-term current use of insulin (HCC) LIPID PANEL STAT 05/21/2024 10:42 AM NETWORK DESIGN ARCHITECT THYROID FUNCTION CASCADE STAT 05/21/2024 10:42 AM NETWORK DESIGN ARCHITECT ALBUMIN CREATININE RATIO, URINE Routine 08/24/2023 12:18 PM NETWORK DESIGN ARCHITECT Type 2 diabetes mellitus with hyperglycemia, with long-term current use of insulin (HCC) HM DIABETES EYE EXAM Routine 07/08/2023 10:42 AM NETWORK DESIGN ARCHITECT from Last 3 Months or Most Recently Relevant to Health Maintenance Results * (ABNORMAL) eGFR (07/05/2024 2:07 PM NETWORK DESIGN ARCHITECT) [facility] eGFR 59(L) >=60 mL/min/1. 73 m2 Comment: [...] of Race in Diagnosing Kidney Disease, JASN 2020). The CKD-EPI equation should not be used for patients with unstable renal function and has not been validated in children and those over 70. Current interpretive data was last reviewed 2021. Testing performed by: [facility], [facility] [address], [place] [address] Blood 07/05/2024 2:07 PM NETWORK DESIGN ARCHITECT 07/05/2024 6:42 PM NETWORK DESIGN ARCHITECT Anitha Dean NP LAB BLOOD ORDERABLES Final Resu lt Performing Organization Address City/[facility]/ZIP Co de Phone Number [facility] [address] [place] [address] * (ABNORMAL) POCT hemoglobin A1c (07/04/2024 1:32 PM NETWORK DESIGN ARCHITECT) Hemoglobin A1C, POC 7.4 4.0 - 5.6 % Blood 07/04/2024 1:32 PM NETWORK DESIGN ARCHITECT Gudelia Johnson NP POINT OF CARE TEST ORDERA BLES Final Result * (ABNORMAL) Thyroid Function [place] (05/21/2024 10:42 AM NETWORK DESIGN ARCHITECT) TSH 5.08(H) 0.30 - 4.20 mcIUnit/mL Blood 05/21/2024 10:4 2 AM NETWORK DESIGN ARCHITECT 05/21/2024 10:56 AM NETWORK DESIGN ARCHITECT Beatrice Riggs MD LAB BLOOD ORDERABLES Final Result Performing Organization Address City/[facility]/ZIP Co de Phone Number [facility] Department [place] [address] * Lipid panel (05/21/2024 10:42 AM NETWORK DESIGN ARCHITECT) Cholesterol 149 30 - 199 mg/dL Comment: [...] revised on 2018. Triglycerides 72 <=149 mg/dL [facility] Comment: Interpretive Data Ages < or = [...] revised on 2018. HDL 80 >=40 mg/dL [facility] Comment: Interpretive Data Ages < or = [...] on 2018. LDL, calculated 55 <=129 mg/dL [facility] Comment: Interpretive Data Ages < or = 19 years Acceptable: <110 mg/dL Borderline high: 110-129 mg/dL High: >or= 130 mg/dL Ages > or = 20 years Optimal: <100 mg/dL Near optimal: 100-129 mg/dL Borderline high: 130-159 mg/dL High: >160 mg/dL Calculated using the Lyn LDL-C estimating equation. This equation was implemented on 2024. Prior to this date LDL-C was estimated using the Friedewald equation. Literature References: 1. Expert Panel on Integrated Guidelines for Cardiovascular Health and Risk Reduction in Children and Adolescents. Pediatrics 2011;128:S213 2. NCEP Expert Panel. Circulation 2004;110:227 3. Riki M et al. LARRY Cardiol. 2020 October 26;55):540-548. doi: 10.1001/jamacardio.2020.0013 Current Interpretive Data was last revised on 2024. Non-HDL Cholesterol 69 mg/dL [facility] Comment: Interpretive Data Ages < or = [...] last revised on 2018. Chol/HDL ratio 2 [facility] Blood 05/21/2024 10:4 2 AM NETWORK DESIGN ARCHITECT 05/21/2024 10:56 AM NETWORK DESIGN ARCHITECT Narrative [facility] - 05/22/2024 5:09 PM NETWORK DESIGN ARCHITECT Reflex us Pretty Hood MD LAB BLOOD ORDERABLES Final Res ult [facility] [place] [address] * Albumin Creatinine Ratio, Urine (08/24/2023 12:18 PM NETWORK DESIGN ARCHITECT) Albumin Ur 28.5 mg/L [facility] Comment: Interpretive Data No reference range established. Current interpretive data was last revised 2018. Creatinine Ur 148.1 mg/dL [facility] Comment: Interpretive Data No reference range established. Current interpretive data was last revised 2018. Albumin Creatinine Ratio, Ur 19 1 - 29 mg/g [facility] Urine 08/24/2023 12:1 8 PM NETWORK DESIGN ARCHITECT 08/24/2023 6:26 PM NETWORK DESIGN ARCHITECT Gudelia Johnson NP LAB URINE [place] [address] [address] [place] [address] * (ABNORMAL) DIABETES EYE EXAM (07/08/2023 10:42 AM NETWORK DESIGN ARCHITECT) Historical Provider HEALTH MAINTENANCE Final Result from Last 3 Months or Most Recently Relevant to Health Maintenance Insurance MEDICARE [place] [employer] [place] [employer] MEDICARE MEDICARE [facility] Advance Directives For more information, please contact: [phone] * Full Code (Latest Code Status on File) Date Activated Date Inactivated Comments 05/21/2024 11:30 PM 05/25/2024 12:27 AM Care Teams Pocket Setter Relationship Specialty Start Date End Date Jae Benitez MD [address] [address] PCP - General Internal Medicine 12/02/20
== END 2024-10-27 23:44 | disposition home or self-care (01) ==
PROVIDERS: Emergency Provider Emergency Medicine; PCP Internal Medicine
DX: R55 Syncope and collapse (principal); N39.0 Urinary tract infection, site not specified; E11.40 Type 2 diabetes mellitus with diabetic neuropathy, unspecified; E07.9 Disorder of thyroid, unspecified; D51.0 Vitamin B12 deficiency anemia due to intrinsic factor deficiency; M19.90 Unspecified osteoarthritis, unspecified site; Z86.73 Personal history of transient ischemic attack (TIA), and cerebral infarction without residual deficits; Z79.82 Long term (current) use of aspirin; Z79.4 Long term (current) use of insulin; Z79.899 Other long term (current) drug therapy
CPT/HCPCS: 36415; 71045; 80053; 81001; 83735; 84484; 85025; 93005; 99284

== ENCOUNTER 2024-12-28 00:35 | Inpatient (IN) | payer MEDICARE, BC, SELFPAY ==
[2024-12-28] VITALS (22 sets, daily range): BP systolic 133–214; BP diastolic 51–136; PULSE 63–83; RESP 11–21; TEMP 36.1–37; O2SAT 91–100; BMI 32.2
--- NOTE | 2024-12-28 | ECHO_ITS ---
Patient Info Name: Carrie Downs Age: 79 years : 1945 Gender: Female Ht: 63 in Wt: 169 lbs BSA: 1.87 m2 HR: 77 bpm BP: 130 / 90 mmHg Technical Quality: Good Exam Date: 12/28/2024 6:48 AM Patient Status: I Admit Date: 12/28/2024 Exam Type: CA echo doppler color flow Complete two-dimensional, color flow and Doppler transthoracic echocardiogram is performed. Staff Referring Physician: Gregorio Escobedo MD State Archivist: Cindi Mckeon Attending Provider: Mir Carrera MD Summary 1. Complete two-dimensional, color flow and Doppler transthoracic echocardiogram is performed. 2. Left ventricular systolic function is normal, estimated at 65-70. 3. There is mildly increased left ventricular wall thickness. 4. The left ventricular diastolic function is grade I diastolic dysfunction. 5. There is moderate aortic valve stenosis with a peak velocity of 338 cm/s, mean gradient of 26 mmHg, and aortic valve area of 1.4 cm2. 6. There is mild aortic valve regurgitation. 7. There is mild aortic valve calcification. 8. There is mild tricuspid valve regurgitation. 9. Mild pulmonary hypertension, estimated pulmonary arterial systolic pressure is 43 mmHg. Left Ventricle Left ventricular chamber dimension is normal. Left ventricular systolic function is normal, estimated at 65-70. There is mildly increased left ventricular wall thickness. Left ventricular septal wall motion is normal. The left ventricular diastolic function is grade I diastolic dysfunction. Right Ventricle Right ventricular chamber dimension is normal. Right ventricular systolic function is normal. Left Atria Left atrial chamber dimension is normal. Right Atria Right atrial chamber dimension is normal. Aortic Valve The aortic valve is trileaflet. There is no aortic valve sclerosis. There is moderate aortic valve stenosis with a peak velocity of 338 cm/s, mean gradient of 26 mmHg, and aortic valve area of 1.4 cm2. There is mild aortic valve regurgitation. There is mild aortic valve calcification. Pulmonic Valve The pulmonic valve is normal. There is no pulmonic valve stenosis. There is no pulmonic regurgitation. Mitral Valve The mitral valve has normal leaflets. There is no mitral valve stenosis. There is no mitral valve regurgitation. There is mild mitral valve calcification. Tricuspid Valve The tricuspid valve leaflets are normal. There is no significant tricuspid valve stenosis. There is mild tricuspid valve regurgitation. Mild pulmonary hypertension, estimated pulmonary arterial systolic pressure is 43 mmHg. Pericardium/Pleural The pericardium appears normal. There is no pericardial effusion. Inferior Vena Cava Normal inferior vena cava with >50% collapse upon inspiration consistent with normal right atrial pressure, 5 mmHg. Aorta The aortic root size at the sinus of Valsalva is normal. The prox ascending aorta size is normal. Left Ventricular Outflow Tract Name Value Normal LVOT 2D LVOT Diameter 2.0 cm LVOT Doppler LVOT Peak Velocity 142 cm/s LVOT Peak Gradient 8 mmHg LVOT Mean Gradient 5 mmHg LVOT VTI 30 cm LVOT VTI/AV VTI Ratio 0.4 LVOT Stroke Volume 95 ml LVOT CO 7.5 l/min LVOT CI 4.0 l/min/m2 Mitral Valve Name Value Normal MV Doppler MV Peak Gradient 25 mmHg MV Mean Gradient 5 mmHg MV Area (Cont Eq VTI) 1.5 cm2 MV Diastolic Function MV E Peak Velocity 99 cm/s MV A Peak Velocity 242 cm/s MV E/A 0.4 MV Decel Time (PW) 175 ms MV Annular TDI MV E/e' (Septal) 15.6 MV E/e' (Lateral) 13.0 MV E/e' (Average) 14.3 Tricuspid Valve Name Value Normal TV Regurgitation Doppler TR Peak Velocity 308 cm/s TR Peak Gradient 38 mmHg Estimated PAP/RSVP RA Pressure 5 mmHg <=5 PA Systolic Pressure 43 mmHg <36 RV Systolic Pressure 43 mmHg <36 TV Annular TDI TV Lateral Trini s' Velocity 12.2 cm/s >=9.5 Aortic Valve Name Value Normal AV 2D/MM AV Area (Planimetry) 1.4 cm2 AV Doppler AV Peak Velocity 338 cm/s AV Peak Gradient 46 mmHg AV Mean Gradient 26 mmHg AV VTI 70 cm AV Area (Cont Eq VTI) 1.4 cm2 >=3.0 AV Area (Cont Eq Mann) 1.3 cm2 AV DI (Mann) 0.42 AV Regurgitation 2D LVOT Area 3.2 cm2 Ventricles Name Value Normal LV Dimensions 2D/MM IVS Diastolic Thickness (2D) 1.2 cm 0.6-1.0 LVID Diastole (2D) 3.2 cm 3.8-5.2 LVIW Diastolic Thickness (2D) 0.9 cm 0.6-0.9 LVID Systole (2D) 2.1 cm 2.2-3.5 LVOT Diameter 2.0 cm LV Mass (2D Cubed) 99.22 g 67.00-162.00 LV Mass Index (2D Cubed) 53 g/m2 43-95 Relative Wall Thickness (2D) 0.59 <=0.42 LV Fractional Shortening/Ejection Fraction 2D/MM LV Fractional Shortening (2D) 33 % 27-45 LV EF (2D Teichholz) 63 % LV Diastolic Volume (4C MOD) 94 ml LV EF (4C MOD) 69 % LV Diastolic Volume (2C MOD) 86 ml LV EF (2C MOD) 64 % LV Diastolic Volume (BP MOD) 92 ml 46-106 LV Diastolic Volume Index (BP MOD) 49 ml/m2 29-61 LV Systolic Volume (BP MOD) 30 ml 14-42 LV Systolic Volume Index (BP MOD) 16 ml/m2 8-24 LV EF (BP MOD) 67 % 54-74 LV Diastolic Length (4C) 8.9 cm LV Systolic Length (4C) 6.8 cm LV Stroke Volume (4C MOD) 65 ml Atria Name Value Normal LA Dimensions LA Volume (4C A-L) 45 ml LA Volume (BP A-L) 50 ml RA Dimensions RA Systolic Major Tichnor Length (4C) 4.9 cm 2.2-2.8 RA Area (4C) 12.1 cm2 <=18.0 Report Signatures
--- NOTE | ~2024-12-28 | XR_ITS ---
AP view of the pelvis and lateral view of the right hip Clinical history: Pain Findings: There is acute, comminuted intertrochanteric fracture of the proximal right femur with incr eased reticulation the major distal fracture fragment. Left femoral intramedullary neftali is partially i brianna.. Bilateral hip and SI joint spaces are preserved. Soft tissues are unremarkable. Impression: Acute comminuted fracture of the intertrochanteric region of the proximal right femur, as detailed ab ove. Reviewed, dictated and finalized at location M. Impression: Acute comminuted fracture of the intertrochanteric region of the proximal right femur, as detailed above.
--- NOTE | ~2024-12-28 | XR_ITS ---
Portable chest x-ray Comparison: 10/27/2024 Clinical History: Preoperative evaluation Findings: Lungs are clear, without focal consolidation or pleural effusion. Cardiomediastinal silho uette is stable. Bones and soft tissues are unremarkable. Impression: Clear lungs. Reviewed, dictated and finalized at [facility]. Impression: Clear lungs.
--- NOTE | ~2024-12-28 | XR_ITS ---
XR surgery orthopedic Ordering provider: Gregorio Escobedo MD History: . RIGHT IT NAIL . Comparison: None. FINDINGS/impression: Fluoroscopy time is 1.1 seconds. Cumulative dose is 20.429 mGy. Intraoperative fixation of the right femoral neck and proximal femur by neftali and screws. Reviewed, dictated and finalized at location A.
--- NOTE | 2024-12-28 01:12 | ED.FALL ---
HPI - Fall General Chief Complaint: Fall Stated Complaint: RLE INJURY S/P FALL Time Seen by Provider: 12/28/24 00:37 Source: patient and EMS Mode of arrival: EMS Limitations: no limitations History of Present Illness HPI Narrative: Patient presents after a ground level fall and complaining of acute pain at her right hip. EMS administered 40 mcg of fentanyl given the obvious deformity with a shortened and externally rotated limb. She denies any loss of consciousness. She states that she fell because ever since she had a stroke she has been weak and requires using a cane to ambulate. Last oral intake was a blueberry muffin at approximately 9:00 p.m.. She is on 81 mg aspirin but otherwise not on anticoagulation. Patient has chronic neuropathy but denies any acute worsening of paresthesias. She has never had surgical intervention in this extremity (right leg) but did break her left femur 1 year ago. That surgical procedure was performed by Dr Mcrae/Anson at [facility]. Related Data Home Medications ?Medication ?Instructions ?Recorded ?Confirmed ?Last Taken ?Type cyanocobalamin (vitamin B-12) 1,000 mcg IM MONTHLY 06/18/20 06/26/24 06/21/24 History 1,000 mcg/mL injection solution acetaminophen 325 mg chewable 650 mg PO Q6H PRN pain (scale 05/24/24 06/26/24 Unknown History tablet score 1-3) aspirin 81 mg chewable tablet 81 mg PO DAILY 05/24/24 06/26/24 06/26/24 History calcium carb 1,200 mg-mag hydrox 10 ml PO DAILY 05/24/24 06/26/24 Unknown History 270 mg-simeth 80 mg/10 mL oral susp insulin lispro 100 unit/mL 1 sliding scale dose subcut TIDWM 05/24/24 06/26/24 Unknown History subcutaneous solution polyethylene glycol 3350 17 gram 17 g PO DAILY 05/24/24 06/26/24 06/26/24 History oral powder packet (Miralax) sennosides 8.6 mg-docusate sodium 1 tablet PO BID 05/24/24 06/26/24 06/26/24 History 50 mg tablet Allergies Allergy/AdvReac Type Severity Reaction Status Date / Time No Known Allergies Allergy Verified 10/27/24 21:03 [facility] Past Medical History Medical History CVA (cerebral vascular accident) Vertigo TIA (transient ischemic attack) Diabetic neuropathy Arthritis Vitiligo Thyroid disease High cholesterol Diabetes Pernicious anemia History of TIA (transient ischemic attack) Surgical History Surgical History H/O cataract extraction H/O wrist surgery History of knee surgery History of appendectomy History of hysterectomy History of delivery Family History Family History Father Heart disease Mother Heart disease Sibling Heart disease Social History Social History 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 -code status full code Smoking status: Never smoker Alcohol intake: never Drinks per week: 1 Substance use: never Do You Feel Safe in your Home?: Yes Lack of Transportation: No Lack of Food: Never True Current Housing: I Have Housing Concerned About Future Housing: No Difficulty Paying Gas/Electric Bills: No Difficulty Paying for Meds: No Currently Unemployed: No Education: Associate Degree Difficulty w/ Childcare or Family Care: No Spiritual care concerns: No Exam Narrative: GENERAL: Well-appearing, well-nourished, and in no acute distress. HEAD: Normocephalic, atraumatic. EYES: Non injected, non icteric ENT: Nares clear, no rhinorrhea or epistaxis. Gross auditory acuity intact. NECK: Supple. No meningismus. CHEST: Speaking in full sentences. No respiratory distress. HEART: Regular rate and rhythm. Strong palpable DP pulse on R that corresponds with complexes on the monitor ABDOMEN: Soft, nondistended. No rigidity or guarding. Not peritoneal EXTREMITIES: R leg obvoiusly deformed, shortened and externally rotated. SKIN: Warm, dry, no rash. NEURO: Alert and oriented. Answering questions. Following commands. Normal speech without aphasia or dysarthria. PSYCH: Normal mood and affect. Course Vital Signs Vital signs: Vital Signs Temperature 97.7 F 12/28/24 00:34 Pulse Rate 63 12/28/24 00:34 Respiratory Rate 21 H 12/28/24 00:34 Blood Pressure 214/92 H 12/28/24 00:34 Pulse Oximetry 100 12/28/24 00:34 Oxygen Delivery Nasal Cannula 12/28/24 00:34 Oxygen Flow Rate 2 12/28/24 00:34 Temperature 97.7 F 12/28/24 00:34 Pulse Rate 70 12/28/24 03:01 Respiratory Rate 11 L 12/28/24 03:01 Blood Pressure 149/76 H 12/28/24 03:01 Pulse Oximetry 100 12/28/24 03:01 Oxygen Delivery Nasal Cannula 12/28/24 00:34 Oxygen Flow Rate 2 12/28/24 00:34 MDM - Fall MDM Narrative Medical decision making narrative: Patient presents with acute onset right hip pain after a ground level fall. Patient denies loss consciousness. She states she been weak ever since a stroke in typically uses a cane to ambulate. Not on anticoagulation only 81 mg aspirin. Last oral intake 9:00 p.m. obvious deformity with right leg shortened and externally rotated on exam. Otherwise neurovascularly intact. In the emergency department she is afebrile vital signs notable for hypertension and mild tachypnea. Fentanyl for pain. Obvious fracture. Will order basic labs and place urinary catheter due to immobility. Hyperglycemia without anion gap acidosis. Normocytic anemia, stable from previous. Patient having pain again, Dilaudid ordered. She does desaturate with this, O2 applied which resolves this. Spoke with Dr Escobedo. Informed him of the mechanism and extent of injury. Recommends admit to hospitalist and NPO. Aware of her surgery last year at [facility] (though the reason for [facility] location for procedure unclear). Patient discussed with on-call admitting hospitalist GHULAM Colin. Accepted. Admission orders placed. Differential Diagnosis Differential diagnosis: Likely other (fracture / dislocation) Lab Data Attestation: I reviewed the patient's lab results. 12/28/24 01:41 12/28/24 01:41 Labs: Lab Results 12/28/24 Range/Units 01:41 WBC 7.8 (4.5-10.0) K/mm3 RBC 4.10 L (4.2-5.4) M/mm3 Hgb 10.0 L (12.0-15.0) g/dL Hct 33.8 L (37.0-47.0) % MCV 82.4 (80-100) fl MCH 24.4 L (26-34) pg MCHC 29.6 L (32-36) g/dl RDW 16.7 H (11.5-14.5) % Plt Count 155 (150-375) k/mm3 MPV 10.2 (7.4-10.4) fl Immature Gran % (Auto) 0.3 (0-0.5) % Neut % (Auto) 78.1 H (45.5-73.1) % Lymph % (Auto) 14.0 L (18.3-44.2) % [place] % (Auto) 5.4 (2.6-8.5) % Eos % (Auto) 1.7 (0-4.4) % Baso % (Auto) 0.5 (0.2-1.2) % Lymph # (Auto) 1.09 (0.9-3.2) K/mm3 [place] # (Auto) 0.4 (0.1-0.6) K/mm3 Eos # (Auto) 0.1 (0-0.3) K/mm3 Baso # (Auto) 0.0 (0.0-0.1) K/mm3 Abs Immat Gran (auto) 0.02 (0.00-0.031) K/mm3 Absolute Neuts (auto) 6.1 (1.3-6.7) K/mm3 Absolute Nucleated RBC 0.000 (0.0-0.012) K/mm3 Nucleated RBC % 0.0 (0.0-0.2) % PT 13.3 (11.1-14.7) Seconds INR 1.0 APTT 25.1 (22.3-36.8) Seconds Sodium 137 (137-145) mmol/L Potassium 4.3 (3.4-5.0) mmol/L Chloride 101 (98-107) mmol/L Carbon Dioxide 26 (22-30) mmol/L Anion Gap 10 (4-12) mmol/L BUN 23 H D (7-17) mg/dL Creatinine 1.00 (0.7-1.0) mg/dL Estim Creat Clear Calc 40 ml/min Estimated GFR 53 L (59 - ) Glucose 340 H (65-110) mg/dL Calcium 9.8 (8.4-10.2) mg/dL Imaging Data Attestation: I personally reviewed and interpreted this imaging study as follows: My impression: Obvious marked proximal /intertrochanteric fracture Radiologist's impression: X-ray pelvis/R Hip Stat Rad: Displaced right intertrochanteric hip fracture, in Varus. Left intramedullary neftali. Discharge Plan Discharge Clinical Impression: Fall, Hyperglycemia due to diabetes mellitus, Normocytic anemia, Closed intertrochanteric fracture of right hip Patient Disposition: Still a Patient Condition: Stable Patient Language: Belizean Prescriptions: No Action cyanocobalamin (vitamin B-12) 1,000 mcg/mL solution 1,000 mcg IM MONTHLY Rx Instructions: of each month cephalexin 500 mg capsule 500 mg PO Q12H 7 Days Qty: 14 0RF cephalexin 500 mg capsule 500 mg PO Q12H Qty: 14 0RF polyethylene glycol 3350 [Miralax] 17 gram/dose powder 17 g PO BID Qty: 119 0RF docusate sodium [Colace] 100 mg capsule 100 mg PO BID Qty: 14 0RF ondansetron 4 mg tablet,disintegrating 4 mg PO Q8H PRN (Reason: nausea and vomiting) Qty: 30 0RF potassium chloride 20 mEq tablet extended release 20 meq PO DAILY Qty: 14 0RF sennosides-docusate sodium 8.6-50 mg Tablet 1 tablet PO BID aspirin 81 mg Tablet,Chewable 81 mg PO DAILY acetaminophen 325 mg Tablet,Chewable 650 mg PO Q6H PRN (Reason: pain (scale score 1-3)) polyethylene glycol 3350 [Miralax] 17 gram powder in packet 17 g PO DAILY insulin lispro 100 unit/mL Solution 1 sliding scale dose SUBCUT TIDWM Protocol: Insulin Corrective Moderate-Dose Condition: glucose < 70 mg/dl Dose/Route: Follow hypoglycemia orders Condition: glucose 70-200 mg/dl Dose/Route: No additional insulin Condition: glucose 201-250 mg/dl Dose/Route: 3 units sub-Q Condition: glucose 251-300 mg/dl Dose/Route: 4 units sub-Q Condition: glucose 301-350 mg/dl Dose/Route: 5 units sub-Q Condition: glucose 351-400 mg/dl Dose/Route: 6 units sub-Q Condition: glucose > 400 mg/dl Dose/Route: Call MD Protocol Text: *No Correction Dose at Bedtime* calcium carb-mag hydrox-simeth 1,200 mg-270 mg -80 mg/10 mL Suspension 10 ml PO DAILY atorvastatin 10 mg Tablet 10 mg PO DAILY 30 Days Qty: 30 0RF insulin lispro [Humalog U-100 Insulin] 100 unit/mL Solution 5 unit subcut TIDWM 30 Days Qty: 4.5 0RF insulin glargine [Lantus Solostar U-100 Insulin] 100 unit/mL (3 mL) insulin pen 14 unit subcut QHS Qty: 15 0RF gabapentin 600 mg Tablet 600 mg PO TID Qty: 90 0RF levothyroxine 88 mcg tablet 88 mcg PO 6XW Qty: 30 0RF Rx Instructions: Wednesday through Wednesday levothyroxine 88 mcg Tablet 176 mcg PO WEEKLY Qty: 30 0RF Rx Instructions: Wednesday furosemide 20 mg Tablet 20 mg PO QMWF 30 Days Qty: 13 0RF cholecalciferol (vitamin D3) 125 mcg (5,000 unit) Capsule 125 mcg PO DAILY Qty: 30 0RF duloxetine 30 mg Capsule,Delayed Release(Dr/Ec) 30 mg PO DAILY Qty: 30 0RF Follow-up/Referrals: Emmanuel,Jae Anderson MD [Primary Care Provider] - Time of Disposition: 03:42
[2024-12-28] MEDS: fentaNYL CITRATE INJ (*CRX) 100 MCG/2 ML VIAL 50 MCG IV PUSH ×3 (01:13→11:03)
--- OUTSIDE RECORDS SUMMARY | 2024-12-28 01:21 | XMS_ITS | Clinical Summary ---
Author Organization [facility] Address [facility] [place] [address] Care Team Providers Care Printing Plate Setter Name Role Phone Jae Benitez MD Primary Care Provider [phone] Allergies No known active allergies Medications levothyroxine [...] 9:27 AM CDT Height 162.6 cm (5' 4) 12/15/2018 9:27 AM CDT Body Mass Index [...] this topic Medical Devices Implanted Type Area Curriculum Designer Device Identifier Shelf Expiration Date Model / Serial / Lot Iol [employer] Zcboo - [id number] Implanted:Qty: 1 on 12/07/2018 by Elio Dumont MD at [facility] Lens Right: Eye [employer] 02/01/2022 ZCB00 / [id number] / Iol [employer] Zcboo - [id number] Implanted:Qty: 1 on 12/19/2018 by Elio Dumont MD at [facility] Lens Left: Eye [employer] 05/04/2021 ZCB00 / [id number] / Insurance MEDICARE [facility] Care Teams Printing Plate Setter Relationship Specialty Start Date End Date Jae Benitez MD [address] [place] [id number] PCP - General INTERNAL MEDICINE 12/01/18
--- OUTSIDE RECORDS SUMMARY | 2024-12-28 01:21 | XMS_ITS | Continuity of Care Document ---
Author Organization [facility] Address [address] [place] [address] Phone Care Team Providers Care Dural Mechanic Name Role Phone Noemi Davis Unavailable Unavailable Advance Directives Directive Yes / No Effective Date File Name No Information Encounters Encounter Description Practice Location Reason(s) For Visit Diagnoses Date Provider Providers Copied on Encounter [facility], [id number] [place] [address] [address], [place], [place], [id number], [place] tel:[phone] [facility] No Information [address] Franklin. [address] , [address], [place], [address], [place]. tel:[phone] Family History Family Member Type Diagnosis Age At Onset No Information Payers Payer name Insurance type Covered libertarian ID Authoriza tion(s) No Information Social History [...]
--- OUTSIDE RECORDS SUMMARY | 2024-12-28 01:21 | XMS_ITS | Clinical Summary ---
Author Organization [facility] Address [address] [place] [address] Care Team Providers Care Attendant Sales Name Role Phone Jae Benitez MD Primary Care Provider Allergies No known active allergies Medications aspirin 81 mg chewable tablet daily 020 Active cholecalciferol, vitamin D3, 5,000 unit/mL drops Take by mouth daily 020 Active pravastatin (PRAVACHOL) 40 mg tablet Take 1 tablet (40 mg total) by mouth daily Active cyanocobalamin (Vitamin B-12) 1,000 mcg/mL injection 1 mL (1,000 mcg total) every 30 (thirty) days Active calcium carb-mag hydrox-simeth 1,200 mg-270 mg -80 mg/10 mL suspension Take by mouth Activ e docosahexaenoic acid/epa (FISH OIL ORAL) Take by mouth Active DULoxetine DR (CYMBALTA) 30 mg capsuleIndication s:Diabetic Peripheral Neuropathy Take 1 capsule (30 mg total) by mouth daily 90 capsule 1 022 Active gabapentin (NEURONTIN) 600 mg tabletIndications :Diabetic Peripheral Neuropathy Take 1 tablet (600 mg total) by mouth 3 (three) times a day 270 capsule 3 023 Active insulin degludec (TRESIBA) 100 unit/mL (3 mL) pen for injection Inject 0.16 mL (16 Units total) under the skin nightly 15 mL 6 023 Active Additional Information Patient taking differently: 14 Unitssubcutaneous Nightly, Reported on 10/31/2024 insulin pump cart,auto,BT-cntr (Omnipod 5 G6 Intro Kit, Gen 5,) cartridge Use to take insulin 1 each Active Additional Information Patient not taking.Reported on 10/31/2024 insulin pump cart,automated,BT (Omnipod 5 G6 Pods, Gen 5,) cartridge Use to take insulin 30 each 3 Active Additional Information Patient not taking.Reported on 10/31/2024 furosemide (LASIX) 20 mg tablet TAKE ONE TABLET EVERY WEDNESDAY, WEDNESDAY, WEDNESDAY Active acetaminophen (TYLENOL) 325 mg tabletIndications :Pain Take 2 tablets (650 mg total) by mouth every 6 (six) hours Active oxyCODONE (ROXICODONE) 5 mg immediate release tabletIndications :Pain Take 0.5 tablets (2.5 mg total) by mouth every 4 (four) hours as needed for pain Active Additional Information Patient not taking.Reported on 11/21/2024 polyethylene glycol (MIRALAX) 17 gram/dose bulk powderIndications :constipation Take 17 g by mouth daily Active senna-docusate (PERICOLACE) 8.6-50 mgIndications:con stipation Take 1 tablet by mouth 2 (two) times a day Active insulin lispro (HumaLOG) 100 unit/mL vial for injectionIndicati ons:Diabetes Mellitus Inject 0-5 Units under the skin 3 (three) times a day with meals 2024 Active Additional Information Patient not taking.Reported on 10/31/2024 insulin lispro (HumaLOG U-100 Insulin) 100 unit/mL cartridgeIndicati ons:Diabetes Mellitus Inject 5 Units under the skin 3 (three) times a day with meals Active insulin lispro (HumaLOG U-100 Insulin) 100 unit/mL cartridgeIndicati ons:Diabetes Mellitus Inject 0-4 Units under the skin nightly Active atorvastatin (LIPITOR) 10 mg tablet Take 1 tablet (10 mg total) by mouth daily for 30 days Active cephalexin (KEFLEX) 500 mg capsule Take 1 capsule (500 mg total) by mouth every 12 (twelve) hours Active docusate sodium (COLACE) 100 mg capsule Take 1 capsule (100 mg total) by mouth 2 (two) times a day Active LANTUS 100 unit/mL (3 mL) pen for injection INJECT 14 EVERY DAY AT BEDTIME Active midodrine (PROAMATINE) 5 mg tablet Active ondansetron ODT (ZOFRAN-ODT) 4 mg disintegrating tablet DISSOLVE 1 TABLET IN MOUTH EVERY 8 HOURS NEEDED FOR NAUSEA AND VOMITING Active potassium chloride ER 20 mEq CR tablet Take 1 tablet (20 mEq total) by mouth daily Active HumaLOG 100 unit/mL pen for injection [...] 30 units Dx: E11.65 15 mL 1 025 Active BD Luer-Sarah Syringe 3 mL 25 gauge x 1 syringe USE TO INJECT B12 ONCE MONTHLY. 025 Active denosumab (Prolia) 60 mg/mL syringeIndication s:Age-related osteoporosis without current pathological fracture Inject 1 mL (60 mg total) under the skin once for 1 dose Due 01/2025 1 mL 025 Active Dexcom G6 Sensor deviceIndications :Type 2 diabetes mellitus with hyperglycemia, with long-term current use of insulin (HCC) Use for BG monitoring 10 each 3 025 Active Dexcom G6 Transmitter deviceIndications :Type 2 diabetes mellitus with hyperglycemia, with long-term current use of insulin (HCC) Use for BG monitoring 3 each 3 025 Active insulin pump cart,auto,BT,G6/7 (Omnipod 5 G6-G7 Pods, Gen 5,) cartridgeIndicati ons:Type 2 diabetes mellitus with hyperglycemia, with long-term current use of insulin (HCC) Use to inject insulin continuously. Change pod every 3 days. 30 each 3 05/06/2 025 Active levothyroxine (SYNTHROID) 88 mcg tabletIndications :Acquired hypothyroidism Take 1 tablet (88 mcg total) by mouth 5 (five) times a week AND 2 tablets (176 mcg total) 2 (two) times a week. TAKE 1 TABLET BY MOUTH EVERY DAY WEDNESDAY THROUGH . TAKE 2 TABLETS ON WEDNESDAY.. 108 tablet 1 025 2025 Active insulin lispro (HumaLOG, ADMELOG) 100 unit/mL vial for injectionIndicati ons:Type 2 diabetes mellitus with hyperglycemia, with long-term current use of insulin (HCC) Inject insulin continuously via insulin pump. Max 50 units daily Dx:E11.65 20 mL 11 025 2025 Active Active Problems Problem Noted Date Diagnosed Date Asthma 07/25/2024 Cerebrovascular accident 07/25/2024 Cervical radiculopathy 07/25/2024 Disorder of shoulder 07/25/2024 Osteoarthritis of knee 07/25/2024 Paresthesia 07/25/2024 Pernicious anemia 07/25/2024 Pure hypercholesterolemia 06/06/2024 Fall 05/22/2024 Assessment & Plan (05/22/2024 3:28 PM MAGAZINE WORKER): ground level fall this yesterday at home on her way to the bathroom. She fell onto her left leg. She arrived with left leg deformity. Patient A&Ox4, GCS 15 reported on arrival Discharge planning issues 05/22/2024 Assessment & Plan (05/23/2024 2:10 PM MAGAZINE WORKER): 05/21 admission 05/23 Patient is medically stable for discharge, SW/CM updated. Discharge pending facility acceptance Encounter for medication review 05/22/2024 Other fracture of left femur , initial encounter for closed fracture 05/21/2024 Assessment & Plan (05/22/2024 3:15 PM MAGAZINE WORKER): 05/22 OR with orthopedic - IMN Femur Left WBAT post OR 24 hour cefazolin DVT ppx ok 3 week suture removal Insulin pump status 12/15/2023 Assessment & Plan (10/31/2024 10:27 AM CDT): Has appt today with [facility] for pump training/placement. Assessment & Plan (07/04/2024 2:25 PM MAGAZINE WORKER): Will go back on pump once Dexcom [...] diabetes lj boyd 12/14/2023 Assessment & Plan (10/31/2024 10:05 AM CDT): Chronic problem. Currently taking pravastatin 40mg. Last lipid panel: 05/21/24 LDL=55, TG=72. Assessment & Plan (07/04/2024 1:19 PM MAGAZINE WORKER): Chronic problem. Currently taking pravastatin 40mg. Last lipid panel: 05/21/24 LDL=55, TG=72. Assessment & Plan (03/22/2024 11:59 AM CDT): Chronic problem. Currently taking pravastatin 40mg. Last lipid panel: 08/04/23 LDL=89, TG=81. Assessment & Plan (12/15/2023 10:22 AM CDT): Chronic problem. On statin therapy, no changes. Vitamin D deficiency 05/13/2023 Assessment & Plan (07/04/2024 2:23 PM MAGAZINE WORKER): Chronic problem. Currently taking vitamin D 5000IU daily. Assessment & Plan (12/15/2023 10:22 AM CDT): Chronic stable problem. Assessment & Plan (05/13/2023 4:38 PM MAGAZINE WORKER): Of the 25 hydroxy vitamin-D levels Calcium and vitamin-D intake discussed Type 2 diabetes mellitus wit h hyperglycemia, with long-term current use of insulin 05/13/2023 Assessment & Plan (10/31/2024 10:34 AM CDT): Chronic problem. A1c worsened from 7.4% 07/04/24 to now 9.0%. Had been at [place] with improved diet. Meeting with [employer] equestrian trainer today to get pump back on. Again went over OP5 BR, carb/correctional bolusing. [...] hours UTD on DM eye exam: 07/08/23 [facility] in [place]. UTD on labs. Strive for regular exercise [...] skin breakdown and infection. Assessment & Plan (07/04/2024 2:23 PM MAGAZINE WORKER): Chronic problem. A1c improved from 9.5% 05/21/24 to now 7.5%. has been at [place] since 05/2024; much improved diet. Again went [...] hours UTD on DM eye exam: [facility] [place] UTD on labs. Strive for regular exercise [...] hours UTD on DM eye exam: 07/08/23 [facility] in [place]. UTD on labs. Strive for regular exercise [...] rx. Assessment & Plan (08/24/2023 12:14 PM MAGAZINE WORKER): Chronic problem. A1c currently uncontrolled at 9.6%. [...] 4 hours DM eye exam: summer 2022 [facility] in [place]. Letter sent to get copy of report. [...] infection. Assessment & Plan (05/13/2023 4:37 PM MAGAZINE WORKER): Hba1c was Lab Results Component Value Date [...] units Acquired hypothyroidism 05/13/2023 Assessment & Plan (10/31/2024 10:10 AM CDT): Chronic problem. Clinically euthyroid. Currently taking levothyroxine 88mcg Wednesday-Wednesday & 2 tabs on Wednesday since 04/2023. Was supposed to move up to 1 tab M-F & 2 on weekends but did not. Aware to take 1st thing in morning, 30-60 minutes before food/drink/other medications. Will update labs. Does not mychart. Verified phone #/address to contact re: results. Assessment & Plan (07/04/2024 1:18 PM MAGAZINE WORKER): Chronic problem. Clinically euthyroid. Currently taking levothyroxine [...] TFTs. Assessment & Plan (08/24/2023 12:15 PM MAGAZINE WORKER): Chronic problem. Clinically euthyroid. Currently taking levothyroxine 88mcg Wednesday-Wednesday & 2 tabs on Wednesday since 04/2023. Will update TFTs today. Will update labs today. Does not mychart. Verified phone #/address to contact re: results. Assessment & Plan (05/13/2023 4:38 PM MAGAZINE WORKER): Continue levothyroxine Update TFTs Age-related osteoporosis wit hout current pathological fracture 05/13/2023 Assessment & Plan (10/31/2024 10:14 AM CDT): Chronic problem. Taking Prolia 60mg every 6 mos (last injection 01/2024, due 07/2024). Vitamin D level normal at 77 when checked 03/22/24. 02/2024 ordered DEXA (not sure where she's going to take it yet). Friend will help her schedule. Does not mychart. Verified phone #/address to contact re: results. Friend states that she's having it done at [facility] 05/01/25. Assessment & Plan (07/04/2024 1:18 PM MAGAZINE WORKER): Chronic problem. Taking Prolia 60mg every 6 [...] sent. Assessment & Plan (08/24/2023 12:16 PM MAGAZINE WORKER): Chronic problem. Taking Prolia 60mg every 6 mos (last injection 05/2023). Vitamin D level normal at 67 when checked 04/2023. Unable to see any past Dexa/imaging. Release signed to get copy of results from PCP. Assessment & Plan (05/13/2023 4:39 PM MAGAZINE WORKER): Fall precautions Calcium and vitamin-D intake continue Prolia Acute urinary tract infection 10/15/2022 Depressive disorder 04/07/2022 Dyslipidemia 03/03/2022 COVID-19 02/16/2022 Diabetic peripheral neuropathy 01/30/2021 Assessment & Plan (10/31/2024 10:05 AM CDT): Chronic problem. Currently taking Gabapentin 600mg tid. Reviewed foot care; needs to lotion daily. Aware to check feet nightly, not to go barefoot. Assessment & Plan (07/04/2024 1:18 PM MAGAZINE WORKER): Chronic problem. Currently taking Gabapentin 600mg tid. Reviewed foot care; needs to lotion daily. Aware to check feet nightly, not to go barefoot. Assessment & Plan (03/22/2024 11:58 AM CDT): Chronic problem. Currently taking Gabapentin 600mg tid. Reviewed foot care; needs to lotion daily. Aware to check feet nightly, not to go barefoot. Assessment & Plan (08/24/2023 12:17 PM MAGAZINE WORKER): Chronic problem. Currently taking Gabapentin 600mg tid. Reviewed foot care; needs to lotion daily. Aware to check feet nightly, not to go barefoot. Assessment & Plan (05/13/2023 4:37 PM MAGAZINE WORKER): Foot care discussed Gabapentin 300 mg Q [...] on the increased gabapentin dosing. Vitiligo 09/19/2018 Resolved Problems Problem Noted Date Diagnosed Date Resolved Date DM (diabetes mellitus), type 1 05/22/2024 10/31/2024 Assessment & Plan (05/23/2024 2:11 PM MAGAZINE WORKER): Home insulin pump and dexacom type device for glucose monitoring. Consult endocrine for pump management while admitted POCT glucose SSI regimen per endocrine If pump is off give Lantus 15 units daily and Lispro 5 untis TID AC LD ssi Encounters Date Type Department Care Team Description 11/21/2024 10:10 AM CDT Office Visit [facility] Orth[facility] [address] [place] [address] [place] [address] Ruy Griggs MD Other fracture of left femur, initial encounter for closed fracture (HCC) (Primary Dx) 11/21/2024 9:45 AM CDT - 11/21/2024 11:59 PM CDT Hospital Encounter [facility] [address] [place] [address] Ruy Griggs MD Other fracture of left femur, initial encounter for closed fracture (HCC) Discharge Disposition: Discharge to home or self care 11/08/2024 1:00 PM CDT Clinical Support [facility] [address] [place] [phone] 11/08/2024 Orders Only [facility] [address] [place] [phone] Gudelia Johnson, ASHLYN Type 2 diabetes mellitus with hyperglycemia, with long-term current use of insulin (HCC) (Primary Dx) 11/07/2024 Telephone [facility] [address] [phone] Gudelia Johnson NP 11/07/2024 Telephone [facility] [address] [phone] Gudelia Johnson, ASHLYN [facility]od 11/01/2024 Results Follow-Up [facility] [address] [place] [phone] Gudelia Johnson, ASHLYN Albumin Creatinine Ratio, Urine, Thyroid Function [place], T4, free 10/31/2024 11:00 AM CDT Clinical Support [facility] [address] [place] [phone] 10/31/2024 10:36 AM CDT - 10/31/2024 11:59 PM CDT Hospital Encounter [address] [id number] Type 2 diabetes mellitus with hyperglycemia, with long-term current use of insulin (HCC); Acquired hypothyroidism Discharge Disposition: Discharge to home or self care 10/31/2024 10:30 AM CDT Lab [facility] at [address] [phone] 10/31/2024 10:00 AM CDT Office Visit [facility] Endocrinology [address] [place] [phone] Gudelia Johnson NP Type 2 diabetes mellitus with hyperglycemia, with long-term current use of insulin (HCC) (Primary Dx); Hyperlipidemia associated with type 2 diabetes mellitus (HCC); Diabetic peripheral neuropathy (HCC); Insulin pump status; Acquired hypothyroidism; Age-related osteoporosis without current pathological fracture 10/31/2024 Orders Only [facility] Endocr[facility]ology [address] [place] [phone] Gudelia Johnson NP Type 2 diabetes mellitus with hyperglycemia, with long-term current use of insulin (HCC) (Primary Dx) 10/26/2024 11:00 AM CDT Clinical Support [facility] Endocr[facility] [address] [place] [phone] 10/10/2024 Telephone [facility] Endocr[facility]ology [address] [place] [phone] Gudelia Johnson NP Med Refill from Last [...] Sign Reading Time Taken Comments Blood Pressure 112/72 10/31/2024 9:47 AM CDT Pulse 70 10/31/2024 9:47 AM CDT Temperature 36.7 C (98.1 F) 05/24/2024 3:56 PM MAGAZINE WORKER Respiratory Rate 16 10/31/2024 9:47 AM CDT Oxygen Saturation 92% 05/24/2024 3:56 PM MAGAZINE WORKER Inhaled Oxygen Concentration - - Weight 78.5 kg (173 lb) 10/31/2024 9:47 AM CDT Height 162.6 cm (5' 4.02) 10/31/2024 9:47 AM CD T Body Mass Index 29.68 10/31/2024 9:47 AM CDT Plan of Treatment Health Maintenance Due Date Last Done Comments Hepatitis C Screening 1945 Osteoporosis Screening-Bone Density Scan 1945 Hepatitis B Screening 10/13/1963 Well Visit 65+ 2010 Zoster Vaccine (2 of 3) 07/30/2021 06/04/20 21, 04/03/2021, 07/14/2013 Depression Screening 05/13/2024 05/13/2023 Dilated Eye Exam 07/08/2024 07/08/2023 Influenza Vaccine (Season Ended) 2025 04/03/2021, 04/15/2020, 04/05/2019 Hemoglobin A1C 05/03/2025 10/31/2024, 12/2024, 05/21/2024, Additional history exists Lipid Panel 05/21/2025 05/21/2024, 12/2023, 05/13/2023 Fall Risk Assessment 05/24/2025 05/24/2024, 05/13/20 23 eGFR 07/05/2025 07/05/2024, 04/29, 05/22/2024, Additional history exists Albumin Creatinine Ratio, Urine 10/31/2025 10/31/2024, 08/24/2023, 08/04/2023 Foot Exam 10/31/2025 10/31/2024, 08/24/2023 TSH Level 10/31/2025 10/31/2024, 04/29, 05/21/2024, Additional history exists DTaP/Tdap/Td Vaccine (2 - Td or Tdap) 01/06/2033 01/06/2023 Pneumococcal vaccine 65+ Completed 05/16/2018, 04/29 Medical Devices Implanted Type Area Specialized Language Instructor Device Identifier Shelf Expiration Date Model / Serial / Lot [employer] Nail Intramedullary Femoral Retrograde T2 Alpha [id number] Titanium 2339-1238s - [id number] Implanted:Qty: 1 on 05/22/2024 by Ruy Griggs MD at [facility] Nail Left: Femur [employer] 05/27/2032 [id number] S / / [id number] [employer] Screw Bone 5mm 80mm Lock Strl 2361-5080s - [id number] Implanted:Qty: 1 on 05/22/2024 by Ruy Griggs MD at [facility] Left: Femur [employer] [id number] 01/25/2034 0043-6875 S / / [id number] [employer] Screw Bone 5mm 75mm Lock Strl 2361-5075s - [id number] Implanted:Qty: 1 on 05/22/2024 by Ruy Griggs MD at [facility] Left: Femur [employer] [id number] 01/25/2034 3703-7225 S / / [id number] [employer] Screw Bone 5mm 80mm Lock Strl 2361-5080s - [id number] Implanted:Qty: 1 on 05/22/2024 by Ruy Griggs MD at [facility] Left: Femur [employer] [id number] 02/25/2034 7497-8525 S / / [id number] [employer] Screw Bone Locking Cannulated Tibial Oversized Thread Black T2 Alpha 5.0x85mm Titanium 2361-5085s - [id number] Implanted:Qty: 1 on 05/22/2024 by Ruy Griggs MD at [facility] Left: Femur [employer] [id number] 02/25/2034 5198-9241 S / / [id number] [employer] Screw Bone 5mm 40mm T2 Alpha Lock Strl 2360-5040s - [id number] Implanted:Qty: 1 on 05/22/2024 by Ruy Griggs MD at [facility] Left: Femur [employer] [id number] 02/25/2034 3529-7544 S / / [id number] [employer] Screw Bone 5mm 40mm T2 Alpha Lock Strl 2360-5040s - [id number] Implanted:Qty: 1 on 05/22/2024 by Ruy Griggs MD at [facility] Left: Femur [employer] [id number] 01/25/2034 0088-9455 S / / [id number] Procedures Procedure Name Priority Date/Time Associated Diagnosis Comments XR FEMUR LEFT 2 OR MORE VIEWS Schedule Routine, Read Routine (OP Routine) 11/21/2024 10:14 AM CDT Other fracture of left femur, initial encounter for closed fracture (HCC) T4, FREE Routine 10/31/2024 10:36 AM CDT Acquired hypothyroidism THYROID FUNCTION CASCADE Routine 10/31/2024 10:36 AM CDT Acquired hypothyroidism ALBUMIN CREATININE RATIO, URINE Routine 10/31/2024 10:36 AM CDT Type 2 diabetes mellitus with hyperglycemia, with long-term current use of insulin (HCC) POCT GLUCOSE Routine 10/31/2024 9:51 AM CDT Type 2 diabetes mellitus with hyperglycemia, with long-term current use of insulin (HCC) POCT HEMOGLOBIN A1C Routine 10/31/2024 9:51 AM CDT Type 2 diabetes mellitus with hyperglycemia, with long-term current use of insulin (HCC) EGFR Routine 07/05/2024 2:07 PM MAGAZINE WORKER LIPID PANEL STAT 05/21/2024 10:42 AM MAGAZINE WORKER HM DIABETES EYE EXAM Routine 07/08/2023 10:42 AM MAGAZINE WORKER from Last 3 Months or Most Recently Relevant to Health Maintenance Results * XR Femur Left 2 or More Views (11/21/2024 10:14 AM CDT) Anatomical Region Laterality Modality Lower Extremities, Thigh, Femur Left Computed Radiography 11/21/2024 1:35 PM CDT Impressions 11/21/2024 1:38 PM CDT 1. Continued healing of the reduced and internally fixated left femoral shaft fracture Dictated by: Marcello Doyle MD The radiology attending physician has personally reviewed this study, and had reviewed and/or edited this written report and agrees with it. Electronically signed by: Bowen Menendez D.O. Narrative 11/21/2024 1:38 PM CDT EXAMINATION: XR FEMUR LEFT 2 OR MORE VIEWS HISTORY: Left femur fracture FINDINGS: 4 radiographs of the left femur are interpreted. Continued healing of the reduced and internally fixated left femoral shaft fracture with a retrograde intramedullary neftali in near anatomic alignment. Mild left hip and knee osteoarthritis. Atherosclerotic calcifications. Procedure Note Bowen Menendez DO - 11/21/2024 EXAMINATION: XR FEMUR LEFT 2 OR MORE VIEWS HISTORY: Left femur fracture FINDINGS: 4 radiographs of the left femur are interpreted. Continued healing of the reduced and internally fixated left femoral shaft fracture with a retrograde intramedullary neftali in near anatomic alignment. Mild left hip and knee osteoarthritis. Atherosclerotic calcifications. IMPRESSION: 1. Continued healing of the reduced and internally fixated left femoral shaft fracture Dictated by: Marclelo Doyle MD The radiology attending physician has personally reviewed this study, and had reviewed and/or edited this written report and agrees with it. Electronically signed by: Bowen Menendez D.O. us Ruy Griggs MD IMG XR PROCEDURES Final R esult * (ABNORMAL) Thyroid Function [place] (10/31/2024 10:36 AM CDT) TSH 19.10(H) 0.30 - 4.20 mcIUnit/mL Blood 10/31/2024 10:3 6 AM CDT 10/31/2024 7:00 PM CDT Gudelia Johnson DATA ANALYSIS MANAGER LAB BLOOD ORDERABLES Bere l Result Performing Organization Address [facility] Co de Phone Number [facility] [address] [place] [address] * Albumin Creatinine Ratio, Urine (10/31/2024 10:36 AM CDT) Albumin Ur 42.0 mg/L Comment: Interpretive Data No reference range established. Current interpretive data was last revised 2018. Creatinine Ur 168.5 mg/dL [facility] Comment: Interpretive Data No reference range established. Current interpretive data was last revised 2018. Albumin Creatinine Ratio, Ur 25 1 - 29 mg/g [facility] Urine 10/31/2024 10:3 6 AM CDT 10/31/2024 7:00 PM CDT Gudelia Johnson DATA ANALYSIS MANAGER LAB URINE ORDERABLES Bere l Result Performing Organization Address [facility]/ZIP Co de Phone Number [facility] [address] [facility] [address] [place] [address] * T4, free (10/31/2024 10:36 AM CDT) Free T4 1.12 0.90 - 1.70 ng/dL Blood 10/31/2024 10:3 6 AM CDT 10/31/2024 9:20 PM CDT us Gudelia Johnson DATA ANALYSIS MANAGER LAB BLOOD ORDERABLES Bere l Result [facility] [address] Department [place] [address] * (ABNORMAL) POCT hemoglobin A1c (10/31/2024 9:51 AM CDT) Hemoglobin A1C, POC 9.0(A) 4.0 - 5.6 % Blood 10/31/2024 9:51 AM CDT us Gudeliadana Johnson DATA ANALYSIS MANAGER POINT OF CARE TEST ORDERA BLES Final Result * (ABNORMAL) POCT glucose (10/31/2024 9:51 AM CDT) Glucose Blood, POC 230 Normal Fasting 70 - 100, Random <200 mg/dL Blood 10/31/2024 9:51 AM CDT us Gudelia Johnson NP POINT OF CARE TEST ORDERA BLES Final Result * (ABNORMAL) eGFR (07/05/2024 2:07 PM MAGAZINE WORKER) eGFR 59(L) >=60 mL/min/1. 73 m2 Comment: [...] was last reviewed 2021. Testing performed by: [facility], [facility] [address], [place] [address] Blood 07/05/2024 2:07 PM MAGAZINE WORKER 07/05/2024 6:42 PM MAGAZINE WORKER Anitha Dean NP LAB BLOOD ORDERABLES Final Resu lt [facility] [address] Department [place] [address] * Lipid panel (05/21/2024 10:42 AM MAGAZINE WORKER) Cholesterol 149 30 - 199 mg/dL Comment: [...] revised on 2018. Triglycerides 72 <=149 mg/dL [facility] Comment: Interpretive Data Ages < or [...] revised on 2018. HDL 80 >=40 mg/dL [facility] [facility] Comment: Interpretive Data Ages < or [...] on 2018. LDL, calculated 55 <=129 mg/dL [facility] Comment: Interpretive Data Ages < or [...] 3. Riki Rome et al. LARRY Cardiol. 2019October 26;5(5):540-548. doi: 10.1001/jamacardio.2020.0013 Current Interpretive Data was last revised on 2024. Non-HDL Cholesterol 69 mg/dL [facility] Comment: Interpretive Data Ages < or [...] last revised on 2018. Chol/HDL ratio 2 [facility] Blood 05/21/2024 10:4 2 AM MAGAZINE WORKER 05/21/2024 10:56 AM MAGAZINE WORKER Narrative [facility] - 05/22/2024 5:09 PM MAGAZINE WORKER Reflex us Pretty Hood MD LAB BLOOD ORDERABLES Final Res ult [facility] Department [place] [address] * (ABNORMAL) DIABETES EYE EXAM (07/08/2023 10:42 AM MAGAZINE WORKER) us Historical Provider HEALTH MAINTENANCE Final Result from Last 3 Months or Most Recently Relevant to Health Maintenance Insurance MEDICARE BLUE [employer]ITIONAL OOS [employer]UE [employer]ITIONAL OOS MEDICARE MEDICARE [place] [employer]ITION[employer] OOS Advance Directives For more information, please contact: [phone] * Full Code (Latest Code Status on File) Date Activated Date Inactivated Comments 05/21/2024 11:30 PM 05/25/2024 12:27 AM Care Teams Attendant Sales Relationship Specialty Start Date End Date Jae Benitez MD [address] [address] PCP - General Internal Medicine 12/02/20
--- OUTSIDE RECORDS SUMMARY | 2024-12-28 01:21 | XMS_ITS | Encounter Summary ---
Author Organization [facility] Healthcare Address [address] [place] [address] Care Team Providers Care Kennel Operator Name Role Phone Jae Benitez MD Primary Care Provider Encounter Details Date Type Department Care Team (Late st Contact Info) Description 11/01/2024 Results Follow-Up [facility] Medical Group Diabetes and Endocrinology [address] [place] [phone] Gudelia Johnson, EMISSIONS TESTING TECHNICIAN [address] [facility] [address] [place] [address] Albumin Creatinine Ratio, Urine, Thyroid Function [place], T4, free Social History Tobacco Use Types Packs/Day Years [...] on file documented as of this encounter Ordered Prescriptions Prescription Sig Dispense Quantity Refills Last Filled Start Date End Date levothyroxine (SYNTHROID) 88 mcg tabletIndications:Ac quired hypothyroidism Take 1 tablet (88 mcg total) by mouth 5 (five) times a week AND 2 tablets (176 mcg total) 2 (two) times a week. TAKE 1 TABLET BY MOUTH EVERY DAY WEDNESDAY THROUGH . TAKE 2 TABLETS ON WEDNESDAY.. 108 tablet 1 11/01/2024 documented in this encounter Miscellaneous Notes * Result Encounter Note - Gudelia Johnson NP - 11/01/2024 4:03 PM CDT [phone] Spoke w/Carrie. Will increase levothyroxine to 1 tab M-F, 2 tabs Sat/Sun. Will repeat labs in 6 wks. documented in this encounter Plan of Treatment Scheduled Orders Name Type Priority Associated Diagnoses Orde r Schedule T4, free Lab Routine Acquired hypothyroidism Expected: 12/02/2024 (Approximate), Expires: 11/01/2025 TSH Lab Routine Acquired hypothyroidism Expected: 12/02/2024 (Approximate), Expires: 11/01/2025 documented as of this encounter Visit Diagnoses Diagnosis Acquired hypothyroidism- Primary Unspecified hypothyroidism documented in this encounter Discontinued Medications Medication Sig Discontinue Reason Start Date End Da te levothyroxine (SYNTHROID) 100 mcg tablet 08/28/2024 11/01/2024 levothyroxine (SYNTHROID) 88 mcg tablet TAKE 1 TABLET BY MOUTH EVERY DAY WEDNESDAY THROUGH . TAKE 2 TABLETS ON WEDNESDAY. Reorder 05/01/2024 11/01/2024 documented as of this encounter Care Teams Kennel Operator Relationship Specialty Start Date End Date Jae Benitez MD [address] [facility] [address] [place] [id number] PCP - General Internal Medicine 12/02/20 documented as of this encounter
--- OUTSIDE RECORDS SUMMARY | 2024-12-28 01:22 | XMS_ITS | Referral Summary ---
Author Organization [facility] Address [address] [place] [address] Care Team Providers Care Administrative Services Officer Name Role Phone Jae Benitez MD Primary Care Provider Encounters Date Type Department Care Team Description 11/21/2024 9:45 AM CDT - 11/21/2024 11:59 PM CDT Hospital Encounter [facility] [address] [place] [address] Ruy Griggs MD Other fracture of left femur, initial encounter for closed fracture (HCC) Discharge Disposition: Discharge to home or self care 11/21/2024 10:10 AM CDT Office Visit [facility] Orthopaedic Surgery [address] [facility] Advanced Medicine 6th [place] [address] [place] [address] Ruy Griggs MD Other fracture of left femur, initial encounter for closed fracture (HCC) (Primary Dx) 11/08/2024 Orders Only [facility] Medical Group Diabetes and Endocrinology [address] [place] [phone] Gudelia Johnson, ASHLYN Type 2 diabetes mellitus with hyperglycemia, with long-term current use of insulin (HCC) (Primary Dx) 11/08/2024 1:00 PM CDT Clinical Support [facility] Medical [facility] Diabetes and Endocrinology [address] [place] [phone] 11/07/2024 [facility] [address] [place] [address] [address], [place] [address] Gudelia Johnson NP 11/07/2024 Telephone [facility] [address] [facility] [address] [place] [address] Gudelia Johnson NP Omnipod 11/01/2024 Results Follow-Up [facility] Diabetes and Endocrinology [address] [place] [phone] Gudelia Johnson NP Albumin Creatinine Ratio, Urine, Thyroid Function [place], T4, free 10/31/2024 10:36 AM CDT - 10/31/2024 11:59 PM CDT Hospital Encounter [facility] [address] [place] [address] Type 2 diabetes mellitus with hyperglycemia, with long-term current use of insulin (HCC); Acquired hypothyroidism Discharge Disposition: Discharge to home or self care 10/31/[address] [facility] Diabetes and Endocrinology [address] [place] [phone] Gudelia Johnson NP Type 2 diabetes mellitus with hyperglycemia, with long-term current use of insulin (HCC) (Primary Dx) 10/31/2024 10:30 AM CDT Lab [facility] Outpatient Lab at [address] [address] 10/31/2024 11:00 AM CDT Clinical Support [facility] Diabetes and Endocrinology [address] [place] [phone] 10/31/2024 10:00 AM CDT Office Visit [facility] Diabetes and Endocrinology [address] [place] [phone] Gudelia Johnson NP Type 2 diabetes mellitus with hyperglycemia, with long-term current use of insulin (HCC) (Primary Dx); Hyperlipidemia associated with type 2 diabetes mellitus (HCC); Diabetic peripheral neuropathy (HCC); Insulin pump status; Acquired hypothyroidism; Age-related osteoporosis without current pathological fracture 10/26/2024 11:00 AM CDT Clinical Support [facility] Diabetes and Endocrinology [address] [place] [phone] 10/10/2024 Telephone [facility] Diabetes and Endocrinology [address] [place] [phone] Gudelia Johnson, ASHLYN Med Refill from Last 3 Months Allergies No known active allergies Medications aspirin 81 mg chewable tablet daily Active cholecalciferol, vitamin D3, 5,000 unit/mL drops Take by mouth daily Active pravastatin (PRAVACHOL) 40 mg tablet Take [...] under the skin nightly 15 mL 6 Active Additional Information Patient taking differently: 14 Unitssubcutaneous Nightly, Reported on 10/31/2024 insulin pump cart,auto,BT-cntr (Omnipod 5 G6 Intro Kit, Gen 5,) cartridge Use to take insulin 1 each 023 Active Additional Information Patient not taking.Reported on 10/31/2024 insulin pump cart,automated,BT (Omnipod 5 G6 Pods, Gen 5,) cartridge Use to take insulin 30 each 3 023 Active Additional Information Patient not taking.Reported on [...] 30 units Dx: E11.65 15 mL 1 Active BD Luer-Sarah Syringe 3 mL 25 gauge x 1 syringe USE TO INJECT B12 ONCE MONTHLY. Active denosumab (Prolia) 60 mg/mL syringeIndication s:Age-related osteoporosis without current pathological fracture Inject 1 mL (60 mg total) under the skin once for 1 dose Due 01/2025 1 mL Active Dexcom G6 Sensor deviceIndications :Type 2 diabetes mellitus with hyperglycemia, with long-term current use of insulin (HCC) Use for BG monitoring 10 each 3 Active Dexcom G6 Transmitter deviceIndications :Type 2 diabetes mellitus with hyperglycemia, with long-term current use of insulin (HCC) Use for BG monitoring 3 each 3 Active insulin pump cart,auto,BT,G6/7 (Omnipod 5 G6-G7 Pods, Gen 5,) cartridgeIndicati ons:Type 2 diabetes mellitus with hyperglycemia, with long-term current use of insulin ([facility]) Use to inject insulin continuously. Change pod every 3 days. 30 each 3 Active levothyroxine (SYNTHROID) 88 mcg tabletIndications :Acquired [...] hyperglycemia, with long-term current use of insulin ([facility]) Inject insulin continuously via insulin pump. Max 50 units daily Dx:E11.65 20 mL 11 025 2025 Active Active Problems Problem Noted Date Diagnosed Date Asthma 07/25/2024 Cerebrovascular accident 07/25/2024 Cervical radiculopathy 07/25/2024 Disorder of shoulder 07/25/2024 Osteoarthritis of knee 07/25/2024 Paresthesia 07/25/2024 Pernicious anemia 07/25/2024 Pure hypercholesterolemia 06/06/2024 Fall 05/22/2024 Assessment & Plan (05/22/2024 3:28 PM COGNOS CONSULTANT): ground level fall this yesterday at home on her way to the bathroom. She fell onto her left leg. She arrived with left leg deformity. Patient A&Ox4, GCS 15 reported on arrival Discharge planning issues 05/22/2024 Assessment & Plan (05/23/2024 2:10 PM COGNOS CONSULTANT): 05/21 admission 05/23 Patient is medically stable for discharge, SW/CM updated. Discharge pending facility acceptance Encounter for medication review 05/22/2024 Other fracture of left femur , initial encounter for closed fracture 05/21/2024 Assessment & Plan (05/22/2024 3:15 PM COGNOS CONSULTANT): 05/22 OR with orthopedic - IMN Femur Left WBAT post OR 24 hour cefazolin DVT ppx ok 3 week suture removal Insulin pump status 12/15/2023 Assessment & Plan (10/31/2024 10:27 AM CDT): Has appt today with Ivy at [facility] for pump training/placement. Assessment & Plan (07/04/2024 2:25 PM COGNOS CONSULTANT): Will go back on pump once Dexcom [...] TG=72. Assessment & Plan (07/04/2024 1:19 PM COGNOS CONSULTANT): Chronic problem. Currently taking pravastatin 40mg. Last lipid panel: 05/21/24 LDL=55, TG=72. Assessment & Plan (03/22/2024 11:59 AM CDT): Chronic problem. Currently taking pravastatin 40mg. Last lipid panel: 08/04/23 LDL=89, TG=81. Assessment & Plan (12/15/2023 10:22 AM CDT): Chronic problem. On statin therapy, no changes. Vitamin D deficiency 05/13/2023 Assessment & Plan (07/04/2024 2:23 PM COGNOS CONSULTANT): Chronic problem. Currently taking vitamin D 5000IU daily. Assessment & Plan (12/15/2023 10:22 AM CDT): Chronic stable problem. Assessment & Plan (05/13/2023 4:38 PM COGNOS CONSULTANT): Of the 25 hydroxy vitamin-D levels Calcium and vitamin-D intake discussed Type 2 diabetes mellitus wit h hyperglycemia, with long-term current use of insulin 05/13/2023 Assessment & Plan (10/31/2024 10:34 AM CDT): Chronic problem. A1c worsened from 7.4% 07/04/24 to now 9.0%. Had been at [facility] with improved diet. Meeting with omnipod parent trainer today to get pump back on. [...] hours UTD on DM eye exam: 07/08/23 [facility] in [place]. UTD on labs. Strive for regular exercise [...] infection. Assessment & Plan (07/04/2024 2:23 PM COGNOS CONSULTANT): Chronic problem. A1c improved from 9.5% 05/21/24 to now 7.5%. has been at [facility] since 05/2024; much improved diet. Again went [...] hours UTD on DM eye exam: 07/08/23 [facility] in [place]. UTD on labs. Strive for regular exercise [...] hours UTD on DM eye exam: [facility] [place] UTD on labs. Strive for regular exercise [...] rx. Assessment & Plan (08/24/2023 12:14 PM COGNOS CONSULTANT): Chronic problem. A1c currently uncontrolled at 9.6%. [...] 4 hours DM eye exam: summer 2022 [facility] in [place]. Letter sent to get copy of report. [...] infection. Assessment & Plan (05/13/2023 4:37 PM COGNOS CONSULTANT): Hba1c was Lab Results Component Value Date [...] results. Assessment & Plan (07/04/2024 1:18 PM COGNOS CONSULTANT): Chronic problem. Clinically euthyroid. Currently taking levothyroxine [...] TFTs. Assessment & Plan (08/24/2023 12:15 PM COGNOS CONSULTANT): Chronic problem. Clinically euthyroid. Currently taking levothyroxine 88mcg Wednesday-Wednesday & 2 tabs on Wednesday since 04/2023. Will update TFTs today. Will update labs today. Does not mychart. Verified phone #/address to contact re: results. Assessment & Plan (05/13/2023 4:38 PM COGNOS CONSULTANT): Continue levothyroxine Update TFTs Age-related osteoporosis wit [...] states that she's having it done at [facility] 05/01/25. Assessment & Plan (07/04/2024 1:18 PM COGNOS CONSULTANT): Chronic problem. Taking Prolia 60mg every 6 [...] sent. Assessment & Plan (08/24/2023 12:16 PM COGNOS CONSULTANT): Chronic problem. Taking Prolia 60mg every 6 mos (last injection 05/2023). Vitamin D level normal at 67 when checked 04/2023. Unable to see any past Dexa/imaging. Release signed to get copy of results from PCP. Assessment & Plan (05/13/2023 4:39 PM COGNOS CONSULTANT): Fall precautions Calcium and vitamin-D intake continue Prolia Acute urinary tract infection 10/15/2022 Depressive disorder 04/07/2022 Dyslipidemia 03/03/2022 COVID-19 02/16/2022 Diabetic peripheral neuropathy 01/30/2021 Assessment & Plan (10/31/2024 10:05 AM CDT): Chronic problem. Currently taking Gabapentin 600mg tid. Reviewed foot care; needs to lotion daily. Aware to check feet nightly, not to go barefoot. Assessment & Plan (07/04/2024 1:18 PM COGNOS CONSULTANT): Chronic problem. Currently taking Gabapentin 600mg tid. Reviewed foot care; needs to lotion daily. Aware to check feet nightly, not to go barefoot. Assessment & Plan (03/22/2024 11:58 AM CDT): Chronic problem. Currently taking Gabapentin 600mg tid. Reviewed foot care; needs to lotion daily. Aware to check feet nightly, not to go barefoot. Assessment & Plan (08/24/2023 12:17 PM COGNOS CONSULTANT): Chronic problem. Currently taking Gabapentin 600mg tid. Reviewed foot care; needs to lotion daily. Aware to check feet nightly, not to go barefoot. Assessment & Plan (05/13/2023 4:37 PM COGNOS CONSULTANT): Foot care discussed Gabapentin 300 mg Q [...] 10/31/2024 Assessment & Plan (05/23/2024 2:11 PM COGNOS CONSULTANT): Home insulin pump and dexacom type device for glucose monitoring. Consult endocrine for pump management while admitted POCT glucose SSI regimen per endocrine If pump is off give Lantus 15 units daily and Lispro 5 untis TID AC LD ssi Social History Tobacco Use Types Packs/Day Years [...] 36.7 C (98.1 F) 05/24/2024 3:56 PM COGNOS CONSULTANT Respiratory Rate 16 10/31/2024 9:47 AM CDT Oxygen Saturation 92% 05/24/2024 3:56 PM COGNOS CONSULTANT Inhaled Oxygen Concentration - - Weight 78.5 kg (173 lb) 10/31/2024 9:47 AM CDT Height 162.6 cm (5' 4.02) 10/31/2024 9:47 AM CD T Body Mass Index 29.68 10/31/2024 9:47 AM CDT Plan of Treatment Not on file Medical Devices Implanted Type Area Molder Apprentice Device Identifier Shelf Expiration Date Model / Serial / Lot [employer] Nail Intramedullary Femoral Retrograde T2 Alpha [id number] Titanium 2339-1238s - [id number] Implanted:Qty: 1 on 05/22/2024 by Ruy Griggs MD at [facility] Nail Left: Femur [employer] 05/27/2032 [id number] S / / [id number] [employer] Screw Bone 5mm 80mm Lock Strl [id number] - [id number] Implanted:Qty: 1 on 05/22/2024 by Ruy Griggs MD at [facility] Left: Femur [employer] [id number] 01/25/2034 8186-4869 S / / [id number] [employer] Screw Bone 5mm 75mm Lock Strl 2361-5075s - [id number] Implanted:Qty: 1 on 05/22/2024 by Ruy Griggs MD at [facility] Left: Femur [employer] [id number] 01/25/2034 5638-4453 S / / [id number] [employer] Screw Bone 5mm 80mm Lock Strl 2361-5080s - [id number] Implanted:Qty: 1 on 05/22/2024 by Ruy Griggs MD at [facility] Left: Femur [employer] [id number] 02/25/2034 2311-3047 S / / [id number] [employer] Screw Bone Locking Cannulated Tibial Oversized Thread Black T2 Alpha 5.0x85mm Titanium 2361-5085s - [id number] Implanted:Qty: 1 on 05/22/2024 by Ruy Griggs MD at [facility] Left: Femur [employer] [id number] 02/25/2034 2281-8667 S / / [id number] [employer] Screw Bone 5mm 40mm T2 Alpha Lock Strl 2360-5040s - [id number] Implanted:Qty: 1 on 05/22/2024 by Ruy Griggs MD at [facility] Left: Femur [employer] [id number] 02/25/2034 5367-4849 S / / [id number] [employer] Screw Bone 5mm 40mm T2 Alpha Lock Strl 2360-5040s - [id number] Implanted:Qty: 1 on 05/22/2024 by Ruy Griggs MD at [facility] Left: Femur [employer] [id number] 01/25/2034 0563-7076 S / / [id number] Procedures Procedure Name Priority Date/Time Associated Diagnosis [...] insulin (HCC) EGFR Routine 07/05/2024 2:07 PM COGNOS CONSULTANT LIPID PANEL STAT 05/21/2024 10:42 AM COGNOS CONSULTANT HM DIABETES EYE EXAM Routine 07/08/2023 10:42 AM COGNOS CONSULTANT from Last 3 Months or Most Recently [...] knee osteoarthritis. Atherosclerotic calcifications. Procedure Note Bowen Menendez, DO - 11/21/2024 EXAMINATION: XR FEMUR LEFT [...] Final R esult * (ABNORMAL) Thyroid Function [place] (10/31/2024 10:36 AM CDT) [facility] TSH 19.10(H) 0.30 - 4.20 mcIUnit/mL Blood 10/31/2024 10:3 6 AM CDT 10/31/2024 7:00 PM CDT Gudeliadana Johnson SAMPLING EXPERT LAB BLOOD ORDERABLES Bere l Result Performing Organization Address [facility] de Phone Number [facility] [address] [place] [address] * Albumin Creatinine Ratio, Urine (10/31/2024 10:36 AM CDT) [facility] Albumin Ur 42.0 mg/L Comment: Interpretive Data No reference range established. Current interpretive data was last revised 2018. Creatinine Ur 168.5 mg/dL [facility] Comment: Interpretive Data No reference range established. Current interpretive data was last revised 2018. Albumin Creatinine Ratio, Ur 25 1 - 29 mg/g [facility] Urine 10/31/2024 10:3 6 AM CDT 10/31/2024 7:00 PM CDT us Gudelia Johnson SAMPLING EXPERT LAB URINE ORDERABLES Bere l Result Performing Organization Address [facility] de Phone Number [facility] [address] [facility] [place] [address] * T4, free (10/31/2024 10:36 AM CDT) [facility] Free T4 1.12 0.90 - 1.70 ng/dL Blood 10/31/2024 10:3 6 AM CDT 10/31/2024 9:20 PM CDT us Gudelia Johnson SAMPLING EXPERT LAB BLOOD ORDERABLES Bere l Result [facility] [address] [place] [address] * (ABNORMAL) POCT hemoglobin A1c (10/31/2024 9:51 AM CDT) [facility] Hemoglobin A1C, POC 9.0(A) 4.0 - 5.6 % Blood 10/31/2024 9:51 AM CDT us Gudeliadana Johnson SAMPLING EXPERT POINT OF CARE TEST ORDERA BLES Final Result * (ABNORMAL) POCT glucose (10/31/2024 9:51 AM CDT) [facility] Glucose Blood, POC 230 Normal Fasting 70 - 100, Random <200 mg/dL Blood 10/31/2024 9:51 AM CDT us Gudeliadana Johnson SAMPLING EXPERT POINT OF CARE TEST ORDERA BLES Final Result * (ABNORMAL) eGFR (07/05/2024 2:07 PM COGNOS CONSULTANT) [facility] eGFR 59(L) >=60 mL/min/1. 73 m2 Comment: [...] was last reviewed 2021. Testing performed by: [facility], [address] [place] [address] Jonny, [place] [address] Blood 07/05/2024 2:07 PM COGNOS CONSULTANT 07/05/2024 6:42 PM COGNOS CONSULTANT us Anitha Dean NP LAB BLOOD ORDERABLES Final Resu lt [facility] [address] [place] [address] * Lipid panel (05/21/2024 10:42 AM COGNOS CONSULTANT) Cholesterol 149 30 - 199 mg/dL Comment: [...] revised on 2018. Triglycerides 72 <=149 mg/dL [facility] Comment: Interpretive Data Ages < or [...] on 2018. HDL 80 >=40 mg/dL [facility] Comment: Interpretive Data Ages < or [...] 2018. LDL, calculated 55 <=129 mg/dL [facility] Comment: Interpretive Data Ages < or [...] revised on 2024. Non-HDL Cholesterol 69 mg/dL [facility] Comment: Interpretive Data Ages < or [...] last revised on 2018. Chol/HDL ratio 2 [facility] Blood 05/21/2024 10:4 2 AM COGNOS CONSULTANT 05/21/2024 10:56 AM COGNOS CONSULTANT Narrative [facility] - 05/22/2024 5:09 PM COGNOS CONSULTANT Reflex us Pretty Hood MD LAB BLOOD ORDERABLES Final Res ult [facility] [place] [address] * (ABNORMAL) DIABETES EYE EXAM (07/08/2023 10:42 AM COGNOS CONSULTANT) us Historical Provider HEALTH MAINTENANCE Final Result from Last 3 Months or Most Recently Relevant to Health Maintenance Insurance MEDICARE [facility] OOS [place] [employer] OOS MEDICARE MEDICARE BLUE TRADITIONAL OOS Advance Directives For more information, please contact: [phone] * Full Code (Latest Code Status on File) Date Activated Date Inactivated Comments 05/21/2024 11:30 PM 05/25/2024 12:27 AM Care Teams Administrative Services Officer Relationship Specialty Start Date End Date Jae Benitez MD [address] [facility] [address] [place] [address] PCP - General Internal Medicine 12/02/20
[2024-12-28 01:52] LABS: Hematocrit 33.8 % (37.0-47.0); Hemoglobin 10.0 g/dL (12.0-15.0); Immature Granulocyte Percent A 0.3 % (0-0.5); Lymphocytes Absolute Auto 1.09 K/mm3 (0.9-3.2); Mean Corpuscular HGB Conc 29.6 g/dl (32-36); Mean Corpuscular Hemoglobin 24.4 pg (26-34); Mean Corpuscular Volume 82.4 fl (80-100); Nucleated Red Blood Cells Absolute Auto 0.000 K/mm3 (0.0-0.012); Nucleated Red Blood Cells Perc 0.0 % (0.0-0.2); Platelet Count Result 155 k/mm3 (150-375); Red Blood Count 4.10 M/mm3 (4.2-5.4); White Blood Count 7.8 K/mm3 (4.5-10.0)
[2024-12-28 02:01] LABS: Anion Gap 10 mmol/L (4-12); Blood Urea Nitrogen 23 mg/dL (7-17); Calcium 9.8 mg/dL (8.4-10.2); Carbon Dioxide 26 mmol/L (22-30); Chloride 101 mmol/L (98-107); Estimated CRCL calculation 40 ml/min; Estimated Glomerular Filt Rate 53; Glucose 340 mg/dL (65-110); Potassium 4.3 mmol/L (3.4-5.0); Sodium 137 mmol/L (137-145)
[2024-12-28 02:04] LABS: INR 1.0; Prothrombin Time 13.3 Seconds (11.1-14.7)
[2024-12-28 02:05] LABS: Partial Thromboplastin Time 25.1 Seconds (22.3-36.8)
[2024-12-28] MEDS: HYDROmorphone HCL INJ (*CRX) 2 MG/ML VIAL 0.5 MG IV PUSH (02:37)
--- NOTE | 2024-12-28 03:50 | P.HP_ITS ---
H&P: HPI History of Present Illness Date/Time: 12/28/24 03:50 Chief Complaint: Fall Narrative: This is a 79-year-old female patient with past medical history of prior CVA with generalized weakness, diabetes mellitus, diabetic neuropathy, vertigo, hyperlipidemia, chronic anemia and chronic hypothyroidism who comes to the emergency room after a fall. Patient reports she was walking from 1 room to another in her home utilizing a cane for gait stability and lost her balance, falling to her right hip. Patient unable to move her right hip secondary to pain. She denies any head injury or loss of consciousness. She denies any other acute complaints of pain other than in the right hip. Patient was brought to the emergency room in the ER workup was performed with noted hemoglobin and hematocrit of 10.0 in 33.8. This is consistent with patient's history of chronic anemia. Metabolic panel unremarkable with exception of glucose noted to be 340. PT/PTT pt/INR all normal. Initial blood pressure elevated at 214/92, suspect pain response. Repeat is 149/76. X-ray of the right hip shows acute fracture. ER provider discussed with Orthopedics, Dr. Escobedo, who will consult for Ortho. Pt is being admitted in the current setting for repair of right hip fracture and pain control as well as pre-procedure clearance. Review of Systems Review of Systems: All systems reviewed & are unremarkable except as noted in HPI and below PMFSH Past Medical History Medical History (Updated 12/28/24 @ 04:08 by KATHERINE Graham) Heart murmur Anemia Closed right hip fracture CVA (cerebral vascular accident) Vertigo TIA (transient ischemic attack) Diabetic neuropathy Arthritis Vitiligo Thyroid disease High cholesterol Diabetes Pernicious anemia History of TIA (transient ischemic attack) Surgical History Surgical History H/O cataract extraction H/O wrist surgery History of knee surgery History of appendectomy History of hysterectomy History of delivery Family History Family History Father Heart disease Mother Heart disease Sibling Heart disease Social History Social History 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 -code status full code Smoking status: Never smoker Alcohol intake: never Drinks per week: 1 Substance use: never Do You Feel Safe in your Home?: Yes Lack of Transportation: No Lack of Food: Never True Current Housing: I Have Housing Concerned About Future Housing: No Difficulty Paying Gas/Electric Bills: No Difficulty Paying for Meds: No Currently Unemployed: No Education: Associate Degree Difficulty w/ Childcare or Family Care: No Spiritual care concerns: No Meds Home Medications and Allergies Home Medications ?Medication ?Instructions ?Recorded ?Confirmed ?Type cyanocobalamin (vitamin B-12) 1,000 mcg IM MONTHLY 06/18/20 06/26/24 History 1,000 mcg/mL injection solution acetaminophen 325 mg chewable 650 mg PO Q6H PRN pain (scale 05/24/24 06/26/24 History tablet score 1-3) aspirin 81 mg chewable tablet 81 mg PO DAILY 05/24/24 06/26/24 History calcium carb 1,200 mg-mag hydrox 10 ml PO DAILY 05/24/24 06/26/24 History 270 mg-simeth 80 mg/10 mL oral susp insulin lispro 100 unit/mL 1 sliding scale dose subcut TIDWM 05/24/24 06/26/24 History subcutaneous solution polyethylene glycol 3350 17 gram 17 g PO DAILY 05/24/24 06/26/24 History oral powder packet (Miralax) sennosides 8.6 mg-docusate sodium 1 tablet PO BID 05/24/24 06/26/24 History 50 mg tablet atorvastatin 10 mg tablet 10 mg PO DAILY 30 days #30 tabs 06/06/24 06/26/24 Rx cholecalciferol (vitamin D3) 125 125 mcg PO DAILY #30 caps 06/06/24 06/26/24 Rx mcg (5,000 unit) capsule duloxetine 30 mg capsule,delayed 30 mg PO DAILY #30 caps 06/06/24 06/26/24 Rx release furosemide 20 mg tablet 20 mg PO QMWF 30 days #13 tabs 06/06/24 06/26/24 Rx gabapentin 600 mg tablet 600 mg PO TID #90 tabs 06/06/24 06/26/24 Rx insulin glargine 100 unit/mL (3 14 unit (0.14 mL) subcut QHS #15 mL 06/06/24 06/26/24 Rx mL) subcutaneous pen (Lantus Solostar U-100 Insulin) insulin lispro 100 unit/mL 5 unit (0.05 mL) subcut TIDWM 30 06/06/24 06/26/24 Rx subcutaneous solution (Humalog days #4.5 mL U-100 Insulin) levothyroxine 88 mcg tablet 88 mcg PO 6XW #30 tabs 06/06/24 06/26/24 Rx levothyroxine 88 mcg tablet 176 mcg (2 x 88 mcg) PO WEEKLY #30 06/06/24 06/26/24 Rx tabs cephalexin 500 mg capsule 500 mg PO Q12H #14 caps 06/26/24 Rx docusate sodium 100 mg capsule 100 mg PO BID #14 caps 06/26/24 Rx (Colace) polyethylene glycol 3350 17 17 g PO BID #119 grams 06/26/24 Rx gram/dose oral powder (Miralax) ondansetron 4 mg disintegrating 4 mg PO Q8H PRN nausea and 06/29/24 Rx tablet vomiting #30 tabs potassium chloride 20 mEq 20 meq PO DAILY #14 tabs 06/29/24 Rx tablet,extended release cephalexin 500 mg capsule 500 mg PO Q12H 7 days #14 caps 10/27/24 Rx Allergies Allergy/AdvReac Type Severity Reaction Status Date / Time No Known Allergies Allergy Verified 10/27/24 21:03 Vital Signs Vital Signs - 24 hr 12/28/24 00:34 12/28/24 01:18 12/28/24 01:18 Temperature 97.7 F Pulse Rate 63 66 66 Respiratory Rate 21 H 17 19 Blood Pressure 214/92 H 183/65 H 183/65 H Pulse Oximetry 100 100 100 Oxygen Delivery Nasal Cannula Oxygen Flow Rate 2 12/28/24 01:31 12/28/24 02:01 12/28/24 03:01 Temperature Pulse Rate 71 70 70 Respiratory Rate 16 19 11 L Blood Pressure 193/99 H 155/136 H 149/76 H Pulse Oximetry 100 100 100 Oxygen Delivery Oxygen Flow Rate Exam Const: General: uncomfortable Other: Elderly female pt lying on stretcher at this time in mild to moderate pain distress. HENMT: Face/Nose/Sinus: Normal nares present Mouth: Yes moist mucous membranes Eyes: General: appearance normal, both eyes and all related structures Sclera: sclerae normal Pupils: Equal, round and reactive pupils present EOM: EOMs intact bilaterally Neck: Neck: supple and no JVD Lymphatic: lymphadenopathy not noted Chest: Other: Not tender to palpation. Resp: Effort & Inspection: normal respiratory effort Auscultation: clear to auscultation bilaterally Cardio: Rate: regular rate Rhythm: regular rhythm Heart sounds: Murmur heart sound present systolic holo, III/ and at the base GI: Inspection: non-distended GI Palp: Yes Soft to palpation and No Tenderness to palpation present (GI) Auscultation: normal bowel sounds Urinary Catheter: Urinary Catheter: patent and draining and urine clear Skin: General skin exam: normal color, no rashes or lesions noted and no erythema Wounds: no wounds Neuro: Speech: normal speech Motor exam (neuro): Abnormal motor strength present (generalized weakness w/acutely decreased AROM RLE.) Sensory Exam: normal sensation Extrem: General: normal exam except as noted, no edema and no pedal edema Other: RLE with external rotation and shortening. Psych: Mental Status: mental status grossly normal Affect: normal affect H&P: Results Labs Labs: Short CBC 12/28/24 Range/Units 01:41 WBC 7.8 (4.5-10.0) K/mm3 Hgb 10.0 L (12.0-15.0) g/dL Hct 33.8 L (37.0-47.0) % Plt Count 155 (150-375) k/mm3 BMP 12/28/24 01:41 Sodium 137 Potassium 4.3 Chloride 101 Carbon Dioxide 26 BUN 23 H D Creatinine 1.00 Glucose 340 H Calcium 9.8 Assessment and Plan Assessment and plan (1) Fall: Code(s): W19.XXXA - Unspecified fall, initial encounter Status: Acute Assessment and Plan: * Secondary to loss of balance while ambulating in her home with a cane used as aid for support. * No Closed head injury or LOC. (2) Closed right hip fracture: Code(s): S72.001A - Fracture of unspecified part of neck of right femur, initial encounter for closed fracture Status: Acute Assessment and Plan: * Secondary to #1 * XR showing fracture of the proximal femur and of the anatomical neck. Independently reviewed by this provider. * Orthopedics is consulted. Dr. Escobedo accepts for the consult and treat. * Pt will be medically cleared with EKG, ECHO, imaging and necessary labs in preparation for OR. * Bedrest w/betancourt for urine elimination * SCDs * PRN Fentanyl 50 mcg IVP Q2 hrs for pain * PRN Zofran 4 mg IVP Q4 hrs PRN nausea * NPO (3) Diabetes: Code(s): E11.9 - Type 2 diabetes mellitus without complications Status: Chronic Assessment and Plan: * Hold all oral hypoglycemics * Glucose checks AC and HS * Adult insulin protocol for tight control to allow healing from surgery. * Hypoglycemic protocol * Advance to diabetic diet when OK with Ortho. * Check A1C * Re-order Lantus once dose has been confirmed and verified. (4) Peripheral neuropathy: Code(s): G62.9 - Polyneuropathy, unspecified Status: Chronic Assessment and Plan: * Treat acute pain with prn meds and when home meds are confirmed and verified, continue home dose of Gabapentin. (5) Anemia: Code(s): D64.9 - Anemia, unspecified Status: Chronic Assessment and Plan: * Chronic anemia present and consistent with history. * Baseline Hgb is 8.0-10.0. * Will order a type and screen prior to OR. (6) Hypothyroidism: Code(s): E03.9 - Hypothyroidism, unspecified Status: Chronic Assessment and Plan: * Continue thyroid replacement after meds are completely verified and confirmed. (7) Heart murmur: Code(s): R01.1 - Cardiac murmur, unspecified Status: Acute Assessment and Plan: * Patient with loud holosystolic heart murmur. She states this was an issue that he was found recently in the past couple of months and she is supposed to be having a workup for. * Patient's last echocardiogram was August 06, 2022 that showed at that time a normal left ventricular systolic function 60-65% and grade 1 diastolic dysfunction. * Echo is ordered at this time. Quality VTE Prophylaxis VTE prophylaxis: mechanical ordered Hospitalist MIPS Advance Care Plan I have confirmed that the patient's Advanced Care Plan is present, code status is documented, or surrogate decision maker is listed in patient medical record.: Yes Medication Reconciliation I have utilized all available resources to obtain, update and review the patients current medications (includes all prescriptions, OTC, herbals, cannabis, and nutritional supplements).: Yes
--- NOTE | 2024-12-28 04:07 | ECG_ITS ---
Test Date: 2024-12-28 06:16:38 Measurements Intervals [place] Rate: 76 P: 39 NC: 217 QRS: 17 QRSD: 113 T: 38 QT: 427 QTc: 481 Interpretive Statements SINUS RHYTHM WITH FIRST DEGREE AV BLOCK Compared to ECG 10/27/2024 21:21:57 Prolonged QT interval no longer present Electronically Signed On 12-28-2024 16:44:55 CDT by Corin Fletcher
--- NOTE | 2024-12-28 05:15 | ADMGEN ---
This patient, Carrie Downs, was admitted to Medical Room 252-01. Patient/family oriented to hospital policies and general routines including ID bracelet, bed and alarms, visiting hours, pain management, procedures, bathroom and other care routines, personal items, smoking policy, room service/diet, and visiting hours. Information on how to activate the Rapid Response Team has been discussed. Patient/Family are encouraged to report perceived risks to care and to ask questions if they do not understand what they are told or what they should do.
[2024-12-28 06:05] LABS: Hemoglobin A1C 9.4 % (<5.7)
--- NOTE | 2024-12-28 07:04 | P.PNIM_ITS ---
Progress Note: A&P Assessment and Plan (1) Closed right hip fracture: Code(s): S72.001A - Fracture of unspecified part of neck of right femur, initial encounter for closed fracture Status: Acute Assessment and Plan: * Secondary to #1 * Hip XR: Acute comminuted fracture of the intertrochanteric region of the proximal right femur, as detailed above. Independently reviewed by this provider. * Orthopedics is consulted. Dr. Escobedo accepts for the consult and treat. * Pt will be medically cleared with EKG, ECHO, imaging and necessary labs in preparation for OR. * Bedrest w/betancourt for urine elimination * SCDs * PRN Fentanyl 50 mcg IVP Q2 hrs for pain * PRN Zofran 4 mg IVP Q4 hrs PRN nausea * NPO * Plan for r hip Intertochanteric nail today @ 1500 (2) Fall: Code(s): W19.XXXA - Unspecified fall, initial encounter Status: Acute Assessment and Plan: * Secondary to loss of balance while ambulating in her home with a cane used as aid for support. * No Closed head injury or LOC. (3) Diabetes: Code(s): E11.9 - Type 2 diabetes mellitus without complications Status: Chronic Assessment and Plan: * Hold all oral hypoglycemics * Glucose checks AC and HS * Adult insulin protocol for tight control to allow healing from surgery. * Hypoglycemic protocol * Advance to diabetic diet when OK with Ortho. * A1C 9.4% * Re-order Lantus once dose has been confirmed and verified. (4) Peripheral neuropathy: Code(s): G62.9 - Polyneuropathy, unspecified Status: Chronic Assessment and Plan: * Treat acute pain with prn meds and when home meds are confirmed and verified, continue home dose of Gabapentin. (5) Anemia: Code(s): D64.9 - Anemia, unspecified Status: Chronic Assessment and Plan: * Chronic anemia present and consistent with history. * Baseline Hgb is 8.0-10.0. * T&S prior to OR * 12/28: Hgb 10.0 (6) Hypothyroidism: Code(s): E03.9 - Hypothyroidism, unspecified Status: Chronic Assessment and Plan: * Continue thyroid replacement after meds are completely verified and confirmed. (7) Heart murmur: Code(s): R01.1 - Cardiac murmur, unspecified Status: Acute Assessment and Plan: * Patient with loud holosystolic heart murmur. She states this was an issue that he was found recently in the past couple of months and she is supposed to be having a workup for. * Patient's last echocardiogram was August 06, 2022 that showed at that time a normal left ventricular systolic function 60-65% and grade 1 diastolic dysfunction. * Echo pending Subjective Date/time seen: 12/28/24 07:04 Interval history: 79-year-old female patient with past medical history of prior CVA with generalized weakness, diabetes mellitus, diabetic neuropathy, vertigo, hyperlipidemia, chronic anemia and chronic hypothyroidism who comes to the emergency room after a fall. 12/28/2024 Patient sitting comfortably in bed at time examination. Denies any chest pain, shortness a breath nausea/vomiting. Plan for OR today for right intertrochanteric nail. Plan for PT/OT postop. Echo still pending at this time. Review of Systems Review of Systems: All systems reviewed & are unremarkable except as noted in HPI and below Exam Const: General: uncomfortable Other: Elderly female pt lying on stretcher at this time in no distress. HENMT: Face/Nose/Sinus: Normal nares present Mouth: Yes moist mucous membranes Eyes: General: appearance normal, both eyes and all related structures Sclera: sclerae normal Pupils: Equal, round and reactive pupils present EOM: EOMs intact bilaterally Neck: Neck: supple and no JVD Lymphatic: lymphadenopathy not noted Chest: Other: Not tender to palpation. Resp: Effort & Inspection: normal respiratory effort Auscultation: clear to auscultation bilaterally Cardio: Rate: regular rate Rhythm: regular rhythm Heart sounds: Murmur heart sound present systolic holo, III/ and at the base GI: Inspection: non-distended Auscultation: normal bowel sounds Urinary Catheter: Urinary Catheter: patent and draining and urine clear Skin: General skin exam: normal color, no rashes or lesions noted and no erythema Wounds: no wounds Neuro: Cranial nerves: Yes Equal, round and reactive pupils present Speech: normal speech Motor exam (neuro): Abnormal motor strength present (generalized weakness w/acutely decreased AROM RLE.) Sensory Exam: normal sensation Extrem: General: normal exam except as noted, no edema and no pedal edema Other: RLE with external rotation and shortening. Psych: Mental Status: mental status grossly normal Affect: normal affect Objective Data Vital Signs Vital Signs: Vital Signs - 24 hr 12/28/24 00:34 12/28/24 01:18 12/28/24 01:18 Temperature 97.7 F Pulse Rate 63 66 66 Respiratory Rate 21 H 17 19 Blood Pressure 214/92 H 183/65 H 183/65 H Pulse Oximetry 100 100 100 Oxygen Delivery Nasal Cannula Oxygen Flow Rate 2 12/28/24 01:31 12/28/24 02:01 12/28/24 03:01 Temperature Pulse Rate 71 70 70 Respiratory Rate 16 19 11 L Blood Pressure 193/99 H 155/136 H 149/76 H Pulse Oximetry 100 100 100 Oxygen Delivery Oxygen Flow Rate 12/28/24 05:03 Temperature 98.2 F Pulse Rate 76 Respiratory Rate 16 Blood Pressure 150/69 H Pulse Oximetry 99 Oxygen Delivery Oxygen Flow Rate Intake/Output Intake/Output: Intake & Output 12/25/24 12/26/24 12/27/24 12/28/24 23:59 23:59 23:59 23:59 Intake Total 0 Balance 0 Meds/Results Medications: Active Medications Generic Name Dose Route Start Last Admin Trade Name Freq PRN Reason Stop Dose Admin Acetaminophen 650 mg 12/28/24 06:54 Acetaminophen 325 Mg Tablet PO Q6H PRN pain (scale score 1-3) Aspirin 81 mg 12/28/24 08:00 Aspirin 81 Mg Chewable Tablet PO DAILY@0800 [facility] Calcium Carbonate 1,000 mg 12/28/24 09:00 Calcium Carbonate (Oscal) 500 Mg Tablet PO QAM [facility] Cyanocobalamin 1,000 mcg 01/19/25 09:00 Cyanocobalamin Inj 1,000 Mcg/Ml Vial IM MONTHLY [facility] Dextrose 12.5 gm 12/28/24 04:12 Dextrose 50% 25 Gm/50 Ml Syringe IV PUSH PRN PRN Hypoglycemia Protocol Fentanyl Citrate 50 mcg 12/28/24 03:42 Fentanyl Citrate Inj (*Crx) 100 Mcg/2 Ml Vial IV PUSH Q2H PRN Pain Rated 7-10 Fish Oil 2 gm 12/28/24 09:00 [place] 3 Polyunsat Fatty Acids 1 Gm Cap PO QAM [facility] Gabapentin 600 mg 12/28/24 09:00 Gabapentin 300 Mg Capsule PO TID [facility] Glucagon 1 mg 12/28/24 04:12 Glucagon For Inj 1 Mg Vial IM PRN PRN Hypoglycemia Protocol Glucose 15 gm 12/28/24 04:12 Glucose Oral Gel 15 Gm Of Glucse In 37.5 Gm Tube PO PRN PRN Hypoglycemia Protocol Dextrose 1,000 mls @ 100 mls/hr 12/28/24 04:12 Dextrose 5% 1,000 Ml IVPB PRN PRN Hypoglycemia Protocol Insulin Aspart 2 - 5 units 12/28/24 08:00 Insulin Aspart (*Bkc) 100 Units/Ml SUB-Q TIDWM BHAKTI Protocol Insulin Aspart 1 - 2 units 12/28/24 21:00 Insulin Aspart (*Bkc) 100 Units/Ml SUB-Q HS [facility] Protocol Levothyroxine Sodium 88 mcg 12/28/24 06:55 Levothyroxine Sodium 88 Mcg Tablet PO [email or web address]@[id number] [facility] Levothyroxine Sodium 176 mcg 12/31/24 06:30 Levothyroxine Sodium 88 Mcg Tablet PO [email or web address] [facility] Ondansetron HCl 4 mg 12/28/24 03:42 Ondansetron Inj 4 Mg/2 Ml Vial IV PUSH Q4H PRN Nausea Perflutren Lipid Microsphere 0 ml 12/28/24 04:07 Perflutren Lipid Microspheres 1.5 Ml Vial Diluted To 10 Ml Total Volume IV PUSH 12/31/24 04:07 ONCE PRN adequate visualization Protocol Pravastatin Sodium 40 mg 12/28/24 09:00 Pravastatin Sodium 20 Mg Tablet PO DAILY [facility] Vitamin D 125 mcg 12/28/24 09:00 Cholecalciferol (Vitamin D3) 125 Mcg (5,000 Units) Tablet PO DAILY [facility] Radiology Results: ITS Impressions Hip/Pelvis X-Ray 12/28/24 05:29 Impression: Acute comminuted fracture of the intertrochanteric region of the proximal right femur, as detailed above. Chest X-Ray 12/28/24 05:39 Impression: Clear lungs. Labs Labs: Laboratory Results - last 24 hr 12/28/24 12/28/24 01:41 05:22 WBC 7.8 RBC 4.10 L Hgb 10.0 L Hct 33.8 L MCV 82.4 MCH 24.4 L MCHC 29.6 L RDW 16.7 H Plt Count 155 MPV 10.2 Immature Gran % (Auto) 0.3 Neut % (Auto) 78.1 H Lymph % (Auto) 14.0 L Becker % (Auto) 5.4 Eos % (Auto) 1.7 Baso % (Auto) 0.5 Lymph # (Auto) 1.09 Becker # (Auto) 0.4 Eos # (Auto) 0.1 Baso # (Auto) 0.0 Abs Immat Gran (auto) 0.02 Absolute Neuts (auto) 6.1 Absolute Nucleated RBC 0.000 Nucleated RBC % 0.0 PT 13.3 INR 1.0 APTT 25.1 Sodium 137 Potassium 4.3 Chloride 101 Carbon Dioxide 26 Anion Gap 10 BUN 23 H D Creatinine 1.00 Estim Creat Clear Calc 40 Estimated GFR 53 L Glucose 340 H Hemoglobin A1c 9.4 H Calcium 9.8 Blood Type O Positive Antibody Screen Negative Quality VTE Prophylaxis VTE prophylaxis: mechanical ordered
--- NOTE | 2024-12-28 07:27 | P.CONOP_ITS ---
Assessment and Plan Assessment and plan (1) Closed intertrochanteric fracture of right hip: Qualifiers: Encounter type: initial encounter Fracture alignment: displaced Q ualified Code(s): S72.141A - Displaced intertrochanteric fracture of right femur, initial encounter for closed fracture Code(s): S72.141A - Displaced intertrochanteric fracture of right femur, initial encounter for closed fracture Status: Acute Assessment and Plan: New patient evaluation for chief complaint right hip fracture from mechanical fall at home. History, physical exam and radiographs reviewed with the patient. Discussed the condition, nature, etiology and course of natural history with the patient. Treatment options including surgical and nonoperative treatment were reviewed. Risks and benefits of each as well as alternatives reviewed. The patient's questions were answered. Conservative treatment ice, pain control, mechanical dvt px. Pt desires operative tx. Await further medical workup and clearance.. (2) Acute CVA (cerebrovascular accident): Code(s): I63.9 - Cerebral infarction, unspecified Status: Acute Assessment and Plan: Stroke 2022. Mostly with memory mentation residuals. Some mild weakness of the upper extremities. (3) Diabetic neuropathy: Qualifiers: Diabetes mellitus complication detail: diabetic polyneuropathy Diabetes mellitus type: type 2 Qualified Code(s): E11.42 - Type 2 diabetes mellitus with diabetic polyneuropathy Code(s): E11.40 - Type 2 diabetes mellitus with diabetic neuropathy, unspecified Status: Acute (4) Anemia: Qualifiers: Anemia type: unspecified type Qualified Code(s): D64.9 - Anemia, unspecified Code(s): D64.9 - Anemia, unspecified Status: Chronic (5) Heart murmur: Code(s): R01.1 - Cardiac murmur, unspecified Status: Acute Assessment and Plan: Abnormal EKG. Echo ordered. Await further w/u. Plan Discussed nonoperative and operative treatment options with the patient. Risks and benefits of each as well as alternatives were reviewed. All of the patient's questions were answered. The risks of surgery reviewed including but not limited to: Neurovascular damage, wound complication, infection, blood clot, pulmonary embolus, stroke, myocardial infarction, and anesthetic risks up to and including . Continued pain and possible dysfunction were explained. Specific risks of the procedure including later recurrence of deformity. No guarantees were offered. If hardware used, discussed risk of failure/ breakage and possible need for removal. If complications occur, the patient understands the need for further treatment, possible further surgery. Patient verbalizes understanding and wishes to proceed. PLAN: RT hip reduction, trochanteric intramedullary nail right hip History of Present Illness HPI Consult date: 12/28/24 Requesting physician: Lorraine Arnett MD Chief complaint: R intertrochanteric fx Narrative: 79yo woman with diabetes, neuropathy, anemia lost balance while ambulating in home, fall on right side. RT hip fx on eval in ER. Admitted for further care. C/O rt hip pain, pain with movement right leg. Unable to bear weight. H/O stroke 2 years ago with resultanat weakness and imbalance. Underwent lengthy rehab. Previous left femur fx txed with IM neftali at [facility]. Review of Systems 2 Constitutional: Constitutional: Denies fever(s) Eyes: Eyes: Denies blurry vision ENT: Reports Normal hearing present Cardiovascular: Cardiovascular: Denies chest pain and Denies dyspnea Respiratory: Respiratory: Denies dyspnea and Denies wheezing Gastrointestinal: Gastrointestinal: Denies abdominal pain Genitourinary: Genitourinary: Denies urinary urgency Musculoskeletal: Musculoskeletal: Reports as per HPI and Denies numbness Integumentary/Breasts: Skin/Breast: Denies changing lesions and Denies sores Neurologic: Reports Normal hearing present, Denies behavioral changes, Denies confusion, Denies numbness and Denies convulsions Psychiatric: Psychiatric: Denies behavioral changes, Denies confusion and Denies hallucinations Endocrine: Endocrine: Denies heat intolerance Hematologic/Lymphatic: Hematologic/Lymphatic: Denies easy bleeding Allergic/Immunologic: Allergic/Immunologic: Denies wheezing PMFSH Past Medical History Medical History Heart murmur Anemia Closed right hip fracture CVA (cerebral vascular accident) Vertigo TIA (transient ischemic attack) Diabetic neuropathy Arthritis Vitiligo Thyroid disease High cholesterol Diabetes Pernicious anemia History of TIA (transient ischemic attack) Surgical History Surgical History H/O cataract extraction H/O wrist surgery History of knee surgery History of appendectomy History of hysterectomy History of delivery Family History Family History Father Heart disease Mother Heart disease Sibling Heart disease Social History Social History 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 -code status full code Smoking status: Never smoker Alcohol intake: never Drinks per week: 1 Substance use: never Do You Feel Safe in your Home?: Yes Lack of Transportation: No Lack of Food: Never True Current Housing: I Have Housing Concerned About Future Housing: No Difficulty Paying Gas/Electric Bills: No Difficulty Paying for Meds: No Currently Unemployed: No Education: Associate Degree Difficulty w/ Childcare or Family Care: No Spiritual care concerns: No Meds Home Medications and Allergies Home Medications ?Medication ?Instructions ?Recorded ?Confirmed ?Type cyanocobalamin (vitamin B-12) 1,000 mcg IM MONTHLY 06/18/20 12/28/24 History 1,000 mcg/mL injection solution acetaminophen 325 mg chewable 650 mg PO Q6H PRN pain (scale 05/24/24 12/28/24 History tablet score 1-3) aspirin 81 mg chewable tablet 81 mg PO DAILY 05/24/24 12/28/24 History insulin lispro 100 unit/mL 1 sliding scale dose subcut TIDWM 05/24/24 12/28/24 History subcutaneous solution cholecalciferol (vitamin D3) 125 125 mcg PO DAILY #30 caps 06/06/24 12/28/24 Rx mcg (5,000 unit) capsule gabapentin 600 mg tablet 600 mg PO TID #90 tabs 06/06/24 12/28/24 Rx levothyroxine 88 mcg tablet 88 mcg PO 6XW #30 tabs 06/06/24 12/28/24 Rx levothyroxine 88 mcg tablet 176 mcg (2 x 88 mcg) PO WEEKLY #30 06/06/24 12/28/24 Rx tabs calcium 600 mg capsule 1,200 mg PO DAILY 12/28/24 12/28/24 History denosumab 60 mg/mL subcutaneous 60 mg subcut [id number] 12/28/24 12/28/24 History syringe (Prolia) insulin lispro 100 unit/mL 3 unit subcut TIDWM 12/28/24 12/28/24 History subcutaneous solution (Humalog U-100 Insulin) omega-3 fatty acids 2,500 mg PO DAILY 12/28/24 12/28/24 History pravastatin 40 mg tablet 40 mg PO DAILY 12/28/24 12/28/24 History Allergies Allergy/AdvReac Type Severity Reaction Status Date / Time No Known Allergies Allergy Verified 10/27/24 21:03 Vital Signs Vital Signs - 24 hr 12/28/24 00:34 12/28/24 01:18 12/28/24 01:18 Temperature 97.7 F Pulse Rate 63 66 66 Respiratory Rate 21 H 17 19 Blood Pressure 214/92 H 183/65 H 183/65 H Pulse Oximetry 100 100 100 Oxygen Delivery Nasal Cannula Oxygen Flow Rate 2 12/28/24 01:31 12/28/24 02:01 12/28/24 03:01 Temperature Pulse Rate 71 70 70 Respiratory Rate 16 19 11 L Blood Pressure 193/99 H 155/136 H 149/76 H Pulse Oximetry 100 100 100 Oxygen Delivery Oxygen Flow Rate 12/28/24 05:03 Temperature 98.2 F Pulse Rate 76 Respiratory Rate 16 Blood Pressure 150/69 H Pulse Oximetry 99 Oxygen Delivery Oxygen Flow Rate Exam 2 Const: General: No confusion Orientation/consciousness: patient oriented x3 and No confusion HENMT: Head: normal to inspection, normocephalic and atraumatic Eyes: Conjunctivae: conjunctivae normal Sclera: sclerae normal Neck: Neck: supple and nontender Chest: Chest palpation & inspection: normal inspection of the chest Resp: Effort & Inspection: normal respiratory effort and no audible wheezes GI: GI Palp: No abdominal tenderness and Yes Soft to palpation Skin: General skin exam: no rashes or lesions noted Neuro: General: patient oriented x3 and No confusion Extrem: General: capillary refill normal Right upper extremity: normal to inspection Left upper extremity: normal to inspection Right lower extremity: hip/thigh Details: tenderness Location: of the hip Location: laterally and swelling Location: at the hip ( mild), ankle ( able to actively flex and extend ankle) Details: no tenderness and foot Details: normal capillary refill, toes with normal ROM, vascular exam Details: dorsalis pedis pulse present and normal capillary refill and motor-sensory exam Details: light-touch normal Location: in all toes; no tenderness Left lower extremity: normal to inspection, hip/thigh Details: no tenderness and no swelling, lower leg, ankle (no calf tenderness) Details: normal ROM; no tenderness and foot Details: normal capillary refill, vascular exam Details: dorsalis pedis pulse present and normal capillary refill and motor-sensory exam light-touch normal in all toes Psych: Affect: normal affect Results Labs 12/28/24 01:41 12/28/24 01:41 Labs: Abnormal lab results 12/28/24 12/28/24 Range/Units 01:41 05:22 RBC 4.10 L (4.2-5.4) M/mm3 Hgb 10.0 L (12.0-15.0) g/dL Hct 33.8 L (37.0-47.0) % MCH 24.4 L (26-34) pg MCHC 29.6 L (32-36) g/dl RDW 16.7 H (11.5-14.5) % Neut % (Auto) 78.1 H (45.5-73.1) % Lymph % (Auto) 14.0 L (18.3-44.2) % BUN 23 H D (7-17) mg/dL Estimated GFR 53 L (59 - ) Glucose 340 H (65-110) mg/dL Hemoglobin A1c 9.4 H (<5.7) % H & H 12/28/24 Range/Units 01:41 Hgb 10.0 L (12.0-15.0) g/dL Hct 33.8 L (37.0-47.0) % Coagulation 12/28/24 Range/Units 01:41 INR 1.0 All other labs normal. Diagnostic results Hip x-ray: image reviewed (RT hip IT fx with displacement and varus angulation. Moderate hip joint degeneration.)
[2024-12-28] MEDS: INSULIN ASPART (*BKC) 100 UNITS/ML SUB-Q ×4 (08:38→21:33)
[2024-12-28 08:52] LABS: Add Urine Microscopic? NO; Appearance Urine Clear (Clear); Glucose Urine UA 3+ mg/dL (Negative); Leukocyte Esterase Ur Negative LEU/UL (Negative); Nitrate Urine Negative (Negative); Specific Grav Ur 1.026 (1.001-1.035)
--- NOTE | 2024-12-28 10:49 | PC.NURSE ---
Patient's son and POA called and was updated on patient and surgery plans.
--- NOTE | 2024-12-28 13:38 | WPDHPUPDATE1 ---
History and Physical Update Update Date/Time: 12/28/24 13:38 History and Physical has been reviewed, including an updated exam of the patient. There are NO changes in the patient's condition. Risks, benefits, and alternatives have been discussed and questions answered. Patient agrees to proceed with procedure.
--- NOTE | 2024-12-28 14:11 | PC.NURSE ---
Patient left for hip surgery at 1410.
--- NOTE | 2024-12-28 14:49 | P.PNAN_ITS ---
Anes - Initial Pre Proc Eval Procedure: Operation Date: 12/28/24 15:00 Proposed Procedures p Right Intertrochanteric Nail - Gregorio Escobedo MD Date/Time: 12/28/24 14:49 Surgeon: Guillermo Carrera MD Pre Op Diagnosis: R intertrochanteric fx Patient Data Age: 79 Gender: F Height: 1.6 m Weight: 82.6 kg Last Vital Signs Temp 36.4 C 12/28/24 14:00 Pulse 83 12/28/24 14:00 Resp 18 12/28/24 14:00 BP 145/64 H 12/28/24 14:00 Pulse Ox 100 12/28/24 14:00 O2 Del Method Nasal Cannula 12/28/24 00:34 O2 Flow Rate 2 12/28/24 00:34 Allergies Allergy/AdvReac Type Severity Reaction Status Date / Time No Known Allergies Allergy Verified 12/28/24 14:25 Home Medications ?Medication ?Instructions ?Recorded ?Confirmed ?Type cyanocobalamin (vitamin B-12) 1,000 mcg IM MONTHLY 06/18/20 12/28/24 History 1,000 mcg/mL injection solution acetaminophen 325 mg chewable 650 mg PO Q6H PRN pain (scale 05/24/24 12/28/24 History tablet score 1-3) aspirin 81 mg chewable tablet 81 mg PO DAILY 05/24/24 12/28/24 History insulin lispro 100 unit/mL 1 sliding scale dose subcut TIDWM 05/24/24 12/28/24 History subcutaneous solution cholecalciferol (vitamin D3) 125 125 mcg PO DAILY #30 caps 06/06/24 12/28/24 Rx mcg (5,000 unit) capsule gabapentin 600 mg tablet 600 mg PO TID #90 tabs 06/06/24 12/28/24 Rx levothyroxine 88 mcg tablet 88 mcg PO 6XW #30 tabs 06/06/24 12/28/24 Rx levothyroxine 88 mcg tablet 176 mcg (2 x 88 mcg) PO WEEKLY #30 06/06/24 12/28/24 Rx tabs calcium 600 mg capsule 1,200 mg PO DAILY 12/28/24 12/28/24 History denosumab 60 mg/mL subcutaneous 60 mg subcut [id number] 12/28/24 12/28/24 History syringe (Prolia) insulin lispro 100 unit/mL 3 unit subcut TIDWM 12/28/24 12/28/24 History subcutaneous solution (Humalog U-100 Insulin) omega-3 fatty acids 2,500 mg PO DAILY 12/28/24 12/28/24 History pravastatin 40 mg tablet 40 mg PO DAILY 12/28/24 12/28/24 History Laboratory Tests 12/28/24 12/28/24 12/28/24 01:41 05:22 07:26 WBC 7.8 K/mm3 (4.5-10.0) RBC 4.10 L M/mm3 (4.2-5.4) Hgb 10.0 L g/dL (12.0-15.0) Hct 33.8 L % (37.0-47.0) MCV 82.4 fl (80-100) MCH 24.4 L pg (26-34) MCHC 29.6 L g/dl (32-36) RDW 16.7 H % (11.5-14.5) Plt Count 155 k/mm3 (150-375) MPV 10.2 fl (7.4-10.4) Immature Gran % (Auto) 0.3 % (0-0.5) Neut % (Auto) 78.1 H % (45.5-73.1) Lymph % (Auto) 14.0 L % (18.3-44.2) [place] % (Auto) 5.4 % (2.6-8.5) Eos % (Auto) 1.7 % (0-4.4) Baso % (Auto) 0.5 % (0.2-1.2) Lymph # (Auto) 1.09 K/mm3 (0.9-3.2) [place] # (Auto) 0.4 K/mm3 (0.1-0.6) Eos # (Auto) 0.1 K/mm3 (0-0.3) Baso # (Auto) 0.0 K/mm3 (0.0-0.1) Abs Immat Gran (auto) 0.02 K/mm3 (0.00-0.031) Absolute Neuts (auto) 6.1 K/mm3 (1.3-6.7) Absolute Nucleated RBC 0.000 K/mm3 (0.0-0.012) Nucleated RBC % 0.0 % (0.0-0.2) PT 13.3 Seconds (11.1-14.7) INR 1.0 APTT 25.1 Seconds (22.3-36.8) Sodium 137 mmol/L (137-145) Potassium 4.3 mmol/L (3.4-5.0) Chloride 101 mmol/L (98-107) Carbon Dioxide 26 mmol/L (22-30) Anion Gap 10 mmol/L (4-12) BUN 23 H D mg/dL (7-17) Creatinine 1.00 mg/dL (0.7-1.0) Estim Creat Clear Calc 40 ml/min Estimated GFR 53 L (59 - ) Glucose 340 H mg/dL (65-110) POC Capillary Glucose 296 H mg/dl (65-105) Hemoglobin A1c 9.4 H % (<5.7) Calcium 9.8 mg/dL (8.4-10.2) Urine Color Urine Appearance Urine pH Ur Specific [place] Urine Protein Urine Glucose (UA) Urine Ketones Ur Blood (Man) Urine Nitrate Urine Bilirubin Urine Urobilinogen Leukocyte Esterase Rfl Blood Type O Positive Antibody Screen Negative 12/28/24 12/28/24 12/28/24 08:45 11:03 14:44 WBC RBC Hgb Hct MCV MCH MCHC RDW Plt Count MPV Immature Gran % (Auto) Neut % (Auto) Lymph % (Auto) [place] % (Auto) Eos % (Auto) Baso % (Auto) Lymph # (Auto) [place] # (Auto) Eos # (Auto) Baso # (Auto) Abs Immat Gran (auto) Absolute Neuts (auto) Absolute Nucleated RBC Nucleated RBC % PT INR APTT Sodium Potassium Chloride Carbon Dioxide Anion Gap BUN Creatinine Estim Creat Clear Calc Estimated GFR Glucose POC Capillary Glucose 252 H mg/dl 243 H mg/dl (65-105) (65-105) Hemoglobin A1c Calcium Urine Color Yellow (Yellow) Urine Appearance Clear (Clear) Urine pH 6.5 (5.0-9.0) Ur Specific [place] 1.026 (1.001-1.035) Urine Protein Negative mg/dL (Negative) Urine Glucose (UA) 3+ H mg/dL (Negative) Urine Ketones 1+ H mg/dL (Negative) Ur Blood (Man) Negative (Negative) Urine Nitrate Negative (Negative) Urine Bilirubin Negative (Negative) Urine Urobilinogen 1.0 mg/dL (<2.0) Leukocyte Esterase Rfl Negative GIGI/UL (Negative) Blood Type Antibody Screen Patient hx anesthesia problems: none Family hx anesthesia problems: none Results Review: All pre-operative results and documents have been reviewed as part of the pre- operative evaluation. [facility] Past Medical History Medical History Heart murmur Anemia Closed right hip fracture CVA (cerebral vascular accident) Vertigo TIA (transient ischemic attack) Diabetic neuropathy Arthritis Vitiligo Thyroid disease High cholesterol Diabetes Pernicious anemia History of TIA (transient ischemic attack) Surgical History Surgical History H/O cataract extraction H/O wrist surgery History of knee surgery History of appendectomy History of hysterectomy History of delivery Family History Family History Father Heart disease Mother Heart disease Sibling Heart disease Social History Social History 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 -code status full code Smoking status: Never smoker Alcohol intake: never Drinks per week: 1 Substance use: never Do You Feel Safe in your Home?: Yes Lack of Transportation: No Lack of Food: Never True Current Housing: I Have Housing Concerned About Future Housing: No Difficulty Paying Gas/Electric Bills: No Difficulty Paying for Meds: No Currently Unemployed: No Education: Associate Degree Difficulty w/ Childcare or Family Care: No Spiritual care concerns: No Anes - Eval Final PreProcedure Day of Procedure 12/28/24 14:49 Patient weight: obese Heart: regular rate and rhythm Lungs: clear to auscultation Airway: Mallampati scale class III Neurological: alert and oriented Last oral intake: >/= 8 hours ASA classification: IV Emergent: no Anesthetic plan: proceed Anesthesia type and monitoring: general LMA and standard monitoring Results Review: All pre-operative results and documents have been reviewed as part of the pre- operative evaluation. Informed Consent: The patient's anesthetic plan and its attendant risks and benefits were discussed with the patient/family/POA. Questions were solicited and answers provided to the satisfaction of the patient/family/POA.
--- NOTE | 2024-12-28 14:54 | P.OP_ITS ---
Procedure Note - Detailed Date of Procedure 12/28/24 Pre-op Diagnosis R intertrochanteric fx Post-op Diagnosis Same Procedure Performed Right hip trochanteric nail Surgeon Gregorio Escobedo MD Marketing And Promotions Manager 1st assistant auditor Anesthesia General Indications 79-year-old woman who fell in her home last night and sustained a right hip intertrochanteric fracture with displacement. She desires operative treatment. She has previously ambulatory with occasionally use of a cane for assistance. Description of Procedure After informed consent the operative extremity was marked in the preoperative holding area. Patient received intravenous antibiotics. The patient was taken to the operative room, placed in the supine position, general anesthesia induced by the anesthesia team, and was placed on a fracture table with longitudinal traction applied to the right leg. The hip fracture was reduced to near anatomic position and verified with image intensification. A time-out was performed confirming the patient, site of the surgery and plan. The left lower extremity was prepped and draped sterilely from the knee to the iliac crest region using a ChloraPrep skin solution. Incision was made just proximal to greater trochanter down to the subcutaneous tissues. Hemostasis controlled with electrocautery. Blunt dissection through the fascia to the tip of the greater trochanter. A starter awl was placed at the tip of the greater trochanter into the medullary canal of the femur. This was checked with image intensification and was in good position. Intramedullary guide neftali positioned. A one-step hand reaming done proximally. Intramedullary canal was reamed with a 12.5 millimeter flexible reamer. Measuring was then performed off of the guide neftali. Neck angle selected off of preoperative radiographs temp plating. 125 degree 11 X 390mm Nail opened on the back table and assembled. This was then inserted over the guide neftali to the correct depth. Guide neftali removed. Lag screw was then placed with a stab incision over the lateral femur using a 10 blade knife. Blunt dissection down to the lateral side of the bone. Soft tissue protectors placed. Guide pin placed in the center center position of the femoral head and measured. 95 millimeter x 10.5 millimeter lag screw placed to correct depth and verified with image intensification. Traction released from the leg and compression of the fracture performed with the external compression device. Proximal locking screw placed. Distal locking of the nail necessary due to instability in the intramedullary canal and proximal femur. Stab incision made lateral distal thigh. Blunt dissection down lateral side of the femur. Image intensification used to guide drill which was placed through the locking hole. Distal femur measured and the appropriate size screw placed. Image intensification confirmed the placement through the locking hole. Final image intensification confirm reduction of the fracture and placement of the hardware. Wounds then thoroughly irrigated with antibiotic solution. Fascia repaired with 0 Vicryl interrupted suture. Subcutaneous tissue repaired with 00 Vicryl interrupted suture and skin repaired with shahrzad. Sterile dressings applied. Patient then awoke from anesthesia, extubated, taken to recovery room stable condition. All sponge, needle and instrument counts correct at the end the case. Implants Arthrex trochanteric nail, 11 by 390 mm, lag screw 10.5 by 95 mm, 36mm distal locking screw. Estimated Blood Loss 100 Drains No Packing No Pathology None sent Complications None Condition Stable Disposition PACU [facility] Billing Surgery - Charge Forward: Surgery Billing ([id number])
[2024-12-28] MEDS: ACETAMINOPHEN 500 MG TABLET 1000 MG PO (14:55)
[2024-12-28] MEDS: LACTATED RINGERS 1,000 ML 30 ML IV CONT (14:55)
[2024-12-28] MEDS: ceFAZolin 2 GM/D5W 50 ML 2 GM/50 ML BAG IVPB ×2 (15:51→20:31)
[2024-12-28] MEDS: BUPIVACAINE/EPINEPHRINE 0.5% 50 ML VIAL 30 ML INFILTRATE (15:53)
[2024-12-28] MEDS: fentaNYL CITRATE INJ (*CRX) 100 MCG/2 ML VIAL 25 MCG IV PUSH ×6 (16:45→17:28)
[2024-12-28] MEDS: SENNA/DOCUSATE SODIUM TABLET 2 TAB PO (18:04)
[2024-12-29 03:24] VITALS: BP 179/66; PULSE 60; RESP 18; TEMP 36.4; O2SAT 100
[2024-12-29 05:27] LABS: Hematocrit 30.2 % (37.0-47.0); Hemoglobin 8.8 g/dL (12.0-15.0); Immature Granulocyte Percent A 0.6 % (0-0.5); Lymphocytes Absolute Auto 0.95 K/mm3 (0.9-3.2); Mean Corpuscular HGB Conc 29.1 g/dl (32-36); Mean Corpuscular Hemoglobin 24.7 pg (26-34); Mean Corpuscular Volume 84.8 fl (80-100); Nucleated Red Blood Cells Absolute Auto 0.000 K/mm3 (0.0-0.012); Nucleated Red Blood Cells Perc 0.0 % (0.0-0.2); Platelet Count Result 134 k/mm3 (150-375); Red Blood Count 3.56 M/mm3 (4.2-5.4); White Blood Count 8.9 K/mm3 (4.5-10.0)
[2024-12-29 05:40] LABS: Alanine Aminotransferase 21 U/L (6-35); Albumin Level 3.8 g/dL (3.5-5.1); Alkaline Phosphatase 71 U/L (38-126); Anion Gap 11 mmol/L (4-12); Aspartate Amino Transferase 32 U/L (14-36); Bilirubin,Total 0.7 mg/dL (0.2-1.3); Blood Urea Nitrogen 18 mg/dL (7-17); Calcium 8.4 mg/dL (8.4-10.2); Carbon Dioxide 21 mmol/L (22-30); Chloride 104 mmol/L (98-107); Estimated CRCL calculation 56 ml/min; Estimated Glomerular Filt Rate > 60; Glucose 314 mg/dL (65-110); Magnesium 2.0 mg/dL (1.6-2.3); Potassium 4.1 mmol/L (3.4-5.0); Sodium 136 mmol/L (137-145); Total Protein 6.7 g/dL (6.3-8.2)
[2024-12-29] MEDS: HYDROcodone/acetaminophen (*CRX) 5-325 MG TABLET 1 TAB PO ×2 (05:59→20:05)
[2024-12-29] MEDS: LEVOTHYROXINE SODIUM 88 MCG TABLET PO (06:00)
[2024-12-29] MEDS: ceFAZolin 2 GM/D5W 50 ML 2 GM/50 ML BAG IVPB ×2 (06:00→14:19)
[2024-12-29 06:08] VITALS: BP 190/88; PULSE 77; RESP 18; TEMP 36.2; O2SAT 90
[2024-12-29 06:08] LABS: Anisocytosis 1+; Hypochromasia 1+; Microcytosis 1+ (NORMAL); Schistocytes None Seen
--- NOTE | 2024-12-29 06:52 | P.PNIM_ITS ---
Progress Note: A&P Assessment and Plan (1) Closed right hip fracture: Code(s): S72.001A - Fracture of unspecified part of neck of right femur, initial encounter for closed fracture Status: Acute Assessment and Plan: * Secondary to #2 * Hip XR: Acute comminuted fracture of the intertrochanteric region of the proximal right femur, as detailed above. Independently reviewed by this provider. * Orthopedics is consulted. Dr. Escobedo accepts for the consult and treat. * Pt will be medically cleared with EKG, ECHO, imaging and necessary labs in preparation for OR. * Bedrest w/betancourt for urine elimination * SCDs * POD 1 Right hip trochanteric nail * PT/OT evals pending * Continue DVT prophylaxis with Lovenox (2) Fall: Code(s): W19.XXXA - Unspecified fall, initial encounter Status: Acute Assessment and Plan: * Secondary to loss of balance while ambulating in her home with a cane used as aid for support. * No Closed head injury or LOC. (3) Diabetes: Code(s): E11.9 - Type 2 diabetes mellitus without complications Status: Chronic Assessment and Plan: * Hold all oral hypoglycemics * Glucose checks AC and HS * Adult insulin protocol for tight control to allow healing from surgery. * Hypoglycemic protocol * Advance to diabetic diet when OK with Ortho. * A1C 9.4% * Re-order Lantus once dose has been confirmed and verified. (4) Peripheral neuropathy: Code(s): G62.9 - Polyneuropathy, unspecified Status: Chronic Assessment and Plan: * Treat acute pain with prn meds and when home meds are confirmed and verified, continue home dose of Gabapentin. (5) Anemia: Qualifiers: Anemia type: unspecified type Qualified Code(s): D64.9 - Anemia, unspecified Code(s): D64.9 - Anemia, unspecified Status: Chronic Assessment and Plan: * Chronic anemia present and consistent with history. * Baseline Hgb is 8.0-10.0. * T&S prior to OR * 12/29: Hgb 8.8 (6) Hypothyroidism: Code(s): E03.9 - Hypothyroidism, unspecified Status: Chronic Assessment and Plan: * Continue thyroid replacement after meds are completely verified and confirmed. (7) Heart murmur: Code(s): R01.1 - Cardiac murmur, unspecified Status: Acute Assessment and Plan: * Patient with loud holosystolic heart murmur. She states this was an issue that he was found recently in the past couple of months and she is supposed to be having a workup for. * Patient's last echocardiogram was August 06, 2022 that showed at that time a normal left ventricular systolic function 60-65% and grade 1 diastolic dysfunction. * Echo 12/28 * EF 65-70%, mildly increased LV wall thickness, G1DD, moderate aortic valve stenosis, mild AVR, AV calcification and TVR, mild pulmonary hypertension Subjective Date/time seen: 12/29/24 06:52 Interval history: 79-year-old female patient with past medical history of prior CVA with generalized weakness, diabetes mellitus, diabetic neuropathy, vertigo, hyperlipidemia, chronic anemia and chronic hypothyroidism who comes to the emergency room after a fall. 12/29/2024 POD 1 Right hip trochanteric nail. Patient has no specific complaints or concerns today. Per nursing staff, patient was slightly confused this a.m., but on exam in the afternoon, patient was A&O x3. Some lingering right-sided hip pain but otherwise no complaints or concerns. Continue with plan of PT/OT eval. Review of Systems Review of Systems: All systems reviewed & are unremarkable except as noted in HPI and below Exam Const: General: comfortable Other: Elderly female pt lying on stretcher at this time in no distress. HENMT: Face/Nose/Sinus: Normal nares present Mouth: Yes moist mucous membranes Eyes: General: appearance normal, both eyes and all related structures Sclera: sclerae normal Pupils: Equal, round and reactive pupils present EOM: EOMs intact bilaterally Neck: Neck: supple and no JVD Lymphatic: lymphadenopathy not noted Chest: Other: Not tender to palpation. Resp: Effort & Inspection: normal respiratory effort Auscultation: clear to auscultation bilaterally Cardio: Rate: regular rate Rhythm: regular rhythm Heart sounds: Murmur heart sound present systolic holo, III/ and at the base GI: Inspection: non-distended Auscultation: normal bowel sounds Urinary Catheter: Urinary Catheter: patent and draining and urine clear Skin: General skin exam: normal color, no rashes or lesions noted and no erythema Wounds: no wounds Neuro: Cranial nerves: Yes Equal, round and reactive pupils present Speech: normal speech Motor exam (neuro): Abnormal motor strength present (generalized weakness w/acutely decreased AROM RLE.) Sensory Exam: normal sensation Extrem: General: normal exam except as noted, no edema and no pedal edema Other: RLE with external rotation and shortening. Psych: Mental Status: mental status grossly normal Affect: normal affect Objective Data Vital Signs Vital Signs: Vital Signs - 24 hr 12/28/24 09:05 12/28/24 14:00 12/28/24 14:15 Temperature 97.6 F 98.6 F Pulse Rate 83 76 Respiratory Rate 18 Blood Pressure 145/64 H 166/84 H Pulse Oximetry 100 100 100 Oxygen Delivery Room Air Oxygen Flow Rate Fraction of Inspired Oxygen 12/28/24 16:28 12/28/24 16:38 12/28/24 16:45 Temperature 97.0 F L Pulse Rate 72 75 73 Respiratory Rate 14 21 H 14 Blood Pressure 157/83 H 180/66 H 134/81 Pulse Oximetry 100 98 100 Oxygen Delivery Simple Face Mask Simple Face Mask Room Air Oxygen Flow Rate 8 8 Fraction of Inspired Oxygen 12/28/24 17:00 12/28/24 17:15 12/28/24 17:30 Temperature 97.1 F L Pulse Rate 76 75 76 Respiratory Rate 11 L 19 16 Blood Pressure 170/70 H 149/61 H 164/61 H Pulse Oximetry 93 95 97 Oxygen Delivery Room Air Room Air Room Air Oxygen Flow Rate Fraction of Inspired Oxygen 12/28/24 17:36 12/28/24 18:00 12/28/24 18:15 Temperature 97.3 F L 97.8 F Pulse Rate 76 79 Respiratory Rate 16 14 Blood Pressure 152/63 H 133/51 L Pulse Oximetry 98 100 100 Oxygen Delivery Nasal Cannula Oxygen Flow Rate 2 Fraction of Inspired Oxygen 12/28/24 18:45 12/28/24 19:24 12/28/24 20:00 Temperature 97.8 F 97.4 F L Pulse Rate 80 78 Respiratory Rate 18 18 Blood Pressure 136/58 L 150/63 H Pulse Oximetry 100 100 Oxygen Delivery Room Air Oxygen Flow Rate Fraction of Inspired Oxygen 12/28/24 20:38 12/28/24 23:24 12/29/24 03:24 Temperature 97.6 F 97.6 F Pulse Rate 75 75 60 Respiratory Rate 20 18 18 Blood Pressure 155/67 H 179/66 H Pulse Oximetry 91 92 100 Oxygen Delivery Room Air Oxygen Flow Rate Fraction of Inspired Oxygen 21 12/29/24 06:08 Temperature 97.2 F L Pulse Rate 77 Respiratory Rate 18 Blood Pressure 190/88 H Pulse Oximetry 90 Oxygen Delivery Oxygen Flow Rate Fraction of Inspired Oxygen Intake/Output Intake/Output: Intake & Output 12/26/24 12/27/24 12/28/24 12/29/24 23:59 23:59 23:59 23:59 Intake Total 400 Output Total 950 2600 Balance -550 -2600 Meds/Results Medications: Active Medications Generic Name Dose Route Start Last Admin Trade Name Freq PRN Reason Stop Dose Admin Acetaminophen 650 mg 12/28/24 06:54 Acetaminophen 325 Mg Tablet PO Q6H PRN pain (scale score 1-3) Hydrocodone Bitart/Acetaminophen 1 tab 12/28/24 17:39 12/29/24 05:59 Hydrocodone/Acetaminophen (*Crx) 5-325 Mg Tablet PO 1 tab Q4H PRN Administration Pain Rated 4-6 Aspirin 81 mg 12/28/24 08:00 12/28/24 07:56 Aspirin 81 Mg Chewable Tablet PO Not Given DAILY@0800 [facility] Calcium Carbonate 1,000 mg 12/28/24 09:00 12/28/24 07:56 Calcium Carbonate (Oscal) 500 Mg Tablet PO Not Given QAM [facility] Cyanocobalamin 1,000 mcg 01/19/25 09:00 Cyanocobalamin Inj 1,000 Mcg/Ml Vial IM MONTHLY [facility] Dextrose 12.5 gm 12/28/24 04:12 Dextrose 50% 25 Gm/50 Ml Syringe IV PUSH PRN PRN Hypoglycemia Protocol Enoxaparin Sodium 30 mg 12/29/24 09:00 Enoxaparin 30 Mg/0.3 Ml Syringe SUB-Q DAILY [facility] Fentanyl Citrate 50 mcg 12/28/24 03:42 12/28/24 11:03 Fentanyl Citrate Inj (*Crx) 100 Mcg/2 Ml Vial IV PUSH 50 mcg Q2H PRN Administration Pain Rated 7-10 Fentanyl Citrate 25 mcg 12/28/24 14:51 12/28/24 17:28 Fentanyl Citrate Inj (*Crx) 100 Mcg/2 Ml Vial IV PUSH 25 mcg Q2M PRN Administration Pain Fish Oil 2 gm 12/28/24 09:00 12/28/24 08:03 [place] 3 Polyunsat Fatty Acids 1 Gm Cap PO Not Given QAM BHAKTI Gabapentin 600 mg 12/28/24 09:00 12/28/24 17:38 Gabapentin 300 Mg Capsule PO Not Given TID BHAKTI Glucagon 1 mg 12/28/24 04:12 Glucagon For Inj 1 Mg Vial IM PRN PRN Hypoglycemia Protocol Glucose 15 gm 12/28/24 04:12 Glucose Oral Gel 15 Gm Of Glucse In 37.5 Gm Tube PO PRN PRN Hypoglycemia Protocol Hydromorphone HCl 0.5 mg 12/28/24 17:42 Hydromorphone Hcl Inj (*Crx) 2 Mg/Ml Vial IV PUSH Q2H PRN Breakthrough Pain Rated 4-6 or NPO Dextrose 1,000 mls @ 100 mls/hr 12/28/24 04:12 Dextrose 5% 1,000 Ml IVPB PRN PRN Hypoglycemia Protocol Lactated Ringer's 1,000 mls @ 30 mls/hr 12/28/24 14:55 12/28/24 17:38 Lr - Lactated Ringers Iv IV CONT Not Given .Q24H BHAKTI Cefazolin Sodium 2 gm in 50 mls @ 100 mls/hr 12/28/24 22:00 12/29/24 06:00 Ancef 2 Gm/D5w 50 Ml IVPB 12/29/24 14:29 100 mls/hr Q8H BHAKTI Administration Ibuprofen 800 mg in 200 mls @ 400 mls/hr 12/28/24 17:39 Caldolor 800 Mg/200 Ml IVPB Q6H PRN Breakthrough Pain Rated 1-3 or NPO Insulin Aspart 2 - 5 units 12/28/24 08:00 12/28/24 18:02 Insulin Aspart (*Bkc) 100 Units/Ml SUB-Q 3 units TIDWM [facility] Administration Protocol Insulin Aspart 1 - 2 units 12/28/24 21:00 12/28/24 21:33 Insulin Aspart (*Bkc) 100 Units/Ml SUB-Q 1 units HS [facility] Administration Protocol Levothyroxine Sodium 88 mcg 12/28/24 06:55 12/29/24 06:00 Levothyroxine Sodium 88 Mcg Tablet PO 88 mcg MoTuWeThFrSa@0630 [facility] Administration Levothyroxine Sodium 176 mcg 12/31/24 06:30 Levothyroxine Sodium 88 Mcg Tablet PO Haskins@0630 [facility] Miscellaneous Information 1 each 12/29/24 00:01 For Dvt Prophylaxis May Use Lovenox 40 Mg Daily, Est Crcl 40 Ml/Min XX 01/28/25 00:00 CLARIFY [facility] Naloxone HCl 0.1 mg 12/28/24 17:39 Naloxone Hcl 0.4 Mg/Ml Vial IV PUSH Q2M PRN Opiate Reversal Ondansetron HCl 4 mg 12/28/24 03:42 Ondansetron Inj 4 Mg/2 Ml Vial IV PUSH Q4H PRN Nausea Ondansetron HCl 4 mg 12/28/24 14:51 Ondansetron Inj 4 Mg/2 Ml Vial IV PUSH ONCE PRN Nausea Ondansetron HCl 4 mg 12/28/24 17:39 Ondansetron Inj 4 Mg/2 Ml Vial IV PUSH Q4H PRN Nausea And Vomiting Perflutren Lipid Microsphere 0 ml 12/28/24 04:07 Perflutren Lipid Microspheres 1.5 Ml Vial Diluted To 10 Ml Total Volume IV PUSH 12/31/24 04:07 ONCE PRN adequate visualization Protocol Polyethylene Glycol 17 gm 12/29/24 09:00 Polyethylene Glycol 3350 17 Gm Powd.Pack PO QAM [facility] Pravastatin Sodium 40 mg 12/28/24 09:00 12/28/24 08:03 Pravastatin Sodium 20 Mg Tablet PO Not Given DAILY [facility] Senna/Docusate Sodium 2 tab 12/28/24 17:39 12/28/24 18:04 Senna/Docusate Sodium Tablet PO 2 tab BID [facility] Administration Vitamin D 125 mcg 12/28/24 09:00 12/28/24 07:56 Cholecalciferol (Vitamin D3) 125 Mcg (5,000 Units) Tablet PO Not Given DAILY [facility] Radiology Results: ITS Impressions Hip/Pelvis X-Ray 12/28/24 05:29 Impression: Acute comminuted fracture of the intertrochanteric region of the proximal right femur, as detailed above. Chest X-Ray 12/28/24 05:39 Impression: Clear lungs. Labs Labs: Laboratory Results - last 24 hr 12/28/24 12/28/24 12/28/24 07:26 08:45 11:03 WBC RBC Hgb Hct MCV MCH MCHC RDW Plt Count MPV Immature Gran % (Auto) Neut % (Auto) Lymph % (Auto) [place] % (Auto) Eos % (Auto) Baso % (Auto) Lymph # (Auto) [place] # (Auto) Eos # (Auto) Baso # (Auto) Abs Immat Gran (auto) Absolute Neuts (auto) Absolute Nucleated RBC Band Neutrophils % Nucleated RBC % Platelet Estimate Hypochromasia Anisocytosis Microcytosis Schistocytes Sodium Potassium Chloride Carbon Dioxide Anion Gap BUN Creatinine Estim Creat Clear Calc Estimated GFR Glucose POC Capillary Glucose 296 H 252 H Calcium Magnesium Total Bilirubin AST ALT Alkaline Phosphatase Total Protein Albumin Urine Color Yellow Urine Appearance Clear Urine pH 6.5 Ur Specific [place] 1.026 Urine Protein Negative Urine Glucose (UA) 3+ H Urine Ketones 1+ H Ur Blood (Man) Negative Urine Nitrate Negative Urine Bilirubin Negative Urine Urobilinogen 1.0 Leukocyte Esterase Rfl Negative 12/28/24 12/28/24 12/28/24 14:44 17:06 20:43 WBC RBC Hgb Hct MCV MCH MCHC RDW Plt Count MPV Immature Gran % (Auto) Neut % (Auto) Lymph % (Auto) [place] % (Auto) Eos % (Auto) Baso % (Auto) Lymph # (Auto) [place] # (Auto) Eos # (Auto) Baso # (Auto) Abs Immat Gran (auto) Absolute Neuts (auto) Absolute Nucleated RBC Band Neutrophils % Nucleated RBC % Platelet Estimate Hypochromasia Anisocytosis Microcytosis Schistocytes Sodium Potassium Chloride Carbon Dioxide Anion Gap BUN Creatinine Estim Creat Clear Calc Estimated GFR Glucose POC Capillary Glucose 243 H 289 H 271 H Calcium Magnesium Total Bilirubin AST ALT Alkaline Phosphatase Total Protein Albumin Urine Color Urine Appearance Urine pH Ur Specific [place] Urine Protein Urine Glucose (UA) Urine Ketones Ur Blood (Man) Urine Nitrate Urine Bilirubin Urine Urobilinogen Leukocyte Esterase Rfl 12/29/24 05:08 WBC 8.9 RBC 3.56 L Hgb 8.8 L Hct 30.2 L MCV 84.8 MCH 24.7 L MCHC 29.1 L RDW 17.2 H Plt Count 134 L MPV 11.5 H Immature Gran % (Auto) 0.6 H Neut % (Auto) 82.5 H Lymph % (Auto) 10.7 L [place] % (Auto) 5.8 Eos % (Auto) 0.1 Baso % (Auto) 0.3 Lymph # (Auto) 0.95 [place] # (Auto) 0.5 Eos # (Auto) 0.0 Baso # (Auto) 0.0 Abs Immat Gran (auto) 0.05 H Absolute Neuts (auto) 7.4 H Absolute Nucleated RBC 0.000 Band Neutrophils % Not Reportable Nucleated RBC % 0.0 Platelet Estimate Decreased Hypochromasia 1+ Anisocytosis 1+ Microcytosis 1+ Schistocytes None seen Sodium 136 L Potassium 4.1 Chloride 104 Carbon Dioxide 21 L Anion Gap 11 BUN 18 H Creatinine 0.72 Estim Creat Clear Calc 56 Estimated GFR > 60 Glucose 314 H POC Capillary Glucose Calcium 8.4 Magnesium 2.0 Total Bilirubin 0.7 AST 32 ALT 21 Alkaline Phosphatase 71 Total Protein 6.7 Albumin 3.8 Urine Color Urine Appearance Urine pH Ur Specific [place] Urine Protein Urine Glucose (UA) Urine Ketones Ur Blood (Man) Urine Nitrate Urine Bilirubin Urine Urobilinogen Leukocyte Esterase Rfl Quality VTE Prophylaxis VTE prophylaxis: mechanical ordered and pharmacologic ordered
[2024-12-29 07:55] VITALS: BP 151/89; PULSE 73; RESP 20; TEMP 36.2; O2SAT 99
--- NOTE | 2024-12-29 08:35 | PM.PNORT ---
Progress Note: A&P Assessment and Plan (1) Closed intertrochanteric fracture of right hip: Qualifiers: Encounter type: initial encounter Fracture alignment: displaced Qualified Code(s): S72.141A - Displaced intertrochanteric fracture of right femur, initial encounter for closed fracture Code(s): S72.141A - Displaced intertrochanteric fracture of right femur, initial encounter for closed fracture Status: Acute Assessment and Plan: Postoperative day 1 right hip trochanteric nail. Pain controlled. PT/OT with weight-bearing as tolerated. Up to chair if possible. DVT prophylaxis with Lovenox. Patient high fall risk. Will require acute rehab for strength, gait and ambulation/ADLs. Otherwise lives alone. Subjective Subjective Date/Time Seen: 12/29/24 08:35 Post Op day: 1 Principal diagnosis: Right hip fracture Interval history: Postoperative day 1 right hip trochanteric nail. Patient resting comfortably. Some pain right hip. Exam Const: General: comfortable; No acute distress Resp: Effort & Inspection: normal respiratory effort and no audible wheezes Extrem: Right lower extremity: lower leg ( Negative Homans sign), ankle Details: normal ROM ( dorsiflexion and plantar flexion intact) and foot Details: vascular exam Details: dorsalis pedis pulse present and normal capillary refill, tendon exam Details: active flexion normal and active extension normal and motor-sensory exam Details: light-touch normal Location: in all toes; no edema Left lower extremity: normal to inspection, ankle Details: normal ROM and foot Details: vascular exam Details: dorsalis pedis pulse present and normal capillary refill and motor-sensory exam light-touch normal in all toes; no edema Other: Right hip incision and dressing clean and dry. Able to move toes. Good sensation to light touch. Good capillary refill. Negative Homans sign. Thigh muscle soft. Objective Data Vital Signs Vital Signs: Vital Signs - 24 hr 12/28/24 09:05 12/28/24 14:00 12/28/24 14:15 Temperature 97.6 F 98.6 F Pulse Rate 83 76 Respiratory Rate 18 Blood Pressure 145/64 H 166/84 H Pulse Oximetry 100 100 100 Oxygen Delivery Room Air Oxygen Flow Rate Fraction of Inspired Oxygen 12/28/24 16:28 12/28/24 16:38 12/28/24 16:45 Temperature 97.0 F L Pulse Rate 72 75 73 Respiratory Rate 14 21 H 14 Blood Pressure 157/83 H 180/66 H 134/81 Pulse Oximetry 100 98 100 Oxygen Delivery Simple Face Mask Simple Face Mask Room Air Oxygen Flow Rate 8 8 Fraction of Inspired Oxygen 12/28/24 17:00 12/28/24 17:15 12/28/24 17:30 Temperature 97.1 F L Pulse Rate 76 75 76 Respiratory Rate 11 L 19 16 Blood Pressure 170/70 H 149/61 H 164/61 H Pulse Oximetry 93 95 97 Oxygen Delivery Room Air Room Air Room Air Oxygen Flow Rate Fraction of Inspired Oxygen 12/28/24 17:36 12/28/24 18:00 12/28/24 18:15 Temperature 97.3 F L 97.8 F Pulse Rate 76 79 Respiratory Rate 16 14 Blood Pressure 152/63 H 133/51 L Pulse Oximetry 98 100 100 Oxygen Delivery Nasal Cannula Oxygen Flow Rate 2 Fraction of Inspired Oxygen 12/28/24 18:45 12/28/24 19:24 12/28/24 20:00 Temperature 97.8 F 97.4 F L Pulse Rate 80 78 Respiratory Rate 18 18 Blood Pressure 136/58 L 150/63 H Pulse Oximetry 100 100 Oxygen Delivery Room Air Oxygen Flow Rate Fraction of Inspired Oxygen 12/28/24 20:38 12/28/24 23:24 12/29/24 03:24 Temperature 97.6 F 97.6 F Pulse Rate 75 75 60 Respiratory Rate 20 18 18 Blood Pressure 155/67 H 179/66 H Pulse Oximetry 91 92 100 Oxygen Delivery Room Air Oxygen Flow Rate Fraction of Inspired Oxygen 21 12/29/24 06:08 12/29/24 07:55 Temperature 97.2 F L 97.2 F L Pulse Rate 77 73 Respiratory Rate 18 20 Blood Pressure 190/88 H 151/89 H Pulse Oximetry 90 99 Oxygen Delivery Oxygen Flow Rate Fraction of Inspired Oxygen Intake/Output Intake/Output: Intake & Output 12/26/24 12/27/24 12/28/24 12/29/24 23:59 23:59 23:59 23:59 Intake Total 400 Output Total 950 2600 Balance -550 -2600 Meds/Results Medications: Active Medications Generic Name Dose Route Start Last Admin Trade Name Freq PRN Reason Stop Dose Admin Acetaminophen 650 mg 12/28/24 06:54 Acetaminophen 325 Mg Tablet PO Q6H PRN pain (scale score 1-3) Hydrocodone Bitart/Acetaminophen 1 tab 12/28/24 17:39 12/29/24 05:59 Hydrocodone/Acetaminophen (*Crx) 5-325 Mg Tablet PO 1 tab Q4H PRN Administration Pain Rated 4-6 Aspirin 81 mg 12/28/24 08:00 12/28/24 07:56 Aspirin 81 Mg Chewable Tablet PO Not Given DAILY@0800 [facility] Calcium Carbonate 1,000 mg 12/28/24 09:00 12/28/24 07:56 Calcium Carbonate (Oscal) 500 Mg Tablet PO Not Given QAM [facility] Cyanocobalamin 1,000 mcg 01/19/25 09:00 Cyanocobalamin Inj 1,000 Mcg/Ml Vial IM MONTHLY [facility] Dextrose 12.5 gm 12/28/24 04:12 Dextrose 50% 25 Gm/50 Ml Syringe IV PUSH PRN PRN Hypoglycemia Protocol Enoxaparin Sodium 30 mg 12/29/24 09:00 Enoxaparin 30 Mg/0.3 Ml Syringe SUB-Q DAILY [facility] Fentanyl Citrate 50 mcg 12/28/24 03:42 12/28/24 11:03 Fentanyl Citrate Inj (*Crx) 100 Mcg/2 Ml Vial IV PUSH 50 mcg Q2H PRN Administration Pain Rated 7-10 Fentanyl Citrate 25 mcg 12/28/24 14:51 12/28/24 17:28 Fentanyl Citrate Inj (*Crx) 100 Mcg/2 Ml Vial IV PUSH 25 mcg Q2M PRN Administration Pain Fish Oil 2 gm 12/28/24 09:00 12/28/24 08:03 [place] 3 Polyunsat Fatty Acids 1 Gm Cap PO Not Given QAM [facility] Gabapentin 600 mg 12/28/24 09:00 12/28/24 17:38 Gabapentin 300 Mg Capsule PO Not Given TID [facility] Glucagon 1 mg 12/28/24 04:12 Glucagon For Inj 1 Mg Vial IM PRN PRN Hypoglycemia Protocol Glucose 15 gm 12/28/24 04:12 Glucose Oral Gel 15 Gm Of Glucse In 37.5 Gm Tube PO PRN PRN Hypoglycemia Protocol Hydromorphone HCl 0.5 mg 12/28/24 17:42 Hydromorphone Hcl Inj (*Crx) 2 Mg/Ml Vial IV PUSH Q2H PRN Breakthrough Pain Rated 4-6 or NPO Dextrose 1,000 mls @ 100 mls/hr 12/28/24 04:12 Dextrose 5% 1,000 Ml IVPB PRN PRN Hypoglycemia Protocol Lactated Ringer's 1,000 mls @ 30 mls/hr 12/28/24 14:55 12/28/24 17:38 Lr - Lactated Ringers Iv IV CONT Not Given .Q24H [facility] Cefazolin Sodium 2 gm in 50 mls @ 100 mls/hr 12/28/24 22:00 12/29/24 06:00 Ancef 2 Gm/D5w 50 Ml IVPB 12/29/24 14:29 100 mls/hr Q8H [facility] Administration Ibuprofen 800 mg in 200 mls @ 400 mls/hr 12/28/24 17:39 Caldolor 800 Mg/200 Ml IVPB Q6H PRN Breakthrough Pain Rated 1-3 or NPO Insulin Aspart 2 - 5 units 12/28/24 08:00 12/28/24 18:02 Insulin Aspart (*Bkc) 100 Units/Ml SUB-Q 3 units TIDWM [facility] Administration Protocol Insulin Aspart 1 - 2 units 12/28/24 21:00 12/28/24 21:33 Insulin Aspart (*Bkc) 100 Units/Ml SUB-Q 1 units HS [facility] Administration Protocol Levothyroxine Sodium 88 mcg 12/28/24 06:55 12/29/24 06:00 Levothyroxine Sodium 88 Mcg Tablet PO 88 mcg [email or web address] [facility] Administration Levothyroxine Sodium 176 mcg 12/31/24 06:30 Levothyroxine Sodium 88 Mcg Tablet PO [email or web address] [facility] Miscellaneous Information 1 each 12/29/24 00:01 For Dvt Prophylaxis May Use Lovenox 40 Mg Daily, Est Crcl 40 Ml/Min XX 01/28/25 00:00 CLARIFY [facility] Naloxone HCl 0.1 mg 12/28/24 17:39 Naloxone Hcl 0.4 Mg/Ml Vial IV PUSH Q2M PRN Opiate Reversal Ondansetron HCl 4 mg 12/28/24 03:42 Ondansetron Inj 4 Mg/2 Ml Vial IV PUSH Q4H PRN Nausea Ondansetron HCl 4 mg 12/28/24 14:51 Ondansetron Inj 4 Mg/2 Ml Vial IV PUSH ONCE PRN Nausea Ondansetron HCl 4 mg 12/28/24 17:39 Ondansetron Inj 4 Mg/2 Ml Vial IV PUSH Q4H PRN Nausea And Vomiting Perflutren Lipid Microsphere 0 ml 12/28/24 04:07 Perflutren Lipid Microspheres 1.5 Ml Vial Diluted To 10 Ml Total Volume IV PUSH 12/31/24 04:07 ONCE PRN adequate visualization Protocol Polyethylene Glycol 17 gm 12/29/24 09:00 Polyethylene Glycol 3350 17 Gm Powd.Pack PO QAM [facility] Pravastatin Sodium 40 mg 12/28/24 09:00 12/28/24 08:03 Pravastatin Sodium 20 Mg Tablet PO Not Given DAILY [facility] Senna/Docusate Sodium 2 tab 12/28/24 17:39 12/28/24 18:04 Senna/Docusate Sodium Tablet PO 2 tab BID [facility] Administration Vitamin D 125 mcg 12/28/24 09:00 12/28/24 07:56 Cholecalciferol (Vitamin D3) 125 Mcg (5,000 Units) Tablet PO Not Given DAILY [facility] Radiology Results: ITS Impressions Hip/Pelvis X-Ray 12/28/24 05:29 Impression: Acute comminuted fracture of the intertrochanteric region of the proximal right femur, as detailed above. Chest X-Ray 12/28/24 05:39 Impression: Clear lungs. Labs Labs: Laboratory Results - last 24 hr 12/28/24 12/28/24 12/28/24 08:45 11:03 14:44 WBC RBC Hgb Hct MCV MCH MCHC RDW Plt Count MPV Immature Gran % (Auto) Neut % (Auto) Lymph % (Auto) Baker % (Auto) Eos % (Auto) Baso % (Auto) Lymph # (Auto) Baker # (Auto) Eos # (Auto) Baso # (Auto) Abs Immat Gran (auto) Absolute Neuts (auto) Absolute Nucleated RBC Band Neutrophils % Nucleated RBC % Platelet Estimate Hypochromasia Anisocytosis Microcytosis Schistocytes Sodium Potassium Chloride Carbon Dioxide Anion Gap BUN Creatinine Estim Creat Clear Calc Estimated GFR Glucose POC Capillary Glucose 252 H 243 H Calcium Magnesium Total Bilirubin AST ALT Alkaline Phosphatase Total Protein Albumin Urine Color Yellow Urine Appearance Clear Urine pH 6.5 Ur Specific Center 1.026 Urine Protein Negative Urine Glucose (UA) 3+ H Urine Ketones 1+ H Ur Blood (Man) Negative Urine Nitrate Negative Urine Bilirubin Negative Urine Urobilinogen 1.0 Leukocyte Esterase Rfl Negative 12/28/24 12/28/24 12/29/24 17:06 20:43 05:08 WBC 8.9 RBC 3.56 L Hgb 8.8 L Hct 30.2 L MCV 84.8 MCH 24.7 L MCHC 29.1 L RDW 17.2 H Plt Count 134 L MPV 11.5 H Immature Gran % (Auto) 0.6 H Neut % (Auto) 82.5 H Lymph % (Auto) 10.7 L Baker % (Auto) 5.8 Eos % (Auto) 0.1 Baso % (Auto) 0.3 Lymph # (Auto) 0.95 Baker # (Auto) 0.5 Eos # (Auto) 0.0 Baso # (Auto) 0.0 Abs Immat Gran (auto) 0.05 H Absolute Neuts (auto) 7.4 H Absolute Nucleated RBC 0.000 Band Neutrophils % Not Reportable Nucleated RBC % 0.0 Platelet Estimate Decreased Hypochromasia 1+ Anisocytosis 1+ Microcytosis 1+ Schistocytes None seen Sodium 136 L Potassium 4.1 Chloride 104 Carbon Dioxide 21 L Anion Gap 11 BUN 18 H Creatinine 0.72 Estim Creat Clear Calc 56 Estimated GFR > 60 Glucose 314 H POC Capillary Glucose 289 H 271 H Calcium 8.4 Magnesium 2.0 Total Bilirubin 0.7 AST 32 ALT 21 Alkaline Phosphatase 71 Total Protein 6.7 Albumin 3.8 Urine Color Urine Appearance Urine pH Ur Specific Center Urine Protein Urine Glucose (UA) Urine Ketones Ur Blood (Man) Urine Nitrate Urine Bilirubin Urine Urobilinogen Leukocyte Esterase Rfl 12/29/24 07:16 WBC RBC Hgb Hct MCV MCH MCHC RDW Plt Count MPV Immature Gran % (Auto) Neut % (Auto) Lymph % (Auto) Baker % (Auto) Eos % (Auto) Baso % (Auto) Lymph # (Auto) Baker # (Auto) Eos # (Auto) Baso # (Auto) Abs Immat Gran (auto) Absolute Neuts (auto) Absolute Nucleated RBC Band Neutrophils % Nucleated RBC % Platelet Estimate Hypochromasia Anisocytosis Microcytosis Schistocytes Sodium Potassium Chloride Carbon Dioxide Anion Gap BUN Creatinine Estim Creat Clear Calc Estimated GFR Glucose POC Capillary Glucose 307 H Calcium Magnesium Total Bilirubin AST ALT Alkaline Phosphatase Total Protein Albumin Urine Color Urine Appearance Urine pH Ur Specific Center Urine Protein Urine Glucose (UA) Urine Ketones Ur Blood (Man) Urine Nitrate Urine Bilirubin Urine Urobilinogen Leukocyte Esterase Rfl
[2024-12-29] MEDS: ENOXAPARIN 30 MG/0.3 ML SYRINGE SUB-Q (08:36)
[2024-12-29] MEDS: INSULIN ASPART (*BKC) 100 UNITS/ML SUB-Q ×4 (08:37→20:32)
[2024-12-29] MEDS: ONDANSETRON INJ 4 MG/2 ML VIAL IV PUSH (08:43)
[2024-12-29] MEDS: HYDROmorphone HCL INJ (*CRX) 2 MG/ML VIAL 0.5 MG IV PUSH ×2 (10:27→17:10)
[2024-12-29] MEDS: IBUPROFEN IV 800 MG/200 ML 800 MG/200 ML BAG 400 MG IVPB (10:58)
[2024-12-29 12:00] VITALS: BP 156/67; PULSE 77; RESP 20; TEMP 36.3; O2SAT 100
[2024-12-29] MEDS: OMEGA 3 POLYUNSAT FATTY ACIDS 1 GM CAP 2 GM PO (12:00)
[2024-12-29] MEDS: CALCIUM CARBONATE (OSCAL) 500 MG TABLET 1000 MG PO (12:00)
[2024-12-29] MEDS: GABAPENTIN 300 MG CAPSULE 600 MG PO ×2 (12:00→17:09)
[2024-12-29] MEDS: PRAVASTATIN SODIUM 20 MG TABLET 40 MG PO (12:00)
[2024-12-29] MEDS: ASPIRIN 81 MG CHEWABLE TABLET PO (12:01)
[2024-12-29] MEDS: CHOLECALCIFEROL (VITAMIN D3) 125 MCG (5,000 UNITS) TABLET PO (12:01)
[2024-12-29] MEDS: SENNA/DOCUSATE SODIUM TABLET 2 TAB PO (12:02)
[2024-12-29 16:00] VITALS: BP 150/64; PULSE 70; RESP 20; TEMP 36.4; O2SAT 100
[2024-12-29] MEDS: INSULIN GLARGINE (*BKC) 100 UNITS/ML 10 UNITS SUB-Q (17:14)
[2024-12-29] MEDS: CYANOCOBALAMIN INJ 1,000 MCG/ML VIAL 1000 MCG SUB-Q (20:06)
[2024-12-29 20:12] VITALS: BP 119/56; PULSE 72; RESP 14; TEMP 36.6; O2SAT 98
[2024-12-30 00:35] VITALS: BP 119/57; PULSE 65; RESP 16; TEMP 36.6; O2SAT 97
[2024-12-30] MEDS: LEVOTHYROXINE SODIUM 88 MCG TABLET PO (05:50)
[2024-12-30] MEDS: HYDROmorphone HCL INJ (*CRX) 2 MG/ML VIAL 0.5 MG IV PUSH ×2 (06:49→10:05)
--- NOTE | 2024-12-30 07:16 | PM.IMPN ---
Progress Note: A&P Assessment and Plan (1) Closed right hip fracture: Code(s): S72.001A - Fracture of unspecified part of neck of right femur, initial encounter for closed fracture Status: Acute Assessment and Plan: Secondary to #2 Hip XR: Acute comminuted fracture of the intertrochanteric region of the proximal right femur, as detailed above. Independently reviewed by this provider. Orthopedics is consulted. Dr. Escobedo accepts for the consult and treat. Pt will be medically cleared with EKG, ECHO, imaging and necessary labs in preparation for OR. Bedrest w/betancourt for urine elimination SCDs, Lovenox 12/30: POD 2 Right hip trochanteric nail PT/OT evals recommend continued therapy Work with CC regarding SNF vs HH vs [facility] placement (2) Fall: Code(s): W19.XXXA - Unspecified fall, initial encounter Status: Acute Assessment and Plan: Secondary to loss of balance while ambulating in her home with a cane used as aid for support. No Closed head injury or LOC. (3) Diabetes: Code(s): E11.9 - Type 2 diabetes mellitus without complications Status: Chronic Assessment and Plan: Hold all oral hypoglycemics Glucose checks AC and HS Adult insulin protocol for tight control to allow healing from surgery. Hypoglycemic protocol Advance to diabetic diet when OK with Ortho. A1C 9.4% Re-order Lantus once dose has been confirmed and verified. (4) Peripheral neuropathy: Code(s): G62.9 - Polyneuropathy, unspecified Status: Chronic Assessment and Plan: Treat acute pain with prn meds and when home meds are confirmed and verified, continue home dose of Gabapentin. (5) Anemia: Qualifiers: Anemia type: unspecified type Qualified Code(s): D64.9 - Anemia, unspecified Code(s): D64.9 - Anemia, unspecified Status: Chronic Assessment and Plan: Chronic anemia present and consistent with history. Baseline Hgb is 8.0-10.0. T&S prior to OR 12/29: Hgb 8.8 (6) Hypothyroidism: Code(s): E03.9 - Hypothyroidism, unspecified Status: Chronic Assessment and Plan: Continue thyroid replacement after meds are completely verified and confirmed. (7) Heart murmur: Code(s): R01.1 - Cardiac murmur, unspecified Status: Acute Assessment and Plan: Patient with loud holosystolic heart murmur. She states this was an issue that he was found recently in the past couple of months and she is supposed to be having a workup for. Patient's last echocardiogram was August 06, 2022 that showed at that time a normal left ventricular systolic function 60-65% and grade 1 diastolic dysfunction. Echo 12/28 EF 65-70%, mildly increased LV wall thickness, G1DD, moderate aortic valve stenosis, mild AVR, AV calcification and TVR, mild pulmonary hypertension Follow up with Cardiology in the outpt setting Subjective Date/time seen: 12/30/24 07:16 Interval history: 79-year-old female patient with past medical history of prior CVA with generalized weakness, diabetes mellitus, diabetic neuropathy, vertigo, hyperlipidemia, chronic anemia and chronic hypothyroidism who comes to the emergency room after a fall. 12/30/2024 POD 2 Right hip trochanteric nail. Pt healing well, still in some pain but to be expected 2 days out from surgery. Continue working with PT/OT with weight bearing as tolerated. Working with CC regarding SNF/[facility] placement. Review of Systems Review of Systems: All systems reviewed & are unremarkable except as noted in HPI and below Exam Const: General: comfortable and uncomfortable Other: Elderly female pt lying on stretcher at this time in no distress. HENMT: Face/Nose/Sinus: Normal nares present Mouth: Yes moist mucous membranes Eyes: General: appearance normal, both eyes and all related structures Sclera: sclerae normal Pupils: Equal, round and reactive pupils present EOM: EOMs intact bilaterally Neck: Neck: supple and no JVD Lymphatic: lymphadenopathy not noted Chest: Other: Not tender to palpation. Resp: Effort & Inspection: normal respiratory effort Auscultation: clear to auscultation bilaterally Cardio: Rate: regular rate Rhythm: regular rhythm Heart sounds: Murmur heart sound present systolic holo, III/ and at the base GI: Inspection: non-distended Auscultation: normal bowel sounds Urinary Catheter: Urinary Catheter: patent and draining and urine clear Skin: General skin exam: normal color, no rashes or lesions noted and no erythema Wounds: no wounds Neuro: Cranial nerves: Yes Equal, round and reactive pupils present Speech: normal speech Motor exam (neuro): Abnormal motor strength present (generalized weakness w/acutely decreased AROM RLE.) Sensory Exam: normal sensation Extrem: General: normal exam except as noted, no edema and no pedal edema Psych: Mental Status: mental status grossly normal Affect: normal affect Objective Data Vital Signs Vital Signs: Vital Signs - 24 hr 12/29/24 07:55 12/29/24 08:00 12/29/24 12:00 Temperature 97.2 F L 97.3 F L Pulse Rate 73 77 Respiratory Rate 20 20 Blood Pressure 151/89 H 156/67 H Pulse Oximetry 99 100 Oxygen Delivery Room Air 12/29/24 12:52 12/29/24 16:00 12/29/24 20:00 Temperature 97.5 F L Pulse Rate 70 Respiratory Rate 20 Blood Pressure 150/64 H Pulse Oximetry 100 Oxygen Delivery Room Air Room Air 12/29/24 20:12 12/30/24 00:35 Temperature 97.8 F 97.9 F Pulse Rate 72 65 Respiratory Rate 14 16 Blood Pressure 119/56 L 119/57 L Pulse Oximetry 98 97 Oxygen Delivery Intake/Output Intake/Output: Intake & Output 12/27/24 12/28/24 12/29/24 12/30/24 23:59 23:59 23:59 23:59 Intake Total 400 1552 400 Output Total 950 3600 300 Balance -550 -2045 100 Meds/Results Medications: Active Medications Generic Name Dose Route Start Last Admin Trade Name Freq PRN Reason Stop Dose Admin Acetaminophen 650 mg 12/28/24 06:54 Acetaminophen 325 Mg Tablet PO Q6H PRN pain (scale score 1-3) Hydrocodone Bitart/Acetaminophen 1 tab 12/28/24 17:39 12/29/24 20:05 Hydrocodone/Acetaminophen (*Crx) 5-325 Mg Tablet PO 1 tab Q4H PRN Administration Pain Rated 4-6 Aspirin 81 mg 12/28/24 08:00 12/29/24 12:01 Aspirin 81 Mg Chewable Tablet PO 81 mg DAILY@0800 [facility] Administration Calcium Carbonate 1,000 mg 12/28/24 09:00 12/29/24 12:00 Calcium Carbonate (Oscal) 500 Mg Tablet PO 1,000 mg QAM [facility] Administration Dextrose 12.5 gm 12/28/24 04:12 Dextrose 50% 25 Gm/50 Ml Syringe IV PUSH PRN PRN Hypoglycemia Protocol Enoxaparin Sodium 30 mg 12/29/24 09:00 12/29/24 08:36 Enoxaparin 30 Mg/0.3 Ml Syringe SUB-Q 30 mg DAILY [facility] Administration Fentanyl Citrate 50 mcg 12/28/24 03:42 12/28/24 11:03 Fentanyl Citrate Inj (*Crx) 100 Mcg/2 Ml Vial IV PUSH 50 mcg Q2H PRN Administration Pain Rated 7-10 Fentanyl Citrate 25 mcg 12/28/24 14:51 12/28/24 17:28 Fentanyl Citrate Inj (*Crx) 100 Mcg/2 Ml Vial IV PUSH 25 mcg Q2M PRN Administration Pain Fish Oil 2 gm 12/28/24 09:00 12/29/24 12:00 [place] 3 Polyunsat Fatty Acids 1 Gm Cap PO 2 gm QAM [facility] Administration Gabapentin 600 mg 12/28/24 09:00 12/29/24 17:09 Gabapentin 300 Mg Capsule PO 600 mg TID [facility] Administration Glucagon 1 mg 12/28/24 04:12 Glucagon For Inj 1 Mg Vial IM PRN PRN Hypoglycemia Protocol Glucose 15 gm 12/28/24 04:12 Glucose Oral Gel 15 Gm Of Glucse In 37.5 Gm Tube PO PRN PRN Hypoglycemia Protocol Hydromorphone HCl 0.5 mg 12/28/24 17:42 12/30/24 06:49 Hydromorphone Hcl Inj (*Crx) 2 Mg/Ml Vial IV PUSH 0.5 mg Q2H PRN Administration Breakthrough Pain Rated 4-6 or NPO Dextrose 1,000 mls @ 100 mls/hr 12/28/24 04:12 Dextrose 5% 1,000 Ml IVPB PRN PRN Hypoglycemia Protocol Ibuprofen 800 mg in 200 mls @ 400 mls/hr 12/28/24 17:39 12/29/24 11:50 Caldolor 800 Mg/200 Ml IVPB Infused Q6H PRN Infusion Breakthrough Pain Rated 1-3 or NPO Insulin Aspart 2 - 5 units 12/28/24 08:00 12/29/24 17:07 Insulin Aspart (*Bkc) 100 Units/Ml SUB-Q 5 units TIDWM [facility] Administration Protocol Insulin Aspart 1 - 2 units 12/28/24 21:00 12/29/24 20:32 Insulin Aspart (*Bkc) 100 Units/Ml SUB-Q 2 units HS [facility] Administration Protocol Levothyroxine Sodium 88 mcg 12/28/24 06:55 12/30/24 05:50 Levothyroxine Sodium 88 Mcg Tablet PO 88 mcg [email or web address] [facility] Administration Levothyroxine Sodium 176 mcg 12/31/24 06:30 Levothyroxine Sodium 88 Mcg Tablet PO [email or web address] [facility] Miscellaneous Information 1 each 12/29/24 00:01 For Dvt Prophylaxis May Use Lovenox 40 Mg Daily, Est Crcl 40 Ml/Min XX 01/28/25 00:00 [facility] Naloxone HCl 0.1 mg 12/28/24 17:39 Naloxone Hcl 0.4 Mg/Ml Vial IV PUSH Q2M PRN Opiate Reversal Ondansetron HCl 4 mg 12/28/24 17:39 Ondansetron Inj 4 Mg/2 Ml Vial IV PUSH Q4H PRN Nausea And Vomiting Perflutren Lipid Microsphere 0 ml 12/28/24 04:07 Perflutren Lipid Microspheres 1.5 Ml Vial Diluted To 10 Ml Total Volume IV PUSH 12/31/24 04:07 ONCE PRN adequate visualization Protocol Polyethylene Glycol 17 gm 12/29/24 09:00 12/29/24 12:02 Polyethylene Glycol 3350 17 Gm Powd.Pack PO 17 gm QAM [facility] Administration Pravastatin Sodium 40 mg 12/28/24 09:00 12/29/24 12:00 Pravastatin Sodium 20 Mg Tablet PO 40 mg DAILY [facility] Administration Senna/Docusate Sodium 2 tab 12/28/24 17:39 12/29/24 17:09 Senna/Docusate Sodium Tablet PO Not Given BID [facility] Vitamin D 125 mcg 12/28/24 09:00 12/29/24 12:01 Cholecalciferol (Vitamin D3) 125 Mcg (5,000 Units) Tablet PO 125 mcg DAILY [facility] Administration Radiology Results: ITS Impressions Hip/Pelvis X-Ray 12/28/24 05:29 Impression: Acute comminuted fracture of the intertrochanteric region of the proximal right femur, as detailed above. Chest X-Ray 12/28/24 05:39 Impression: Clear lungs. Labs Labs: Laboratory Results - last 24 hr 12/29/24 12/29/24 12/29/24 07:16 11:04 16:20 POC Capillary Glucose 307 H 298 H 358 H 12/29/24 20:17 POC Capillary Glucose 350 H Quality VTE Prophylaxis VTE prophylaxis: mechanical ordered and pharmacologic ordered
[2024-12-30 07:53] VITALS: BP 127/53; PULSE 65; RESP 14; TEMP 36.4; O2SAT 100
[2024-12-30 07:54] LABS: Hematocrit 26.6 % (37.0-47.0); Hemoglobin 7.8 g/dL (12.0-15.0); Immature Granulocyte Percent A 0.6 % (0-0.5); Lymphocytes Absolute Auto 1.12 K/mm3 (0.9-3.2); Mean Corpuscular HGB Conc 29.3 g/dl (32-36); Mean Corpuscular Hemoglobin 24.8 pg (26-34); Mean Corpuscular Volume 84.7 fl (80-100); Nucleated Red Blood Cells Absolute Auto 0.000 K/mm3 (0.0-0.012); Nucleated Red Blood Cells Perc 0.0 % (0.0-0.2); Platelet Count Result 137 k/mm3 (150-375); Red Blood Count 3.14 M/mm3 (4.2-5.4); White Blood Count 8.7 K/mm3 (4.5-10.0)
[2024-12-30 08:03] LABS: Alanine Aminotransferase 16 U/L (6-35); Albumin Level 3.3 g/dL (3.5-5.1); Alkaline Phosphatase 58 U/L (38-126); Anion Gap 4 mmol/L (4-12); Aspartate Amino Transferase 28 U/L (14-36); Bilirubin,Total 0.4 mg/dL (0.2-1.3); Blood Urea Nitrogen 25 mg/dL (7-17); Calcium 8.4 mg/dL (8.4-10.2); Carbon Dioxide 29 mmol/L (22-30); Chloride 100 mmol/L (98-107); Estimated CRCL calculation 43 ml/min; Estimated Glomerular Filt Rate 57; Glucose 281 mg/dL (65-110); Potassium 4.4 mmol/L (3.4-5.0); Sodium 133 mmol/L (137-145); Total Protein 6.1 g/dL (6.3-8.2)
[2024-12-30] MEDS: IBUPROFEN IV 800 MG/200 ML 800 MG/200 ML BAG 400 MG IVPB (08:03)
[2024-12-30] MEDS: INSULIN ASPART (*BKC) 100 UNITS/ML SUB-Q ×4 (08:04→21:03)
[2024-12-30 08:18] LABS: Hypochromasia 1+
--- NOTE | 2024-12-30 08:55 | PM.PNORT ---
Progress Note: A&P Assessment and Plan (1) Acute postoperative anemia due to expected blood loss: Code(s): D62 - Acute posthemorrhagic anemia Status: Acute Assessment and Plan: chronic anemia, now with hemoglobin 7.8 secondary to operative blood loss. Stable at this time. Will continue to observe. (2) Closed intertrochanteric fracture of right hip: Qualifiers: Encounter type: initial encounter Fracture alignment: displaced Qualified Code(s): S72.141A - Displaced intertrochanteric fracture of right femur, initial encounter for closed fracture Code(s): S72.141A - Displaced intertrochanteric fracture of right femur, initial encounter for closed fracture Status: Acute Assessment and Plan: Postoperative day 2 right hip trochanteric nail. Pain Right hip. reviewed pain control. PT/OT with weight-bearing as tolerated. Up to chair. DVT prophylaxis with Lovenox. Decreased albumin and protein. We will add supplement to diet. Patient high fall risk. Will require acute rehab for strength, gait and ambulation/ADLs. Otherwise lives alone. Unable to care for self at this time. Subjective Subjective Date/Time Seen: 12/30/24 08:55 Post Op day: 2 Principal diagnosis: Right hip fracture Interval history: Postoperative day 2 right hip trochanteric nail. Patient Up in chair. Some pain right hip, rates 7/10. Exam Const: General: comfortable and uncomfortable Other: Elderly female pt lying on stretcher at this time in no distress. HENMT: Face/Nose/Sinus: Normal nares present Mouth: Yes moist mucous membranes Eyes: General: appearance normal, both eyes and all related structures Sclera: sclerae normal Pupils: Equal, round and reactive pupils present EOM: EOMs intact bilaterally Neck: Neck: supple and no JVD Lymphatic: lymphadenopathy not noted Chest: Other: Not tender to palpation. Resp: Effort & Inspection: normal respiratory effort Auscultation: clear to auscultation bilaterally Cardio: Rate: regular rate Rhythm: regular rhythm Heart sounds: Murmur heart sound present systolic holo, III/ and at the base GI: Inspection: non-distended Auscultation: normal bowel sounds Urinary Catheter: Urinary Catheter: patent and draining and urine clear Skin: General skin exam: normal color, no rashes or lesions noted and no erythema Wounds: no wounds Neuro: Cranial nerves: Yes Equal, round and reactive pupils present Speech: normal speech Motor exam (neuro): Abnormal motor strength present (generalized weakness w/acutely decreased AROM RLE.) Sensory Exam: normal sensation Extrem: General: normal exam except as noted, no edema and no pedal edema Other: RLE with external rotation and shortening. Psych: Mental Status: mental status grossly normal Affect: normal affect Objective Data Vital Signs Vital Signs: Vital Signs - 24 hr 12/29/24 12:00 12/29/24 12:52 12/29/24 16:00 Temperature 97.3 F L 97.5 F L Pulse Rate 77 70 Respiratory Rate 20 20 Blood Pressure 156/67 H 150/64 H Pulse Oximetry 100 100 Oxygen Delivery Room Air 12/29/24 20:00 12/29/24 20:12 12/30/24 00:35 Temperature 97.8 F 97.9 F Pulse Rate 72 65 Respiratory Rate 14 16 Blood Pressure 119/56 L 119/57 L Pulse Oximetry 98 97 Oxygen Delivery Room Air 12/30/24 07:53 Temperature 97.6 F Pulse Rate 65 Respiratory Rate 14 Blood Pressure 127/53 L Pulse Oximetry 100 Oxygen Delivery Intake/Output Intake/Output: Intake & Output 12/27/24 12/28/24 12/29/24 12/30/24 23:59 23:59 23:59 23:59 Intake Total 400 1552 640 Output Total 950 3600 300 Balance -550 -2048 340 Meds/Results Medications: Active Medications Generic Name Dose Route Start Last Admin Trade Name Freq PRN Reason Stop Dose Admin Acetaminophen 650 mg 12/28/24 06:54 Acetaminophen 325 Mg Tablet PO Q6H PRN pain (scale score 1-3) Hydrocodone Bitart/Acetaminophen 1 tab 12/28/24 17:39 12/29/24 20:05 Hydrocodone/Acetaminophen (*Crx) 5-325 Mg Tablet PO 1 tab Q4H PRN Administration Pain Rated 4-6 Aspirin 81 mg 12/28/24 08:00 12/29/24 12:01 Aspirin 81 Mg Chewable Tablet PO 81 mg DAILY@0800 BHAKTI Administration Calcium Carbonate 1,000 mg 12/28/24 09:00 12/29/24 12:00 Calcium Carbonate (Oscal) 500 Mg Tablet PO 1,000 mg QAM BHAKTI Administration Dextrose 12.5 gm 12/28/24 04:12 Dextrose 50% 25 Gm/50 Ml Syringe IV PUSH PRN PRN Hypoglycemia Protocol Enoxaparin Sodium 30 mg 12/29/24 09:00 12/29/24 08:36 Enoxaparin 30 Mg/0.3 Ml Syringe SUB-Q 30 mg DAILY BHAKTI Administration Fentanyl Citrate 50 mcg 12/28/24 03:42 12/28/24 11:03 Fentanyl Citrate Inj (*Crx) 100 Mcg/2 Ml Vial IV PUSH 50 mcg Q2H PRN Administration Pain Rated 7-10 Fentanyl Citrate 25 mcg 12/28/24 14:51 12/28/24 17:28 Fentanyl Citrate Inj (*Crx) 100 Mcg/2 Ml Vial IV PUSH 25 mcg Q2M PRN Administration Pain Fish Oil 2 gm 12/28/24 09:00 12/29/24 12:00 [place] 3 Polyunsat Fatty Acids 1 Gm Cap PO 2 gm QAM BHAKTI Administration Gabapentin 600 mg 12/28/24 09:00 12/29/24 17:09 Gabapentin 300 Mg Capsule PO 600 mg TID BHAKTI Administration Glucagon 1 mg 12/28/24 04:12 Glucagon For Inj 1 Mg Vial IM PRN PRN Hypoglycemia Protocol Glucose 15 gm 12/28/24 04:12 Glucose Oral Gel 15 Gm Of Glucse In 37.5 Gm Tube PO PRN PRN Hypoglycemia Protocol Hydromorphone HCl 0.5 mg 12/28/24 17:42 12/30/24 06:49 Hydromorphone Hcl Inj (*Crx) 2 Mg/Ml Vial IV PUSH 0.5 mg Q2H PRN Administration Breakthrough Pain Rated 4-6 or NPO Dextrose 1,000 mls @ 100 mls/hr 12/28/24 04:12 Dextrose 5% 1,000 Ml IVPB PRN PRN Hypoglycemia Protocol Ibuprofen 800 mg in 200 mls @ 400 mls/hr 12/28/24 17:39 12/30/24 08:03 Caldolor 800 Mg/200 Ml IVPB 400 mls/hr Q6H PRN Administration Breakthrough Pain Rated 1-3 or NPO Insulin Aspart 2 - 5 units 12/28/24 08:00 12/30/24 08:04 Insulin Aspart (*Bkc) 100 Units/Ml SUB-Q 3 units TIDWM BHAKTI Administration Protocol Insulin Aspart 1 - 2 units 12/28/24 21:00 12/29/24 20:32 Insulin Aspart (*Bkc) 100 Units/Ml SUB-Q 2 units HS BHAKTI Administration Protocol Levothyroxine Sodium 88 mcg 12/28/24 06:55 12/30/24 05:50 Levothyroxine Sodium 88 Mcg Tablet PO 88 mcg [id number]@0630 BHAKTI Administration Levothyroxine Sodium 176 mcg 12/31/24 06:30 Levothyroxine Sodium 88 Mcg Tablet PO [email or web address] [facility] Miscellaneous Information 1 each 12/29/24 00:01 For Dvt Prophylaxis May Use Lovenox 40 Mg Daily, Est Crcl 40 Ml/Min XX 01/28/25 00:00 CLARIFY [facility] Naloxone HCl 0.1 mg 12/28/24 17:39 Naloxone Hcl 0.4 Mg/Ml Vial IV PUSH Q2M PRN Opiate Reversal Ondansetron HCl 4 mg 12/28/24 17:39 Ondansetron Inj 4 Mg/2 Ml Vial IV PUSH Q4H PRN Nausea And Vomiting Perflutren Lipid Microsphere 0 ml 12/28/24 04:07 Perflutren Lipid Microspheres 1.5 Ml Vial Diluted To 10 Ml Total Volume IV PUSH 12/31/24 04:07 ONCE PRN adequate visualization Protocol Polyethylene Glycol 17 gm 12/29/24 09:00 12/29/24 12:02 Polyethylene Glycol 3350 17 Gm Powd.Pack PO 17 gm QAM [facility] Administration Pravastatin Sodium 40 mg 12/28/24 09:00 12/29/24 12:00 Pravastatin Sodium 20 Mg Tablet PO 40 mg DAILY [facility] Administration Senna/Docusate Sodium 2 tab 12/28/24 17:39 12/29/24 17:09 Senna/Docusate Sodium Tablet PO Not Given BID [facility] Vitamin D 125 mcg 12/28/24 09:00 12/29/24 12:01 Cholecalciferol (Vitamin D3) 125 Mcg (5,000 Units) Tablet PO 125 mcg DAILY BHAKTI Administration Radiology Results: ITS Impressions Hip/Pelvis X-Ray 12/28/24 05:29 Impression: Acute comminuted fracture of the intertrochanteric region of the proximal right femur, as detailed above. Chest X-Ray 12/28/24 05:39 Impression: Clear lungs. Labs Labs: Laboratory Results - last 24 hr 12/29/24 12/29/24 12/29/24 11:04 16:20 20:17 WBC RBC Hgb Hct MCV MCH MCHC RDW Plt Count MPV Immature Gran % (Auto) Neut % (Auto) Lymph % (Auto) [place] % (Auto) Eos % (Auto) Baso % (Auto) Lymph # (Auto) [place] # (Auto) Eos # (Auto) Baso # (Auto) Abs Immat Gran (auto) Absolute Neuts (auto) Absolute Nucleated RBC Band Neutrophils % Nucleated RBC % Platelet Estimate Hypochromasia Schistocytes Sodium Potassium Chloride Carbon Dioxide Anion Gap BUN Creatinine Estim Creat Clear Calc Estimated GFR Glucose POC Capillary Glucose 298 H 358 H 350 H Calcium Total Bilirubin AST ALT Alkaline Phosphatase Total Protein Albumin 12/30/24 12/30/24 07:42 07:49 WBC 8.7 RBC 3.14 L Hgb 7.8 L Hct 26.6 L MCV 84.7 MCH 24.8 L MCHC 29.3 L RDW 17.5 H Plt Count 137 L MPV 10.5 H Immature Gran % (Auto) 0.6 H Neut % (Auto) 76.4 H Lymph % (Auto) 12.8 L [place] % (Auto) 8.7 H Eos % (Auto) 0.9 Baso % (Auto) 0.6 Lymph # (Auto) 1.12 [place] # (Auto) 0.8 H Eos # (Auto) 0.1 Baso # (Auto) 0.1 Abs Immat Gran (auto) 0.05 H Absolute Neuts (auto) 6.7 Absolute Nucleated RBC 0.000 Band Neutrophils % Not Reportable Nucleated RBC % 0.0 Platelet Estimate Decreased Hypochromasia 1+ Schistocytes Not Reportable Sodium 133 L Potassium 4.4 Chloride 100 Carbon Dioxide 29 Anion Gap 4 BUN 25 H Creatinine 0.94 Estim Creat Clear Calc 43 Estimated GFR 57 L Glucose 281 H POC Capillary Glucose 271 H Calcium 8.4 Total Bilirubin 0.4 AST 28 ALT 16 Alkaline Phosphatase 58 Total Protein 6.1 L Albumin 3.3 L
[2024-12-30] MEDS: PRAVASTATIN SODIUM 20 MG TABLET 40 MG PO (09:08)
[2024-12-30] MEDS: SENNA/DOCUSATE SODIUM TABLET 2 TAB PO ×2 (09:08→17:16)
[2024-12-30] MEDS: ENOXAPARIN 30 MG/0.3 ML SYRINGE SUB-Q (09:08)
[2024-12-30] MEDS: ASPIRIN 81 MG CHEWABLE TABLET PO (09:08)
[2024-12-30] MEDS: CHOLECALCIFEROL (VITAMIN D3) 125 MCG (5,000 UNITS) TABLET PO (09:09)
[2024-12-30] MEDS: OMEGA 3 POLYUNSAT FATTY ACIDS 1 GM CAP 2 GM PO (09:09)
[2024-12-30] MEDS: CALCIUM CARBONATE (OSCAL) 500 MG TABLET 1000 MG PO (09:09)
[2024-12-30] MEDS: GABAPENTIN 300 MG CAPSULE 600 MG PO ×3 (09:09→17:13)
[2024-12-30 19:41] VITALS: BP 148/63; PULSE 73; RESP 20; TEMP 36.8; O2SAT 90
[2024-12-30] MEDS: HYDROcodone/acetaminophen (*CRX) 5-325 MG TABLET 1 TAB PO (20:07)
[2024-12-31] MEDS: HYDROmorphone HCL INJ (*CRX) 2 MG/ML VIAL 0.5 MG IV PUSH (02:21)
[2024-12-31 05:21] LABS: Hematocrit 26.0 % (37.0-47.0); Hemoglobin 7.6 g/dL (12.0-15.0); Immature Granulocyte Percent A 0.3 % (0-0.5); Lymphocytes Absolute Auto 1.39 K/mm3 (0.9-3.2); Mean Corpuscular HGB Conc 29.2 g/dl (32-36); Mean Corpuscular Hemoglobin 25.0 pg (26-34); Mean Corpuscular Volume 85.5 fl (80-100); Nucleated Red Blood Cells Absolute Auto 0.000 K/mm3 (0.0-0.012); Nucleated Red Blood Cells Perc 0.0 % (0.0-0.2); Platelet Count Result 137 k/mm3 (150-375); Red Blood Count 3.04 M/mm3 (4.2-5.4); White Blood Count 6.5 K/mm3 (4.5-10.0)
[2024-12-31 05:31] LABS: Alanine Aminotransferase 14 U/L (6-35); Albumin Level 3.2 g/dL (3.5-5.1); Alkaline Phosphatase 59 U/L (38-126); Anion Gap 4 mmol/L (4-12); Aspartate Amino Transferase 27 U/L (14-36); Bilirubin,Total 0.4 mg/dL (0.2-1.3); Blood Urea Nitrogen 22 mg/dL (7-17); Calcium 7.9 mg/dL (8.4-10.2); Carbon Dioxide 27 mmol/L (22-30); Chloride 101 mmol/L (98-107); Estimated CRCL calculation 53 ml/min; Estimated Glomerular Filt Rate > 60; Glucose 280 mg/dL (65-110); Potassium 4.0 mmol/L (3.4-5.0); Sodium 132 mmol/L (137-145); Total Protein 5.9 g/dL (6.3-8.2)
[2024-12-31 05:45] LABS: Anisocytosis 1+; Band Neutrophils Percent 0 % (0-6); Hypochromasia 1+; Microcytosis 1+ (NORMAL)
[2024-12-31 05:46] LABS: Ovalocytes 1+; Schistocytes None Seen
[2024-12-31] MEDS: LEVOTHYROXINE SODIUM 88 MCG TABLET 176 MCG PO (05:50)
[2024-12-31 05:56] VITALS: BP 126/52; PULSE 67; RESP 20; TEMP 36.3; O2SAT 97
[2024-12-31] MEDS: CALCIUM CARBONATE (OSCAL) 500 MG TABLET 1000 MG PO (08:06)
[2024-12-31] MEDS: GABAPENTIN 300 MG CAPSULE 600 MG PO ×3 (08:06→16:10)
[2024-12-31] MEDS: ASPIRIN 81 MG CHEWABLE TABLET PO (08:07)
[2024-12-31] MEDS: OMEGA 3 POLYUNSAT FATTY ACIDS 1 GM CAP 2 GM PO (08:07)
[2024-12-31] MEDS: ENOXAPARIN 30 MG/0.3 ML SYRINGE SUB-Q (08:07)
[2024-12-31] MEDS: CHOLECALCIFEROL (VITAMIN D3) 125 MCG (5,000 UNITS) TABLET PO (08:07)
[2024-12-31] MEDS: PRAVASTATIN SODIUM 20 MG TABLET 40 MG PO (08:07)
[2024-12-31] MEDS: INSULIN ASPART (*BKC) 100 UNITS/ML SUB-Q ×4 (08:08→20:56)
[2024-12-31] MEDS: IBUPROFEN IV 800 MG/200 ML 800 MG/200 ML BAG 400 MG IVPB (08:19)
[2024-12-31 10:25] VITALS: BMI 11.0
--- NOTE | 2024-12-31 11:17 | P.PNIM_ITS ---
Progress Note: A&P Assessment and Plan (1) Closed right hip fracture: Code(s): S72.001A - Fracture of unspecified part of neck of right femur, initial encounter for closed fracture Status: Acute Assessment and Plan: * Secondary to #2 * Hip XR: Acute comminuted fracture of the intertrochanteric region of the proximal right femur, as detailed above. Independently reviewed by this provider. * Orthopedics is consulted. Dr. Escobedo accepts for the consult and treat. * Pt will be medically cleared with EKG, ECHO, imaging and necessary labs in preparation for OR. * Bedrest w/betancourt for urine elimination * SCDs, Lovenox * 12/31: POD 3 Right hip trochanteric nail * PT/OT evals recommend continued therapy * [facility] can likely accept pt upon d/c * Will look to confer with CC - plan for likely d/c tomorrow (2) Fall: Code(s): W19.XXXA - Unspecified fall, initial encounter Status: Acute Assessment and Plan: * Secondary to loss of balance while ambulating in her home with a cane used as aid for support. * No Closed head injury or LOC. (3) Orthostatic dizziness: Code(s): R42 - Dizziness and giddiness Status: Acute Assessment and Plan: * Was alerted by nursing staff that patient became orthostatic during vital check this am * Will continue to monitor over the next 24 hours * She appears to be euvolemic, resting BPs are wnl * H&H redrawn in afternoon of 12/31 - low but stable since previous blood work taken this am * Will obtain again tomorrow am * Consider pharmaceutical correction (i.e. Midodrine) if still symptomatic tomorrow * Continue to monitor and give gentle IVF hydration (4) Diabetes: Code(s): E11.9 - Type 2 diabetes mellitus without complications Status: Chronic Assessment and Plan: * Hold all oral hypoglycemics * Glucose checks AC and HS * Adult insulin protocol for tight control to allow healing from surgery. * Hypoglycemic protocol * Advance to diabetic diet when OK with Ortho. * A1C 9.4% * Re-order Lantus once dose has been confirmed and verified. (5) Peripheral neuropathy: Code(s): G62.9 - Polyneuropathy, unspecified Status: Chronic Assessment and Plan: * Treat acute pain with prn meds and when home meds are confirmed and verified, continue home dose of Gabapentin. (6) Anemia: Qualifiers: Anemia type: unspecified type Qualified Code(s): D64.9 - Anemia, unspecified Code(s): D64.9 - Anemia, unspecified Status: Chronic Assessment and Plan: * Chronic anemia present and consistent with history. * Baseline Hgb is 8.0-10.0. * T&S prior to OR * 12/29: Hgb 8.8 (7) Hypothyroidism: Code(s): E03.9 - Hypothyroidism, unspecified Status: Chronic Assessment and Plan: * Continue thyroid replacement after meds are completely verified and confirmed. (8) Heart murmur: Code(s): R01.1 - Cardiac murmur, unspecified Status: Acute Assessment and Plan: * Patient with loud holosystolic heart murmur. She states this was an issue that he was found recently in the past couple of months and she is supposed to be having a workup for. * Patient's last echocardiogram was August 06, 2022 that showed at that time a normal left ventricular systolic function 60-65% and grade 1 diastolic dysfunction. * Echo 12/28 * EF 65-70%, mildly increased LV wall thickness, G1DD, moderate aortic valve stenosis, mild AVR, AV calcification and TVR, mild pulmonary hypertension * Follow up with Cardiology in the outpt setting Subjective Date/time seen: 12/31/24 11:17 Interval history: 79-year-old female patient with past medical history of prior CVA with generalized weakness, diabetes mellitus, diabetic neuropathy, vertigo, hyperlipidemia, chronic anemia and chronic hypothyroidism who comes to the emergency room after a fall. 12/31/2024 POD 3 Right hip trochanteric nail. Pt healing well, hip/surgical site pain improving but still present. Continue working with PT/OT with weight bearing as tolerated. CC informs that [facility] can likely accept pt upon discharge. Will look for tomorrow or Wednesday for hopeful discharge. Orthostatic vitals were attempted and pt became very orthostatic, drop from 140s/60s sitting to 90s/40s standing. Review of Systems Review of Systems: All systems reviewed & are unremarkable except as noted in HPI and below Exam Const: General: comfortable and uncomfortable Other: Elderly female pt lying on stretcher at this time in no distress. HENMT: Face/Nose/Sinus: Normal nares present Mouth: Yes moist mucous membranes Eyes: General: appearance normal, both eyes and all related structures Sclera: sclerae normal Pupils: Equal, round and reactive pupils present EOM: EOMs intact bilaterally Neck: Neck: supple and no JVD Lymphatic: lymphadenopathy not noted Chest: Other: Not tender to palpation. Resp: Effort & Inspection: normal respiratory effort Auscultation: clear to auscultation bilaterally Cardio: Rate: regular rate Rhythm: regular rhythm Heart sounds: Murmur heart sound present systolic holo, III/ and at the base GI: Inspection: non-distended Auscultation: normal bowel sounds Urinary Catheter: Urinary Catheter: patent and draining and urine clear Skin: General skin exam: normal color, no rashes or lesions noted and no erythema Wounds: no wounds Neuro: Cranial nerves: Yes Equal, round and reactive pupils present Speech: normal speech Motor exam (neuro): Abnormal motor strength present (generalized weakness w/acutely decreased AROM RLE.) Sensory Exam: normal sensation Extrem: General: normal exam except as noted, no edema and no pedal edema Other: RLE with external rotation and shortening. Psych: Mental Status: mental status grossly normal Affect: normal affect Objective Data Vital Signs Vital Signs: Vital Signs - 24 hr 12/30/24 19:41 12/30/24 20:00 12/31/24 05:56 Temperature 98.3 F 97.4 F L Pulse Rate 73 67 Respiratory Rate 20 20 Blood Pressure 148/63 H 126/52 L Pulse Oximetry 90 97 Oxygen Delivery Room Air Intake/Output Intake/Output: Intake & Output 12/28/24 12/29/24 12/30/24 12/31/24 23:59 23:59 23:59 23:59 Intake Total 400 1552 1420 440 Output Total 950 3600 850 550 Balance -550 -2048 570 -110 Meds/Results Medications: Active Medications Generic Name Dose Route Start Last Admin Trade Name Freq PRN Reason Stop Dose Admin Acetaminophen 650 mg 12/28/24 06:54 Acetaminophen 325 Mg Tablet PO Q6H PRN pain (scale score 1-3) Hydrocodone Bitart/Acetaminophen 1 tab 12/28/24 17:39 12/30/24 20:07 Hydrocodone/Acetaminophen (*Crx) 5-325 Mg Tablet PO 1 tab Q4H PRN Administration Pain Rated 4-6 Aspirin 81 mg 12/28/24 08:00 12/31/24 08:07 Aspirin 81 Mg Chewable Tablet PO 81 mg DAILY@0800 BHAKTI Administration Calcium Carbonate 1,000 mg 12/28/24 09:00 12/31/24 08:06 Calcium Carbonate (Oscal) 500 Mg Tablet PO 1,000 mg QAM BHAKTI Administration Dextrose 12.5 gm 12/28/24 04:12 Dextrose 50% 25 Gm/50 Ml Syringe IV PUSH PRN PRN Hypoglycemia Protocol Enoxaparin Sodium 30 mg 12/29/24 09:00 12/31/24 08:07 Enoxaparin 30 Mg/0.3 Ml Syringe SUB-Q 30 mg DAILY BHAKTI Administration Fentanyl Citrate 50 mcg 12/28/24 03:42 12/28/24 11:03 Fentanyl Citrate Inj (*Crx) 100 Mcg/2 Ml Vial IV PUSH 50 mcg Q2H PRN Administration Pain Rated 7-10 Fentanyl Citrate 25 mcg 12/28/24 14:51 12/28/24 17:28 Fentanyl Citrate Inj (*Crx) 100 Mcg/2 Ml Vial IV PUSH 25 mcg Q2M PRN Administration Pain Fish Oil 2 gm 12/28/24 09:00 12/31/24 08:07 [place] 3 Polyunsat Fatty Acids 1 Gm Cap PO 2 gm QAM BHAKTI Administration Gabapentin 600 mg 12/28/24 09:00 12/31/24 08:06 Gabapentin 300 Mg Capsule PO 600 mg TID BHAKTI Administration Glucagon 1 mg 12/28/24 04:12 Glucagon For Inj 1 Mg Vial IM PRN PRN Hypoglycemia Protocol Glucose 15 gm 12/28/24 04:12 Glucose Oral Gel 15 Gm Of Glucse In 37.5 Gm Tube PO PRN PRN Hypoglycemia Protocol Hydromorphone HCl 0.5 mg 12/28/24 17:42 12/31/24 02:21 Hydromorphone Hcl Inj (*Crx) 2 Mg/Ml Vial IV PUSH 0.5 mg Q2H PRN Administration Breakthrough Pain Rated 4-6 or NPO Dextrose 1,000 mls @ 100 mls/hr 12/28/24 04:12 Dextrose 5% 1,000 Ml IVPB PRN PRN Hypoglycemia Protocol Ibuprofen 800 mg in 200 mls @ 400 mls/hr 12/28/24 17:39 12/31/24 08:19 Caldolor 800 Mg/200 Ml IVPB 400 mls/hr Q6H PRN Administration Breakthrough Pain Rated 1-3 or NPO Insulin Aspart 2 - 5 units 12/28/24 08:00 12/31/24 08:08 Insulin Aspart (*Bkc) 100 Units/Ml SUB-Q 4 units TIDWM BHAKTI Administration Protocol Insulin Aspart 1 - 2 units 12/28/24 21:00 12/30/24 21:03 Insulin Aspart (*Bkc) 100 Units/Ml SUB-Q 1 units HS BHAKTI Administration Protocol Levothyroxine Sodium 88 mcg 12/28/24 06:55 12/30/24 05:50 Levothyroxine Sodium 88 Mcg Tablet PO 88 mcg [id number]@0630 BHAKTI Administration Levothyroxine Sodium 176 mcg 12/31/24 06:30 12/31/24 05:50 Levothyroxine Sodium 88 Mcg Tablet PO 176 mcg Haskins@0630 [facility] Administration Miscellaneous Information 1 each 12/29/24 00:01 For Dvt Prophylaxis May Use Lovenox 40 Mg Daily, Est Crcl 40 Ml/Min XX 01/28/25 00:00 CLARIFY [facility] Naloxone HCl 0.1 mg 12/28/24 17:39 Naloxone Hcl 0.4 Mg/Ml Vial IV PUSH Q2M PRN Opiate Reversal Ondansetron HCl 4 mg 12/28/24 17:39 Ondansetron Inj 4 Mg/2 Ml Vial IV PUSH Q4H PRN Nausea And Vomiting Polyethylene Glycol 17 gm 12/29/24 09:00 12/30/24 09:11 Polyethylene Glycol 3350 17 Gm Powd.Pack PO 17 gm QAM [facility] Administration Pravastatin Sodium 40 mg 12/28/24 09:00 12/31/24 08:07 Pravastatin Sodium 20 Mg Tablet PO 40 mg DAILY [facility] Administration Senna/Docusate Sodium 2 tab 12/28/24 17:39 12/30/24 17:16 Senna/Docusate Sodium Tablet PO 2 tab BID [facility] Administration Vitamin D 125 mcg 12/28/24 09:00 12/31/24 08:07 Cholecalciferol (Vitamin D3) 125 Mcg (5,000 Units) Tablet PO 125 mcg DAILY BHAKTI Administration Radiology Results: ITS Impressions Hip/Pelvis X-Ray 12/28/24 05:29 Impression: Acute comminuted fracture of the intertrochanteric region of the proximal right femur, as detailed above. Chest X-Ray 12/28/24 05:39 Impression: Clear lungs. Labs Labs: Laboratory Results - last 24 hr 12/30/24 12/30/24 12/30/24 11:21 16:29 19:37 WBC RBC Hgb Hct MCV MCH MCHC RDW Plt Count MPV Immature Gran % (Auto) Neut % (Auto) Lymph % (Auto) [place] % (Auto) Eos % (Auto) Baso % (Auto) Lymph # (Auto) [place] # (Auto) Eos # (Auto) Baso # (Auto) Abs Immat Gran (auto) Absolute Neuts (auto) Absolute Nucleated RBC Band Neutrophils % Nucleated RBC % Platelet Estimate Hypochromasia Anisocytosis Microcytosis Ovalocytes Schistocytes Sodium Potassium Chloride Carbon Dioxide Anion Gap BUN Creatinine Estim Creat Clear Calc Estimated GFR Glucose POC Capillary Glucose 334 H 303 H 288 H Calcium Total Bilirubin AST ALT Alkaline Phosphatase Total Protein Albumin 12/31/24 12/31/24 05:10 08:02 WBC 6.5 RBC 3.04 L Hgb 7.6 L Hct 26.0 L MCV 85.5 MCH 25.0 L MCHC 29.2 L RDW 17.2 H Plt Count 137 L MPV 11.1 H Immature Gran % (Auto) 0.3 Neut % (Auto) 66.1 Lymph % (Auto) 21.5 [place] % (Auto) 9.6 H Eos % (Auto) 1.7 Baso % (Auto) 0.8 Lymph # (Auto) 1.39 [place] # (Auto) 0.6 Eos # (Auto) 0.1 Baso # (Auto) 0.1 Abs Immat Gran (auto) 0.02 Absolute Neuts (auto) 4.3 Absolute Nucleated RBC 0.000 Band Neutrophils % 0 Nucleated RBC % 0.0 Platelet Estimate Slightly decreased Hypochromasia 1+ Anisocytosis 1+ Microcytosis 1+ Ovalocytes 1+ Schistocytes None seen Sodium 132 L Potassium 4.0 Chloride 101 Carbon Dioxide 27 Anion Gap 4 BUN 22 H Creatinine 0.76 Estim Creat Clear Calc 53 Estimated GFR > 60 Glucose 280 H POC Capillary Glucose 305 H Calcium 7.9 L Total Bilirubin 0.4 AST 27 ALT 14 Alkaline Phosphatase 59 Total Protein 5.9 L Albumin 3.2 L Quality VTE Prophylaxis VTE prophylaxis: mechanical ordered and pharmacologic ordered
[2024-12-31 12:12] LABS: Hematocrit 27.7 % (37.0-47.0); Hemoglobin 8.1 g/dL (12.0-15.0)
[2024-12-31] MEDS: oxyCODONE/ACETAMINOPHEN (*CRX) 5-325 MG TABLET 1 TABLET PO ×2 (13:40→22:28)
[2024-12-31 14:00] VITALS: BP 111/51; PULSE 70; RESP 16; TEMP 36.3; O2SAT 100
--- NOTE | 2024-12-31 14:20 | PCPTNOTE ---
Attempted PT treatment at 9:00AM, pt refused stating she was tired and crabby. Nursing had just given pt pain medication. PT treatment attempted again at 14:19, pt refused stating she was tired. Per nursing, pt had orthostatic hypotension with OT late this morning. Will follow.
[2024-12-31] MEDS: SODIUM CHLORIDE 0.9% IV 1,000 ML 100 ML IV CONT (14:24)
--- NOTE | 2024-12-31 15:13 | PM.PNORT ---
Progress Note: A&P Assessment and Plan (1) Acute postoperative anemia due to expected blood loss: Code(s): D62 - Acute posthemorrhagic anemia Status: Acute Assessment and Plan: chronic anemia, now with decreased hemoglobin secondary to operative blood loss. Stable at this time. Will continue to observe. (2) Closed intertrochanteric fracture of right hip: Qualifiers: Encounter type: initial encounter Fracture alignment: displaced Qualified Code(s): S72.141A - Displaced intertrochanteric fracture of right femur, initial encounter for closed fracture Code(s): S72.141A - Displaced intertrochanteric fracture of right femur, initial encounter for closed fracture Status: Acute Assessment and Plan: POD #3 right hip trochanteric nail. Pain Right hip. reviewed pain control. PT/OT with weight-bearing as tolerated. Up to chair. DVT prophylaxis with Lovenox. Decreased albumin and protein. Supplement to diet. Patient high fall risk. Will require acute rehab for strength, gait and ambulation/ADLs. Otherwise lives alone. Unable to care for self at this time. Subjective Subjective Date/Time Seen: 12/31/24 15:13 Post Op day: 3 Principal diagnosis: Right hip fracture Interval history: POD 3 right hip trochanteric nail. Patient comfortable. Some pain right hip. Exam Const: General: comfortable and uncomfortable Other: Elderly female pt lying on stretcher at this time in no distress. Neck: Neck: supple and no JVD Lymphatic: lymphadenopathy not noted Resp: Effort & Inspection: normal respiratory effort Auscultation: clear to auscultation bilaterally Skin: General skin exam: normal color, no rashes or lesions noted and no erythema Wounds: no wounds Neuro: Cranial nerves: Yes Equal, round and reactive pupils present Speech: normal speech Motor exam (neuro): Abnormal motor strength present (generalized weakness w/acutely decreased AROM RLE.) Sensory Exam: normal sensation Extrem: General: normal exam except as noted, no edema and no pedal edema Other: RLE well aligned Psych: Mental Status: mental status grossly normal Affect: normal affect Objective Data Vital Signs Vital Signs: Vital Signs - 24 hr 12/30/24 19:41 12/30/24 20:00 12/31/24 05:56 Temperature 98.3 F 97.4 F L Pulse Rate 73 67 Respiratory Rate 20 20 Blood Pressure 148/63 H 126/52 L Pulse Oximetry 90 97 Oxygen Delivery Room Air 12/31/24 08:00 12/31/24 14:00 Temperature 97.4 F L Pulse Rate 70 Respiratory Rate 16 Blood Pressure 111/51 L Pulse Oximetry 100 Oxygen Delivery Room Air Intake/Output Intake/Output: Intake & Output 12/28/24 12/29/24 12/30/24 12/31/24 23:59 23:59 23:59 23:59 Intake Total 400 1552 1420 820 Output Total 950 3600 850 550 Balance -550 -2048 570 270 Meds/Results Medications: Active Medications Generic Name Dose Route Start Last Admin Trade Name Freq PRN Reason Stop Dose Admin Acetaminophen 650 mg 12/28/24 06:54 Acetaminophen 325 Mg Tablet PO Q6H PRN pain (scale score 1-3) Hydrocodone Bitart/Acetaminophen 1 tab 12/28/24 17:39 12/30/24 20:07 Hydrocodone/Acetaminophen (*Crx) 5-325 Mg Tablet PO 1 tab Q4H PRN Administration Pain Rated 4-6 Aspirin 81 mg 12/28/24 08:00 12/31/24 08:07 Aspirin 81 Mg Chewable Tablet PO 81 mg DAILY@0800 BHAKTI Administration Calcium Carbonate 1,000 mg 12/28/24 09:00 12/31/24 08:06 Calcium Carbonate (Oscal) 500 Mg Tablet PO 1,000 mg QAM BHAKTI Administration Dextrose 12.5 gm 12/28/24 04:12 Dextrose 50% 25 Gm/50 Ml Syringe IV PUSH PRN PRN Hypoglycemia Protocol Enoxaparin Sodium 30 mg 12/29/24 09:00 12/31/24 08:07 Enoxaparin 30 Mg/0.3 Ml Syringe SUB-Q 30 mg DAILY BHAKTI Administration Fish Oil 2 gm 12/28/24 09:00 12/31/24 08:07 [place] 3 Polyunsat Fatty Acids 1 Gm Cap PO 2 gm QAM BHAKTI Administration Gabapentin 600 mg 12/28/24 09:00 12/31/24 12:05 Gabapentin 300 Mg Capsule PO 600 mg TID BHAKTI Administration Glucagon 1 mg 12/28/24 04:12 Glucagon For Inj 1 Mg Vial IM PRN PRN Hypoglycemia Protocol Glucose 15 gm 12/28/24 04:12 Glucose Oral Gel 15 Gm Of Glucse In 37.5 Gm Tube PO PRN PRN Hypoglycemia Protocol Dextrose 1,000 mls @ 100 mls/hr 12/28/24 04:12 Dextrose 5% 1,000 Ml IVPB PRN PRN Hypoglycemia Protocol Sodium Chloride 1,000 mls @ 100 mls/hr 12/31/24 14:15 12/31/24 14:24 Normal Saline Iv IV CONT 100 mls/hr .Q10H BHAKTI Administration Ibuprofen 800 mg 12/31/24 11:47 Ibuprofen 400 Mg Tablet PO Q6H PRN Pain Rated 1-3 Insulin Aspart 2 - 5 units 12/28/24 08:00 12/31/24 12:06 Insulin Aspart (*Bkc) 100 Units/Ml SUB-Q 3 units TIDWM REPLACED BY [facility] Administration Protocol Insulin Aspart 1 - 2 units 12/28/24 21:00 12/30/24 21:03 Insulin Aspart (*Bkc) 100 Units/Ml SUB-Q 1 units HS REPLACED BY [facility] Administration Protocol Insulin Glargine 17 units 12/31/24 21:00 Insulin Glargine (*Bkc) 100 Units/Ml 0.2 units/kg (17 units) SUB-Q [facility] Levothyroxine Sodium 88 mcg 12/28/24 06:55 12/30/24 05:50 Levothyroxine Sodium 88 Mcg Tablet PO 88 mcg MoTuWeThFrSa@0630 REPLACED BY [facility] Administration Levothyroxine Sodium 176 mcg 12/31/24 06:30 12/31/24 05:50 Levothyroxine Sodium 88 Mcg Tablet PO 176 mcg Haskins@0630 REPLACED BY [facility] Administration Miscellaneous Information 1 each 12/29/24 00:01 For Dvt Prophylaxis May Use Lovenox 40 Mg Daily, Est Crcl 40 Ml/Min XX 01/28/25 00:00 CLARIFY BHAKTI Naloxone HCl 0.1 mg 12/28/24 17:39 Naloxone Hcl 0.4 Mg/Ml Vial IV PUSH Q2M PRN Opiate Reversal Ondansetron HCl 4 mg 12/28/24 17:39 Ondansetron Inj 4 Mg/2 Ml Vial IV PUSH Q4H PRN Nausea And Vomiting Oxycodone/Acetaminophen 1 tablet 12/31/24 11:36 12/31/24 13:40 Oxycodone/Acetaminophen (*Crx) 5-325 Mg Tablet PO 1 tablet Q4H PRN Administration Pain Rated 7-10 Polyethylene Glycol 17 gm 12/29/24 09:00 12/31/24 12:04 Polyethylene Glycol 3350 17 Gm Powd.Pack PO Not Given QAM BHAKTI Pravastatin Sodium 40 mg 12/28/24 09:00 12/31/24 08:07 Pravastatin Sodium 20 Mg Tablet PO 40 mg DAILY BHAKTI Administration Senna/Docusate Sodium 2 tab 12/28/24 17:39 12/31/24 12:04 Senna/Docusate Sodium Tablet PO Not Given BID BHAKTI Vitamin D 125 mcg 12/28/24 09:00 12/31/24 08:07 Cholecalciferol (Vitamin D3) 125 Mcg (5,000 Units) Tablet PO 125 mcg DAILY BHAKTI Administration Radiology Results: ITS Impressions Hip/Pelvis X-Ray 12/28/24 05:29 Impression: Acute comminuted fracture of the intertrochanteric region of the proximal right femur, as detailed above. Chest X-Ray 12/28/24 05:39 Impression: Clear lungs. Labs Labs: Laboratory Results - last 24 hr 12/30/24 12/30/24 12/31/24 16:29 19:37 05:10 WBC 6.5 RBC 3.04 L Hgb 7.6 L Hct 26.0 L MCV 85.5 MCH 25.0 L MCHC 29.2 L RDW 17.2 H Plt Count 137 L MPV 11.1 H Immature Gran % (Auto) 0.3 Neut % (Auto) 66.1 Lymph % (Auto) 21.5 [place] % (Auto) 9.6 H Eos % (Auto) 1.7 Baso % (Auto) 0.8 Lymph # (Auto) 1.39 [place] # (Auto) 0.6 Eos # (Auto) 0.1 Baso # (Auto) 0.1 Abs Immat Gran (auto) 0.02 Absolute Neuts (auto) 4.3 Absolute Nucleated RBC 0.000 Band Neutrophils % 0 Nucleated RBC % 0.0 Platelet Estimate Slightly decreased Hypochromasia 1+ Anisocytosis 1+ Microcytosis 1+ Ovalocytes 1+ Schistocytes None seen Sodium 132 L Potassium 4.0 Chloride 101 Carbon Dioxide 27 Anion Gap 4 BUN 22 H Creatinine 0.76 Estim Creat Clear Calc 53 Estimated GFR > 60 Glucose 280 H POC Capillary Glucose 303 H 288 H Calcium 7.9 L Total Bilirubin 0.4 AST 27 ALT 14 Alkaline Phosphatase 59 Total Protein 5.9 L Albumin 3.2 L 12/31/24 12/31/24 12/31/24 08:02 11:40 12:03 WBC RBC Hgb 8.1 L Hct 27.7 L MCV MCH MCHC RDW Plt Count MPV Immature Gran % (Auto) Neut % (Auto) Lymph % (Auto) [place] % (Auto) Eos % (Auto) Baso % (Auto) Lymph # (Auto) [place] # (Auto) Eos # (Auto) Baso # (Auto) Abs Immat Gran (auto) Absolute Neuts (auto) Absolute Nucleated RBC Band Neutrophils % Nucleated RBC % Platelet Estimate Hypochromasia Anisocytosis Microcytosis Ovalocytes Schistocytes Sodium Potassium Chloride Carbon Dioxide Anion Gap BUN Creatinine Estim Creat Clear Calc Estimated GFR Glucose POC Capillary Glucose 305 H 256 H Calcium Total Bilirubin AST ALT Alkaline Phosphatase Total Protein Albumin
[2024-12-31] MEDS: SENNA/DOCUSATE SODIUM TABLET 2 TAB PO (16:10)
[2024-12-31 20:33] VITALS: BP 153/55; PULSE 68; RESP 14; TEMP 36.4; O2SAT 97
[2024-12-31] MEDS: INSULIN GLARGINE (*BKC) 100 UNITS/ML 17 UNITS SUB-Q (20:56)
[2024-12-31 21:36] VITALS: O2SAT 96
[2025-01-01] MEDS: SODIUM CHLORIDE 0.9% IV 1,000 ML 100 ML IV CONT (00:02)
[2025-01-01 04:55] LABS: Hematocrit 26.6 % (37.0-47.0); Hemoglobin 7.7 g/dL (12.0-15.0); Immature Granulocyte Percent A 0.6 % (0-0.5); Lymphocytes Absolute Auto 1.31 K/mm3 (0.9-3.2); Mean Corpuscular HGB Conc 28.9 g/dl (32-36); Mean Corpuscular Hemoglobin 24.6 pg (26-34); Mean Corpuscular Volume 85.0 fl (80-100); Nucleated Red Blood Cells Absolute Auto 0.000 K/mm3 (0.0-0.012); Nucleated Red Blood Cells Perc 0.0 % (0.0-0.2); Platelet Count Result 146 k/mm3 (150-375); Red Blood Count 3.13 M/mm3 (4.2-5.4); White Blood Count 5.3 K/mm3 (4.5-10.0)
[2025-01-01 05:05] LABS: Alanine Aminotransferase 13 U/L (6-35); Albumin Level 3.0 g/dL (3.5-5.1); Alkaline Phosphatase 55 U/L (38-126); Anion Gap 3 mmol/L (4-12); Aspartate Amino Transferase 25 U/L (14-36); Bilirubin,Total 0.5 mg/dL (0.2-1.3); Blood Urea Nitrogen 22 mg/dL (7-17); Calcium 8.3 mg/dL (8.4-10.2); Carbon Dioxide 30 mmol/L (22-30); Chloride 103 mmol/L (98-107); Estimated CRCL calculation 54 ml/min; Estimated Glomerular Filt Rate > 60; Glucose 230 mg/dL (65-110); Potassium 3.6 mmol/L (3.4-5.0); Sodium 136 mmol/L (137-145); Total Protein 5.7 g/dL (6.3-8.2)
[2025-01-01] MEDS: LEVOTHYROXINE SODIUM 88 MCG TABLET PO (06:14)
[2025-01-01 06:29] VITALS: BP 165/62; PULSE 72; RESP 16; TEMP 36.7; O2SAT 96
[2025-01-01] MEDS: GABAPENTIN 300 MG CAPSULE 600 MG PO ×2 (08:51→14:59)
[2025-01-01] MEDS: SENNA/DOCUSATE SODIUM TABLET 2 TAB PO (08:51)
[2025-01-01] MEDS: CHOLECALCIFEROL (VITAMIN D3) 125 MCG (5,000 UNITS) TABLET PO (08:51)
[2025-01-01] MEDS: OMEGA 3 POLYUNSAT FATTY ACIDS 1 GM CAP 2 GM PO (08:52)
[2025-01-01] MEDS: PRAVASTATIN SODIUM 20 MG TABLET 40 MG PO (08:52)
[2025-01-01] MEDS: oxyCODONE/ACETAMINOPHEN (*CRX) 5-325 MG TABLET 1 TABLET PO ×2 (08:52→13:25)
[2025-01-01] MEDS: CALCIUM CARBONATE (OSCAL) 500 MG TABLET 1000 MG PO (08:52)
[2025-01-01] MEDS: ASPIRIN 81 MG CHEWABLE TABLET PO (08:52)
[2025-01-01] MEDS: INSULIN ASPART (*BKC) 100 UNITS/ML SUB-Q ×2 (08:53→11:59)
[2025-01-01] MEDS: ENOXAPARIN 40 MG/0.4 ML SYRINGE SUB-Q (08:53)
[2025-01-01 10:00] VITALS: BP 140/62
[2025-01-01 10:01] VITALS: BP 151/63
[2025-01-01 10:02] VITALS: BP 156/92
--- NOTE | 2025-01-01 12:16 | PM.PNORT ---
Progress Note: A&P Assessment and Plan (1) Acute postoperative anemia due to expected blood loss: Code(s): D62 - Acute posthemorrhagic anemia Status: Acute Assessment and Plan: chronic anemia, . Stable at this time. Will continue to observe. (2) Closed intertrochanteric fracture of right hip: Qualifiers: Encounter type: initial encounter Fracture alignment: displaced Qualified Code(s): S72.141A - Displaced intertrochanteric fracture of right femur, initial encounter for closed fracture Code(s): S72.141A - Displaced intertrochanteric fracture of right femur, initial encounter for closed fracture Status: Acute Assessment and Plan: POD #4 right hip trochanteric nail. PT/OT with weight-bearing as tolerated. Up to chair. DVT prophylaxis with Lovenox. Patient high fall risk. Will require acute rehab. Subjective Subjective Date/Time Seen: 01/01/25 12:16 Post Op day: 4 Principal diagnosis: Right hip fracture Interval history: POD 4 right hip trochanteric nail. Patient comfortable. Pain right hip Improved. Exam Const: General: comfortable and uncomfortable Other: Elderly female pt lying on stretcher at this time in no distress. Neck: Neck: supple and no JVD Lymphatic: lymphadenopathy not noted Resp: Effort & Inspection: normal respiratory effort Auscultation: clear to auscultation bilaterally Skin: General skin exam: normal color, no rashes or lesions noted and no erythema Wounds: no wounds Neuro: Cranial nerves: Yes Equal, round and reactive pupils present Speech: normal speech Motor exam (neuro): Abnormal motor strength present (generalized weakness w/acutely decreased AROM RLE.) Sensory Exam: normal sensation Extrem: General: normal exam except as noted, no edema and no pedal edema Other: RLE well aligned Psych: Mental Status: mental status grossly normal Affect: normal affect Objective Data Vital Signs Vital Signs: Vital Signs - 24 hr 12/31/24 14:00 12/31/24 20:00 12/31/24 20:33 Temperature 97.4 F L 97.6 F Pulse Rate 70 68 Respiratory Rate 16 14 Blood Pressure 111/51 L 153/55 H Pulse Oximetry 100 97 Oxygen Delivery Room Air Fraction of Inspired Oxygen 21 12/31/24 21:36 01/01/25 06:29 01/01/25 08:51 Temperature 98.1 F Pulse Rate 72 Respiratory Rate 16 Blood Pressure 165/62 H Pulse Oximetry 96 96 Oxygen Delivery Room Air Room Air Fraction of Inspired Oxygen 21 01/01/25 10:00 01/01/25 10:01 01/01/25 10:02 Temperature Pulse Rate Respiratory Rate Blood Pressure 140/62 151/63 H 156/92 H Pulse Oximetry Oxygen Delivery Fraction of Inspired Oxygen Intake/Output Intake/Output: Intake & Output 12/29/24 12/30/24 12/31/24 01/01/25 23:59 23:59 23:59 23:59 Intake Total 1552 1420 1000 1603.3 Output Total 3600 850 1550 600 Balance -2048 570 -550 1003.3 Meds/Results Medications: Active Medications Generic Name Dose Route Start Last Admin Trade Name Freq PRN Reason Stop Dose Admin Acetaminophen 650 mg 12/28/24 06:54 Acetaminophen 325 Mg Tablet PO Q6H PRN pain (scale score 1-3) Hydrocodone Bitart/Acetaminophen 1 tab 12/28/24 17:39 12/30/24 20:07 Hydrocodone/Acetaminophen (*Crx) 5-325 Mg Tablet PO 1 tab Q4H PRN Administration Pain Rated 4-6 Aspirin 81 mg 12/28/24 08:00 01/01/25 08:52 Aspirin 81 Mg Chewable Tablet PO 81 mg DAILY@0800 BHAKTI Administration Calcium Carbonate 1,000 mg 12/28/24 09:00 01/01/25 08:52 Calcium Carbonate (Oscal) 500 Mg Tablet PO 1,000 mg QAM BHAKTI Administration Dextrose 12.5 gm 12/28/24 04:12 Dextrose 50% 25 Gm/50 Ml Syringe IV PUSH PRN PRN Hypoglycemia Protocol Enoxaparin Sodium 40 mg 01/01/25 09:00 01/01/25 08:53 Enoxaparin 40 Mg/0.4 Ml Syringe SUB-Q 40 mg DAILY BHAKTI Administration Fish Oil 2 gm 12/28/24 09:00 01/01/25 08:52 [place] 3 Polyunsat Fatty Acids 1 Gm Cap PO 2 gm QAM BHAKTI Administration Gabapentin 600 mg 12/28/24 09:00 01/01/25 08:51 Gabapentin 300 Mg Capsule PO 600 mg TID BHAKTI Administration Glucagon 1 mg 12/28/24 04:12 Glucagon For Inj 1 Mg Vial IM PRN PRN Hypoglycemia Protocol Glucose 15 gm 12/28/24 04:12 Glucose Oral Gel 15 Gm Of Glucse In 37.5 Gm Tube PO PRN PRN Hypoglycemia Protocol Dextrose 1,000 mls @ 100 mls/hr 12/28/24 04:12 Dextrose 5% 1,000 Ml IVPB PRN PRN Hypoglycemia Protocol Sodium Chloride 1,000 mls @ 100 mls/hr 12/31/24 14:15 01/01/25 00:02 Normal Saline Iv IV CONT 100 mls/hr .Q10H BHAKTI Administration Ibuprofen 800 mg 12/31/24 11:47 Ibuprofen 400 Mg Tablet PO Q6H PRN Pain Rated 1-3 Insulin Aspart 2 - 5 units 12/28/24 08:00 01/01/25 11:59 Insulin Aspart (*Bkc) 100 Units/Ml SUB-Q 3 units TIDWM [facility] Administration Protocol Insulin Aspart 1 - 2 units 12/28/24 21:00 12/31/24 20:56 Insulin Aspart (*Bkc) 100 Units/Ml SUB-Q 1 units HS [facility] Administration Protocol Insulin Glargine 17 units 12/31/24 21:00 12/31/24 20:56 Insulin Glargine (*Bkc) 100 Units/Ml 0.2 units/kg (17 units) 17 units SUB-Q Administration [facility] Levothyroxine Sodium 88 mcg 12/28/24 06:55 01/01/25 06:14 Levothyroxine Sodium 88 Mcg Tablet PO 88 mcg MoTuWeThFrSa@0630 [facility] Administration Levothyroxine Sodium 176 mcg 12/31/24 06:30 12/31/24 05:50 Levothyroxine Sodium 88 Mcg Tablet PO 176 mcg Haskins@0630 [facility] Administration Miscellaneous Information 1 each 12/29/24 00:01 For Dvt Prophylaxis May Use Lovenox 40 Mg Daily, Est Crcl 40 Ml/Min XX 01/28/25 00:00 CLARIFY BHAKTI Naloxone HCl 0.1 mg 12/28/24 17:39 Naloxone Hcl 0.4 Mg/Ml Vial IV PUSH Q2M PRN Opiate Reversal Ondansetron HCl 4 mg 12/28/24 17:39 Ondansetron Inj 4 Mg/2 Ml Vial IV PUSH Q4H PRN Nausea And Vomiting Oxycodone/Acetaminophen 1 tablet 12/31/24 11:36 01/01/25 08:52 Oxycodone/Acetaminophen (*Crx) 5-325 Mg Tablet PO 1 tablet Q4H PRN Administration Pain Rated 7-10 Polyethylene Glycol 17 gm 12/29/24 09:00 01/01/25 08:53 Polyethylene Glycol 3350 17 Gm Powd.Pack PO 17 gm QAM BHAKTI Administration Pravastatin Sodium 40 mg 12/28/24 09:00 01/01/25 08:52 Pravastatin Sodium 20 Mg Tablet PO 40 mg DAILY BHAKTI Administration Senna/Docusate Sodium 2 tab 12/28/24 17:39 01/01/25 08:51 Senna/Docusate Sodium Tablet PO 2 tab BID BHAKTI Administration Vitamin D 125 mcg 12/28/24 09:00 01/01/25 08:51 Cholecalciferol (Vitamin D3) 125 Mcg (5,000 Units) Tablet PO 125 mcg DAILY BHAKTI Administration Radiology Results: ITS Impressions Hip/Pelvis X-Ray 12/28/24 05:29 Impression: Acute comminuted fracture of the intertrochanteric region of the proximal right femur, as detailed above. Chest X-Ray 12/28/24 05:39 Impression: Clear lungs. Labs Labs: Laboratory Results - last 24 hr 12/31/24 12/31/24 12/31/24 12:03 16:41 20:37 WBC RBC Hgb 8.1 L Hct 27.7 L MCV MCH MCHC RDW Plt Count MPV Immature Gran % (Auto) Neut % (Auto) Lymph % (Auto) [place] % (Auto) Eos % (Auto) Baso % (Auto) Lymph # (Auto) [place] # (Auto) Eos # (Auto) Baso # (Auto) Abs Immat Gran (auto) Absolute Neuts (auto) Absolute Nucleated RBC Nucleated RBC % Sodium Potassium Chloride Carbon Dioxide Anion Gap BUN Creatinine Estim Creat Clear Calc Estimated GFR Glucose POC Capillary Glucose 274 H 289 H Calcium Total Bilirubin AST ALT Alkaline Phosphatase Total Protein Albumin 01/01/25 01/01/25 01/01/25 04:33 08:07 11:48 WBC 5.3 RBC 3.13 L Hgb 7.7 L Hct 26.6 L MCV 85.0 MCH 24.6 L MCHC 28.9 L RDW 17.2 H Plt Count 146 L MPV 10.8 H Immature Gran % (Auto) 0.6 H Neut % (Auto) 61.3 Lymph % (Auto) 24.7 [place] % (Auto) 9.6 H Eos % (Auto) 3.2 Baso % (Auto) 0.6 Lymph # (Auto) 1.31 [place] # (Auto) 0.5 Eos # (Auto) 0.2 Baso # (Auto) 0.0 Abs Immat Gran (auto) 0.03 Absolute Neuts (auto) 3.3 Absolute Nucleated RBC 0.000 Nucleated RBC % 0.0 Sodium 136 L Potassium 3.6 Chloride 103 Carbon Dioxide 30 Anion Gap 3 L BUN 22 H Creatinine 0.74 Estim Creat Clear Calc 54 Estimated GFR > 60 Glucose 230 H POC Capillary Glucose 244 H 281 H Calcium 8.3 L Total Bilirubin 0.5 AST 25 ALT 13 Alkaline Phosphatase 55 Total Protein 5.7 L Albumin 3.0 L
[2025-01-01 14:00] VITALS: BP 125/63; PULSE 75; RESP 18; O2SAT 100
--- NOTE | 2025-01-01 14:05 | P.DS_ITS ---
DS: Admitting Diagnosis Discharge Date 01/01/2025 Admitting Diagnosis Closed right hip fracture DS: Discharge Diagnosis Discharge Diagnosis (1) Closed right hip fracture: Code(s): S72.001A - Fracture of unspecified part of neck of right femur, initial encounter for closed fracture Status: Acute (2) Fall: Code(s): W19.XXXA - Unspecified fall, initial encounter Status: Acute (3) Orthostatic dizziness: Code(s): R42 - Dizziness and giddiness Status: Acute (4) Diabetes: Code(s): E11.9 - Type 2 diabetes mellitus without complications Status: Chronic (5) Peripheral neuropathy: Code(s): G62.9 - Polyneuropathy, unspecified Status: Chronic (6) Anemia: Qualifiers: Anemia type: unspecified type Qualified Code(s): D64.9 - Anemia, unspecified Code(s): D64.9 - Anemia, unspecified Status: Chronic (7) Hypothyroidism: Code(s): E03.9 - Hypothyroidism, unspecified Status: Chronic (8) Heart murmur: Code(s): R01.1 - Cardiac murmur, unspecified Status: Acute DS: Summary Hospital Course Reason for hospitalization: Fall Hospital Course: This is a 79-year-old female patient with past medical history of prior CVA with generalized weakness, diabetes mellitus, diabetic neuropathy, vertigo, hyperlipidemia, chronic anemia and chronic hypothyroidism who comes to the emergency room after a fall. Patient reports she was walking from 1 room to another in her home utilizing a cane for gait stability and lost her balance, falling to her right hip. Patient unable to move her right hip secondary to pain. She denies any head injury or loss of consciousness. She denies any other acute complaints of pain other than in the right hip. Patient was brought to the emergency room in the ER workup was performed with noted hemoglobin and hematocrit of 10.0 in 33.8. This is consistent with patient's history of chronic anemia. Metabolic panel unremarkable with exception of glucose noted to be 340. PT/PTT pt/INR all normal. Initial blood pressure elevated at 214/92, suspect pain response. Repeat is 149/76. X-ray of the right hip shows acute fracture. ER provider discussed with Orthopedics, Dr. Escobedo, who will consult for Ortho. Pt is being admitted in the current setting for repair of right hip fracture and pain control as well as pre-procedure clearance. Patient was seen Orthopedics who agreed right hip trochanteric nail repair due to right closed hip fracture, patient was taken on 12/28 to the OR. General surgery continued to follow postop and recommended PT/OT evaluations. PT/OT recommended continued rehab therapy in the outpatient setting, at that time we planned for SNF verses [facility]. Evaluations were sent to [facility] and the patient was subsequently accepted. During hospitalization, patient remained hemodynamically stable and progressing but has not gotten back to baseline. Patient was medically cleared on pod 3 but had an episode orthostasis during obtaining orthostatic vital signs. Blood pressure did drop significantly and the patient was kept until 01/01. She was given gentle IV fluid rehydration. Patient once again worked with physical therapy and orthostatic vital signs were reobtained and patient was found to have stable vital signs. She is otherwise hemodynamically stable but will be recommended to take position changes with great care. Plan for discharge to [facility] at this time. Status at Discharge Functional status at discharge: uses cane/walker Overall status at discharge: patient is progressing back to baseline Time Spent with Patient Time attestation: Total time spent providing and/or coordinating discharge services:51 Exam Const: General: comfortable and uncomfortable Other: Elderly female pt at bedside at this time in no distress. HENMT: Face/Nose/Sinus: Normal nares present Mouth: Yes moist mucous membranes Eyes: General: appearance normal, both eyes and all related structures Sclera: sclerae normal Pupils: Equal, round and reactive pupils present EOM: EOMs intact bilaterally Neck: Neck: supple and no JVD Lymphatic: lymphadenopathy not noted Chest: Other: Not tender to palpation. Resp: Effort & Inspection: normal respiratory effort Auscultation: clear to auscultation bilaterally Cardio: Rate: regular rate Rhythm: regular rhythm Heart sounds: Murmur heart sound present systolic holo, III/ and at the base GI: Inspection: non-distended Auscultation: normal bowel sounds Urinary Catheter: Urinary Catheter: patent and draining and urine clear Skin: General skin exam: normal color, no rashes or lesions noted and no erythema Wounds: no wounds Neuro: Cranial nerves: Yes Equal, round and reactive pupils present Speech: normal speech Motor exam (neuro): Abnormal motor strength present (generalized weakness w/acutely decreased AROM RLE.) Sensory Exam: normal sensation Extrem: General: normal exam except as noted, no edema and no pedal edema Other: RLE with external rotation and shortening. Psych: Mental Status: mental status grossly normal Affect: normal affect DS: Data Data Completed and Pending Labs on day of discharge: Labs from last 24 hours 01/01/25 01/01/25 01/01/25 11:48 08:07 04:33 WBC 5.3 RBC 3.13 L Hgb 7.7 L Hct 26.6 L MCV 85.0 MCH 24.6 L MCHC 28.9 L RDW 17.2 H Plt Count 146 L MPV 10.8 H Immature Gran % (Auto) 0.6 H Neut % (Auto) 61.3 Lymph % (Auto) 24.7 [place] % (Auto) 9.6 H Eos % (Auto) 3.2 Baso % (Auto) 0.6 Lymph # (Auto) 1.31 [place] # (Auto) 0.5 Eos # (Auto) 0.2 Baso # (Auto) 0.0 Abs Immat Gran (auto) 0.03 Absolute Neuts (auto) 3.3 Absolute Nucleated RBC 0.000 Nucleated RBC % 0.0 Sodium 136 L Potassium 3.6 Chloride 103 Carbon Dioxide 30 Anion Gap 3 L BUN 22 H Creatinine 0.74 Estim Creat Clear Calc 54 Estimated GFR > 60 Glucose 230 H POC Capillary Glucose 281 H 244 H Calcium 8.3 L Total Bilirubin 0.5 AST 25 ALT 13 Alkaline Phosphatase 55 Total Protein 5.7 L Albumin 3.0 L 12/31/24 12/31/24 20:37 16:41 WBC RBC Hgb Hct MCV MCH MCHC RDW Plt Count MPV Immature Gran % (Auto) Neut % (Auto) Lymph % (Auto) [place] % (Auto) Eos % (Auto) Baso % (Auto) Lymph # (Auto) [place] # (Auto) Eos # (Auto) Baso # (Auto) Abs Immat Gran (auto) Absolute Neuts (auto) Absolute Nucleated RBC Nucleated RBC % Sodium Potassium Chloride Carbon Dioxide Anion Gap BUN Creatinine Estim Creat Clear Calc Estimated GFR Glucose POC Capillary Glucose 289 H 274 H Calcium Total Bilirubin AST ALT Alkaline Phosphatase Total Protein Albumin Discharge Plan Discharge Attending physician on discharge: Rod Iglesias Consulting providers: Denton Dozier; Gregorio Escobedo Discharging Clinician: Denton Dozier Anticipated Discharge Date/Time: 01/01/25 14:04 Patient Disposition: [facility] Activity: may shower Diet: as tolerated Discharge Instructions: Hip Fracture Instructions Dr. Gregorio Escobedo MD [facility] [phone] * Your dressing will be changed prior to your discharge. You will be discharged with one additional dressing to be changed on post op day 7 by the nurse. You may remove the dressing on post op day 14. * You may shower, but do not submerge in a bath tub. * Do not drive or operate machinery until you are released by physician. * Do not walk without a walker for any reason until you are released. * Continue to apply ice to the hip intermittently for additional pain relief. Protect your skin with a towel or pillow case. * Continue to follow strict hip fracture/surgical precautions. * Your follow up appt has been indicated below. * Please contact our office with any questions/concerns regarding your hip at [phone]. Patient Language: Telugu Follow-up/Referrals: Gregorio Escobedo MD [Physician] - (6 weeks) Discharge Medications: Continued cyanocobalamin (vitamin B-12) 1,000 mcg/mL solution 1,000 mcg IM MONTHLY Rx Instructions: of each month pravastatin 40 mg tablet 40 mg PO DAILY Prolia 60 mg/mL syringe 60 mg subcut [id number] calcium 600 mg capsule 1,200 mg PO DAILY omega-3 fatty acids Capsule 2,500 mg PO DAILY insulin lispro [Humalog U-100 Insulin] 100 unit/mL Solution 3 unit subcut TIDWM aspirin 81 mg Tablet,Chewable 81 mg PO DAILY acetaminophen 325 mg Tablet,Chewable 650 mg PO Q6H PRN (Reason: pain (scale score 1-3)) insulin lispro 100 unit/mL Solution 1 sliding scale dose SUBCUT TIDWM Protocol: Insulin Corrective Moderate-Dose Condition: glucose < 70 mg/dl Dose/Route: Follow hypoglycemia orders Condition: glucose 70-200 mg/dl Dose/Route: No additional insulin Condition: glucose 201-250 mg/dl Dose/Route: 3 units sub-Q Condition: glucose 251-300 mg/dl Dose/Route: 4 units sub-Q Condition: glucose 301-350 mg/dl Dose/Route: 5 units sub-Q Condition: glucose 351-400 mg/dl Dose/Route: 6 units sub-Q Condition: glucose > 400 mg/dl Dose/Route: Call MD Protocol Text: *No Correction Dose at Bedtime* Rx Instructions: 0.55 units 12am-10am hourly 0.50 units 10am-12am hourly gabapentin 600 mg Tablet 600 mg PO TID Qty: 90 0RF levothyroxine 88 mcg tablet 88 mcg PO 6XW Qty: 30 0RF Rx Instructions: Wednesday through Wednesday levothyroxine 88 mcg Tablet 176 mcg PO WEEKLY Qty: 30 0RF Rx Instructions: Wednesday cholecalciferol (vitamin D3) 125 mcg (5,000 unit) Capsule 125 mcg PO DAILY Qty: 30 0RF Date of admission: 12/28/24 08:34 Primary Care Provider: Emmanuel,Jae nAderson Admitting Provider: Mir Carrera Attending physician on admission: Mir Carrera Condition: Stable Quality VTE Prophylaxis VTE prophylaxis: mechanical ordered and pharmacologic ordered
== END 2025-01-01 16:41 | DRG 481 ==
LOC: ANHED 03:42 → ANH2MED 04:01
PROVIDERS: Nurse Practitioner Adult Health; Orthopaedic Surgery; Admitting Provider Internal Medicine; Emergency Provider Student in an Organized Health Care Education/Training Program; PCP Internal Medicine; Visit Provider Physician Assistant
PROC: 0QS636Z Reposition Right Upper Femur with Intramedullary Internal Fixation Device, Percutaneous Approach (ICD-10-PCS; CPT 27245; principal; 2024-12-28 15:00)
DX: S72.141A Displaced intertrochanteric fracture of right femur, initial encounter for closed fracture (principal); D62 Acute posthemorrhagic anemia; I95.1 Orthostatic hypotension; E11.40 Type 2 diabetes mellitus with diabetic neuropathy, unspecified; E78.00 Pure hypercholesterolemia, unspecified; D51.0 Vitamin B12 deficiency anemia due to intrinsic factor deficiency; L80 Vitiligo; R01.1 Cardiac murmur, unspecified; R42 Dizziness and giddiness; W19.XXXA Unspecified fall, initial encounter; I69.311 Memory deficit following cerebral infarction; Z79.82 Long term (current) use of aspirin; Z79.4 Long term (current) use of insulin
CPT/HCPCS: 36415; 71045; 73502; 80048; 80053; 81003; 82948; 83036; 83735; 85014; 85018; 85025; 85610; 85730; 86850; 86900; 86901; 93005; 93306; 96374; 96375; 96376; 97110; 97162; 97165; 97530; 97535; 99199; 99285; A9270; C1713; G0378; J0690; J1171; J1650; J1741; J1815; J2003; J2371; J2405; J2704; J3010; J3420; J7030; J7120

== ENCOUNTER 2025-02-22 04:05 | Emergency (ER) | payer MEDICARE, BC, SELFPAY ==
--- OUTSIDE RECORDS SUMMARY | 2004-11-13 05:45 | XMS_ITS | Continuity of Care Document ---
Author Organization [facility] Address [address] [place] [address] Phone Care Team Providers Care Natural Resources Professor Name Role Phone Noemi Davis Unavailable Unavailable Advance Directives Directive Yes / No Effective Date File Name No Information Encounters Encounter Description Practice Location Reason(s) For Visit Diagnoses Date Provider Providers Copied on Encounter [facility], [id number] [place] [address] [address], [place], [place], [id number], [place] tel:[phone] [address] [facility] No Information 9-200 5 Susan Franklin. [address] [facility] , [address], [place], [address], [place]. tel:[phone] Family History Family Member Type Diagnosis Age At Onset No Information Payers Payer name Insurance type Covered republican ID Authoriza tion(s) No Information Social History [...]
--- NOTE | ~2025-02-22 | CT_ITS ---
EXAMINATION: CT brain wo con DATE: 02/22/2025 04:33 INDICATION: Status post fall. Head trauma. TECHNIQUE: Computed tomography (CT) of the abdomen and pelvis was performed without intravenous contrast. The dose-length product was 756.67 mGy-cm. Automated exposure control and iterative reconstruction technique were employed. COMPARISON: CT dated 08/07/2022 FINDINGS: Generalized atrophy. No ventriculomegaly or midline shift. Basilar cisterns are patent. There are scattered moderate periventricular and subcortical white matter changes, most likely related to small vessel ischemic disease (microangiopathy). There is intracranial atherosclerosis. No acute in farction, hemorrhage, mass or mass effect. There is mild mucosal thickening of the ethmoid air cells. Mastoids are pneumatized. No depressed skull fractures. IMPRESSION: 1. No acute intracranial abnormality. Reviewed, dictated and finalized at location O.
--- NOTE | ~2025-02-22 | XR_ITS ---
EXAMINATION: XR chest 1V 02/22/2025 04:45 INDICATION: Dizziness PROCEDURE: AP view of the chest COMPARISON: 12/28/2024 FINDINGS: The lungs are clear. The cardiomediastinal silhouette is within normal limits. There are no pleural effusions. There is no pneumothorax suspected. IMPRESSION: 1: NO ACUTE CARDIOPULMONARY DISEASE. Reviewed, dictated and finalized at location O.
[2025-02-22 04:07] VITALS: BP 164/90; PULSE 97; RESP 18; O2SAT 96
--- NOTE | 2025-02-22 04:10 | ECG_ITS ---
Test Date: 2025-02-22 04:25:03 Measurements Intervals [place] Rate: 93 P: 1 SD: 186 QRS: 11 QRSD: 101 T: 52 QT: 366 QTc: 457 Interpretive Statements SINUS RHYTHM EARLY PRECORDIAL R/S TRANSITION VOLTAGE CRITERIA FOR LVH CONSIDER INFERIOR INFARCT, AGE INDETERMINATE BASELINE ARTIFACT- I, III, AVR, AVL, AVF ABNORMAL ECG Compared to ECG 12/28/2024 06:16:38 First degree AV block no longer present Electronically Signed On 02-22-2025 06:17:38 CDT by Papi Leonardo D.O.
[2025-02-22 04:15] VITALS: BP 157/89; PULSE 95; RESP 22; O2SAT 99
--- NOTE | 2025-02-22 04:16 | ED.DIZZY ---
HPI - Dizziness General Chief Complaint: Dizziness Stated Complaint: Dizziness and fall off toilet Time Seen by Provider: 02/22/25 04:08 History of Present Illness HPI Narrative: Patient is a 79-year-old female who presents to the emergency department this morning complaining of dizziness for the past few days. Patient states that today she had a fall in the bathroom but caught herself, did not hurt anything and is currently denying of any symptoms or pain from the fall. Patient states that she did not hit her head. Denies any blood thinner use. Patient admits that the dizziness that she has had for the past few days is worse with head movement. Patient does not recall any history of vertigo, however, her son /family member present at bedside did confirm that after her stroke she did struggle were vertigo and had to wear motion sickness patches to help with her symptoms. Patient denies any lightheadedness or near syncopal episodes. Denies any focal weakness numbness and tingling. Denies any chest pain shortness of breath. There are no additional modifying, alleviating, or precipitating factors at this time. Related Data Home Medications ?Medication ?Instructions ?Recorded ?Confirmed ?Last Taken ?Type cyanocobalamin (vitamin B-12) 1,000 mcg IM MONTHLY 06/18/20 01/01/25 12/29/24 20:00 History 1,000 mcg/mL injection solution acetaminophen 325 mg chewable 650 mg PO Q6H PRN pain (scale 05/24/24 01/01/25 Unknown History tablet score 1-3) aspirin 81 mg chewable tablet 81 mg PO DAILY 05/24/24 01/01/25 01/01/25 08:00 History calcium 600 mg capsule 1,200 mg PO DAILY 12/28/24 01/01/25 01/01/25 09:00 History denosumab 60 mg/mL subcutaneous 60 mg subcut [id number] 12/28/24 01/01/25 Unknown History syringe (Prolia) omega-3 fatty acids 2,500 mg PO DAILY 12/28/24 01/01/25 01/01/25 09:00 History pravastatin 40 mg tablet 40 mg PO DAILY 12/28/24 01/01/25 01/01/25 09:00 History Allergies Allergy/AdvReac Type Severity Reaction Status Date / Time No Known Allergies Allergy Verified 02/07/25 08:05 Review of Systems Review of Systems: All systems are reviewed and are negative unless stated otherwise in the HPI. [facility] Past Medical History Medical History Moderate aortic stenosis Acute postoperative anemia due to expected blood loss Heart murmur Anemia Closed right hip fracture CVA (cerebral vascular accident) Vertigo TIA (transient ischemic attack) Diabetic neuropathy Arthritis Vitiligo Thyroid disease High cholesterol Diabetes Pernicious anemia History of TIA (transient ischemic attack) Surgical History Surgical History H/O cataract extraction H/O wrist surgery History of knee surgery History of appendectomy History of hysterectomy History of delivery Family History Family History Father Heart disease Mother Heart disease Sibling Heart disease Social History Social History 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 -code status full code Smoking status: Never smoker Alcohol intake: never Drinks per week: 1 Substance use: never Substance use type: does not use Do You Feel Safe in your Home?: Yes Lack of Transportation: No Lack of Food: Never True Current Housing: I Have Housing Concerned About Future Housing: No Difficulty Paying Gas/Electric Bills: No Difficulty Paying for Meds: No Currently Unemployed: No Education: Associate Degree Difficulty w/ Childcare or Family Care: No Spiritual care concerns: No Exam Narrative: General: Alert, awake, afebrile, in no acute distress. HEENT: PERRL, no rhinorrhea, no post nasal drip, oropharynx clear. Neck: Trachea midline, no JVD, no lymphadenopathy. Cardiovascular: Regular rate and rhythm, no murmurs, rubs or gallops, no peripheral edema. Respiratory: Clear to auscultation bilaterally, no tachypnea, no wheezing, no rhonchi, no rubs, no respiratory distress. Abdomen: Soft, nontender, nondistended, no rebound, no guarding, no peritoneal signs. Musculoskeletal: No joint swelling or deformity, normal muscle tone. Skin: No rashes or petechia, no signs of infection. Psychiatric: Alert and oriented, normal behavior and judgment for situation. Neurological: Alert and oriented to person, place, and time. Follows all commands. No focal deficits, speech is clear and fluent. Course Vital Signs Vital signs: Vital Signs Pulse Rate 97 02/22/25 04:07 Respiratory Rate 18 02/22/25 04:07 Blood Pressure 164/90 H 02/22/25 04:07 Pulse Oximetry 96 02/22/25 04:07 Oxygen Delivery Room Air 02/22/25 04:07 Pulse Rate 95 02/22/25 06:16 Respiratory Rate 16 02/22/25 06:16 Blood Pressure 162/81 H 02/22/25 06:16 Pulse Oximetry 97 02/22/25 06:16 Oxygen Delivery Room Air 02/22/25 04:07 MDM - Dizziness MDM Narrative Medical decision making narrative: The patient was evaluated by myself in the emergency department. History is obtained from patient who is an independent historian and physical exam was performed. External medical records were reviewed at this time. IV was established and pertinent tests were ordered. Patient was administered 1 g of oral Tylenol for a headache at this time. EKG was obtained which revealed sinus rhythm at a rate of 93 beats per minute, no evidence of arrhythmia or acute ischemia. EKG was independently interpreted by me and is currently pending official cardiology read. Laboratory results obtained revealing no acute process. urinalysis revealed 1+ ketones otherwise unremarkable. At this time patient was administered 1 L IV fluid bolus with normal saline. Imaging studies obtained included CXR and CT brain without IV contrast which was independently interpreted by me revealing no acute process, which is pending final radiology interpretation. Differential diagnosis considerations include peripheral vertigo, dehydration, electrolyte derangements Comorbidities impacting this visit include none. I have evaluated and discussed social determinants of health with the patient that could potentially impact subsequent diagnosis and treatment plans. On repeat assessment of the patient, reevaluation revealed that the patient is doing well and is in no acute distress. Patient symptoms have improved since she arrived to our emergency department. Repeat vital signs were all reviewed and noted to be stable. Differential diagnosis and treatment plan were discussed with the patient at bedside. Patient agrees with discussion and after shared medical decision making agrees with discharge. All questions were answered to the patient's satisfaction. Patient will follow up with ENT in 3-5 days. Patient was also instructed to follow-up with her primary care physician regarding her elevated blood pressure readings in the emergency department as she may need to be placed on BP medications. Patient was provided with strict return precautions and instructed to return to the emergency department if any new or worsening symptoms develop. The patient was discharged in stable condition. Lab Data 02/22/25 04:18 02/22/25 04:18 Labs: Lab Results 02/22/25 02/22/25 Range/Units 04:18 05:12 WBC 5.7 (4.5-10.0) K/mm3 RBC 4.30 (4.2-5.4) M/mm3 Hgb 10.8 L (12.0-15.0) g/dL Hct 36.3 L (37.0-47.0) % MCV 84.4 (80-100) fl MCH 25.1 L (26-34) pg MCHC 29.8 L (32-36) g/dl RDW 18.9 H (11.5-14.5) % Plt Count 171 (150-375) k/mm3 MPV 10.5 H (7.4-10.4) fl Immature Gran % (Auto) 0.2 (0-0.5) % Neut % (Auto) 79.5 H (45.5-73.1) % Lymph % (Auto) 9.7 L (18.3-44.2) % [place] % (Auto) 9.0 H (2.6-8.5) % Eos % (Auto) 0.5 (0-4.4) % Baso % (Auto) 1.1 (0.2-1.2) % Lymph # (Auto) 0.55 L (0.9-3.2) K/mm3 [place] # (Auto) 0.5 (0.1-0.6) K/mm3 Eos # (Auto) 0.0 (0-0.3) K/mm3 Baso # (Auto) 0.1 (0.0-0.1) K/mm3 Abs Immat Gran (auto) 0.01 (0.00-0.031) K/mm3 Absolute Neuts (auto) 4.5 (1.3-6.7) K/mm3 Absolute Nucleated RBC 0.000 (0.0-0.012) K/mm3 Nucleated RBC % 0.0 (0.0-0.2) % PT 15.3 H (11.1-14.7) Seconds INR 1.2 APTT 26.7 (22.3-36.8) Seconds Sodium 136 L (137-145) mmol/L Potassium 3.7 (3.4-5.0) mmol/L Chloride 99 (98-107) mmol/L Carbon Dioxide 25 (22-30) mmol/L Anion Gap 12 (4-12) mmol/L BUN 19 H (7-17) mg/dL Creatinine 0.98 (0.7-1.0) mg/dL Estim Creat Clear Calc 40 ml/min Estimated GFR 55 L (59 - ) Glucose 285 H (65-110) mg/dL Calcium 9.7 (8.4-10.2) mg/dL Magnesium 1.7 (1.6-2.3) mg/dL Total Bilirubin 0.7 (0.2-1.3) mg/dL AST 35 (14-36) U/L ALT 20 (6-35) U/L Alkaline Phosphatase 124 (38-126) U/L Troponin I 0.018 (0.000-0.034) ng/mL NT-Pro-B Natriuret Pep 553 H (19.9-100) pg/mL Total Protein 7.7 (6.3-8.2) g/dL Albumin 4.5 (3.5-5.1) g/dL Urine Color Yellow (Yellow) Urine Appearance Clear (Clear) Urine pH 8.0 (5.0-9.0) Ur Specific [place] 1.015 (1.001-1.035) Urine Protein Negative (Negative) mg/dL Urine Glucose (UA) 3+ H (Negative) mg/dL Urine Ketones 1+ H (Negative) mg/dL Ur Blood (Man) Negative (Negative) Urine Nitrate Negative (Negative) Urine Bilirubin Negative (Negative) Urine Urobilinogen 1.0 (<2.0) mg/dL Leukocyte Esterase Rfl Negative (Negative) GIGI/UL Discharge Plan Discharge Clinical Impression: Benign paroxysmal positional vertigo, Elevated blood pressure reading Patient Disposition: Home Condition: Improved Instructions: Antibiotic Form, Benign Paroxysmal Positional Vertigo (ED), Hypertension (ED) Additional Instructions: Please follow-up with your family doctor within the next 3-5 days. Your blood pressure was noted to be elevated in the emergency department today, this will need to be closely monitored and followed by your primary care physician as you may need to be placed on blood pressure medications. You also provided with an ENT referral regarding your positional vertigo and instructed to call to set up a follow-up appointment. Return to the ED if any new or worsening symptoms develop. Patient Language: Slovenian Prescriptions: No Action cyanocobalamin (vitamin B-12) 1,000 mcg/mL solution 1,000 mcg IM MONTHLY Patient Comments: of each month Rx Instructions: each month pravastatin 40 mg tablet 40 mg PO DAILY Prolia 60 mg/mL syringe 60 mg subcut [id number] calcium 600 mg capsule 1,200 mg PO DAILY omega-3 fatty acids Capsule 2,500 mg PO DAILY sennosides-docusate sodium [Senokot-S] 8.6-50 mg Tablet 2 tab-cap PO BID PRN (Reason: constipation) Qty: 60 0RF apixaban 2.5 mg tablet 2.5 mg PO BID Qty: 36 0RF polyethylene glycol 3350 [Miralax] 17 gram Powder In Packet 17 g PO BID Qty: 30 0RF midodrine 5 mg Tablet 10 mg PO BID@0800,1400 Qty: 20 0RF oxycodone-acetaminophen 5-325 mg Tablet 1 tablet PO Q4H PRN (Reason: Pain Rated 6 Or Greater) Qty: 15 0RF insulin glargine [Lantus Solostar U-100 Insulin] 100 unit/mL (3 mL) insulin pen 15 unit subcut QAM Qty: 15 0RF gabapentin 600 mg Tablet 600 mg PO TID Qty: 90 0RF insulin lispro [Humalog U-100 Insulin] 100 unit/mL Solution 3 unit subcut TIDWM Qty: 10 0RF aspirin 81 mg Tablet,Chewable 81 mg PO DAILY acetaminophen 325 mg Tablet,Chewable 650 mg PO Q6H PRN (Reason: pain (scale score 1-3)) levothyroxine 88 mcg tablet 88 mcg PO 6XW Qty: 30 0RF Rx Instructions: Wednesday through Wednesday levothyroxine 88 mcg Tablet 176 mcg PO WEEKLY Qty: 30 0RF Rx Instructions: Wednesday cholecalciferol (vitamin D3) 125 mcg (5,000 unit) Capsule 125 mcg PO DAILY Qty: 30 0RF Follow-up/Referrals: Boris Kennedy MD [Physician, Ear, Nose, Throat] - 3 Days Emmanuel,Jae Anderson MD [Primary Care Provider] - 3 Days Time of Disposition: 06:22
[2025-02-22 04:25] LABS: Hematocrit 36.3 % (37.0-47.0); Hemoglobin 10.8 g/dL (12.0-15.0); Immature Granulocyte Percent A 0.2 % (0-0.5); Lymphocytes Absolute Auto 0.55 K/mm3 (0.9-3.2); Mean Corpuscular HGB Conc 29.8 g/dl (32-36); Mean Corpuscular Hemoglobin 25.1 pg (26-34); Mean Corpuscular Volume 84.4 fl (80-100); Nucleated Red Blood Cells Absolute Auto 0.000 K/mm3 (0.0-0.012); Nucleated Red Blood Cells Perc 0.0 % (0.0-0.2); Platelet Count Result 171 k/mm3 (150-375); Red Blood Count 4.30 M/mm3 (4.2-5.4); White Blood Count 5.7 K/mm3 (4.5-10.0)
[2025-02-22 04:37] LABS: INR 1.2; Prothrombin Time 15.3 Seconds (11.1-14.7)
[2025-02-22 04:38] LABS: Partial Thromboplastin Time 26.7 Seconds (22.3-36.8)
--- OUTSIDE RECORDS SUMMARY | 2025-02-22 04:51 | XMS_ITS | Clinical Summary ---
Author Organization [facility] Address [address] [place] [address] Care Team Providers Care Shank Carrier Name Role Phone Jae Benitez MD Primary [...] 05/22/2024 Assessment & Plan (05/22/2024 3:28 PM CABINET BUILDER): ground level fall this yesterday at home on her way to the bathroom. She fell onto her left leg. She arrived with left leg deformity. Patient A&Ox4, GCS 15 reported on arrival Discharge planning issues 05/22/2024 Assessment & Plan (05/23/2024 2:10 PM CABINET BUILDER): 05/21 admission 05/23 Patient is medically stable for discharge, SW/CM updated. Discharge pending facility acceptance Encounter for medication review 05/22/2024 Other fracture of left femur , initial encounter for closed fracture 05/21/2024 Assessment & Plan (05/22/2024 3:15 PM CABINET BUILDER): 05/22 OR with orthopedic - IMN Femur Left WBAT post OR 24 hour cefazolin DVT ppx ok 3 week suture removal Insulin pump status 12/15/2023 Assessment & Plan (10/31/2024 10:27 AM CDT): Has appt today with Ivy at [facility] for pump training/placement. Assessment & Plan (07/04/2024 2:25 PM CABINET BUILDER): Will go back on pump once Dexcom [...] TG=72. Assessment & Plan (07/04/2024 1:19 PM CABINET BUILDER): Chronic problem. Currently taking pravastatin 40mg. Last lipid panel: 05/21/24 LDL=55, TG=72. Assessment & Plan (03/22/2024 11:59 AM CDT): Chronic problem. Currently taking pravastatin 40mg. Last lipid panel: 08/04/23 LDL=89, TG=81. Assessment & Plan (12/15/2023 10:22 AM CDT): Chronic problem. On statin therapy, no changes. Vitamin D deficiency 05/13/2023 Assessment & Plan (07/04/2024 2:23 PM CABINET BUILDER): Chronic problem. Currently taking vitamin D 5000IU daily. Assessment & Plan (12/15/2023 10:22 AM CDT): Chronic stable problem. Assessment & Plan (05/13/2023 4:38 PM CABINET BUILDER): Of the 25 hydroxy vitamin-D levels Calcium and vitamin-D intake discussed Type 2 diabetes mellitus wit h hyperglycemia, with long-term current use of insulin 05/13/2023 Assessment & Plan (10/31/2024 10:34 AM CDT): Chronic problem. A1c worsened from 7.4% 07/04/24 to now 9.0%. Had been at [place] with improved diet. Meeting with [employer] parent [...] hours UTD on DM eye exam: 07/08/23 [facility] in [place]. UTD on labs. Strive for regular exercise [...] infection. Assessment & Plan (07/04/2024 2:23 PM CABINET BUILDER): Chronic problem. A1c improved from 9.5% 05/21/24 to now 7.5%. has been at [place] since 05/2024; much improved diet. Again went [...] hours UTD on DM eye exam: 07/08/23 [facility] [place]. UTD on labs. Strive for regular exercise [...] hours UTD on DM eye exam: 07/08/23 [facility] in [place]. UTD on labs. Strive for regular exercise [...] rx. Assessment & Plan (08/24/2023 12:14 PM CABINET BUILDER): Chronic problem. A1c currently uncontrolled at 9.6%. [...] 4 hours DM eye exam: summer 2022 [facility] in [place]. Letter sent to get copy of report. [...] infection. Assessment & Plan (05/13/2023 4:37 PM CABINET BUILDER): Hba1c was Lab Results Component Value Date [...] results. Assessment & Plan (07/04/2024 1:18 PM CABINET BUILDER): Chronic problem. Clinically euthyroid. Currently taking levothyroxine [...] TFTs. Assessment & Plan (08/24/2023 12:15 PM CABINET BUILDER): Chronic problem. Clinically euthyroid. Currently taking levothyroxine 88mcg Wednesday-Wednesday & 2 tabs on Wednesday since 04/2023. Will update TFTs today. Will update labs today. Does not mychart. Verified phone #/address to contact re: results. Assessment & Plan (05/13/2023 4:38 PM CABINET BUILDER): Continue levothyroxine Update TFTs Age-related osteoporosis wit [...] states that she's having it done at [facility] 05/01/25. Assessment & Plan (07/04/2024 1:18 PM CABINET BUILDER): Chronic problem. Taking Prolia 60mg every 6 [...] sent. Assessment & Plan (08/24/2023 12:16 PM CABINET BUILDER): Chronic problem. Taking Prolia 60mg every 6 mos (last injection 05/2023). Vitamin D level normal at 67 when checked 04/2023. Unable to see any past Dexa/imaging. Release signed to get copy of results from PCP. Assessment & Plan (05/13/2023 4:39 PM CABINET BUILDER): Fall precautions Calcium and vitamin-D intake continue Prolia Acute urinary tract infection 10/15/2022 Depressive disorder 04/07/2022 Dyslipidemia 03/03/2022 COVID-19 02/16/2022 Diabetic peripheral neuropathy 01/30/2021 Assessment & Plan (10/31/2024 10:05 AM CDT): Chronic problem. Currently taking Gabapentin 600mg tid. Reviewed foot care; needs to lotion daily. Aware to check feet nightly, not to go barefoot. Assessment & Plan (07/04/2024 1:18 PM CABINET BUILDER): Chronic problem. Currently taking Gabapentin 600mg tid. Reviewed foot care; needs to lotion daily. Aware to check feet nightly, not to go barefoot. Assessment & Plan (03/22/2024 11:58 AM CDT): Chronic problem. Currently taking Gabapentin 600mg tid. Reviewed foot care; needs to lotion daily. Aware to check feet nightly, not to go barefoot. Assessment & Plan (08/24/2023 12:17 PM CABINET BUILDER): Chronic problem. Currently taking Gabapentin 600mg tid. Reviewed foot care; needs to lotion daily. Aware to check feet nightly, not to go barefoot. Assessment & Plan (05/13/2023 4:37 PM CABINET BUILDER): Foot care discussed Gabapentin 300 mg Q [...] 10/31/2024 Assessment & Plan (05/23/2024 2:11 PM CABINET BUILDER): Home insulin pump and dexacom type device for glucose monitoring. Consult endocrine for pump management while admitted POCT glucose SSI regimen per endocrine If pump is off give Lantus 15 units daily and Lispro 5 untis TID AC LD ssi Encounters Date Type Department Care Team Description 02/05/[address] [facility] Medical Group Diabetes and Endocrinology [address] [place] [phone] Kait Lanrdum MD Appointment from Last 3 Months Surgical History Surgery [...] 36.7 C (98.1 F) 05/24/2024 3:56 PM CABINET BUILDER Respiratory Rate 16 10/31/2024 9:47 AM CDT Oxygen Saturation 92% 05/24/2024 3:56 PM CABINET BUILDER Inhaled Oxygen Concentration - - Weight 78.5 [...] of 3) 07/30/2021 06/04/20 21, 04/03/2021, 07/14/2013 Covid-19 Vaccine (4 - 2023-2 5 season) 2024 05/28/2021, 09/13/2020, 08/08/2020 Depression Screening 05/13/2024 05/13/2023 Dilated Eye Exam 07/08/2024 07/08/2023 Influenza Vaccine (#1) 2025 , 04/03/2021, 04/15/2020, Additional history exists Hemoglobin A1C 05/03/2025 10/31/2024, 12/2024, 05/21/2024, Additional [...] 05/16/2018, 04/29 Medical Devices Implanted Type Area Outsole Skiver Device Identifier Shelf Expiration Date Model / Serial / Lot [employer] Nail Intramedullary Femoral Retrograde T2 Alpha [id number] Titanium 2339-1238s - [id number] Implanted:Qty: 1 on 05/22/2024 by Ruy Griggs MD at [facility] Nail Left: Femur [employer] 05/27/2032 [id number] S / / [id number] [employer] Screw Bone 5mm 80mm Lock Strl 2361-5080s - [id number] Implanted:Qty: 1 on 05/22/2024 by Ruy Griggs MD at [facility] Left: Femur [employer] [id number] 01/25/2034 4419-7826 S / / [id number] [employer] Screw Bone 5mm 75mm Lock Strl 2361-5075s - [id number] Implanted:Qty: 1 on 05/22/2024 by Ruy Griggs MD at [facility] Left: Femur [employer] [id number] 01/25/2034 3778-0705 S / / [id number] [employer] Screw Bone 5mm 80mm Lock Strl 2361-5080s - [id number] Implanted:Qty: 1 on 05/22/2024 by Ruy Griggs MD at [facility] Left: Femur [employer] [id number] 02/25/2034 2279-2768 S / / [id number] [employer] Screw Bone Locking Cannulated Tibial Oversized Thread Black T2 Alpha 5.0x85mm Titanium 2361-5085s - [id number] Implanted:Qty: 1 on 05/22/2024 by Ruy Griggs MD at [facility] Left: Femur [employer] [id number] 02/25/2034 7200-3836 S / / [id number] [employer] Screw Bone 5mm 40mm T2 Alpha Lock Strl 2360-5040s - [id number] Implanted:Qty: 1 on 05/22/2024 by Ruy Griggs MD at [facility] Left: Femur [employer] [id number] 02/25/2034 5054-9624 S / / [id number] [employer] Screw Bone 5mm 40mm T2 Alpha Lock Strl 2360-5040s - [id number] Implanted:Qty: 1 on 05/22/2024 by Ruy Griggs MD at [facility] Left: Femur [employer] [id number] 01/25/2034 1156-0630 S / / [id number] Procedures Procedure Name Priority Date/Time Associated Diagnosis Comments ALBUMIN CREATININE RATIO, URINE Routine 10/31/2024 10:36 AM CDT Type 2 diabetes mellitus with hyperglycemia, with long-term current use of insulin (HCC) THYROID FUNCTION CASCADE Routine 10/31/2024 10:36 AM CDT Acquired hypothyroidism POCT HEMOGLOBIN A1C Routine 10/31/2024 9 :51 AM CDT Type 2 diabetes mellitus with hyperglycemia, with long-term current use of insulin (HCC) EGFR Routine 07/05/2024 2:07 PM CABINET BUILDER LIPID PANEL STAT 05/21/2024 10:42 AM CABINET BUILDER HM DIABETES EYE EXAM Routine 07/08/2023 10:42 AM CABINET BUILDER from Last 3 Months or Most Recently Relevant to Health Maintenance Results * (ABNORMAL) Thyroid Function [place] (10/31/2024 10:36 AM CDT) TSH 19.10(H) 0.30 - 4.20 mcIUnit/mL Blood 10/31/2024 10:3 6 AM CDT 10/31/2024 7:00 PM CDT us Gudelia Johnson ELECTROLYSIS NEEDLE OPERATOR LAB BLOOD ORDERABLES Bere l Result [facility] [address] Department [place] [address] * Albumin Creatinine Ratio, Urine (10/31/2024 10:36 AM CDT) Albumin Ur 42.0 mg/L Comment: Interpretive Data No reference range established. Current interpretive data was last revised 2018. Creatinine Ur 168.5 mg/dL [facility] Comment: Interpretive Data No reference range established. Current interpretive data was last revised 2018. Albumin Creatinine Ratio, Ur 25 1 - 29 mg/g [facility] Urine 10/31/2024 10:3 6 AM CDT 10/31/2024 7:00 PM CDT Gudelia Johnson NP LAB URINE ORDERABLES Bere l Result [facility] [id number] Department [place] [address] * (ABNORMAL) POCT hemoglobin A1c (10/31/2024 9:51 AM CDT) Hemoglobin A1C, POC 9.0(A) 4.0 - 5.6 % Blood 10/31/2024 9:51 AM CDT Gudelia Johnson NP POINT OF CARE TEST ORDERA BLES Final Result * (ABNORMAL) eGFR (07/05/2024 2:07 PM CABINET BUILDER) eGFR 59(L) >=60 mL/min/1. 73 m2 Comment: [...] was last reviewed 2021. Testing performed by: [facility], [address], [place] [address] Blood 07/05/2024 2:07 PM CABINET BUILDER 07/05/2024 6:42 PM CABINET BUILDER Anitha Dean NP LAB BLOOD ORDERABLES Final Resu lt [facility] [address] Department [place] [address] * Lipid panel (05/21/2024 10:42 AM CABINET BUILDER) Cholesterol 149 30 - 199 mg/dL Comment: [...] revised on 2018. Triglycerides 72 <=149 mg/dL [facility] Comment: Interpretive Data Ages < or [...] on 2018. HDL 80 >=40 mg/dL [facility] Comment: Interpretive Data Ages < or [...] 2018. LDL, calculated 55 <=129 mg/dL [facility] Comment: Interpretive Data Ages < or = [...] on 2024. Non-HDL Cholesterol 69 mg/dL [facility] Comment: Interpretive Data Ages < or = [...] last revised on 2018. Chol/HDL ratio 2 [facility] Blood 05/21/2024 10:4 2 AM CABINET BUILDER 05/21/2024 10:56 AM CABINET BUILDER Narrative [facility] - 05/22/2024 5:09 PM CABINET BUILDER Reflex us Pretty Hood MD LAB BLOOD ORDERABLES Final Res ult [facility] Department [place] [address] * (ABNORMAL) DIABETES EYE EXAM (07/08/2023 10:42 AM CABINET BUILDER) us Historical Provider HEALTH MAINTENANCE Final Result from Last 3 Months or Most Recently Relevant to Health Maintenance Insurance MEDICARE [employer] TRADITIONAL OOS [employer] TRADITIONAL OOS MEDICARE MEDICARE [facility] OOS Advance Directives For more information, please contact: [phone] * Full Code (Latest Code Status on File) Date Activated Date Inactivated Comments 05/21/2024 11:30 PM 05/25/2024 12:27 AM Care Teams Shank Carrier Relationship Specialty Start Date End Date Jae Benitez MD [address] [facility] [address] [place] [address] PCP - General Internal Medicine 12/02/20
[2025-02-22 04:56] LABS: Alanine Aminotransferase 20 U/L (6-35); Albumin Level 4.5 g/dL (3.5-5.1); Alkaline Phosphatase 124 U/L (38-126); Anion Gap 12 mmol/L (4-12); Aspartate Amino Transferase 35 U/L (14-36); Bilirubin,Total 0.7 mg/dL (0.2-1.3); Blood Urea Nitrogen 19 mg/dL (7-17); Calcium 9.7 mg/dL (8.4-10.2); Carbon Dioxide 25 mmol/L (22-30); Chloride 99 mmol/L (98-107); Estimated CRCL calculation 40 ml/min; Estimated Glomerular Filt Rate 55; Glucose 285 mg/dL (65-110); Magnesium 1.7 mg/dL (1.6-2.3); Potassium 3.7 mmol/L (3.4-5.0); Sodium 136 mmol/L (137-145); Total Protein 7.7 g/dL (6.3-8.2)
[2025-02-22 05:08] LABS: NT Pro B Type Natriuretic Pept 553 pg/mL (19.9-100); Troponin I 0.018 ng/mL (0.000-0.034)
[2025-02-22 05:25] LABS: Add Urine Microscopic? NO; Appearance Urine Clear (Clear); Glucose Urine UA 3+ mg/dL (Negative); Leukocyte Esterase Ur Negative LEU/UL (Negative); Nitrate Urine Negative (Negative); Specific Grav Ur 1.015 (1.001-1.035)
[2025-02-22] MEDS: SODIUM CHLORIDE 0.9% IV 1,000 ML 999 ML IV CONT (05:35)
[2025-02-22 05:45] VITALS: BP 172/88; PULSE 96; RESP 19; O2SAT 97
[2025-02-22] MEDS: ACETAMINOPHEN 500 MG TABLET 1000 MG PO (05:50)
[2025-02-22 06:16] VITALS: BP 162/81; PULSE 95; RESP 16; O2SAT 97
== END 2025-02-22 06:40 | disposition home or self-care (01) ==
PROVIDERS: Emergency Provider Emergency Medicine; PCP Internal Medicine
DX: H81.10 Benign paroxysmal vertigo, unspecified ear (principal); R03.0 Elevated blood-pressure reading, without diagnosis of hypertension; I35.0 Nonrheumatic aortic (valve) stenosis; E11.40 Type 2 diabetes mellitus with diabetic neuropathy, unspecified; E78.00 Pure hypercholesterolemia, unspecified; E07.9 Disorder of thyroid, unspecified; D51.0 Vitamin B12 deficiency anemia due to intrinsic factor deficiency; M19.90 Unspecified osteoarthritis, unspecified site; Z86.73 Personal history of transient ischemic attack (TIA), and cerebral infarction without residual deficits; Z98.49 Cataract extraction status, unspecified eye; Z90.710 Acquired absence of both cervix and uterus; Z79.01 Long term (current) use of anticoagulants; Z79.4 Long term (current) use of insulin; Z79.82 Long term (current) use of aspirin; Z79.899 Other long term (current) drug therapy; R94.31 Abnormal electrocardiogram [ECG] [EKG]
CPT/HCPCS: 36415; 70450; 71045; 80053; 81003; 83735; 83880; 84484; 85025; 85610; 85730; 93005; 96360; 99284; A9270; J7030

== ENCOUNTER 2025-02-22 21:31 | Inpatient (IN) | payer MEDICARE, BC, SELFPAY ==
--- OUTSIDE RECORDS SUMMARY | 2004-11-13 05:45 | XMS_ITS | Continuity of Care Document ---
Author Organization [facility] Address [address] [place] [address] Phone Care Team Providers Care Collections Officer Name Role Phone Noemi Davis Unavailable Unavailable Advance Directives Directive Yes / No Effective Date File Name No Information Encounters Encounter Description Practice Location Reason(s) For Visit Diagnoses Date Provider Providers Copied on Encounter [facility], [id number] [place] [address] [address], [place], [place], [id number], [place] tel:[phone] [address] [facility] No Information 9-200 5 Susan Franklin. [address] [facility] , [address], [place], [address], [place]. tel:[phone] Family History Family Member Type Diagnosis Age At Onset No Information Payers Payer name Insurance type Covered green party ID Authoriza tion(s) No Information Social History Type Description Quantity Date Captured Comments Sex Female Smoking Status No Information Chief Complaint And Reason For Visit No Information Reason For Referral Reason For Referral No Information History Of Present Illness Encounter Date Complaint History Of Prese nt Illness No Information Functional Status Date Functional Assessmen t No Information Instructions Date Instruction Additional Infor mation No Information Assessments Type Assessment Date No Information Patient Care Teams Name Effective Dates (start - stop) Status Members No Information
[2025-02-22] VITALS (8 sets, daily range): BP systolic 140–167; BP diastolic 76–86; PULSE 93–96; RESP 18–25; TEMP 36.7–37.9; O2SAT 95–100
--- NOTE | ~2025-02-22 | XR_ITS ---
EXAMINATION: XR chest 1V portable 02/22/2025 22:07 INDICATION: Weakness and dizziness PROCEDURE: AP portable chest COMPARISON: Comparison to multiple prior studies sequentially, with oldest reviewed study dated 08/27/2022. FINDINGS: The lungs are clear. The cardiomediastinal silhouette is within normal limits. There are no pleural effusions. There is no pneumothorax suspected. IMPRESSION: 1: NO ACUTE CARDIOPULMONARY DISEASE. Reviewed, dictated and finalized at location O.
--- NOTE | ~2025-02-22 | XR_ITS ---
XR pelvis 1-2V 02/22/2025 23:11 Indication: Hip pain Procedure: AP pelvis Comparison: 12/28/2024 Findings: There is a right femoral intertrochanteric fracture transfixed by dynamic compression screw and intramedullary neftali. There is near-anatomic alignment. There is lucency in the lateral aspect of the femur below the compression screw laterally. This likely correlates to previous fracture. There is an intramedullary neftali in the left femur partially visualized. Pelvic rings intact. Lower lumbar spondylosis. Impression: 1: No definite acute fracture identified. 2: Status post internal fixation of proximal right femoral fracture with near- anatomic alignment. Reviewed, dictated and finalized at location O. Impression: 1: No definite acute fracture identified. 2: Status post internal fixation of proximal right femoral fracture with near-a natomic alignment.
--- NOTE | 2025-02-22 21:35 | ECG_ITS ---
Test Date: 2025-02-22 21:36:31 Measurements Intervals [place] Rate: 95 P: -5 WA: 188 QRS: 5 QRSD: 106 T: 41 QT: 385 QTc: 485 Interpretive Statements SINUS RHYTHM POSSIBLE LEFT ATRIAL ENLARGEMENT VOLTAGE CRITERIA FOR LVH BORDERLINE ST-T WAVE ABNORMALITY- ANT/INF LEADS BASELINE ARTIFACT- I, III, V1-V2 BORDERLINE ECG Compared to ECG 02/22/2025 04:25:03 NO SIGNIFICANT CHANGE Electronically Signed On 02-23-2025 06:36:54 CDT by Papi Leonardo D.O.
[2025-02-22 22:23] LABS: Hematocrit 34.8 % (37.0-47.0); Hemoglobin 10.4 g/dL (12.0-15.0); Immature Granulocyte Percent A 0.5 % (0-0.5); Lymphocytes Absolute Auto 0.41 K/mm3 (0.9-3.2); Mean Corpuscular HGB Conc 29.9 g/dl (32-36); Mean Corpuscular Hemoglobin 24.9 pg (26-34); Mean Corpuscular Volume 83.3 fl (80-100); Nucleated Red Blood Cells Absolute Auto 0.000 K/mm3 (0.0-0.012); Nucleated Red Blood Cells Perc 0.0 % (0.0-0.2); Platelet Count Result 135 k/mm3 (150-375); Red Blood Count 4.18 M/mm3 (4.2-5.4); White Blood Count 5.6 K/mm3 (4.5-10.0)
[2025-02-22 22:32] LABS: Alanine Aminotransferase 22 U/L (6-35); Albumin Level 4.5 g/dL (3.5-5.1); Alkaline Phosphatase 111 U/L (38-126); Anion Gap 10 mmol/L (4-12); Aspartate Amino Transferase 41 U/L (14-36); Bilirubin,Total 0.5 mg/dL (0.2-1.3); Blood Urea Nitrogen 19 mg/dL (7-17); Calcium 9.2 mg/dL (8.4-10.2); Carbon Dioxide 26 mmol/L (22-30); Chloride 97 mmol/L (98-107); Estimated CRCL calculation 32 ml/min; Estimated Glomerular Filt Rate 43; Glucose 295 mg/dL (65-110); Potassium 3.4 mmol/L (3.4-5.0); Sodium 133 mmol/L (137-145); Total Protein 7.8 g/dL (6.3-8.2)
--- OUTSIDE RECORDS SUMMARY | 2025-02-22 22:36 | XMS_ITS | Clinical Summary ---
Author Organization [facility] Address [address] [place] [address] Care Team Providers Care Tile Setter Apprentice Name Role Phone Jae Benitez MD Primary [...] 05/22/2024 Assessment & Plan (05/22/2024 3:28 PM PHOTONICS ENGINEER): ground level fall this yesterday at home on her way to the bathroom. She fell onto her left leg. She arrived with left leg deformity. Patient A&Ox4, GCS 15 reported on arrival Discharge planning issues 05/22/2024 Assessment & Plan (05/23/2024 2:10 PM PHOTONICS ENGINEER): 05/21 admission 05/23 Patient is medically stable for discharge, SW/CM updated. Discharge pending facility acceptance Encounter for medication review 05/22/2024 Other fracture of left femur , initial encounter for closed fracture 05/21/2024 Assessment & Plan (05/22/2024 3:15 PM PHOTONICS ENGINEER): 05/22 OR with orthopedic - IMN Femur Left WBAT post OR 24 hour cefazolin DVT ppx ok 3 week suture removal Insulin pump status 12/15/2023 Assessment & Plan (10/31/2024 10:27 AM CDT): Has appt today with Ivy at [facility] for pump training/placement. Assessment & Plan (07/04/2024 2:25 PM PHOTONICS ENGINEER): Will go back on pump once [...] TG=72. Assessment & Plan (07/04/2024 1:19 PM PHOTONICS ENGINEER): Chronic problem. Currently taking pravastatin 40mg. Last lipid panel: 05/21/24 LDL=55, TG=72. Assessment & Plan (03/22/2024 11:59 AM CDT): Chronic problem. Currently taking pravastatin 40mg. Last lipid panel: 08/04/23 LDL=89, TG=81. Assessment & Plan (12/15/2023 10:22 AM CDT): Chronic problem. On statin therapy, no changes. Vitamin D deficiency 05/13/2023 Assessment & Plan (07/04/2024 2:23 PM PHOTONICS ENGINEER): Chronic problem. Currently taking vitamin D 5000IU daily. Assessment & Plan (12/15/2023 10:22 AM CDT): Chronic stable problem. Assessment & Plan (05/13/2023 4:38 PM PHOTONICS ENGINEER): Of the 25 hydroxy vitamin-D levels Calcium and vitamin-D intake discussed Type 2 diabetes mellitus wit h hyperglycemia, with long-term current use of insulin 05/13/2023 Assessment & Plan (10/31/2024 10:34 AM CDT): Chronic problem. A1c worsened from 7.4% 07/04/24 to now 9.0%. Had been at [place] with improved diet. Meeting with [employer] ultimate hoops trainer today to get pump back on. [...] hours UTD on DM eye exam: 07/08/23 [facility] in [place]. UTD on labs. Strive for regular exercise [...] infection. Assessment & Plan (07/04/2024 2:23 PM PHOTONICS ENGINEER): Chronic problem. A1c improved from 9.5% 05/21/24 to now 7.5%. has been at [place] since 05/2024; much improved diet. Again went [...] hours UTD on DM eye exam: 07[facility]08[facility]23 [facility] [place]. UTD on labs. Strive for regular exercise [...] hours UTD on DM eye exam: 07/08/23 [facility] in [place]. UTD on labs. Strive for regular exercise [...] rx. Assessment & Plan (08/24/2023 12:14 PM PHOTONICS ENGINEER): Chronic problem. A1c currently uncontrolled at [...] 4 hours DM eye exam: summer 2022 [facility] in [place]. Letter sent to get copy of report. [...] infection. Assessment & Plan (05/13/2023 4:37 PM PHOTONICS ENGINEER): Hba1c was Lab Results Component Value [...] results. Assessment & Plan (07/04/2024 1:18 PM PHOTONICS ENGINEER): Chronic problem. Clinically euthyroid. Currently taking [...] TFTs. Assessment & Plan (08/24/2023 12:15 PM PHOTONICS ENGINEER): Chronic problem. Clinically euthyroid. Currently taking levothyroxine 88mcg Wednesday-Wednesday & 2 tabs on Wednesday since 04/2023. Will update TFTs today. Will update labs today. Does not mychart. Verified phone #/address to contact re: results. Assessment & Plan (05/13/2023 4:38 PM PHOTONICS ENGINEER): Continue levothyroxine Update TFTs Age-related osteoporosis [...] states that she's having it done at [facility] 05/01/25. Assessment & Plan (07/04/2024 1:18 PM PHOTONICS ENGINEER): Chronic problem. Taking Prolia 60mg every [...] sent. Assessment & Plan (08/24/2023 12:16 PM PHOTONICS ENGINEER): Chronic problem. Taking Prolia 60mg every 6 mos (last injection 05/2023). Vitamin D level normal at 67 when checked 04/2023. Unable to see any past Dexa/imaging. Release signed to get copy of results from PCP. Assessment & Plan (05/13/2023 4:39 PM PHOTONICS ENGINEER): Fall precautions Calcium and vitamin-D intake continue Prolia Acute urinary tract infection 10/15/2022 Depressive disorder 04/07/2022 Dyslipidemia 03/03/2022 COVID-19 02/16/2022 Diabetic peripheral neuropathy 01/30/2021 Assessment & Plan (10/31/2024 10:05 AM CDT): Chronic problem. Currently taking Gabapentin 600mg tid. Reviewed foot care; needs to lotion daily. Aware to check feet nightly, not to go barefoot. Assessment & Plan (07/04/2024 1:18 PM PHOTONICS ENGINEER): Chronic problem. Currently taking Gabapentin 600mg tid. Reviewed foot care; needs to lotion daily. Aware to check feet nightly, not to go barefoot. Assessment & Plan (03/22/2024 11:58 AM CDT): Chronic problem. Currently taking Gabapentin 600mg tid. Reviewed foot care; needs to lotion daily. Aware to check feet nightly, not to go barefoot. Assessment & Plan (08/24/2023 12:17 PM PHOTONICS ENGINEER): Chronic problem. Currently taking Gabapentin 600mg tid. Reviewed foot care; needs to lotion daily. Aware to check feet nightly, not to go barefoot. Assessment & Plan (05/13/2023 4:37 PM PHOTONICS ENGINEER): Foot care discussed Gabapentin 300 mg [...] 10/31/2024 Assessment & Plan (05/23/2024 2:11 PM PHOTONICS ENGINEER): Home insulin pump and dexacom type device for glucose monitoring. Consult endocrine for pump management while admitted POCT glucose SSI regimen per endocrine If pump is off give Lantus 15 units daily and Lispro 5 untis TID AC LD ssi Encounters Date Type Department Care Team Description 02/05/2025 Telephone [facility] Medical Group Diabetes and Endocrinology [address] [place] [phone] Kait Landrum MD Appointment from Last 3 Months Surgical [...] 36.7 C (98.1 F) 05/24/2024 3:56 PM PHOTONICS ENGINEER Respiratory Rate 16 10/31/2024 9:47 AM CDT Oxygen Saturation 92% 05/24/2024 3:56 PM PHOTONICS ENGINEER Inhaled Oxygen Concentration - - Weight 78.5 [...] 05/16/2018, 04/29 Medical Devices Implanted Type Area Wage Analyst Device Identifier Shelf Expiration Date Model / Serial / Lot [employer] Nail Intramedullary Femoral Retrograde T2 Alpha [id number] Titanium 2339-1238s - [id number] Implanted:Qty: 1 on 05/22/2024 by Ruy Griggs MD at [facility] Nail Left: Femur [employer] 05/27/2032 [id number] S / / [id number] [employer] Screw Bone 5mm 80mm Lock Strl 2361-5080s - [id number] Implanted:Qty: 1 on 05/22/2024 by Ruy Griggs MD at [facility] Left: Femur [employer] [id number] 01/25/2034 2698-0970 S / / [id number] [employer] Screw Bone 5mm 75mm Lock Strl 2361-5075s - [id number] Implanted:Qty: 1 on 05/22/2024 by Ruy Griggs MD at [facility] Left: Femur [employer] [id number] 01/25/2034 3771-7324 S / / [id number] [employer] Screw Bone 5mm 80mm Lock Strl 2361-5080s - [id number] Implanted:Qty: 1 on 05/22/2024 by Ruy Griggs MD at [facility] Left: Femur [employer] [id number] 02/25/2034 5574-3972 S / / [id number] [employer] Screw Bone Locking Cannulated Tibial Oversized Thread Black T2 Alpha 5.0x85mm Titanium 2361-5085s - [id number] Implanted:Qty: 1 on 05/22/2024 by Ruy Griggs MD at [facility] Left: Femur [employer] [id number] 02/25/2034 2333-7352 S / / [id number] [employer] Screw Bone 5mm 40mm T2 Alpha Lock Strl 2360-5040s - [id number] Implanted:Qty: 1 on 05/22/2024 by Ruy Griggs MD at [facility] Left: Femur [employer] [id number] 02/25/2034 1195-3088 S / / [id number] [employer] Screw Bone 5mm 40mm T2 Alpha Lock Strl 2360-5040s - [id number] Implanted:Qty: 1 on 05/22/2024 by Ruy Griggs MD at [facility] Left: Femur [employer] [id number] 01/25/2034 2350-3947 S / / [id number] Procedures Procedure Name Priority Date/Time Associated Diagnosis [...] insulin (HCC) EGFR Routine 07/05/2024 2:07 PM PHOTONICS ENGINEER LIPID PANEL STAT 05/21/2024 10:42 AM PHOTONICS ENGINEER HM DIABETES EYE EXAM Routine 07/08/2023 10:42 AM PHOTONICS ENGINEER from Last 3 Months or Most Recently Relevant to Health Maintenance Results * (ABNORMAL) Thyroid Function [place] (10/31/2024 10:36 AM CDT) TSH 19.10(H) 0.30 - 4.20 mcIUnit/mL Blood 10/31/2024 10:3 6 AM CDT 10/31/2024 7:00 PM CDT us Gudelia Johnson DOCUMENT CONTROL CLERK LAB BLOOD ORDERABLES Bere l Result [facility] [address] Department [place] [address] * Albumin Creatinine Ratio, Urine [...] LAB URINE ORDERABLES Bere l Result [facility] [address] Department [place] [address] * (ABNORMAL) POCT hemoglobin A1c (10/31/2024 9:51 AM CDT) Hemoglobin A1C, POC 9.0(A) 4.0 - 5.6 % Blood 10/31/2024 9:51 AM CDT Gudelia Johnson NP POINT OF CARE TEST ORDERA BLES Final Result * (ABNORMAL) eGFR (07/05/2024 2:07 PM PHOTONICS ENGINEER) eGFR 59(L) >=60 mL/min/1. 73 m2 [...] was last reviewed 2021. Testing performed by: [facility], [address], [place] [address] Blood 07/05/2024 2:07 PM PHOTONICS ENGINEER 07/05/2024 6:42 PM PHOTONICS ENGINEER Anitha Dean NP LAB BLOOD ORDERABLES Final Resu lt [facility] [address] Department [place] [address] * Lipid panel (05/21/2024 10:42 AM PHOTONICS ENGINEER) Cholesterol 149 30 - 199 mg/dL [...] revised on 2018. Triglycerides 72 <=149 mg/dL [facility] Comment: Interpretive Data Ages < or = [...] on 2018. HDL 80 >=40 mg/dL [facility] Comment: Interpretive Data Ages < or = [...] [facility] Blood 05/21/2024 10:4 2 AM PHOTONICS ENGINEER 05/21/2024 10:56 AM PHOTONICS ENGINEER Narrative [facility] - 05/22/2024 5:09 PM PHOTONICS ENGINEER Reflex us Pretty Hood MD LAB BLOOD ORDERABLES Final Res ult [facility] Department [place] [address] * (ABNORMAL) DIABETES EYE EXAM (07/08/2023 10:42 AM PHOTONICS ENGINEER) us Historical Provider HEALTH MAINTENANCE Final Result from Last 3 Months or Most Recently Relevant to Health Maintenance Insurance MEDICARE [id number] TRADITIONAL OOS [email or web address] TRADITIONAL OOS MEDICARE MEDICARE [facility] OOS Advance Directives For more information, please contact: [phone] * Full Code (Latest Code Status on File) Date Activated Date Inactivated Comments 05/21/2024 11:30 PM 05/25/2024 12:27 AM Care Teams Tile Setter Apprentice Relationship Specialty Start Date End Date Jae Benitez MD [address] [facility] [address] [place] [address] PCP - General Internal Medicine 12/02/20
[2025-02-22] MEDS: ACETAMINOPHEN 500 MG TABLET 1000 MG PO (22:48)
--- NOTE | 2025-02-22 22:49 | ED_ITS ---
HPI - Weakness General Chief complaint: Weakness Stated complaint: FALL, DIZZY, WEAKNESS Time Seen by Provider: 02/22/25 22:23 Source: patient Mode of arrival: ambulatory Limitations: no limitations History of Present Illness HPI Narrative: This is a 79 year old female that presents to the ER for generalized weakness. Reports she was evaluated for this in the morning and discharged back to her facility. Reports a pre-syncopal episode tonight which prompted her to be seen again. Reports she has had diarrhea tonight. Noted to be febrile. She does report COVID is going around her facility. Related Data Home Medications ?Medication ?Instructions ?Recorded ?Confirmed ?Last Taken ?Type cyanocobalamin (vitamin B-12) 1,000 mcg IM MONTHLY 01/01/25 12/29/24 20:00 History 1,000 mcg/mL injection solution acetaminophen 325 mg chewable 650 mg PO Q6H PRN pain ( scale 05/24/24 01/01/25 Unknown History tablet score 1-3) aspirin 81 mg chewable tablet 81 mg PO DAILY 05/24/24 01/01/25 01/01/25 08:00 History calcium 600 mg capsule 1,200 mg PO DAILY 12/28/24 0 01/01/25 01/01/25 09:00 History denosumab 60 mg/mL subcutaneous 60 mg subcut [id number] 12/28/24 01/01/25 Unknown History syringe (Prolia) omega-3 fatty acids 2,500 mg PO DAILY 12/28/24 0 01/01/25 01/01/25 09:00 History pravastatin 40 mg tablet 40 mg PO DAILY 12/28/24 07/0 01/1901/01/25 09:00 History Allergies Allergy/AdvReac Type Severity Reaction Status Date / Time No Known Allergies Allergy Verified 02/07/25 08:05 Review of Systems 2 Review of Systems: All systems reviewed & are unremarkable except as noted in HPI and below PMFSH Past Medical History Medical History Moderate aortic stenosis Acute postoperative anemia due to expected blood loss Heart murmur Anemia Closed right hip fracture CVA (cerebral vascular accident) Vertigo TIA (transient ischemic attack) Diabetic neuropathy Arthritis Vitiligo Thyroid disease High cholesterol Diabetes Pernicious anemia History of TIA (transient ischemic attack) Surgical History Surgical History H/O cataract extraction H/O wrist surgery History of knee surgery History of appendectomy History of hysterectomy History of delivery Family History Family History Father Heart disease Mother Heart disease Sibling Heart disease Social History Social History 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 -code status full code Smoking status: Never smoker Alcohol intake: never Drinks per week: 1 Substance use: never Substance use type: does not use Do You Feel Safe in your Home?: Yes Lack of Transportation: No Lack of Food: Never True Current Housing: I Have Housing Concerned About Future Housing: No Difficulty Paying Gas/Electric Bills: No Difficulty Paying for Meds: No Currently Unemployed: No Education: Associate Degree Difficulty w/ Childcare or Family Care: No Spiritual care concerns: No Exam 2 Narrative: GENERAL: Elderly, well-nourished, and in no acute distress. HEAD: Normocephalic, atraumatic. EYES: PERRLA and EOMI. ENT: Nares clear, no rhinorrhea or epistaxis. Mucous membranes moist. Oropharynx without tonsillar hypertrophy exudate or other lesions. Bilateral TMs pearly austin non-bulging NECK: Supple. No adenopathy or masses. CHEST: Clear to auscultation. No respiratory distress. No wheezes rales or rhonchi HEART: Regular rate and rhythm. No murmur heard. Normal peripheral pulses. ABDOMEN: Soft, nontender, nondistended, normal active bowel sounds. EXTREMITIES: Normal range of motion. No edema. SKIN: Warm, dry, no rash. NEURO: No focal deficits. Alert and oriented x3. PSYCH: Normal mood and affect Course Course Emergency Course: patient and family updated on workup and recommendation for admission Consultations Consultation #1: Spoke with hospitalist about patient and workup who accepts admission Date: 02/23/25 Vital Signs Vital signs: Vital Signs Temperature 100.3 F H 02/22/25 21:30 Pulse Rate 96 02/22/25 21:30 Respiratory Rate 22 H 02/22/25 21:30 Blood Pressure 167/86 H 02/22/25 21:30 Pulse Oximetry 95 02/22/25 21:30 Oxygen Delivery Room Air 02/22/25 21:30 Temperature 98.1 F 02/23/25 01:14 Pulse Rate 85 02/23/25 01:14 Respiratory Rate 20 02/23/25 01:14 Blood Pressure 142/81 H 02/23/25 01:14 Pulse Oximetry 98 02/23/25 01:14 Oxygen Delivery Room Air 02/22/25 21:30 MDM - Weakness MDM Narrative Medical decision making narrative: Patient presents the emergency department for generalized weakness. Noted to be febrile in the ED. her vitals are otherwise stable. Cbc without leukocytosis. Metabolic panel with mild elevation in creatinine 1.22. Patient hydrated with IV fluids in the ED. EKG without acute ST changes, her baseline troponin is elevated. Likely due to current illness. She is positive for COVID-19. She does not have any chest pain or shortness of breath. Chest x-ray without acute cardiopulmonary abnormality. patient and family updated on workup and recommendation for admission. Spoke with hospitalist about patient and workup who accepts admission Differential Diagnosis Differential diagnosis: Likely sepsis, dehydration and other (COVID 19, pre- syncope, syncope, electrolyte derangement, pneumonia) Lab Data Attestation: I reviewed the patient's lab results. 02/22/25 22:14 02/22/25 22:14 Labs: Lab Results 02/22/25 02/22/25 Range/Units 22:14 22:47 WBC 5.6 (4.5-10.0) K/mm3 RBC 4.18 L (4.2-5.4) M/mm3 Hgb 10.4 L (12.0-15.0) g/dL Hct 34.8 L (37.0-47.0) % MCV 83.3 (80-100) fl MCH 24.9 L (26-34) pg MCHC 29.9 L (32-36) g/dl RDW 18.7 H (11.5-14.5) % Plt Count 135 L (150-375) k/mm3 MPV 9.9 (7.4-10.4) fl Immature Gran % (Auto) 0.5 (0-0.5) % Neut % (Auto) 82.8 H (45.5-73.1) % Lymph % (Auto) 7.3 L (18.3-44.2) % Carver % (Auto) 8.9 H (2.6-8.5) % Eos % (Auto) 0.0 (0-4.4) % Baso % (Auto) 0.5 (0.2-1.2) % Lymph # (Auto) 0.41 L (0.9-3.2) K/mm3 Carver # (Auto) 0.5 (0.1-0.6) K/mm3 Eos # (Auto) 0.0 (0-0.3) K/mm3 Baso # (Auto) 0.0 (0.0-0.1) K/mm3 Abs Immat Gran (auto) 0.03 (0.00-0.031) K/mm3 Absolute Neuts (auto) 4.6 (1.3-6.7) K/mm3 Absolute Nucleated RBC 0.000 (0.0-0.012) K/mm3 Nucleated RBC % 0.0 (0.0-0.2) % Sodium 133 L (137-145) mmol/L Potassium 3.4 (3.4-5.0) mmol/L Chloride 97 L (98-107) mmol/L Carbon Dioxide 26 (22-30) mmol/L Anion Gap 10 (4-12) mmol/L BUN 19 H (7-17) mg/dL Creatinine 1.22 H (0.7-1.0) mg/dL Estim Creat Clear Calc 32 ml/min Estimated GFR 43 L (59 - ) Glucose 295 H (65-110) mg/dL Calcium 9.2 (8.4-10.2) mg/dL Total Bilirubin 0.5 (0.2-1.3) mg/dL AST 41 H (14-36) U/L ALT 22 (6-35) U/L Alkaline Phosphatase 111 (38-126) U/L Troponin I 0.327 H* (0.000-0.034) ng/mL Total Protein 7.8 (6.3-8.2) g/dL Albumin 4.5 (3.5-5.1) g/dL Influenza A (RT-PCR) Negative (Negative) Influenza B (RT-PCR) Negative (Negative) RSV (RT-PCR) Negative (Negative) SARS-CoV-2 RNA (RT-PCR) Positive A (Negative) Imaging Data Radiologist's impression: Chest x-ray: No acute chest findings ECG Data EKG #1: ECG completion date: 02/22/25 EKG Interpretation: normal rate, sinus rhythm, no ST changes and normal QT Critical Care Time Critical Care Time Critical Care Time: No Discharge Plan Discharge Clinical Impression: COVID-19, Elevated troponin Patient Disposition: Still a Patient Condition: Serious Patient Language: Senegalese Prescriptions: No Action cyanocobalamin (vitamin B-12) 1,000 mcg/mL solution 1,000 mcg IM MONTHLY Patient Comments: of each month Rx Instructions: each month pravastatin 40 mg tablet 40 mg PO DAILY Prolia 60 mg/mL syringe 60 mg subcut [id number] calcium 600 mg capsule 1,200 mg PO DAILY omega-3 fatty acids Capsule 2,500 mg PO DAILY sennosides-docusate sodium [Senokot-S] 8.6-50 mg Tablet 2 tab-cap PO BID PRN (Reason: constipation) Qty: 60 0RF apixaban 2.5 mg tablet 2.5 mg PO BID Qty: 36 0RF polyethylene glycol 3350 [Miralax] 17 gram Powder In Packet 17 g PO BID Qty: 30 0RF midodrine 5 mg Tablet 10 mg PO BID@0800,1400 Qty: 20 0RF oxycodone-acetaminophen 5-325 mg Tablet 1 tablet PO Q4H PRN (Reason: Pain Rated 6 Or Greater) Qty: 15 0RF insulin glargine [Lantus Solostar U-100 Insulin] 100 unit/mL (3 mL) insulin pen 15 unit subcut QAM Qty: 15 0RF gabapentin 600 mg Tablet 600 mg PO TID Qty: 90 0RF insulin lispro [Humalog U-100 Insulin] 100 unit/mL Solution 3 unit subcut TIDWM Qty: 10 0RF aspirin 81 mg Tablet,Chewable 81 mg PO DAILY acetaminophen 325 mg Tablet,Chewable 650 mg PO Q6H PRN (Reason: pain (scale score 1-3)) levothyroxine 88 mcg tablet 88 mcg PO 6XW Qty: 30 0RF Rx Instructions: Wednesday through Wednesday levothyroxine 88 mcg Tablet 176 mcg PO WEEKLY Qty: 30 0RF Rx Instructions: Wednesday cholecalciferol (vitamin D3) 125 mcg (5,000 unit) Capsule 125 mcg PO DAILY Qty: 30 0RF Follow-up/Referrals: Emmanuel,Jae Anderson MD [Primary Care Provider]
[2025-02-22 23:22] LABS: Troponin I 0.327 ng/mL (0.000-0.034)
[2025-02-22 23:27] LABS: Influenza A QL RT-PCR Negative (Negative); Influenza B QL RT-PCR Negative (Negative); RSV RNA, RT-PCR Negative (Negative); SARS-CoV-2 RNA PCR Positive (Negative)
[2025-02-22] MEDS: SODIUM CHLORIDE 0.9% IV 500 ML 999 ML IV CONT (23:36)
[2025-02-23] VITALS (20 sets, daily range): BP systolic 130–172; BP diastolic 55–81; PULSE 64–86; RESP 16–22; TEMP 36.7–37.3; O2SAT 95–100; BMI 27.6
[2025-02-23] MEDS: REMDESIVIR 200 MG/NS 250 ML 200 MG/250 ML BAG 250 MG IVPB (02:06)
[2025-02-23 02:37] LABS: Troponin I 0.956 ng/mL (0.000-0.034)
--- NOTE | 2025-02-23 02:53 | ADMGEN ---
This patient, Carrie Downs, was admitted to IMU Room 214-01. Patient/family oriented to hospital policies and general routines including ID bracelet, bed and alarms, visiting hours, pain management, procedures, bathroom and other care routines, personal items, smoking policy, room service/diet, and visiting hours. Information on how to activate the Rapid Response Team has been discussed. Patient/Family are encouraged to report perceived risks to care and to ask questions if they do not understand what they are told or what they should do.
[2025-02-23 04:29] LABS: Hematocrit 30.8 % (37.0-47.0); Hemoglobin 9.1 g/dL (12.0-15.0); Immature Granulocyte Percent A 0.2 % (0-0.5); Lymphocytes Absolute Auto 0.83 K/mm3 (0.9-3.2); Mean Corpuscular HGB Conc 29.5 g/dl (32-36); Mean Corpuscular Hemoglobin 24.9 pg (26-34); Mean Corpuscular Volume 84.4 fl (80-100); Nucleated Red Blood Cells Absolute Auto 0.000 K/mm3 (0.0-0.012); Nucleated Red Blood Cells Perc 0.0 % (0.0-0.2); Platelet Count Result 119 k/mm3 (150-375); Red Blood Count 3.65 M/mm3 (4.2-5.4); White Blood Count 4.8 K/mm3 (4.5-10.0)
[2025-02-23 04:44] LABS: Alanine Aminotransferase 21 U/L (6-35); Albumin Level 3.6 g/dL (3.5-5.1); Alkaline Phosphatase 86 U/L (38-126); Anion Gap 7 mmol/L (4-12); Aspartate Amino Transferase 45 U/L (14-36); Bilirubin,Total 0.2 mg/dL (0.2-1.3); Blood Urea Nitrogen 18 mg/dL (7-17); CRP 2.7 mg/dL (<1.0); Calcium 8.5 mg/dL (8.4-10.2); Carbon Dioxide 25 mmol/L (22-30); Chloride 102 mmol/L (98-107); Creatine Kinase 850 U/L (30-135); Estimated CRCL calculation 40 ml/min; Estimated Glomerular Filt Rate 57; Glucose 266 mg/dL (65-110); Potassium 3.1 mmol/L (3.4-5.0); Sodium 134 mmol/L (137-145); Total Protein 6.2 g/dL (6.3-8.2)
[2025-02-23 05:00] LABS: Troponin I 0.953 ng/mL (0.000-0.034)
[2025-02-23 05:21] LABS: Ferritin 31.40 ng/mL (11.1-264)
[2025-02-23] MEDS: SODIUM CHLORIDE 0.9% IV 1,000 ML 75 ML IV CONT ×2 (05:57→16:16)
--- NOTE | 2025-02-23 07:40 | P.HP_ITS ---
H&P: HPI History of Present Illness Date/Time: 02/23/25 07:40 Chief Complaint: Generalized weakness Narrative: 79-year-old female patient with past medical history of prior CVA with generalized weakness, diabetes mellitus, diabetic neuropathy, vertigo, hyperlipidemia, chronic anemia and chronic hypothyroidism who comes to the emergency room due to generalized weakness. Initially Patient was evaluated in the ED in the morning on 02/22/2025 for dizziness. As per ED documentation 'Patient states that today she had a fall in the bathroom but caught herself, did not hurt anything and is currently denying of any symptoms or pain from the fall. Patient states that she did not hit her head. Denies any blood thinner use. Patient admits that the dizziness that she has had for the past few days is worse with head movement. Patient does not recall any history of vertigo, however, her son /family member present at bedside did confirm that after her stroke she did struggle were vertigo and had to wear motion sickness patches to help with her symptoms.' Patient was brought again to ED on 02/22/2025 around 10:00 p.m for generalized weakness. As per ED documentation patient had a presyncopal episode yesterday night which prompted her to ED. patient also reports episodes of diarrhea and has co-residents in the nursing facility with COVID. Patient is admitted in the setting of COVID positive, pre syncopal episode and dehydration. Patient Eliquis will be held due to multiple falls. Called son who agrees with the plan. Patient had past medical history of hip and femur fracture . Review of Systems Review of Systems: All systems reviewed & are unremarkable except as noted in HPI and below PMFSH Past Medical History Medical History Moderate aortic stenosis Acute postoperative anemia due to expected blood loss Heart murmur Anemia Closed right hip fracture CVA (cerebral vascular accident) Vertigo TIA (transient ischemic attack) Diabetic neuropathy Arthritis Vitiligo Thyroid disease High cholesterol Diabetes Pernicious anemia History of TIA (transient ischemic attack) Surgical History Surgical History H/O cataract extraction H/O wrist surgery History of knee surgery History of appendectomy History of hysterectomy History of delivery Family History Family History Father Heart disease Mother Heart disease Sibling Heart disease Social History Social History 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 -code status full code Smoking status: Never smoker Alcohol intake: current Drinks per week: 1 Substance use: never Substance use type: does not use Do You Feel Safe in your Home?: Yes Lack of Transportation: No Lack of Food: Never True Current Housing: I Have Housing Concerned About Future Housing: No Difficulty Paying Gas/Electric Bills: No Difficulty Paying for Meds: No Currently Unemployed: No Education: Associate Degree Difficulty w/ Childcare or Family Care: No Spiritual care concerns: No Meds Home Medications and Allergies Home Medications ?Medication ?Instructions ?Recorded ?Confirmed ?Type cyanocobalamin (vitamin B-12) 1,000 mcg IM MONTHLY 02/23/25 History 1,000 mcg/mL injection solution acetaminophen 325 mg chewable 650 mg PO Q6H PRN pain ( scale 05/24/24 02/23/25 History tablet score 1-3) aspirin 81 mg chewable tablet 81 mg PO DAILY 05/24/24 02/23/25 History levothyroxine 88 mcg tablet 88 mcg PO 6XW #30 tabs 04/2002/23/25 Rx levothyroxine 88 mcg tablet 176 mcg (2 x 88 mcg) PO WE EKLY #30 06/06/24 02/23/25 Rx tabs calcium 600 mg capsule 1,200 mg PO DAILY 12/28/24 0 02/23/25 History denosumab 60 mg/mL subcutaneous 60 mg subcut [id number] 12/28/24 02/23/25 History syringe (Prolia) omega-3 fatty acids 2,500 mg PO DAILY 12/28/24 0 02/23/25 History pravastatin 40 mg tablet 40 mg PO DAILY 12/28/2401/27 History sennosides 8.6 mg-docusate sodium 2 tab-cap (2 x 8.6-5 0 mg) PO BID 01/01/25 02/23/25 Rx 50 mg tablet (Senokot-S) PRN constipation #60 tabs apixaban 2.5 mg tablet 2.5 mg PO BID #36 tabs 01/1402/23/25 Rx gabapentin 600 mg tablet 600 mg PO TID #90 tabs 01/1402/23/25 Rx insulin glargine 100 unit/mL (3 15 unit (0.15 mL) subc ut QAM #15 mL 01/14/25 02/23/25 Rx mL) subcutaneous pen (Lantus Solostar U-100 Insulin) insulin lispro 100 unit/mL 3 unit (0.03 mL) subcut TID WM #10 01/14/25 02/23/25 Rx subcutaneous solution (Humalog mL U-100 Insulin) midodrine 5 mg tablet 10 mg (2 x 5 mg) PO BID@0800 ,1400 01/14/25 02/23/25 Rx #20 tabs oxycodone-acetaminophen 5 mg-325 1 tablet PO Q4H PRN P ain Rated 6 01/14/25 02/23/25 Rx mg tablet Or Greater #15 tabs Allergies Allergy/AdvReac Type Severity Reaction Status Date / Time No Known Allergies Allergy Verified 02/07/25 08:05 Vital Signs Vital Signs - 24 hr 02/22/25 21:30 02/22/25 21:36 02/22/25 22:43 Temperature 100.3 F H Pulse Rate 96 96 96 Respiratory Rate 22 H 18 Blood Pressure 167/86 H Pulse Oximetry 95 Oxygen Delivery Room Air Oxygen Flow Rate 02/22/25 22:45 02/22/25 22:47 02/22/25 23:01 Temperature Pulse Rate 95 96 93 Respiratory Rate 25 H 19 19 Blood Pressure 140/79 154/76 H Pulse Oximetry Oxygen Delivery Oxygen Flow Rate 02/22/25 23:18 02/22/25 23:45 02/23/25 00:18 Temperature 98.1 F Pulse Rate 93 86 Respiratory Rate 18 17 Blood Pressure 147/78 H Pulse Oximetry 100 95 Oxygen Delivery Oxygen Flow Rate 02/23/25 01:14 02/23/25 02:00 02/23/25 02:20 Temperature 98.1 F Pulse Rate 85 64 80 Respiratory Rate 20 19 Blood Pressure 142/81 H 137/76 Pulse Oximetry 98 96 Oxygen Delivery Oxygen Flow Rate 02/23/25 02:42 02/23/25 03:17 02/23/25 03:59 Temperature 98.5 F Pulse Rate 80 77 Respiratory Rate 19 17 Blood Pressure 137/76 130/55 L Pulse Oximetry 96 99 Oxygen Delivery Room Air Oxygen Flow Rate 02/23/25 04:57 02/23/25 05:10 Temperature Pulse Rate 66 Respiratory Rate Blood Pressure Pulse Oximetry 95 Oxygen Delivery Nasal Cannula Oxygen Flow Rate 1 Exam Narrative: GENERAL: Elderly, well-nourished, and in no acute distress. HEAD: Normocephalic, atraumatic. EYES: PERRLA and EOMI. ENT: Nares clear, no rhinorrhea or epistaxis. Mucous membranes moist. Oropharynx without tonsillar hypertrophy exudate or other lesions. Bilateral TMs pearly austin non-bulging NECK: Supple. No adenopathy or masses. CHEST: Clear to auscultation. No respiratory distress. No wheezes rales or rhonchi HEART: Regular rate and rhythm. No murmur heard. Normal peripheral pulses. ABDOMEN: Soft, nontender, nondistended, normal active bowel sounds. EXTREMITIES: Normal range of motion. No edema. SKIN: Warm, dry, no rash. NEURO: No focal deficits. Alert and oriented x3. PSYCH: Normal mood and affect H&P: Results Labs Labs: Short CBC 02/22/25 02/23/25 Range/Units 22:14 04:16 WBC 5.6 4.8 (4.5-10.0) K/mm3 Hgb 10.4 L 9.1 L (12.0-15.0) g/dL Hct 34.8 L 30.8 L (37.0-47.0) % Plt Count 135 L 119 L (150-375) k/mm3 [facility] 02/22/25 02/23/25 22:14 04:16 Sodium 133 L 134 L Potassium 3.4 3.1 L Chloride 97 L 102 Carbon Dioxide 26 25 BUN 19 H 18 H Creatinine 1.22 H 0.94 Glucose 295 H 266 H Calcium 9.2 8.5 Cardiac Enzymes 02/22/25 02/23/25 02/23/25 Range/Units 22:14 02:03 04:16 Total Creatine Kinase 850 H (30-135) U/L Troponin I 0.327 H* 0.956 H* D 0.953 H* (0.000-0.034) ng/mL Liver Function 02/22/25 02/23/25 Range/Units 22:14 04:16 Total Bilirubin 0.5 0.2 (0.2-1.3) mg/dL AST 41 H 45 H (14-36) U/L ALT 22 21 (6-35) U/L Alkaline Phosphatase 111 86 (38-126) U/L Albumin 4.5 3.6 (3.5-5.1) g/dL Assessment and Plan Assessment and plan (1) COVID-19: Code(s): U07.1 - COVID-19 Status: Acute Assessment and Plan: COVID positive on admission Patient was started on remdesivir given new oxygen requirement Contact, droplet precautions DuoNeb scheduled q.6 Tylenol as needed for fever, body aches Incentive spirometer (2) Risk for falls: Code(s): Z91.81 - History of falling Status: Acute Assessment and Plan: -medications were reviewed -evaluate for incidence of hypoglycemia -avoid any sedatives or anxiolytic -will evaluate for any arrhythmias -we evaluate for postural hypertension -labs were reviewed including vitamin-D level -head CT scan reviewed -physical therapy for balance, gait and strength training (3) Type 2 diabetes mellitus without complications: Code(s): E11.9 - Type 2 diabetes mellitus without complications Status: Acute Assessment and Plan: SSI Hypoglycemic protocol (4) Dehydration: Code(s): E86.0 - Dehydration Status: Acute Assessment and Plan: NSS @ 75ml/hr Plan Code status: Full code DVT prophylaxis not indicated due to multiple falls Hospitalist MIPS Advance Care Plan I have confirmed that the patient's Advanced Care Plan is present, code status is documented, or surrogate decision maker is listed in patient medical record.: Yes Medication Reconciliation I have utilized all available resources to obtain, update and review the pat ients current medications (includes all prescriptions, OTC, herbals, cannabis, and nutritional supplements).: Yes
[2025-02-23] MEDS: APIXABAN 2.5 MG TABLET PO (08:40)
[2025-02-23] MEDS: ASPIRIN 81 MG CHEWABLE TABLET PO (08:40)
[2025-02-23] MEDS: PRAVASTATIN SODIUM 20 MG TABLET 40 MG PO (08:40)
[2025-02-23] MEDS: INSULIN ASPART (*BKC) 100 UNITS/ML SUB-Q ×2 (08:40→08:41)
[2025-02-23] MEDS: GABAPENTIN 300 MG CAPSULE 600 MG PO ×3 (08:40→16:27)
[2025-02-23] MEDS: LEVOTHYROXINE SODIUM 88 MCG TABLET PO (08:53)
[2025-02-23] MEDS: KCL 20MEQ/0.9% SOD CHL 1,000 ML 100 ML IV CONT (12:25)
[2025-02-23] MEDS: POTASSIUM CHLORIDE 20 MEQ PACKET (FOR LIQUID) 40 MEQ PO (12:25)
[2025-02-23] MEDS: INSULIN GLARGINE (*BKC) 100 UNITS/ML 15 UNITS SUB-Q (20:17)
[2025-02-24] VITALS (12 sets, daily range): BP systolic 144–172; BP diastolic 60–69; PULSE 63–75; RESP 16–18; TEMP 36.7–36.9; O2SAT 96–100
[2025-02-24] MEDS: SODIUM CHLORIDE 0.9% IV 1,000 ML 75 ML IV CONT (05:24)
[2025-02-24] MEDS: LEVOTHYROXINE SODIUM 88 MCG TABLET PO (05:24)
--- NOTE | 2025-02-24 09:16 | PM.IMPN ---
Progress Note: A&P Assessment and Plan (1) COVID-19: Code(s): U07.1 - COVID-19 Status: Acute Assessment and Plan: COVID positive on admission Patient was started on remdesivir given no new oxygen requirement discontinued remdesivir since no indication for continuation Contact, droplet precautions DuoNeb scheduled q.6 Tylenol as needed for fever, body aches Incentive spirometer (2) Risk for falls: Code(s): Z91.81 - History of falling Status: Acute Assessment and Plan: -medications were reviewed -discontinued Eliquis due to multiple fall (family agrees with the plan) -evaluate for incidence of hypoglycemia -avoid any sedatives or anxiolytic -will evaluate for any arrhythmias -we evaluate for postural hypertension -labs were reviewed including vitamin-D level -head CT scan reviewed -physical therapy for balance, gait and strength training (3) Type 2 diabetes mellitus without complications: Code(s): E11.9 - Type 2 diabetes mellitus without complications Status: Acute Assessment and Plan: SSI Hypoglycemic protocol (4) Dehydration: Code(s): E86.0 - Dehydration Status: Acute Assessment and Plan: NSS @ 75ml/hr Plan Code status: Full code DVT prophylaxis not indicated due to multiple falls Subjective Date/time seen: 02/24/25 09:16 Interval history: Patient denies any complaints including chest pain. Down trending troponin. Possibly due to COVID. No symptoms from COVID so discontinued remdesivir. PT OT for discharge planning Review of Systems Review of Systems: All systems reviewed & are unremarkable except as noted in HPI and below Objective Data Vital Signs Vital Signs: Vital Signs - 24 hr 02/23/25 10:00 02/23/25 12:00 02/23/25 12:00 Temperature 98.3 F Pulse Rate 73 67 77 Respiratory Rate 18 Blood Pressure 142/63 H Pulse Oximetry 99 Oxygen Delivery 02/23/25 12:23 02/23/25 14:00 02/23/25 16:00 Temperature 99.2 F Pulse Rate 71 69 Respiratory Rate 22 H Blood Pressure 163/69 H Pulse Oximetry 98 Oxygen Delivery Room Air 02/23/25 16:00 02/23/25 16:11 02/23/25 18:00 Temperature Pulse Rate 70 70 Respiratory Rate Blood Pressure 169/63 H Pulse Oximetry Oxygen Delivery 02/23/25 19:54 02/23/25 20:00 02/23/25 20:00 Temperature 98.5 F Pulse Rate 70 71 Respiratory Rate 16 Blood Pressure 172/70 H Pulse Oximetry 97 98 Oxygen Delivery Room Air 02/23/25 22:00 02/23/25 23:55 02/24/25 00:00 Temperature 98.4 F Pulse Rate 76 66 66 Respiratory Rate 16 Blood Pressure 152/64 H Pulse Oximetry 96 Oxygen Delivery 02/24/25 00:00 02/24/25 02:00 02/24/25 03:50 Temperature 98.3 F Pulse Rate 70 75 Respiratory Rate 16 Blood Pressure 164/60 H Pulse Oximetry 96 98 Oxygen Delivery Room Air 02/24/25 04:00 02/24/25 04:00 02/24/25 06:00 Temperature Pulse Rate 64 63 Respiratory Rate Blood Pressure Pulse Oximetry 98 Oxygen Delivery Room Air 02/24/25 07:58 Temperature 98.3 F Pulse Rate 67 Respiratory Rate 16 Blood Pressure 172/66 H Pulse Oximetry 98 Oxygen Delivery Intake/Output Intake/Output: Intake & Output 02/21/25 02/22/25 02/23/25 02/24/25 23:59 23:59 23:59 23:59 Intake Total 3522.5 1035 Output Total 500 Balance 3022.5 1035 Meds/Results Medications: Active Medications Generic Name Dose Route Start Last Admin Trade Name Freq PRN Reason Stop Dose Admin Acetaminophen 650 mg 02/23/25 00:31 Acetaminophen 325 Mg Tablet PO Q6H PRN Mild Pain (1-3) or Fever Acetaminophen 650 mg 02/23/25 08:12 Acetaminophen 325 Mg Tablet PO Q6H PRN pain (scale score 1-3) Apixaban 2.5 mg 02/23/25 09:00 02/23/25 16:27 Apixaban 2.5 Mg Tablet PO Not Given On Hold: 02/23/25 16:47 BID BHAKTI Aspirin 81 mg 02/23/25 09:00 02/23/25 08:40 Aspirin 81 Mg Chewable Tablet PO 81 mg DAILY BHAKTI Administration Dextrose 12.5 gm 02/23/25 02:42 Dextrose 50% 25 Gm/50 Ml Syringe IV PUSH PRN PRN Hypoglycemia Protocol Gabapentin 600 mg 02/23/25 09:00 02/23/25 16:27 Gabapentin 300 Mg Capsule PO 600 mg TID BHAKTI Administration Glucagon 1 mg 02/23/25 02:42 Glucagon For Inj 1 Mg Vial IM PRN PRN Hypoglycemia Protocol Glucose 15 gm 02/23/25 02:42 Glucose Oral Gel 15 Gm Of Glucse In 37.5 Gm Tube PO PRN PRN Hypoglycemia Protocol Sodium Chloride 1,000 mls @ 75 mls/hr 02/23/25 00:35 02/24/25 05:24 Normal Saline Iv IV CONT 75 mls/hr .[id number] BHAKTI Administration Dextrose 1,000 mls @ 100 mls/hr 02/23/25 02:42 Dextrose 5% 1,000 Ml IVPB PRN PRN Hypoglycemia Protocol Insulin Aspart 4 units 02/23/25 08:00 02/23/25 16:31 Insulin Aspart (*Bkc) 100 Units/Ml 0.05 units/kg (4 units) Not Given SUB-Q TIDWM [facility] Insulin Aspart 3 - 6 units 02/23/25 08:00 02/23/25 16:31 Insulin Aspart (*Bkc) 100 Units/Ml SUB-Q Not Given TIDWM [facility] Protocol Insulin Glargine 15 units 02/23/25 21:00 02/23/25 20:17 Insulin Glargine (*Bkc) 100 Units/Ml SUB-Q 15 units HS [facility] Administration Levothyroxine Sodium 88 mcg 02/23/25 08:15 02/24/25 05:24 Levothyroxine Sodium 88 Mcg Tablet PO 88 mcg [id number] [facility] Administration Levothyroxine Sodium 176 mcg 02/25/25 06:30 Levothyroxine Sodium 88 Mcg Tablet PO [email or web address] [facility] Midodrine 10 mg 02/23/25 08:00 02/23/25 08:37 Midodrine Hcl 2.5 Mg Tablet PO Not Given On Hold: 02/23/25 08:45 BID@0800,1400 [facility] Oxycodone/Acetaminophen 1 tablet 02/23/25 07:58 Oxycodone/Acetaminophen (*Crx) 5-325 Mg Tablet PO Q4H PRN Pain Rated 6 or Greater Pravastatin Sodium 40 mg 02/23/25 09:00 02/23/25 08:40 Pravastatin Sodium 20 Mg Tablet PO 40 mg DAILY BHAKTI Administration Senna/Docusate Sodium 2 tab 02/23/25 07:58 Senna/Docusate Sodium Tablet PO BID PRN Constipation Radiology Results: ITS Impressions Pelvis X-Ray 02/23/25 05:46 Impression: 1: No definite acute fracture identified. 2: Status post internal fixation of proximal right femoral fracture with near-anatomic alignment. Chest X-Ray 02/23/25 06:43 IMPRESSION: 1: NO ACUTE CARDIOPULMONARY DISEASE. Labs Labs: Laboratory Results - last 24 hr 02/23/25 02/23/25 02/23/25 11:54 15:57 19:40 POC Capillary Glucose 95 162 H 205 H 02/24/25 07:48 POC Capillary Glucose 110 H Hospitalist MIPS Advance Care Plan I have confirmed that the patient's Advanced Care Plan is present, code status is documented, or surrogate decision maker is listed in patient medical record.: Yes Medication Reconciliation I have utilized all available resources to obtain, update and review the patients current medications (includes all prescriptions, OTC, herbals, cannabis, and nutritional supplements).: Yes
[2025-02-24 09:35] LABS: Hematocrit 29.6 % (37.0-47.0); Hemoglobin 8.9 g/dL (12.0-15.0); Mean Corpuscular HGB Conc 30.1 g/dl (32-36); Mean Corpuscular Hemoglobin 25.2 pg (26-34); Mean Corpuscular Volume 83.9 fl (80-100); Platelet Count Result 118 k/mm3 (150-375); Red Blood Count 3.53 M/mm3 (4.2-5.4); White Blood Count 3.9 K/mm3 (4.5-10.0)
[2025-02-24 10:15] LABS: Alanine Aminotransferase 23 U/L (6-35); Albumin Level 3.2 g/dL (3.5-5.1); Alkaline Phosphatase 77 U/L (38-126); Anion Gap 3 mmol/L (4-12); Aspartate Amino Transferase 51 U/L (14-36); Bilirubin,Total 0.2 mg/dL (0.2-1.3); Blood Urea Nitrogen 12 mg/dL (7-17); Calcium 8.2 mg/dL (8.4-10.2); Carbon Dioxide 28 mmol/L (22-30); Chloride 104 mmol/L (98-107); Estimated CRCL calculation 48 ml/min; Estimated Glomerular Filt Rate > 60; Glucose 131 mg/dL (65-110); Potassium 3.3 mmol/L (3.4-5.0); Sodium 135 mmol/L (137-145); Total Protein 5.8 g/dL (6.3-8.2)
[2025-02-24] MEDS: PRAVASTATIN SODIUM 20 MG TABLET 40 MG PO (10:21)
[2025-02-24] MEDS: GABAPENTIN 300 MG CAPSULE 600 MG PO ×3 (10:21→17:36)
[2025-02-24] MEDS: ASPIRIN 81 MG CHEWABLE TABLET PO (10:21)
[2025-02-24] MEDS: INSULIN ASPART (*BKC) 100 UNITS/ML SUB-Q ×3 (10:23→17:36)
[2025-02-24 11:55] LABS: Troponin I 0.394 ng/mL (0.000-0.034)
[2025-02-24] MEDS: POTASSIUM CHLORIDE 20 MEQ ER TABLET 40 MEQ PO (12:59)
--- NOTE | 2025-02-24 15:22 | PC.NURSE ---
This patient, Carrie Downs, was transferred to [facility] on 02/24/25 at 1522. Personal belongings sent with patient. Report given to SHRADDHA Haynes. Appropriate documentation sent with patient.
[2025-02-24] MEDS: INSULIN GLARGINE (*BKC) 100 UNITS/ML 15 UNITS SUB-Q (20:38)
[2025-02-25 00:33] VITALS: BP 153/68; PULSE 70; RESP 14; TEMP 36.6; O2SAT 98
[2025-02-25] MEDS: oxyCODONE/ACETAMINOPHEN (*CRX) 5-325 MG TABLET 1 TABLET PO (03:25)
[2025-02-25 04:44] LABS: Hematocrit 30.2 % (37.0-47.0); Hemoglobin 9.0 g/dL (12.0-15.0); Mean Corpuscular HGB Conc 29.8 g/dl (32-36); Mean Corpuscular Hemoglobin 25.1 pg (26-34); Mean Corpuscular Volume 84.4 fl (80-100); Platelet Count Result 113 k/mm3 (150-375); Red Blood Count 3.58 M/mm3 (4.2-5.4); White Blood Count 3.6 K/mm3 (4.5-10.0)
[2025-02-25 05:09] LABS: Alanine Aminotransferase 24 U/L (6-35); Albumin Level 3.2 g/dL (3.5-5.1); Alkaline Phosphatase 83 U/L (38-126); Anion Gap 3 mmol/L (4-12); Aspartate Amino Transferase 49 U/L (14-36); Bilirubin,Total 0.4 mg/dL (0.2-1.3); Blood Urea Nitrogen 15 mg/dL (7-17); Calcium 8.4 mg/dL (8.4-10.2); Carbon Dioxide 27 mmol/L (22-30); Chloride 104 mmol/L (98-107); Estimated CRCL calculation 52 ml/min; Estimated Glomerular Filt Rate > 60; Glucose 195 mg/dL (65-110); Potassium 3.4 mmol/L (3.4-5.0); Sodium 134 mmol/L (137-145); Total Protein 5.7 g/dL (6.3-8.2)
[2025-02-25 05:40] VITALS: BP 171/59; PULSE 61; RESP 16; TEMP 36.4; O2SAT 99
[2025-02-25] MEDS: LEVOTHYROXINE SODIUM 88 MCG TABLET 176 MCG PO (05:42)
--- NOTE | 2025-02-25 07:33 | P.DS_ITS ---
DS: Admitting Diagnosis Discharge Date 02/25/2025 Admitting Diagnosis Fall DS: Discharge Diagnosis Discharge Diagnosis (1) COVID-19: Code(s): U07.1 - COVID-19 Status: Acute Assessment and Plan: COVID positive on admission Patient was started on remdesivir given no new oxygen requirement discontinued remdesivir since no indication for continuation Contact, droplet precautions DuoNeb scheduled q.6 Tylenol as needed for fever, body aches Incentive spirometer (2) Risk for falls: Code(s): Z91.81 - History of falling Status: Acute Assessment and Plan: -medications were reviewed -discontinued Eliquis due to multiple fall (family agrees with the plan) -evaluate for incidence of hypoglycemia -avoid any sedatives or anxiolytic -will evaluate for any arrhythmias -we evaluate for postural hypertension -labs were reviewed including vitamin-D level -head CT scan reviewed -physical therapy for balance, gait and strength training (3) Type 2 diabetes mellitus without complications: Code(s): E11.9 - Type 2 diabetes mellitus without complications Status: Acute Assessment and Plan: SSI Hypoglycemic protocol (4) Dehydration: Code(s): E86.0 - Dehydration Status: Acute Assessment and Plan: NSS @ 75ml/hr Plan Code status: Full code DVT prophylaxis not indicated due to multiple falls DS: Summary Hospital Course Hospital Course: 79-year-old female patient with past medical history of prior CVA with generalized weakness, diabetes mellitus, diabetic neuropathy, vertigo, hyperlipidemia, chronic anemia and chronic hypothyroidism who comes to the emergency room due to generalized weakness. Initially Patient was evaluated in the ED in the morning on 02/22/2025 for dizziness. As per ED documentation 'Patient states that today she had a fall in the bathroom but caught herself, did not hurt anything and is currently denying of any symptoms or pain from the fall. Patient states that she did not hit her head. Denies any blood thinner use. Patient admits that the dizziness that she has had for the past few days is worse with head movement. Patient does not recall any history of vertigo, however, her son /family member present at bedside did confirm that after her stroke she did struggle were vertigo and had to wear motion sickness patches to help with her symptoms.' Patient was brought again to ED on 02/22/2025 around 10:00 p.m for generalized weakness. As per ED documentation patient had a presyncopal episode yesterday night which prompted her to ED. patient also reports episodes of diarrhea and has co-residents in the nursing facility with COVID. Patient is admitted in the setting of COVID positive, pre syncopal episode and dehydration. Patient Eliquis will be held due to multiple falls. Patient fall possibly due to dehydration and age Called son who agrees with the plan. Patient had past medical history of hip and femur fracture . On the day of discharge, the patient was seen and examined. Vital signs were stable. Physical exam were stable and labs were reviewed at length. Discharge instructions, medications, and follow-up appointments were discussed with the patient at length and all day questions were answered. ER warnings were given. Status at Discharge Cognitive/behavioral status at discharge: Stable Time Spent with Patient Time attestation: Total time spent providing and/or coordinating discharge services: 45 minutes Exam Narrative: GENERAL: Elderly, well-nourished, and in no acute distress. HEAD: Normocephalic, atraumatic. EYES: PERRLA and EOMI. ENT: Nares clear, no rhinorrhea or epistaxis. Mucous membranes moist. Oropharynx without tonsillar hypertrophy exudate or other lesions. Bilateral TMs pearly [place] non-bulging NECK: Supple. No adenopathy or masses. CHEST: Clear to auscultation. No respiratory distress. No wheezes rales or rhonchi HEART: Regular rate and rhythm. No murmur heard. Normal peripheral pulses. ABDOMEN: Soft, nontender, nondistended, normal active bowel sounds. EXTREMITIES: Normal range of motion. No edema. SKIN: Warm, dry, no rash. NEURO: No focal deficits. Alert and oriented x3. PSYCH: Normal mood and affect DS: Data Data Completed and Pending Labs on day of discharge: Labs from last 24 hours 02/25/25 02/24/25 02/24/25 04:14 20:46 17:00 WBC 3.6 L RBC 3.58 L Hgb 9.0 L Hct 30.2 L MCV 84.4 MCH 25.1 L MCHC 29.8 L RDW 19.0 H Plt Count 113 L MPV 10.6 H Sodium 134 L Potassium 3.4 Chloride 104 Carbon Dioxide 27 Anion Gap 3 L BUN 15 Creatinine 0.71 Estim Creat Clear Calc 52 Estimated GFR > 60 Glucose 195 H POC Capillary Glucose 86 84 Calcium 8.4 Total Bilirubin 0.4 AST 49 H ALT 24 Alkaline Phosphatase 83 Troponin I Total Protein 5.7 L Albumin 3.2 L 02/24/25 02/24/25 02/24/25 11:37 09:31 07:48 WBC 3.9 L RBC 3.53 L Hgb 8.9 L Hct 29.6 L MCV 83.9 MCH 25.2 L MCHC 30.1 L RDW 19.2 H Plt Count 118 L MPV 10.0 Sodium 135 L Potassium 3.3 L Chloride 104 Carbon Dioxide 28 Anion Gap 3 L BUN 12 D Creatinine 0.77 Estim Creat Clear Calc 48 Estimated GFR > 60 Glucose 131 H POC Capillary Glucose 121 H 110 H Calcium 8.2 L Total Bilirubin 0.2 AST 51 H ALT 23 Alkaline Phosphatase 77 Troponin I 0.394 H* Total Protein 5.8 L Albumin 3.2 L Discharge Plan Discharge Attending physician on discharge: Reza Sunshine Discharging Clinician: Reza Sunshine Anticipated Discharge Date/Time: 02/25/25 09:53 Patient Disposition: NH Assisted/Asst Living Activity: as tolerated Diet: regular Discharge Instructions: Fall prevention: Advised to participate in exercise, particular balance, strengthening, and gait training Adaptation or modification of living environment to prevent fall Gradually change position, especially getting out of bed slowly by sitting first and and arising slowly Maintain hydration Holding midodrine since the blood pressure has been stable in the hospital, restart in a week if necessary at the discussion of PCP. Patient Letitia has been discontinued due to multiple falls. Patient is Eliquis due to her hip surgery performed in Check blood pressure 1 to 2 times a day. Record and bring into your doctor for review. Call your doctor if your blood pressure is greater than 180/110 or less than 90/45. Walk with cane or other assist device. Take precautions to avoid falls. Rise slowly from a lying or sitting position. Pause before standing or walking. Contact your doctor or call 911 and come to the Emergency Room if you have any type of trauma, lightheadedness with standing or other worrisome symptoms. Avoid NSAIDs (ibuprofen, naproxen, Aleve). Tylenol is safe to take. Follow-up with your primary care provider in 1-2 weeks. Please call for appointment. Follow-up with Cardiology in 2-4 weeks. Please call for an appointment. Thank you for using [facility] for your health care needs. Patient Instructions: Antibiotic Form, Apixaban (By mouth), Droplet Precautions (GEN), High Troponin Levels (GEN), COVID-19 (Coronavirus Disease 2019) (GEN) Patient Language: Bahraini Stand Alone Forms: General Discharge Information Follow-up/Referrals: Emmanuel,Jae Anderson MD [Primary Care Provider] Referral Note: Holding midodrine since the blood pressure has been stable in the hospital, restart in a week if necessary at the discussion of PCP. Patient Eliquis has been discontinued due to multiple falls. Patient is Eliquis due to her hip surgery performed in Discharge Medications: Continued cyanocobalamin (vitamin B-12) 1,000 mcg/mL solution 1,000 mcg IM MONTHLY Patient Comments: of each month Rx Instructions: of each month pravastatin 40 mg tablet 40 mg PO DAILY Prolia 60 mg/mL syringe 60 mg subcut [id number] calcium 600 mg capsule 1,200 mg PO DAILY omega-3 fatty acids Capsule 2,500 mg PO DAILY sennosides-docusate sodium [Senokot-S] 8.6-50 mg Tablet 2 tab-cap PO BID PRN (Reason: constipation) Qty: 60 0RF oxycodone-acetaminophen 5-325 mg Tablet 1 tablet PO Q4H PRN (Reason: Pain Rated 6 Or Greater) Qty: 15 0RF insulin glargine [Lantus Solostar U-100 Insulin] 100 unit/mL (3 mL) insulin pen 15 unit subcut QAM Qty: 15 0RF gabapentin 600 mg Tablet 600 mg PO TID Qty: 90 0RF insulin lispro [Humalog U-100 Insulin] 100 unit/mL Solution 3 unit subcut TIDWM Qty: 10 0RF aspirin 81 mg Tablet,Chewable 81 mg PO DAILY acetaminophen 325 mg Tablet,Chewable 650 mg PO Q6H PRN (Reason: pain (scale score 1-3)) levothyroxine 88 mcg tablet 88 mcg PO 6XW Qty: 30 0RF Rx Instructions: Wednesday through Wednesday levothyroxine 88 mcg Tablet 176 mcg PO WEEKLY Qty: 30 0RF Rx Instructions: Wednesday Held midodrine 5 mg Tablet 10 mg PO BID@0800,1400 Qty: 20 0RF Hold Instructions: Resume on 03/11/25. Patient blood pressure has been stable. Restart if necessary at the discussion of PCP Discontinued apixaban 2.5 mg tablet 2.5 mg PO BID Qty: 36 0RF Date of admission: 02/23/25 09:47 Primary Care Provider: Emmanuel,Jae Anderson Admitting Provider: Ila Gold Attending physician on admission: Ila Gold Condition: Serious
[2025-02-25 08:00] VITALS: BP 158/59; PULSE 58; RESP 17; TEMP 36.5; O2SAT 95
[2025-02-25] MEDS: GABAPENTIN 300 MG CAPSULE 600 MG PO (08:53)
[2025-02-25] MEDS: PRAVASTATIN SODIUM 20 MG TABLET 40 MG PO (08:53)
[2025-02-25] MEDS: ASPIRIN 81 MG CHEWABLE TABLET PO (08:53)
[2025-02-25] MEDS: INSULIN ASPART (*BKC) 100 UNITS/ML SUB-Q ×2 (08:54→12:26)
== END 2025-02-25 12:38 | DRG 179 ==
LOC: ANHED 02-23 02:06 → ANHIMU 02-23 02:12 → ANH2MED 02-25 09:54 → ANHIMU 02-28 09:43
PROVIDERS: Emergency Medicine; Admitting Provider Internal Medicine; Emergency Provider Physician Assistant; PCP Internal Medicine; Visit Provider General Practice
DX: U07.1 COVID-19 (principal); I35.0 Nonrheumatic aortic (valve) stenosis; D51.0 Vitamin B12 deficiency anemia due to intrinsic factor deficiency; E86.0 Dehydration; E11.40 Type 2 diabetes mellitus with diabetic neuropathy, unspecified; E78.00 Pure hypercholesterolemia, unspecified; M19.90 Unspecified osteoarthritis, unspecified site; L80 Vitiligo; R42 Dizziness and giddiness; Z79.82 Long term (current) use of aspirin; Z86.73 Personal history of transient ischemic attack (TIA), and cerebral infarction without residual deficits; Z79.01 Long term (current) use of anticoagulants; Z91.81 History of falling
CPT/HCPCS: 36415; 71045; 72170; 80053; 82550; 82728; 82948; 84484; 85025; 85027; 86140; 87637; 93005; 96361; 96365; 97110; 97116; 97162; 97165; 99285; A9270; G0378; J0248; J1815; J3480; J7030; J7040

== ENCOUNTER 2025-05-01 09:33 | Outpatient (CLI) | payer MEDICARE, BC, SELFPAY ==
--- NOTE | ~2025-05-01 | DEXA_ITS ---
Bone Density Report Name: SHON LLANOS Age: 79 Sex: Female Ethnicity: White Date of : 1945 Indication: postmenopausal; screening for osteoporosis; height loss; prior fracture; hysterectomy; Referring Provider: NICOLA, SHELIA Anderson Study: Bone densitometry was performed. Exam Date: May 01, 2025 Accession number: [id number] Bone Density: Region BMD T-score Z-score Classification AP Spine(L1-L4) 0.796 -2.3 0.4 Osteopenia World Health Organization criteria for BMD impression classify patients as: Normal (T-score at or above -1.0), Osteopenia (T-score between -1.0 and -2.5), or Osteoporosis (T-score at or below -2.5). Clinical Information Provided by Patient: Have had a previous hip or vertebral fracture Has had a low trauma fracture Is being treated for osteoporosis Has used the following medications: Prolia (i.e. denosumab), Vitamin D, Calcium Has the following medical conditions: Hysterectomy Patient maximum height was 68 Menopause Age: 40 No regular weight bearing exercise Drinks caffeinated beverages Onset of menses at age 14 Number of children 1 Impression: The patient has low bone mass, based on the Total Spine T-score. The patient has risk factors, including: previous fracture. Discussion: It is important to ask patients whether they are taking their medications and to encourage continued and appropriate compliance with their osteoporosis therapies to reduce fracture risk. It is also important to review their risk factors and encourage appropriate calcium and vitamin D intakes, exercise, fall prevention and other lifestyle measures. Follow-Up: Consider a repeat BMD and Vertebral Fracture Assessment (VFA) exam in 2 years or sooner if medically necessary, to reassess this patient's status. Reported by: GROVER on 05/01/2025 10:22:00 AM. Reviewed, dictated and finalized at location A.
--- NOTE | ~2025-05-01 | MM_ITS ---
EXAMINATION: MM screening steve BI w ankit HISTORY: Screening TECHNIQUE: Craniocaudal and mediolateral oblique 3-D tomosynthesis images were obtained and synthetic 2-D images were generated. CAD analysis was submitted and interpreted. COMPARISON: None provided BREAST PARENCHYMAL COMPOSITION: The breasts are heterogeneously dense, which may obscure small masses. FINDINGS: There is no evidence of suspicious mass, calcification, or architectural distortion to suggest malignancy in either breast. IMPRESSION: 1. No mammographic evidence of malignancy. 2. Recommend routine screening mammography in one year. BI-RADS Category 1: Negative Reviewed, dictated and finalized at location B. URERS
--- OUTSIDE RECORDS SUMMARY | 2025-05-01 10:41 | XMS_ITS | Clinical Summary ---
Author Organization [facility] Address [address] [place] [address] Care Team Providers Care Biology Research Assistant Name Role Phone Jae Benitez MD Primary [...] 05/22/2024 Assessment & Plan (05/22/2024 3:28 PM MAIL CLERK): ground level fall this yesterday at home on her way to the bathroom. She fell onto her left leg. She arrived with left leg deformity. Patient A&Ox4, GCS 15 reported on arrival Discharge planning issues 05/22/2024 Assessment & Plan (05/23/2024 2:10 PM MAIL CLERK): 05/21 admission 05/23 Patient is medically stable for discharge, SW/CM updated. Discharge pending facility acceptance Encounter for medication review 05/22/2024 Other fracture of left femur , initial encounter for closed fracture 05/21/2024 Assessment & Plan (05/22/2024 3:15 PM MAIL CLERK): 05/22 OR with orthopedic - IMN Femur Left WBAT post OR 24 hour cefazolin DVT ppx ok 3 week suture removal Insulin pump status 12/15/2023 Assessment & Plan (10/31/2024 10:27 AM CDT): Has appt today with Ivy at [facility] for pump training/placement. Assessment & Plan (07/04/2024 2:25 PM MAIL CLERK): Will go back on pump once Dexcom [...] TG=72. Assessment & Plan (07/04/2024 1:19 PM MAIL CLERK): Chronic problem. Currently taking pravastatin 40mg. Last lipid panel: 05/21/24 LDL=55, TG=72. Assessment & Plan (03/22/2024 11:59 AM CDT): Chronic problem. Currently taking pravastatin 40mg. Last lipid panel: 08/04/23 LDL=89, TG=81. Assessment & Plan (12/15/2023 10:22 AM CDT): Chronic problem. On statin therapy, no changes. Vitamin D deficiency 05/13/2023 Assessment & Plan (07/04/2024 2:23 PM MAIL CLERK): Chronic problem. Currently taking vitamin D 5000IU daily. Assessment & Plan (12/15/2023 10:22 AM CDT): Chronic stable problem. Assessment & Plan (05/13/2023 4:38 PM MAIL CLERK): Of the 25 hydroxy vitamin-D levels Calcium and vitamin-D intake discussed Type 2 diabetes mellitus wit h hyperglycemia, with long-term current use of insulin 05/13/2023 Assessment & Plan (10/31/2024 10:34 AM CDT): Chronic problem. A1c worsened from 7.4% 07/04/24 to now 9.0%. Had been at [facility] with improved diet. Meeting with [facility] crew trainer today to get pump back on. [...] hours UTD on DM eye exam: 07/08/23 [facility] in [place]. UTD on labs. Strive for regular exercise [...] infection. Assessment & Plan (07/04/2024 2:23 PM MAIL CLERK): Chronic problem. A1c improved from 9.5% 05/21/24 to now 7.5%. has been at [facility] since 05/2024; much improved diet. Again went [...] hours UTD on DM eye exam: 07[facility]08[facility]23 [facility] [place]. UTD on labs. Strive for regular exercise [...] hours UTD on DM eye exam: 07/08/23 [facility] in [place]. UTD on labs. Strive for regular exercise [...] rx. Assessment & Plan (08/24/2023 12:14 PM MAIL CLERK): Chronic problem. A1c currently uncontrolled at 9.6%. [...] 4 hours DM eye exam: summer 2022 [facility] in [place]. Letter sent to get copy of report. [...] infection. Assessment & Plan (05/13/2023 4:37 PM MAIL CLERK): Hba1c was Lab Results Component Value Date [...] results. Assessment & Plan (07/04/2024 1:18 PM MAIL CLERK): Chronic problem. Clinically euthyroid. Currently taking levothyroxine [...] TFTs. Assessment & Plan (08/24/2023 12:15 PM MAIL CLERK): Chronic problem. Clinically euthyroid. Currently taking levothyroxine 88mcg Wednesday-Wednesday & 2 tabs on Wednesday since 04/2023. Will update TFTs today. Will update labs today. Does not mychart. Verified phone #/address to contact re: results. Assessment & Plan (05/13/2023 4:38 PM MAIL CLERK): Continue levothyroxine Update TFTs Age-related osteoporosis wit [...] states that she's having it done at [facility] 05/01/25. Assessment & Plan (07/04/2024 1:18 PM MAIL CLERK): Chronic problem. Taking Prolia 60mg every 6 [...] sent. Assessment & Plan (08/24/2023 12:16 PM MAIL CLERK): Chronic problem. Taking Prolia 60mg every 6 mos (last injection 05/2023). Vitamin D level normal at 67 when checked 04/2023. Unable to see any past Dexa/imaging. Release signed to get copy of results from PCP. Assessment & Plan (05/13/2023 4:39 PM MAIL CLERK): Fall precautions Calcium and vitamin-D intake continue Prolia Acute urinary tract infection 10/15/2022 Depressive disorder 04/07/2022 Dyslipidemia 03/03/2022 COVID-19 02/16/2022 Diabetic peripheral neuropathy 01/30/2021 Assessment & Plan (10/31/2024 10:05 AM CDT): Chronic problem. Currently taking Gabapentin 600mg tid. Reviewed foot care; needs to lotion daily. Aware to check feet nightly, not to go barefoot. Assessment & Plan (07/04/2024 1:18 PM MAIL CLERK): Chronic problem. Currently taking Gabapentin 600mg tid. Reviewed foot care; needs to lotion daily. Aware to check feet nightly, not to go barefoot. Assessment & Plan (03/22/2024 11:58 AM CDT): Chronic problem. Currently taking Gabapentin 600mg tid. Reviewed foot care; needs to lotion daily. Aware to check feet nightly, not to go barefoot. Assessment & Plan (08/24/2023 12:17 PM MAIL CLERK): Chronic problem. Currently taking Gabapentin 600mg tid. Reviewed foot care; needs to lotion daily. Aware to check feet nightly, not to go barefoot. Assessment & Plan (05/13/2023 4:37 PM MAIL CLERK): Foot care discussed Gabapentin 300 mg Q [...] 10/31/2024 Assessment & Plan (05/23/2024 2:11 PM MAIL CLERK): Home insulin pump and dexacom type device for glucose monitoring. Consult endocrine for pump management while admitted POCT glucose SSI regimen per endocrine If pump is off give Lantus 15 units daily and Lispro 5 untis TID AC LD ssi Encounters Date Type Department Care Team Description 03/02/2025 Orders Only [facility] [address] [id number] ProviderJoanne MD 02/05/2025 Telephone [facility] Diabetes [facility] Endocrinology [facility] [place] [address] Kait Landrum MD Appointment from Last 3 [...] 36.7 C (98.1 F) 05/24/2024 3:56 PM MAIL CLERK Respiratory Rate 16 10/31/2024 9:47 AM CDT Oxygen Saturation 92% 05/24/2024 3:56 PM MAIL CLERK Inhaled Oxygen Concentration - - Weight 78.5 [...] 05/13/2024 05/13/2023 Dilated Eye Exam 07/08/2024 07/08/2023 Covid-19 Vaccine (2024-2 6 season) 2025 05/28/2021, 09/13/2020, 08/08/2020 Influenza Vaccine (#1) 2025 , 04/03/2021, 04/15/2020, Additional history exists Hemoglobin A1C 05/03/2025 10/31/2024, 0 12/2024, 07/04/2024, Additional history exists Fall Risk Assessment 05/24/2025 05/24/2024, 05/13/20 23 Lipid Panel 07/04/2025 07/04/2024, 04/29, 08/04/2023, Additional history exists eGFR 07/05/2025 07/05/2024, 0 12/2024, 05/23/2024, Additional history exists Albumin Creatinine Ratio, Urine 10/31/2025 10/31/2024, 08/24/2023, 08/04/2023 Foot Exam 10/31/2025 10/31/2024, 08/24/2023 TSH Level 10/31/2025 10/31/2024, 0 12/2024, 05/21/2024, Additional history exists DTaP/Tdap/Td Vaccine (2 - Td or Tdap) 01/06/2033 01/06/2023 Pneumococcal vaccine 65+ Completed 05/16/2018, 04/29 Medical Devices Implanted Type Area Professor Of [employer] Device Identifier Shelf Expiration Date Model / Serial / Lot [employer] Nail Intramedullary Femoral Retrograde T2 Alpha [id number] Titanium 2339-1238s - [id number] Implanted:Qty: 1 on 05/22/2024 by Ruy Griggs MD at [facility] Left: Femur [employer] 05/27/2032 [id number] S / / [id number] [employer] Screw Bone 5mm 80mm Lock Strl 2361-5080s - [id number] Implanted:Qty: 1 on 05/22/2024 by Ruy Griggs MD at [facility] Left: Femur [employer] [id number] 01/25/2034 [id number] S / / [id number] [employer] Screw Bone 5mm 75mm Lock Strl 2361-5075s - [id number] Implanted:Qty: 1 on 05/22/2024 by Ruy Griggs MD at [facility] Left: Femur [employer] [id number] 01/25/2034 8444-0032 S / / [id number] [employer] Screw Bone 5mm 80mm Lock Strl 2361-5080s - [id number] Implanted:Qty: 1 on 05/22/2024 by Ruy Griggs MD at [facility] Left: Femur [employer] [id number] 02/25/2034 6095-6791 S / / [id number] [employer] Screw Bone Locking Cannulated Tibial Oversized Thread Black T2 Alpha 5.0x85mm Titanium 2361-5085s - [id number] Implanted:Qty: 1 on 05/22/2024 by Ruy Griggs MD at [facility] Left: Femur [employer] [id number] 02/25/2034 5552-9087 S / / [id number] [employer] Screw Bone 5mm 40mm T2 Alpha Lock Strl 2360-5040s - [id number] Implanted:Qty: 1 on 05/22/2024 by Ruy Griggs MD at [facility] Left: Femur [employer] [id number] 02/25/2034 1086-0326 S / / [id number] [employer] Screw Bone 5mm 40mm T2 Alpha Lock Strl 2360-5040s - [id number] Implanted:Qty: 1 on 05/22/2024 by Ruy Griggs MD at [facility] Left: Femur [employer] [id number] 01/25/2034 4772-8131 S / / [id number] Procedures Procedure Name Priority Date/Time Associated Diagnosis [...] insulin (HCC) EGFR Routine 07/05/2024 2:07 PM MAIL CLERK LIPID PANEL Routine 07/04/2024 HM DIABETES EYE EXAM Routine 07/08/2023 10:42 AM MAIL CLERK from Last 3 Months or Most Recently Relevant to Health Maintenance Results * (ABNORMAL) Thyroid Function [place] (10/31/2024 10:36 AM CDT) TSH 19.10(H) 0.30 - 4.20 mcIUnit/mL Blood 10/31/2024 10:3 6 AM CDT 10/31/2024 7:00 PM CDT us Gudelia Johnson NP LAB BLOOD ORDERABLES Bere l Result [facility] [address] [place] [address] * Albumin Creatinine Ratio, Urine (10/31/2024 10:36 AM CDT) Albumin Ur 42.0 mg/L Comment: Interpretive Data No reference range established. Current interpretive data was last revised 2018. Creatinine Ur 168.5 mg/dL [facility] Comment: Interpretive Data No reference range established. Current interpretive data was last revised 2018. Albumin Creatinine Ratio, Ur 25 1 - 29 mg/g [facility] Urine 10/31/2024 10:3 6 AM CDT 10/31/2024 7:00 PM CDT Gudelia Johnson ELECTRIC FORK OPERATOR LAB URINE ORDERABLES Bere l Result [facility] [address] [place] [address] * (ABNORMAL) POCT hemoglobin A1c (10/31/2024 9:51 AM CDT) Hemoglobin A1C, POC 9.0(A) 4.0 - 5.6 % Blood 10/31/2024 9:51 AM CDT Gudelia Johnson ELECTRIC FORK OPERATOR POINT OF CARE TEST ORDERA BLES Final Result * (ABNORMAL) eGFR (07/05/2024 2:07 PM MAIL CLERK) eGFR 59(L) >=60 mL/min/1. 73 m2 Comment: [...] was last reviewed 2021. Testing performed by: [facility], [place] [address] Blood 07/05/2024 2:07 PM MAIL CLERK 07/05/2024 6:42 PM MAIL CLERK Anitha Dean NP LAB BLOOD ORDERABLES Final Resu lt [facility] [address] [place] [address] * Lipid panel (07/04/2024) SCRIBED Cholesterol, Total 141 140 - 199 mg/dL EXTERNAL LAB SCRIBED Triglycerides 142 0 - 150 mg/dL EXTERNAL LAB SCRIBED HDL 73 >=40 mg/dL EXTERNAL LAB SCRIBED LDL 40 0 - 130 mg/dL EXTERNAL LAB Scribed Non-HDL Cholesterol 0 NONE mg/dL EXTERNAL LAB Comment:No value given SCRIBED Total Cholesterol/HDL Ratio 0 NONE EXTERNAL LAB Comment:No value given Blood 07/04/2024 Historical Provider LAB BLOOD ORDERABLES Edit ed Result - Final Performing Organization Address City/[facility]/ZIP Co de Phone Number EXTERNAL LAB * (ABNORMAL) DIABETES EYE EXAM (07/08/2023 10:42 AM MAIL CLERK) Historical Provider HEALTH MAINTENANCE Final Result from Last 3 Months or Most Recently Relevant to Health Maintenance Insurance MEDICARE BLUE TRADITIONAL [place] TRADITIONAL [employer]OS MEDICARE MEDICARE [facility] OOS Advance Directives For more information, please contact: [phone] * Full Code (Latest Code Status on File) Date Activated Date Inactivated Comments 05/21/2024 11:30 PM 05/25/2024 12:27 AM Care Teams Biology Research Assistant Relationship Specialty Start Date End Date Jae Benitez MD [address] [address] PCP - General Internal Medicine 12/02/20
== END 2025-05-01 09:34 | disposition home or self-care (01) ==
LOC: ANHFOHIMG 09:35
PROVIDERS: PCP Internal Medicine; Visit Provider Internal Medicine
DX: Z12.31 Encounter for screening mammogram for malignant neoplasm of breast (principal); M81.0 Age-related osteoporosis without current pathological fracture; M85.88 Other specified disorders of bone density and structure, other site
CPT/HCPCS: 77063; 77067; 77080